=== PATIENT | female | born 1985 | race Two or more races ===

== ENCOUNTER 2020-01-28 14:16 | Outpatient (REF) | payer OTHER, SELFPAY | END 2020-01-28 14:17 | disposition home or self-care (01) | LOC: HO.LAB 14:16 | PROVIDERS: PCP Internal Medicine; Visit Provider Internal Medicine | DX: Z20.828 Contact with and (suspected) exposure to other viral communicable diseases (principal) | CPT/HCPCS: 87635 ==

== ENCOUNTER 2020-02-23 13:34 | Outpatient (REF) | payer OTHER, SELFPAY | END 2020-02-23 13:35 | disposition home or self-care (01) | LOC: HO.LAB 13:34 | PROVIDERS: Visit Provider Internal Medicine | DX: Z20.828 Contact with and (suspected) exposure to other viral communicable diseases (principal) | CPT/HCPCS: C9803; U0003 ==

== ENCOUNTER 2020-03-02 15:49 | Emergency (ER) | payer OTHER, SELFPAY ==
[2020-03-02 16:38] VITALS: BP 152/92; PULSE 80; RESP 16; TEMP 36.2; O2SAT 99; BMI 46.0
--- NOTE | 2020-03-02 19:38 | CT_ITS ---
EXAMINATION: CT ABDOMEN AND PELVIS WITHOUT CONTRAST CLINICAL INFORMATION: Right flank pain COMPARISON: CT scan abdomen pelvis 12/11/2019 TECHNIQUE: Multidetector volumetric imaging was performed from the superior aspect of the liver through the pubic symphysis. Sagittal and coronal reformatted images were obtained on the technologist's workstation. This CT examination was performed using dose optimization techniques as appropriate, variously including the following: *Automated exposure control *Adjustment of mA and/or kV according to patient size (this includes techniques or standardized protocols for targeted exams where dose is matched to indication/reason for exam; i.e. extremities or head) *Use of iterative reconstruction technique DLP: 1117 mGy-cm FINDINGS: LUNG BASES: The visualized lung bases are unremarkable. LIVER, GALLBLADDER, AND BILIARY TREE: The liver is normal in size, shape, and attenuation. No focal hepatic lesion or biliary ductal dilatation is present. The gallbladder is unremarkable with no evidence of radiopaque gallstones, gallbladder wall thickening, or obvious pericholecystic inflammatory changes. PANCREAS: Unremarkable. SPLEEN: Unremarkable. ADRENAL GLANDS: Unremarkable. KIDNEYS AND URETERS: Right kidney: [id number] hydronephrosis of right kidney with distention renal pelvis calyces and the right ureter. There is an obstructing 2 mm stone in the distal right ureter at about the level of the pelvic inlet. Axial image 534 series 4. There are numerous small stones in the right kidney measuring between 1 and 3 mm. Left kidney: There are numerous small stones in the left kidney measuring between 1 and 3 mm. There is a linear stone in the lower pole of left kidney measuring 1 x 0.4 cm. There are no ureteral calculi. There is no hydronephrosis. BLADDER: No stone in the bladder. No bladder mass or inflammation. GASTROINTESTINAL TRACT: The small and large bowel are unremarkable. The appendix is unremarkable. ABDOMINAL WALL: Small fat-containing umbilical hernia. LYMPH NODES: Normal. VASCULAR: Unremarkable. PELVIC VISCERA: Unremarkable. OSSEOUS STRUCTURES: Partial fusion L4-L5 vertebrae. CT/CT abdomen pelvis wo con IMPRESSION: 1. Moderate to marked hydronephrosis of right kidney due to an obstructing 2 mm stone in the distal right ureter. 2. Numerous small stones in both kidneys.
--- NOTE | 2020-03-02 19:42 | ED.ABDPAIN ---
HPI - Abdominal Pain General Chief Complaint: Abdominal Pain Stated Complaint: right side pain Time Seen by Provider: 03/02/20 19:38 History of Present Illness HPI narrative: Patient is a 34-year-old female with a history of renal colic presents today with having abdominal pain over the right flank area radiating to the right lower quadrant. The pain is sharp in nature similar to previous bouts of kidney stone. Has been ongoing for about 3 days. Comes and go no specific trigger associated with nausea. No vomiting. No change in bowel movement. No pain on urination. No coughing or congestion or upper respiratory symptoms. Patient's denies any past medical problems. Did not miss her menstrual period. The pain is sharp 11/28 no specific trigger. Not associated with food. Related Data Previous Rx's Medication Instructions Recorded ibuprofen 400 mg PO Q6H PRN #20 tab 03/02/20 ondansetron 4 mg PO TID PRN 5 Days #10 tab 03/02/20 tamsulosin [Flomax] 0.4 mg PO DAILY #7 cap 03/02/20 Allergies Allergy/AdvReac Type Severity Reaction Status Date / Time canned food Allergy Unknown rash Verified 03/02/20 16:38 RED MEAT Allergy Unknown UNK Uncoded 03/02/20 16:38 Review of Systems Review of Systems Constitutional: No Weight loss, No Fever, No Chills, No Night Sweats, No Fatigue, No Malaise ENT/Mouth: No Hearing loss, No Ear Pain, No Nasal Congestion, No Sinus Pain, No Hoarseness, No sore throat, No Rhinorrhea, No Swallowing Difficulty Eyes: No Eye Pain, No Swelling, No Redness, No Foreign Body, No Discharge, No Vision Changes Cardiovascular: No Chest Pain, No SOB, No Dyspnea on Exertion, No Orthopnea, No Edema, No Palpitations Respiratory: No Cough, No Sputum, No Wheezing, No Smoke Exposure, No Dyspnea Gastrointestinal: Positive Nausea, No Vomiting, No Diarrhea, No Constipation, positive abdominal Pain, No Hematochezia, No Melena Genitourinary: no irregular bleeding, No Dysuria, No Urinary Frequency, No Hematuria, No Urinary Incontinence, No Urgency, No Flank Pain, No Urinary Flow Changes, No Hesitancy Musculoskeletal: No joint pain, No Myalgias, No Joint Swelling Skin: No Skin Lesions, No rash Neuro: No Weakness, No Numbness, No Paresthesias, No Loss of Consciousness, No Dizziness, No Headache Psych: No Anxiety/Panic, No Depression, No SI/HI/AH/VH, No Social Issues, Heme/Lymph: No Bruising, No Bleeding,No Lymphadenopathy Endocrine: No Polyuria, No Polydipsia, No Temperature Intolerance Physical Exam Vital Signs: Vital Signs: Last Vital Signs Temp 97.9 F 03/02/20 21:31 Pulse 67 03/02/20 21:31 Resp 18 03/02/20 21:31 BP 116/68 03/02/20 21:31 Pulse Ox 99 03/02/20 21:31 Body Mass Index 46.0 Appearance: Alert. Oriented X3. No acute distress. Eyes: Pupils equal, round and reactive to light. ENT: Pharynx normal. Neck: Normal inspection. Neck supple. No lymph nodes noted. No crepitus CVS: Normal heart rate and rhythm. Pulses normal. Normal S1 and S2 Respiratory: No respiratory distress. Breath sounds normal. No Wheezing. No rales Abdomen: Soft and nontender. No rigidity. No distention. good BS x4 Skin: Skin warm and dry. Normal skin color. Normal skin turgor. Extremities: No lower extremity edema. Neurovascular intact to all extremities. No Lacerations. No Rash Neuro: Oriented X 3. No motor deficit. No sensory deficit. Moving all extermities. No slurred speech MDM - Abdominal Pain MDM Narrative Medical decision making narrative: Patient's CT scan positive for having a 2 mm stone at the right UVJ area. Patient's urine is not infected. Pain is controlled. Patient's creatinine is normal. Will discharge patient home close follow-up with Urology on an outpatient basis. Currently in stable condition. test is negative no evidence of ectopic. Medical Records Attestation: I reviewed the patient's medical records. Lab Data Attestation: I reviewed the patient's lab results. Result diagrams: 03/02/20 20:12 03/02/20 20:12 Labs: Lab Results 03/02/20 03/02/20 03/02/20 Range/Units 20:12 20: 20:12 WBC 12.8 H (4.8-10.8) X10*3/uL RBC 4.93 (4.20-5.50) X10*6/uL Hgb 12.4 (12.0-16.0) g/dl Hct 40.0 (37-47) % MCV 81.1 (80-98) fL MCH 25.2 L (27.0-33.0) pg MCHC 31.0 (31.0-35.0) g/dl RDW 14.9 (11.0-16.0) % Plt Count 296 (160-400) X10*3/uL MPV 10.1 (9.4-12.3) fL Immature Gran % (Auto) 0.4 (0.0-0.4) % Neut % (Auto) 64.0 (45-73) % Lymph % (Auto) 24.1 (20-40) % [place] % (Auto) 6.5 (2-11) % Eos % (Auto) 3.9 (0-4) % Baso % (Auto) 1.1 (0-2) % Lymph # (Auto) 3.1 (1.2-4.9) X10*3/uL [place] # (Auto) 0.8 (0.1-1.2) X10*3/uL Eos # (Auto) 0.5 H (0.0-0.4) X10*3/uL Baso # (Auto) 0.1 (0.0-0.2) X10*3/uL Abs Immat Gran (auto) 0.05 H (0.00-0.03) X10*3/uL Absolute Neuts (auto) 8.2 (2.0-8.3) X10*3/uL Absolute Nucleated RBC 0.000 (0.0-0.012) X10*3/uL Nucleated RBC % (auto) 0.0 (0.0-0.2) /100WBC Hold Blue Top SEE NOTE Sodium 139 (135-145) mmol/L Potassium 4.1 (3.3-5.1) mmol/l Chloride 103 (96-108) mmol/L Carbon Dioxide 28 (22-29) mmol/L Anion Gap 12 (12-20) BUN 16 (9-16) mg/dL Creatinine 0.96 (0.5-1.4) mg/dL Estim Creat Clear Calc 104.4 Estimated GFR > 60 Random Glucose 92 (60-115) mg/dL Calcium 8.5 (8.4-10.2) mg/dL Total Bilirubin 0.3 (0.0-1.0) mg/dL AST 16 (5-31) U/L ALT 18 (0-31) U/L Alkaline Phosphatase 75 (39-117) U/L Total Protein 7.1 (6.5-8.0) g/dL Albumin 3.8 (3.5-5.0) g/dL Lipase 12 (8-78) U/L Urine Color Urine Appearance Urine pH (5.0-8.0) Ur Specific [place] (1.005-1.025) Urine Protein (NEG-TRACE) MG/DL Urine Glucose (UA) (NEG) MG/DL Urine Ketones (NEG) MG/DL Urine Blood (NEG) Urine Nitrite (NEG) Ur Leukocyte Esterase (NEG) Urine RBC (0) /HPF Urine WBC (0-4) /HPF Ur Squamous Epith Cells /LPF Urine Bacteria /LPF Urine Test (NEGATIVE) 03/02/20 Range/Units 20:19 WBC (4.8-10.8) X10*3/uL RBC (4.20-5.50) X10*6/uL Hgb (12.0-16.0) g/dl Hct (37-47) % MCV (80-98) fL MCH (27.0-33.0) pg MCHC (31.0-35.0) g/dl RDW (11.0-16.0) % Plt Count (160-400) X10*3/uL MPV (9.4-12.3) fL Immature Gran % (Auto) (0.0-0.4) % Neut % (Auto) (45-73) % Lymph % (Auto) (20-40) % [place] % (Auto) (2-11) % Eos % (Auto) (0-4) % Baso % (Auto) (0-2) % Lymph # (Auto) (1.2-4.9) X10*3/uL [place] # (Auto) (0.1-1.2) X10*3/uL Eos # (Auto) (0.0-0.4) X10*3/uL Baso # (Auto) (0.0-0.2) X10*3/uL Abs Immat Gran (auto) (0.00-0.03) X10*3/uL Absolute Neuts (auto) (2.0-8.3) X10*3/uL Absolute Nucleated RBC (0.0-0.012) X10*3/uL Nucleated RBC % (auto) (0.0-0.2) /100WBC Hold Blue Top Sodium (135-145) mmol/L Potassium (3.3-5.1) mmol/l Chloride (96-108) mmol/L Carbon Dioxide (22-29) mmol/L Anion Gap (12-20) BUN (9-16) mg/dL Creatinine (0.5-1.4) mg/dL Estim Creat Clear Calc Estimated GFR Random Glucose (60-115) mg/dL Calcium (8.4-10.2) mg/dL Total Bilirubin (0.0-1.0) mg/dL AST (5-31) U/L ALT (0-31) U/L Alkaline Phosphatase (39-117) U/L Total Protein (6.5-8.0) g/dL Albumin (3.5-5.0) g/dL Lipase (8-78) U/L Urine Color YELLOW Urine Appearance HAZY Urine pH 6.0 (5.0-8.0) Ur Specific [place] 1.020 (1.005-1.025) Urine Protein 1+ H (NEG-TRACE) MG/DL Urine Glucose (UA) NEG (NEG) MG/DL Urine Ketones NEG (NEG) MG/DL Urine Blood 3+ H (NEG) Urine Nitrite NEG (NEG) Ur Leukocyte Esterase NEG (NEG) Urine RBC 5-9 H (0) /HPF Urine WBC 0 (0-4) /HPF Ur Squamous Epith Cells 1+ /LPF Urine Bacteria 1+ /LPF Urine Test NEGATIVE (NEGATIVE) Discharge Plan Discharge Clinical Impression: Renal colic Patient Disposition: Home, Self-Care Instructions: Renal Colic (ED) Prescriptions: New ibuprofen 400 mg tablet 400 mg PO Q6H PRN (Reason: pain) Qty: 20 RF: 0 ondansetron 4 mg tablet,disintegrating 4 mg PO TID PRN (Reason: nausea and vomiting) 5 Days Qty: 10 RF: 0 tamsulosin [Flomax] 0.4 mg capsule 0.4 mg PO DAILY Qty: 7 RF: 0 Referrals: Jack Johnson MD [Physician] - 2 days [facility] Past Medical History Attestation statement: The following information was validated with the patient. Medical History Active asthma Fibromyalgia Hypertension Surgical History History of extraction of renal calculus History of tubal ligation Family History Family History Father Anemia Sister Cervical cancer Maternal Aunt Breast cancer Diabetes Mother No problems noted. Social History Social History Alcohol intake: never Smoking Status: Never smoker Use of substances other than those prescribed or required for medical reasons: No Advance Directives: No Advance Directives Information Provided: No
[2020-03-02 20:00] VITALS: BP 127/71; PULSE 71; RESP 18; TEMP 36.4; O2SAT 99
[2020-03-02] MEDS: 0.9 % Sodium Chloride 1,000 ML 999 ML IVCONT (20:18)
[2020-03-02] MEDS: Ketorolac Tromethamine 30 MG/ML VIAL IVPUSH (20:18)
[2020-03-02 20:27] LABS: Glucose Urine UA NEG (NEG); Leukocyte Esterase Urine NEG (NEG); Nitrite Urine NEG (NEG); Urine Blood 3+ (NEG); Urine Ketones NEG (NEG); Urine Protein 1+ MG/DL (NEG-TRACE)
[2020-03-02 20:28] LABS: Appearance Urine HAZY; Color Urine YELLOW
[2020-03-02 20:28] LABS: MANUAL DIFF FLAG NO
[2020-03-02 20:30] LABS: Basophils Absolute Auto 0.1 X10*3/uL (0.0-0.2); Basophils Percent Auto 1.1 % (0-2); Eosinophils Absolute Auto 0.5 X10*3/uL (0.0-0.4); Eosinophils Percent Auto 3.9 % (0-4); Hemoglobin 12.4 g/dl (12.0-16.0); Imm Gran Abs Auto 0.05 X10*3/uL (0.00-0.03); Imm Gran Pct Auto 0.4 % (0.0-0.4); Lymphocytes Absolute Auto 3.1 X10*3/uL (1.2-4.9); Lymphocytes Percent Auto 24.1 % (20-40); Mean Corpuscular Hemoglobin 25.2 pg (27.0-33.0); Mean Corpuscular Volume 81.1 fL (80-98); Mean Platelet Volume 10.1 fL (9.4-12.3); Monocytes Absolute Auto 0.8 X10*3/uL (0.1-1.2); Monocytes Percent Auto 6.5 % (2-11); Neutrophils Absolute Auto 8.2 X10*3/uL (2.0-8.3); Platelet Count 296 X10*3/uL (160-400); Red Blood Count 4.93 X10*6/uL (4.20-5.50); Red Cell Distribution Width 14.9 % (11.0-16.0); White Blood Count 12.8 X10*3/uL (4.8-10.8)
[2020-03-02 20:30] LABS: UPreg QC Valid YES; Urine Pregnancy NEGATIVE (NEGATIVE)
[2020-03-02 20:33] LABS: Bacteria Urine 1+ /LPF; Squamous Epithelial Cell Urine 1+ /LPF; WBC Urine 0 /HPF (0-4)
[2020-03-02 20:56] LABS: Alanine Aminotransferase 18 U/L (0-31); Albumin Level 3.8 g/dL (3.5-5.0); Alkaline Phosphatase 75 U/L (39-117); Anion Gap 12 (12-20); Aspartate Amino Transferase 16 U/L (5-31); Bilirubin Total 0.3 mg/dL (0.0-1.0); Blood Urea Nitrogen 16 mg/dL (9-16); Calcium 8.5 mg/dL (8.4-10.2); Carbon Dioxide 28 mmol/L (22-29); Chloride 103 mmol/L (96-108); Creatinine Clr Calc Pharmacy 104.4; Estimated Glomerular Filt Rate > 60; Glucose Random 92 mg/dL (60-115); Lipase 12 U/L (8-78); Potassium 4.1 mmol/l (3.3-5.1); Sodium 139 mmol/L (135-145); Total Protein 7.1 g/dL (6.5-8.0)
[2020-03-02 21:31] VITALS: BP 116/68; PULSE 67; RESP 18; TEMP 36.6; O2SAT 99
== END 2020-03-02 22:43 | disposition home or self-care (01) ==
PROVIDERS: Emergency Provider Emergency Medicine Emergency Medical Services; PCP Internal Medicine
DX: N23 Unspecified renal colic (principal); I10 Essential (primary) hypertension; Z79.899 Other long term (current) drug therapy
CPT/HCPCS: 36415; 74176; 80053; 81001; 81025; 83690; 85025; 96361; 96374; 99284; J1885

== ENCOUNTER 2020-03-27 08:48 | Emergency (ER) | payer OTHER, SELFPAY ==
[2020-03-27 09:04] VITALS: BP 137/87; PULSE 98; RESP 18; TEMP 36.9; O2SAT 99; BMI 42.5
--- NOTE | 2020-03-27 09:09 | ED_ITS ---
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 Mode of arrival: ambulatory Limitations: no limitations History of Present Illness HPI narrative: just seen on 03/02 for 2mm stone R UVJ did not follow up with her Urologist who is on vacation, noted fevers and dysuria last night MD elicited complaint: abdominal pain and flank pain Pertinent past history: kidney stones Onset (ago): day(s) (3) Severity: similar to previous episodes Quality: stabbing Radiation: R flank Migration to: no migration Exacerbating factors: nothing Relieving factors: nothing Context: history of similar episodes Associated symptoms: nausea, fever, chills and dysuria Related Data Previous Rx's Medication Instructions Recorded ibuprofen 400 mg PO Q6H PRN #20 tab 03/02/20 ondansetron 4 mg PO TID PRN 5 Days #10 tab 03/02/20 tamsulosin [Flomax] 0.4 mg PO DAILY #7 cap 03/02/20 cefuroxime axetil 500 mg PO BID 7 Days #28 tab 03/27/20 hydrocodone-acetaminophen 1 tab PO Q6H PRN #15 tab 03/27/20 ibuprofen 600 mg PO Q6H PRN #30 tab 03/27/20 ondansetron 4 mg PO Q8H PRN #20 tab 03/27/20 prednisone 40 mg PO DAILY 5 Days #10 tab 03/27/20 tamsulosin 0.4 mg PO DAILY 5 Days #5 cap 03/27/20 Allergies Allergy/AdvReac Type Severity Reaction Status Date / Time canned food Allergy Unknown rash Verified 03/02/20 16:38 RED MEAT Allergy Unknown UNK Uncoded 03/02/20 16:38 Review of Systems Review of Systems Constitutional : pos Fever, pos Chills ENT/Mouth : No sore throat Eyes: No Eye Pain, No Swelling, No Redness Cardiovascular : No Chest Pain, No SOB Respiratory : No Cough, No Sputum, No Wheezing Gastrointestinal : positive Nausea, no Vomiting, No Diarrhea, positive abdominal pain Genitourinary : positive Dysuria, positive urinary frequency, no Hematuria, positive Flank Pain, positive hesitancy Musculoskeletal : No joint pain, No Myalgias Skin : No Skin Lesions, No rash Neuro : No Weakness, No Numbness, No Headache Psych : No Anxiety/Panic, No Depression Heme/Lymph: No Bruising, No Lymphadenopathy Endocrine : No Polyuria, No Polydipsia All other systems reviewed and are negative Physical Exam Vital Signs: Vital Signs: Last Vital Signs Temp 98.4 F 03/27/20 09:04 Pulse 68 03/27/20 10:58 Resp 16 03/27/20 10:58 BP 114/68 03/27/20 10:58 Pulse Ox 99 03/27/20 09:04 Body Mass Index 42.5 Appearance: Alert. Oriented X3. No acute distress. Eyes: Pupils equal, round and reactive to light. ENT: Pharynx normal. Neck: Normal inspection. Neck supple. CVS: Normal heart rate and rhythm. Pulses normal. Respiratory: No respiratory distress. Breath sounds normal. Abdomen: Soft and non-tender. Back: + R sided CVA ttp Skin: Skin warm and dry. Normal skin color. Normal skin turgor. Extremities: No lower extremity edema. No calf ttp Neuro: Oriented X 3. No motor deficit. No sensory deficit. Course Course Course Narrative: not toxic, no signs of sepsis, can tolerate PO at this time will DC with Urology follow up , still has some R sided hydro likely new stone MDM - Abdominal Pain MDM Narrative Medical decision making narrative: 34 yo female with hx of renal colic just dx with 2mm R UVJ stone unsure if she passed it but 3 days of R flank pain yeste rday noted fevers with dysuria - will need labs, UA, US of R kidney, IVF, IV Toradol and IV morphine for pain. Lab Data Result diagrams: 03/27/20 09:25 03/27/20 09:25 Labs: Lab Results 03/27/20 03/27/20 03/27/20 Range/Units 09:25 09:25 09:25 WBC 6.5 (4.8-10.8) X10*3/uL RBC 5.16 (4.20-5.50) X10*6/uL Hgb 13.0 (12.0-16.0) g/dl Hct 41.8 (37-47) % MCV 81.0 (80-98) fL MCH 25.2 L (27.0-33.0) pg MCHC 31.1 (31.0-35.0) g/dl RDW 14.9 (11.0-16.0) % Plt Count 258 (160-400) X10*3/uL MPV 10.6 (9.4-12.3) fL Immature Gran % (Auto) 0.3 (0.0-0.4) % Neut % (Auto) 62.1 (45-73) % Lymph % (Auto) 20.0 (20-40) % [place] % (Auto) 14.2 H (2-11) % Eos % (Auto) 2.3 (0-4) % Baso % (Auto) 1.1 (0-2) % Lymph # (Auto) 1.3 (1.2-4.9) X10*3/uL [place] # (Auto) 0.9 (0.1-1.2) X10*3/uL Eos # (Auto) 0.2 (0.0-0.4) X10*3/uL Baso # (Auto) 0.1 (0.0-0.2) X10*3/uL Abs Immat Gran (auto) 0.02 (0.00-0.03) X10*3/uL Absolute Neuts (auto) 4.0 (2.0-8.3) X10*3/uL Absolute Nucleated RBC 0.000 (0.0-0.012) X10*3/uL Nucleated RBC % (auto) 0.0 (0.0-0.2) /100WBC Hold Blue Top SEE NOTE Sodium 138 (135-145) mmol/L Potassium 4.0 (3.3-5.1) mmol/l Chloride 103 (96-108) mmol/L Carbon Dioxide 27 (22-29) mmol/L Anion Gap 12 (12-20) BUN 13 (9-16) mg/dL Creatinine 0.93 (0.5-1.4) mg/dL Estim Creat Clear Calc 114.3 Estimated GFR > 60 Random Glucose 103 (60-115) mg/dL Calcium 8.6 (8.4-10.2) mg/dL Magnesium 1.8 (1.6-2.6) mg/dL Total Bilirubin 0.4 (0.0-1.0) mg/dL Direct Bilirubin < 0.2 (0.0-0.5) mg/dL AST 14 (5-31) U/L ALT 16 (0-31) U/L Alkaline Phosphatase 71 (39-117) U/L Total Protein 7.1 (6.5-8.0) g/dL Albumin 3.8 (3.5-5.0) g/dL Lipase 12 (8-78) U/L Urine Color Urine Appearance Urine pH (5.0-8.0) Ur Specific [place] (1.005-1.025) Urine Protein (NEG-TRACE) MG/DL Urine Glucose (UA) (NEG) MG/DL Urine Ketones (NEG) MG/DL Urine Blood (NEG) Urine Nitrite (NEG) Ur Leukocyte Esterase (NEG) Urine RBC (0) /HPF Urine WBC (0-4) /HPF Ur Squamous Epith Cells /LPF Amorphous Sediment /LPF Urine Bacteria /LPF 03/27/20 Range/Units 09:25 WBC (4.8-10.8) X10*3/uL RBC (4.20-5.50) X10*6/uL Hgb (12.0-16.0) g/dl Hct (37-47) % MCV (80-98) fL MCH (27.0-33.0) pg MCHC (31.0-35.0) g/dl RDW (11.0-16.0) % Plt Count (160-400) X10*3/uL MPV (9.4-12.3) fL Immature Gran % (Auto) (0.0-0.4) % Neut % (Auto) (45-73) % Lymph % (Auto) (20-40) % [place] % (Auto) (2-11) % Eos % (Auto) (0-4) % Baso % (Auto) (0-2) % Lymph # (Auto) (1.2-4.9) X10*3/uL [place] # (Auto) (0.1-1.2) X10*3/uL Eos # (Auto) (0.0-0.4) X10*3/uL Baso # (Auto) (0.0-0.2) X10*3/uL Abs Immat Gran (auto) (0.00-0.03) X10*3/uL Absolute Neuts (auto) (2.0-8.3) X10*3/uL Absolute Nucleated RBC (0.0-0.012) X10*3/uL Nucleated RBC % (auto) (0.0-0.2) /100WBC Hold Blue Top Sodium (135-145) mmol/L Potassium (3.3-5.1) mmol/l Chloride (96-108) mmol/L Carbon Dioxide (22-29) mmol/L Anion Gap (12-20) BUN (9-16) mg/dL Creatinine (0.5-1.4) mg/dL Estim Creat Clear Calc Estimated GFR Random Glucose (60-115) mg/dL Calcium (8.4-10.2) mg/dL Magnesium (1.6-2.6) mg/dL Total Bilirubin (0.0-1.0) mg/dL Direct Bilirubin (0.0-0.5) mg/dL AST (5-31) U/L ALT (0-31) U/L Alkaline Phosphatase (39-117) U/L Total Protein (6.5-8.0) g/dL Albumin (3.5-5.0) g/dL Lipase (8-78) U/L Urine Color YELLOW Urine Appearance CLOUDY Urine pH 6.5 (5.0-8.0) Ur Specific [place] 1.020 (1.005-1.025) Urine Protein 2+ H (NEG-TRACE) MG/DL Urine Glucose (UA) NEG (NEG) MG/DL Urine Ketones NEG (NEG) MG/DL Urine Blood 3+ H (NEG) Urine Nitrite NEG (NEG) Ur Leukocyte Esterase 2+ H (NEG) Urine RBC 1-4 (0) /HPF Urine WBC 10-14 H (0-4) /HPF Ur Squamous Epith Cells 1+ /LPF Amorphous Sediment 1+ /LPF Urine Bacteria 1+ /LPF Discharge Plan Discharge Clinical Impression: Bilateral renal stones, UTI (urinary tract infection) Patient Disposition: Home, Self-Care Instructions: Urinary Tract Infection in Women (ED), Renal Colic (ED) Additional Instructions: return to ED for any worsening symptoms or concerns Prescriptions: New cefuroxime axetil 250 mg tablet 500 mg PO BID 7 Days Qty: 28 RF: 0 hydrocodone-acetaminophen 5-325 mg tablet 1 tab PO Q6H PRN (Reason: pain) Qty: 15 RF: 0 prednisone 20 mg tablet 40 mg PO DAILY 5 Days Qty: 10 RF: 0 ibuprofen 600 mg tablet 600 mg PO Q6H PRN (Reason: pain) Qty: 30 RF: 0 ondansetron 4 mg tablet,disintegrating 4 mg PO Q8H PRN (Reason: nausea and vomiting) Qty: 20 RF: 0 tamsulosin 0.4 mg capsule 0.4 mg PO DAILY 5 Days Qty: 5 RF: 0 No Action ibuprofen 400 mg tablet 400 mg PO Q6H PRN (Reason: pain) Qty: 20 RF: 0 ondansetron 4 mg tablet,disintegrating 4 mg PO TID PRN (Reason: nausea and vomiting) 5 Days Qty: 10 RF: 0 tamsulosin [Flomax] 0.4 mg capsule 0.4 mg PO DAILY Qty: 7 RF: 0 Referrals: Jack Johnson MD [Physician] - 3 days (if not better) Stand Alone Forms: Work/School Release Print Language: [facility] Past Medical History Attestation statement: The following information was validated with the patient. Medical History Active asthma Fibromyalgia Hypertension Surgical History History of extraction of renal calculus History of tubal ligation Family History Family History Father Anemia Sister Cervical cancer Maternal Aunt Breast cancer Diabetes Mother No problems noted. Social History Social History Alcohol intake: never Smoking Status: Never smoker Advance Directives: No Advance Directives Information Provided: No
--- NOTE | 2020-03-27 09:26 | US_ITS ---
EXAMINATION: ULTRASOUND KIDNEYS. CLINICAL INFORMATION: Right flank pain. History of stones COMPARISON: CT abdomen and pelvis without contrast 12/11/2019 TECHNIQUE: Routine grayscale retroperitoneal imaging was performed. FINDINGS: The right kidney measures 11.5 cm in length, 6.4 cm in AP and 5.1 cm in transverse dimension. There are echogenic pyramids and multiple echogenic stones. The largest stone lower pole measures 0.6 cm and midpole measures 0.5 cm. There is mild hydronephrosis with mild proximal ureteral dilatation measuring 1.0 cm. Cortical thickness is maintained normal. Left kidney measures 9.8 cm in length, 6.1 cm in AP and 6.0 cm in transverse dimension. There is normal cortical thickness that echogenic pyramids and echogenic stones. A lower pole echogenic stone measuring 0.8 cm and in the upper pole measuring 0.5 cm of the largest. No caliectasis or hydronephrosis seen. 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 There are bilateral nonobstructive echogenic renal calculi. There is mild right hydronephrosis and dilated right proximal ureter. No left-sided hydronephrosis seen.
[2020-03-27] MEDS: 0.9 % Sodium Chloride 1,000 ML 999 ML IVCONT (09:27)
[2020-03-27] MEDS: Morphine Sulfate 4 MG/ML CARTRIDGE IVPUSH (09:28)
[2020-03-27] MEDS: ondansetron HCL 4 MG/2 ML VIAL IVPUSH (09:28)
[2020-03-27] MEDS: Ketorolac Tromethamine 30 MG/ML VIAL IVPUSH (09:28)
[2020-03-27 09:32] LABS: MANUAL DIFF FLAG NO
[2020-03-27 09:35] LABS: Basophils Absolute Auto 0.1 X10*3/uL (0.0-0.2); Basophils Percent Auto 1.1 % (0-2); Eosinophils Absolute Auto 0.2 X10*3/uL (0.0-0.4); Eosinophils Percent Auto 2.3 % (0-4); Hematocrit 41.8 % (37-47); Imm Gran Abs Auto 0.02 X10*3/uL (0.00-0.03); Imm Gran Pct Auto 0.3 % (0.0-0.4); Lymphocytes Absolute Auto 1.3 X10*3/uL (1.2-4.9); Mean Corpuscular HGB Conc 31.1 g/dl (31.0-35.0); Mean Corpuscular Hemoglobin 25.2 pg (27.0-33.0); Mean Platelet Volume 10.6 fL (9.4-12.3); Monocytes Absolute Auto 0.9 X10*3/uL (0.1-1.2); Monocytes Percent Auto 14.2 % (2-11); Neutrophils Percent Auto 62.1 % (45-73); Platelet Count 258 X10*3/uL (160-400); Red Blood Count 5.16 X10*6/uL (4.20-5.50); Red Cell Distribution Width 14.9 % (11.0-16.0); White Blood Count 6.5 X10*3/uL (4.8-10.8)
[2020-03-27 09:37] LABS: Glucose Urine UA NEG (NEG); Leukocyte Esterase Urine 2+ (NEG); Nitrite Urine NEG (NEG); PH 6.5 (5.0-8.0); Urine Blood 3+ (NEG); Urine Ketones NEG (NEG); Urine Protein 2+ MG/DL (NEG-TRACE)
[2020-03-27 09:45] LABS: Color Urine YELLOW
[2020-03-27 09:46] LABS: Appearance Urine CLOUDY
[2020-03-27 10:05] LABS: Amorphous Sediment Urine 1+ /LPF; Bacteria Urine 1+ /LPF; Squamous Epithelial Cell Urine 1+ /LPF
[2020-03-27 10:06] LABS: Alanine Aminotransferase 16 U/L (0-31); Albumin Level 3.8 g/dL (3.5-5.0); Alkaline Phosphatase 71 U/L (39-117); Anion Gap 12 (12-20); Aspartate Amino Transferase 14 U/L (5-31); Bilirubin Direct < 0.2 mg/dL (0.0-0.5); Bilirubin Total 0.4 mg/dL (0.0-1.0); Blood Urea Nitrogen 13 mg/dL (9-16); Calcium 8.6 mg/dL (8.4-10.2); Carbon Dioxide 27 mmol/L (22-29); Chloride 103 mmol/L (96-108); Creatinine Clr Calc Pharmacy 114.3; Estimated Glomerular Filt Rate > 60; Glucose Random 103 mg/dL (60-115); Lipase 12 U/L (8-78); Magnesium 1.8 mg/dL (1.6-2.6); Sodium 138 mmol/L (135-145); Total Protein 7.1 g/dL (6.5-8.0)
[2020-03-27 10:58] VITALS: BP 114/68; PULSE 68; RESP 16
== END 2020-03-27 12:52 | disposition home or self-care (01) ==
PROVIDERS: Emergency Provider Emergency Medicine; PCP Internal Medicine
DX: N20.0 Calculus of kidney (principal); N39.0 Urinary tract infection, site not specified; I10 Essential (primary) hypertension; Z87.442 Personal history of urinary calculi
CPT/HCPCS: 36415; 76775; 80048; 80076; 81001; 83690; 83735; 85025; 87086; 96361; 96374; 96375; 99284; J1885; J2270; J2405

== ENCOUNTER → 2020-03-28 13:42 | Outpatient (BNVA) | payer OTHER, SELFPAY | PROVIDERS: PCP Internal Medicine; Visit Provider Urology | DX: N13.2 Hydronephrosis with renal and ureteral calculous obstruction (principal) | CPT/HCPCS: 99202 ==

== ENCOUNTER 2020-04-21 20:08 | Emergency (ER) | payer OTHER, SELFPAY ==
[2020-04-21 20:13] VITALS: BP 145/86; PULSE 98; RESP 18; TEMP 36.7; O2SAT 100; BMI 105.4
--- NOTE | 2020-04-21 21:42 | ED.ABDPAIN ---
HPI - Abdominal Pain General Chief Complaint: Abdominal Pain Stated Complaint: side pain Time Seen by Provider: 04/21/20 21:13 Source: patient Mode of arrival: ambulatory Limitations: language barrier History of Present Illness HPI narrative: Patient with history of kidney stone notice pain right flank since yesterday radiating to right lower quadrant since today , associated with nausea. Also patient complaining of dysuria for last 2 days denies any hematuria no vomiting no diarrhea MD elicited complaint: abdominal pain and flank pain Pertinent past history: kidney stones Onset (ago): day(s) (2) Pain Consistency: constant Location: RLQ and R flank Severity: moderate Quality: stabbing Radiation: RLQ Exacerbating factors: movement Relieving factors: nothing Associated symptoms: nausea Related Data Previous Rx's Medication Instructions Recorded amlodipine 5 mg tablet 5 mg PO DAILY #30 tab 03/27/20 cefuroxime axetil 500 mg PO BID 7 Days #28 tab 03/27/20 hydrocodone-acetaminophen 1 tab PO Q6H PRN #15 tab 03/27/20 ibuprofen 600 mg PO Q6H PRN #30 tab 03/27/20 ondansetron 4 mg PO Q8H PRN #20 tab 03/27/20 prednisone 40 mg PO DAILY 5 Days #10 tab 03/27/20 tamsulosin 0.4 mg PO DAILY 5 Days #5 cap 03/27/20 Allergies Allergy/AdvReac Type Severity Reaction Status Date / Time canned food Allergy Unknown rash Verified 03/02/20 16:38 RED MEAT Allergy Unknown UNK Uncoded 03/02/20 16:38 Review of Systems Review of Systems Constitutional : No Weight loss, No Fever, No Chills ENT/Mouth : No sore throat, No Rhinorrhea Eyes: No Eye Pain, No Swelling Cardiovascular : No Chest Pain, no palpitations Respiratory : No Cough, No Sputum, no shortness of breath Gastrointestinal : ++ Nausea, No Vomiting, No Diarrhea, ++ abdominal Pain, no black stools Genitourinary : No Dysuria, No Urinary Frequency Musculoskeletal : No joint pain, No Myalgias, No Joint Swelling Skin : No Skin Lesions, No rash Neuro : No Weakness, No Numbness, No Dizziness, No Headache Psych : No Anxiety/Panic, No Depression Heme/Lymph: No Bruising, No Lymphadenopathy Endocrine : No Polyuria, No Polydipsia All other systems reviewed and are negative Physical Exam Vital Signs: Vital Signs: Last Vital Signs Temp 98.3 F 04/21/20 22:51 Pulse 89 04/21/20 22:51 Resp 20 04/21/20 22:51 BP 146/96 H 04/21/20 22:51 Pulse Ox 99 04/21/20 22:51 Body Mass Index 105.4 Appearance: Alert. Oriented X3. In mild distress. Eyes: Pupils equal, round and reactive to light. ENT: Pharynx normal. Neck: Normal inspection. Neck supple. CVS: Normal heart rate and rhythm. Pulses normal. Respiratory: No respiratory distress. Breath sounds normal. Abdomen: Soft and deep tenderness right mid abdomen. Bowel sounds are present, no mass palpable, right CVA tenderness ++ Skin: Skin warm and dry. Normal skin color. Normal skin turgor. Extremities: No lower extremity edema. Neuro: Oriented X 3. No motor deficit. No sensory deficit. Course Course Course Narrative: Patient with right flank pain CT scan showed 0.3 cm stone at UVJ junction with moderate hydronephrosis patient feeling better after analgesics and IV fluids will discharge her home advised to follow-up with urologist MDM - Abdominal Pain Lab Data Result diagrams: 04/21/20 22:34 04/21/20 22:35 Labs: Lab Results 04/21/20 04/21/20 04/21/20 Range/Units 22:34 22:34 22:35 WBC 10.0 (4.8-10.8) X10*3/uL RBC 4.76 (4.20-5.50) X10*6/uL Hgb 12.1 (12.0-16.0) g/dl Hct 39.5 (37-47) % MCV 83.0 (80-98) fL MCH 25.4 L (27.0-33.0) pg MCHC 30.6 L (31.0-35.0) g/dl RDW 14.8 (11.0-16.0) % Plt Count 270 (160-400) X10*3/uL MPV 9.8 (9.4-12.3) fL Immature Gran % (Auto) 0.2 (0.0-0.4) % Neut % (Auto) 64.3 (45-73) % Lymph % (Auto) 21.7 (20-40) % [place] % (Auto) 7.5 (2-11) % Eos % (Auto) 5.5 H (0-4) % Baso % (Auto) 0.8 (0-2) % Lymph # (Auto) 2.2 (1.2-4.9) X10*3/uL [place] # (Auto) 0.8 (0.1-1.2) X10*3/uL Eos # (Auto) 0.6 H (0.0-0.4) X10*3/uL Baso # (Auto) 0.1 (0.0-0.2) X10*3/uL Abs Immat Gran (auto) 0.02 (0.00-0.03) X10*3/uL Absolute Neuts (auto) 6.5 (2.0-8.3) X10*3/uL Absolute Nucleated RBC 0.000 (0.0-0.012) X10*3/uL Nucleated RBC % (auto) 0.0 (0.0-0.2) /100WBC Sodium 140 (135-145) mmol/L Potassium 3.8 (3.3-5.1) mmol/l Chloride 104 (96-108) mmol/L Carbon Dioxide 30 H (22-29) mmol/L Anion Gap 10 L (12-20) BUN 14 (9-16) mg/dL Creatinine 0.94 (0.5-1.4) mg/dL Estim Creat Clear Calc 189.1 Estimated GFR > 60 Random Glucose 106 (60-115) mg/dL Calcium 8.1 L (8.4-10.2) mg/dL Total Bilirubin 0.2 (0.0-1.0) mg/dL Direct Bilirubin < 0.2 (0.0-0.5) mg/dL AST 12 (5-31) U/L ALT 16 (0-31) U/L Alkaline Phosphatase 67 (39-117) U/L Total Protein 6.8 (6.5-8.0) g/dL Albumin 3.7 (3.5-5.0) g/dL Lipase 11 (8-78) U/L Urine Color YELLOW Urine Appearance CLEAR Urine pH 7.0 (5.0-8.0) Ur Specific [place] 1.020 (1.005-1.025) Urine Protein 1+ H (NEG-TRACE) MG/DL Urine Glucose (UA) NEG (NEG) MG/DL Urine Ketones NEG (NEG) MG/DL Urine Blood 3+ H (NEG) Urine Nitrite NEG (NEG) Ur Leukocyte Esterase 1+ H (NEG) Urine RBC 0-2 (0) /HPF Urine WBC 5-9 H (0-4) /HPF Ur Squamous Epith Cells 3+ /LPF Urine Bacteria 1+ /LPF Hyaline Casts 0-2 /LPF Granular Casts 0-2 /LPF Urine Test NEGATIVE (NEGATIVE) Discharge Plan Discharge Prescriptions: No Action amlodipine 5 mg tablet 5 mg PO DAILY Qty: 30 RF: 6 cefuroxime axetil 250 mg tablet 500 mg PO BID 7 Days Qty: 28 RF: 0 hydrocodone-acetaminophen 5-325 mg tablet 1 tab PO Q6H PRN (Reason: pain) Qty: 15 RF: 0 prednisone 20 mg tablet 40 mg PO DAILY 5 Days Qty: 10 RF: 0 ibuprofen 600 mg tablet 600 mg PO Q6H PRN (Reason: pain) Qty: 30 RF: 0 ondansetron 4 mg tablet,disintegrating 4 mg PO Q8H PRN (Reason: nausea and vomiting) Qty: 20 RF: 0 tamsulosin 0.4 mg capsule 0.4 mg PO DAILY 5 Days Qty: 5 RF: 0 PMFSH Past Medical History Medical History Active asthma Fibromyalgia Hypertension Surgical History History of extraction of renal calculus History of tubal ligation Family History Family History Father Anemia Sister Cervical cancer Maternal Aunt Breast cancer Diabetes Mother No problems noted. Social History Social History Alcohol intake: never Smoking Status: Unknown if ever smoked Use of substances other than those prescribed or required for medical reasons: No Advance Directives: No Advance Directives Information Provided: No
--- NOTE | 2020-04-21 21:45 | CT_ITS ---
EXAMINATION: CT ABDOMEN AND PELVIS WITHOUT CONTRAST CLINICAL INFORMATION: Right flank pain. Question stone. COMPARISON: 03/02/2020 TECHNIQUE: Multidetector volumetric imaging was performed from the superior aspect of the liver through the pubic symphysis. Sagittal and coronal reformatted images were obtained on the technologist's workstation. This CT examination was performed using dose optimization techniques as appropriate, variously including the following: *Automated exposure control *Adjustment of mA and/or kV according to patient size (this includes techniques or standardized protocols for targeted exams where dose is matched to indication/reason for exam; i.e. extremities or head) *Use of iterative reconstruction technique DLP: 1182 mGy-cm FINDINGS: LUNG BASES: The visualized lung bases are unremarkable. LIVER, GALLBLADDER, AND BILIARY TREE: The liver is normal in size, shape, and attenuation. No focal hepatic lesion or biliary ductal dilatation is present. The gallbladder is unremarkable with no evidence of radiopaque gallstones, gallbladder wall thickening, or obvious pericholecystic inflammatory changes. PANCREAS: Unremarkable. SPLEEN: Unremarkable. ADRENAL GLANDS: Unremarkable. KIDNEYS AND URETERS: The kidneys are normal in size, shape, and attenuation. Bilateral medullary nephrocalcinosis. There is moderate right hydroureteronephrosis. There is a 0.3 cm calculus in the distal ureter at the level of S2-S3. Associated with the medullary nephrocalcinosis, there are multiple renal calculi. On the right there are at least 10 calculi present. These measure up to 0.2 cm, 15 cm from the posterior axillary line. On the left there are at least 7 calculi. For instance there is a 0.3 cm calculus at the upper pole which is 14.5 cm from the posterior axillary line. Calcification at the lower pole cortex of the left kidney. This is unchanged. BLADDER: Unremarkable. GASTROINTESTINAL TRACT: The stomach is unremarkable. Normal caliber small bowel. No obstruction. No colonic wall thickening or inflammatory change. Normal appendix. No free air or free fluid. ABDOMINAL WALL: No significant hernia is appreciated. LYMPH NODES: Normal. VASCULAR: Unremarkable. PELVIC VISCERA: The uterus and adnexa are unremarkable. OSSEOUS STRUCTURES: No acute or suspicious osseous abnormality. Degenerative irregularity at L4-L5, unchanged. CT/CT abdomen pelvis wo con IMPRESSION: Moderate right hydroureteronephrosis with a 0.3 cm distal ureteral calculus. Medullary nephrocalcinosis with multiple additional nonobstructing renal calculi.
[2020-04-21 22:40] LABS: MANUAL DIFF FLAG NO
[2020-04-21 22:43] LABS: Basophils Absolute Auto 0.1 X10*3/uL (0.0-0.2); Basophils Percent Auto 0.8 % (0-2); Eosinophils Absolute Auto 0.6 X10*3/uL (0.0-0.4); Eosinophils Percent Auto 5.5 % (0-4); Hematocrit 39.5 % (37-47); Hemoglobin 12.1 g/dl (12.0-16.0); Imm Gran Abs Auto 0.02 X10*3/uL (0.00-0.03); Imm Gran Pct Auto 0.2 % (0.0-0.4); Lymphocytes Absolute Auto 2.2 X10*3/uL (1.2-4.9); Lymphocytes Percent Auto 21.7 % (20-40); Mean Corpuscular HGB Conc 30.6 g/dl (31.0-35.0); Mean Corpuscular Hemoglobin 25.4 pg (27.0-33.0); Mean Platelet Volume 9.8 fL (9.4-12.3); Monocytes Absolute Auto 0.8 X10*3/uL (0.1-1.2); Monocytes Percent Auto 7.5 % (2-11); Neutrophils Absolute Auto 6.5 X10*3/uL (2.0-8.3); Neutrophils Percent Auto 64.3 % (45-73); Platelet Count 270 X10*3/uL (160-400); Red Blood Count 4.76 X10*6/uL (4.20-5.50); Red Cell Distribution Width 14.8 % (11.0-16.0)
[2020-04-21 22:45] LABS: Glucose Urine UA NEG (NEG); Leukocyte Esterase Urine 1+ (NEG); Nitrite Urine NEG (NEG); Urine Blood 3+ (NEG); Urine Ketones NEG (NEG); Urine Protein 1+ MG/DL (NEG-TRACE)
[2020-04-21 22:46] LABS: Appearance Urine CLEAR; Color Urine YELLOW
[2020-04-21 22:47] LABS: UPreg QC Valid YES; Urine Pregnancy NEGATIVE (NEGATIVE)
[2020-04-21 22:51] VITALS: BP 146/96; PULSE 89; RESP 20; TEMP 36.8; O2SAT 99
[2020-04-21 22:59] LABS: Bacteria Urine 1+ /LPF; Granular Casts Urine 0-2 /LPF; Hyaline Casts Urine 0-2 /LPF; RBC Urine 0-2 /HPF (0); Squamous Epithelial Cell Urine 3+ /LPF
[2020-04-21] MEDS: Ketorolac Tromethamine 30 MG/ML VIAL IVPUSH (23:02)
[2020-04-21] MEDS: 0.9 % Sodium Chloride 1,000 ML 999 ML IVCONT (23:03)
[2020-04-21 23:10] LABS: Alanine Aminotransferase 16 U/L (0-31); Albumin Level 3.7 g/dL (3.5-5.0); Alkaline Phosphatase 67 U/L (39-117); Anion Gap 10 (12-20); Aspartate Amino Transferase 12 U/L (5-31); Bilirubin Direct < 0.2 mg/dL (0.0-0.5); Bilirubin Total 0.2 mg/dL (0.0-1.0); Blood Urea Nitrogen 14 mg/dL (9-16); Calcium 8.1 mg/dL (8.4-10.2); Carbon Dioxide 30 mmol/L (22-29); Chloride 104 mmol/L (96-108); Creatinine Clr Calc Pharmacy 189.1; Estimated Glomerular Filt Rate > 60; Glucose Random 106 mg/dL (60-115); Lipase 11 U/L (8-78); Potassium 3.8 mmol/l (3.3-5.1); Sodium 140 mmol/L (135-145); Total Protein 6.8 g/dL (6.5-8.0)
--- NOTE | 2020-04-21 23:18 | PC.NURSE ---
RLQ PAIN RADIATING TO R FLANK. PT DENIES N/V/D. AWAITING CT.
[2020-04-22] VITALS: BP 113/69; PULSE 72; RESP 16; O2SAT 100
[2020-04-22] MEDS: Morphine Sulfate 4 MG/ML CARTRIDGE IVPUSH (00:24)
[2020-04-22] MEDS: ondansetron HCL 4 MG/2 ML VIAL IVPUSH (00:25)
[2020-04-22] MEDS: Tamsulosin HCL 0.4 MG CAPSULE PO (00:25)
--- NOTE | 2020-04-22 00:31 | PC.NURSE ---
Pt awake and alert, resting on phone. Medicated for 6/10 flank pain. VSS. No acute distress at this time, awaiting dispo
== END 2020-04-22 01:04 | disposition home or self-care (01) ==
PROVIDERS: Emergency Medicine; Emergency Provider Internal Medicine; PCP Internal Medicine
DX: N13.2 Hydronephrosis with renal and ureteral calculous obstruction (principal); E83.59 Other disorders of calcium metabolism; N29 Other disorders of kidney and ureter in diseases classified elsewhere; I10 Essential (primary) hypertension; Z87.442 Personal history of urinary calculi
CPT/HCPCS: 36415; 74176; 80048; 80076; 81001; 81025; 83690; 85025; 87086; 96361; 96374; 96375; 99284; J1100; J1885; J2270; J2405

== ENCOUNTER 2020-04-26 06:06 | Day surgery (SDC) | payer OTHER, SELFPAY ==
[2020-04-25 08:58] VITALS: BMI 43.9
--- NOTE | 2020-04-25 10:37 | HO.ANESPROP2 ---
Documented by User: Jocelin Bowers 04/25/20 10:40 HPI - Anesthesia Eval Consult details Narrative: 34yo F for R ESWL Last ESWL 10/2019 with [facility] Past Medical History Medical History Active asthma Fibromyalgia Hypertension Family History Family History Father Anemia Sister Cervical cancer Maternal Aunt Breast cancer Diabetes Mother No problems noted. Surgical History Surgical History History of extraction of renal calculus History of tubal ligation Social History Social History Alcohol intake: never Smoking Status: Never smoker Second Hand Smoke Exposure: No Use of substances other than those prescribed or required for medical reasons: No Advance Directives: No Advance Directives Information Provided: No Advance Directives on File: No Meds Allergies Allergy/AdvReac Type Severity Reaction Status Date / Time canned food Allergy Unknown rash Verified 03/02/20 16:38 RED MEAT Allergy Unknown UNK Uncoded 03/02/20 16:38 Exam Exam Date and Time: April 25, 2020 1037 Height,Weight and Vital Signs: Height 5 ft 6 in Weight 123.377 kg Pertinent Lab Results Pertinent Lab Results: Laboratory Tests 04/21/20 04/21/20 22:34 22:35 WBC 10.0 Hgb 12.1 Hct 39.5 Plt Count 270 Sodium 140 Potassium 3.8 Chloride 104 Carbon Dioxide 30 H BUN 14 Creatinine 0.94 Assessment and Plan Assessment Anesthesia Assessment: Chart Reviewed Documented by User: Hoda Lew 04/26/20 07:23 PMFSH Past Medical History Medical History Active asthma Fibromyalgia Hypertension Family History Family History Father Anemia Sister Cervical cancer Maternal Aunt Breast cancer Diabetes Mother No problems noted. Surgical History Surgical History History of extraction of renal calculus History of tubal ligation Social History Social History Alcohol intake: never Smoking Status: Never smoker Second Hand Smoke Exposure: No Use of substances other than those prescribed or required for medical reasons: No Advance Directives: No Advance Directives Information Provided: No Advance Directives on File: No Meds Allergies Allergy/AdvReac Type Severity Reaction Status Date / Time canned food Allergy Unknown rash Verified 03/02/20 16:38 RED MEAT Allergy Unknown UNK Uncoded 03/02/20 16:38 Exam Airway Mallampati Class: II TM Dist: >3cm Assessment and Plan Assessment Anesthesia Assessment: Anesthesia Plan Discussed and Chart Reviewed Final Anesthetic Review NPO: Yes ASA Class: III Final Preanesthetic Review: No Changes in Pt Med Stat, Meds/Allgs Chart Reviewed, Consent Obtained/Reviewed and Anes Risks/Benef Reviewed Patient Risk: Intermediate Procedure Risk: Low Assessment/Block/Sedation in SS: Assess/Block/Sedation-SS Anesthetic Plan Anesthetic Plan: MAC: Disposition: Standard PACU
--- NOTE | 2020-04-26 06:00 | XR_ITS ---
EXAMINATION: XR ABDOMEN KUB CLINICAL INDICATION: Right renal stone COMPARISON: CT 04/21/2020 TECHNIQUE: AP view of the abdomen. FINDINGS: Multiple small calcifications are seen overlying the expected position of both kidneys, corresponding to the appearance on prior CT. The calculus which was seen in the right mid ureter is not clearly defined on these radiographs. Phleboliths are seen in the pelvis. Nonobstructive bowel gas pattern. No acute osseous abnormality. XR/XR KUB IMPRESSION: Multiple small bilateral renal calculi are noted. The right ureteral calculus seen on prior CT is not definitively visualized.
[2020-04-26 06:45] VITALS: BP 139/64; PULSE 83; RESP 20; TEMP 35.9; O2SAT 99
[2020-04-26] MEDS: Lactated Ringers 1,000 ML 100 ML IVCONT (07:07)
--- NOTE | 2020-04-26 07:15 | MHC.SHP ---
Pre-Procedural Eval Section B Chief Complaint: Calculus of Kidney Details of Present Illness: Right renal flank pain Relevant Family History (Specify if Yes): No Relevant Social History: None Present Medications: None Medical History: No relevant PMH History of Previous Operations: No relevant previous surgery Allergies: Allergies Allergy/AdvReac Type Severity Reaction Status Date / Time canned food Allergy Unknown rash Verified 03/02/20 16:38 RED MEAT Allergy Unknown UNK Uncoded 03/02/20 16:38 Review of Systems Sugical H&P ROS: Negative: Constitution, Cardiovascular, Respiratory, Neurological, Psychiatric, Hem-Onc, Allergic/Immunologic, Gastrointestinal, Genitourinary, Musculoskeletal, Integumentary, Endocrine and Eyes/Ears/Nose/Throat Exam Surgical H&P Exam: Normal: HEENT, Normal: Heart, Normal: Lungs, Normal: Extremities, Normal: Abdomen, Normal: Skin and Normal: Neurological Plan Diagnosis/Plan: Unchanged I have reviewed the history and physical and performed a pertinent physical examination on my patient. No changes have occurred unless specified. Right ESWL
--- NOTE | 2020-04-26 07:27 | HO.ANESPROP2 ---
[facility] Past Medical History Medical History Active asthma Fibromyalgia Hypertension Family History Family History Father Anemia Sister Cervical cancer Maternal Aunt Breast cancer Diabetes Mother No problems noted. Surgical History Surgical History History of extraction of renal calculus History of tubal ligation Social History Social History Alcohol intake: never Smoking Status: Never smoker Second Hand Smoke Exposure: No Use of substances other than those prescribed or required for medical reasons: No Advance Directives: No Advance Directives Information Provided: No Advance Directives on File: No Meds Allergies Allergy/AdvReac Type Severity Reaction Status Date / Time canned food Allergy Unknown rash Verified 03/02/20 16:38 RED MEAT Allergy Unknown UNK Uncoded 03/02/20 16:38 Exam Exam Date and Time: April 26, 2020726 Height,Weight and Vital Signs: Height 5 ft 6 in Weight 123.377 kg Last Vital Signs Temp 96.7 F L 04/26/20 06:45 Pulse 83 04/26/20 06:45 Resp 20 04/26/20 06:45 BP 139/64 04/26/20 06:45 Pulse Ox 99 04/26/20 06:45 Airway Mallampati Class: II TM Dist: >3cm Neck ROM: Full Assessment and Plan Assessment Anesthesia Assessment: Anesthesia Plan Discussed and Chart Reviewed Final Anesthetic Review NPO: Yes ASA Class: III Final Preanesthetic Review: No Changes in Pt Med Stat, Meds/Allgs Chart Reviewed, Consent Obtained/Reviewed and Anes Risks/Benef Reviewed Patient Risk: Intermediate Procedure Risk: Low Assessment/Block/Sedation in SS: Assess/Block/Sedation-SS Anesthetic Plan Anesthetic Plan: MAC: Disposition: Standard PACU
--- NOTE | 2020-04-26 07:57 | W.PM.OPN ---
Operative Note Operative Note Date of Service: 04/26/20 Narrative: PreOperative Diagnosis: right Renal stones Post Operative Diagnosis: right Renal stones Procedure: ESWL Surgeon: Dr Jack Johnson Anesthesia: mac/sedation Indications for procedure: They understand ESWL may be a staged procedure and subsequent intervention may be required based on imaging after ESWL. They also understand there is a risk of bleeding, infection, damage to adjacent organs. Procedure: After informed consent was verified the patient was brought to the operating room and placed in a supine position. Anesthesia was performed per protocol. Safety pause time-out was performed. Imaging was in the room and laterality confirmed. Targetted 2 clusters in mid and lower pole ESWL was performed. The 1st 500 shocks were performed at 60 hertz. These were performed with increasing power. Once maximum power was reached the rate was increased to 180 hertz. A total of 2500 shocks were given. Fluoroscopy showed stone disintegration. They tolerated procedure well and was transferred to the recovery area upon completion.
--- NOTE | 2020-04-26 08:03 | PM.OP ---
Brief Operative Note Date of Service: 04/26/20 Pre-op diagnosis: right renal stones Post-op diagnosis: same Procedure: right ESWL Surgeon: Jack Johnson MD Anesthesia: MAC Estimated blood loss (mL): 0 Pathology: none sent Condition: stable Disposition: same day
[2020-04-26 08:04] VITALS: BP 110/73; PULSE 86; RESP 18; TEMP 36.6; O2SAT 97
[2020-04-26 08:19] VITALS: BP 130/84; PULSE 74; RESP 20; O2SAT 98
--- NOTE | 2020-04-26 08:42 | HO.POSTANES ---
Post Anesthesia Evaluation Post Anesthesia Evaluation Vital Signs: Vital Signs Temp Pulse Resp BP Pulse Ox 04/26/20 08:19 97.9 F 74 20 130/84 98 04/26/20 08:04 97.9 F 86 18 110/73 97 04/26/20 06:45 96.7 F L 83 20 139/64 99 Anesthesia: Monitored Mental Status: Awake Pain Control: Satisfactory Nausea/Vomiting: None Hydration: Adequate Anesthesia-Related Issues: No Anes. Related Issues
== END 2020-04-26 08:49 | disposition home or self-care (01) ==
PROVIDERS: PCP Internal Medicine; Visit Provider Urology
PROC: (CPT 50590; principal; 2020-04-26 07:30)
DX: N20.0 Calculus of kidney (principal); Z87.442 Personal history of urinary calculi; J45.909 Unspecified asthma, uncomplicated; I10 Essential (primary) hypertension; Z79.52 Long term (current) use of systemic steroids; Z79.899 Other long term (current) drug therapy
CPT/HCPCS: 50590; 74018; J2250; J3010

== ENCOUNTER 2020-05-08 10:12 | Outpatient (REF) | payer OTHER, SELFPAY ==
--- NOTE | 2020-05-08 | US_ITS ---
EXAMINATION: US RETROPERITONEAL LIMITED (RENAL ONLY) CLINICAL INFORMATION: Renal stones. COMPARISON: X-ray abdomen KUB 04/26/2020. CT abdomen and pelvis 04/21/2020. Ultrasound kidneys 03/27/2020 and 10/27/2019. TECHNIQUE: Real-time imaging of the kidneys. FINDINGS: RIGHT KIDNEY: 11.1 x 7.1 x 6.0 cm (SAG x AP x TRV). The kidney is normal in size, contour, and echogenicity. Renal cortical thickness is normal. No renal calculi or hydronephrosis. There is echogenic medulla suggestive of medullary sponge kidney. There are multiple echogenic non-shadowing calculi, largest measuring 0.6 cm. LEFT KIDNEY: 11.8 x 6.7 x 6.2 cm (SAG x AP x TRV). The kidney is normal in size, contour, and echogenicity. Renal cortical thickness is normal. No hydronephrosis. There is echogenic medulla suggestive of medullary sponge kidney. There are several echogenic stones with the largest echogenic stone measuring 0.6 cm. Also visualized is an anechoic cyst in the lower pole measuring 0.8 x 0.9 x 1.0 cm. The bladder is unremarkable. US/US renal BI IMPRESSION: Bilateral medullary sponge kidney with small echogenic nonobstructive calculi measuring 0.6 cm. No caliectasis or hydronephrosis seen. There is a small 1.0 cm cyst in lower pole left kidney.
== END 2020-05-08 10:13 | disposition home or self-care (01) ==
LOC: HO.US 10:12
PROVIDERS: PCP Internal Medicine; Visit Provider Urology
DX: N20.0 Calculus of kidney (principal)
CPT/HCPCS: 76775

== ENCOUNTER → 2020-05-26 14:28 | Outpatient (BNVA) | payer OTHER, SELFPAY | PROVIDERS: PCP Internal Medicine; Visit Provider Urology | DX: Z13.89 Encounter for screening for other disorder (principal) | CPT/HCPCS: 99212 ==

== ENCOUNTER 2020-06-28 12:13 | Emergency (ER) | payer OTHER, SELFPAY ==
--- NOTE | ~2020-06-28 | US_ITS ---
EXAMINATION: US ABDOMEN COMPLETE CLINICAL INFORMATION: Right flank pain, right upper quadrant pain. COMPARISON: CT abdomen noncontrast 04/21/2020, renal ultrasound 05/08/2020, KUB 04/26/2020 TECHNIQUE: Real-time imaging of the abdominal viscera. Technically challenging exam due to body habitus and bowel gas. FINDINGS: PANCREAS: The visualized pancreas is normal in size and contour and echogenicity. There is no pancreatic ductal distention. The distal body and tail are obscured by bowel gas and not imaged. No retroperitoneal effusion. ABDOMINAL AORTA: The proximal, mid, and distal segments are normal in caliber. INFERIOR VENA CAVA: Visualized portions are normal. LIVER: The liver is normal in size and smooth in contour and uniform in echogenicity. There is no focal parenchymal lesion. No intrahepatic ductal dilatation. Doppler shows portal flow towards the liver. GALLBLADDER: Normal. The gallbladder is physiologically distended without evidence of stones, sludge, polyps, wall thickening or pericholecystic fluid. Negative sonographic Ramírez's sign. COMMON BILE DUCT: Normal in caliber measuring under 0.4 cm in diameter. RIGHT KIDNEY: There is moderate right hydronephrosis. There is distention proximal right ureter, more distally, urinary tract not visualized. There are known calculi on prior imaging. The kidney measures 12.3 cm in maximum dimension. LEFT KIDNEY: Left kidney measures 12.6 cm in length. There is no hydronephrosis. There are no calculi on prior imaging. SPLEEN: Normal. The spleen measures 9.9 cm in maximum dimension. FREE FLUID: None. US/US abdomen complete IMPRESSION: 1. Moderate right hydronephrosis and proximal right hydroureter. No left hydronephrosis. 2. Although no obstructing calculi are demonstrated by ultrasound, numerous bilateral renal calcifications are noted on prior CT imaging. 3. No cholelithiasis or ductal dilatation.
--- NOTE | ~2020-06-28 | CT_ITS ---
EXAMINATION: CT ABDOMEN AND PELVIS WITHOUT CONTRAST CLINICAL INFORMATION: Right flank pain. Right upper quadrant pain. Hydronephrosis on ultrasound. COMPARISON: Abdominal ultrasound 06/28/2020, CT abdomen and pelvis noncontrast 04/21/2020 and 03/02/2020. TECHNIQUE: Multidetector volumetric imaging was performed from the superior aspect of the liver through the pubic symphysis. Sagittal and coronal reformatted images were obtained on the technologist's workstation. No oral or intravenous contrast. This CT examination was performed using dose optimization techniques as appropriate, variously including the following: *Automated exposure control *Adjustment of mA and/or kV according to patient size (this includes techniques or standardized protocols for targeted exams where dose is matched to indication/reason for exam; i.e. extremities or head) *Use of iterative reconstruction technique DLP: 1135 mGy-cm FINDINGS: LUNG BASES: The visualized lung bases are unremarkable. LIVER, GALLBLADDER, AND BILIARY TREE: The liver is normal in size, shape, and attenuation. No focal hepatic lesion or biliary ductal dilatation is present. The gallbladder is unremarkable with no evidence of radiopaque gallstones, gallbladder wall thickening, or obvious pericholecystic inflammatory changes. PANCREAS: Unremarkable. SPLEEN: Unremarkable. ADRENAL GLANDS: Unremarkable. KIDNEYS AND URETERS: There is moderate right hydronephrosis and hydroureter secondary to a 3 x 4 mm calculus mid right ureter at level of L4. No perinephric stranding. There are again numerous bilateral small medullary renal calcifications. No left hydronephrosis or hydroureter. BLADDER: Unremarkable. GASTROINTESTINAL TRACT: There is no bowel obstruction or inflammatory changes in the bowel mesentery. Normal appendix. No ascites or fluid collection. ABDOMINAL WALL: Small fat-containing umbilical hernia under 3 cm. LYMPH NODES: Normal. VASCULAR: Unremarkable. PELVIC VISCERA: Unremarkable. OSSEOUS STRUCTURES: No acute bony abnormality. Partial fusion lower lumbar spine with rudimentary disc L4-L5 similar to prior studies. CT/CT abdomen pelvis wo con IMPRESSION: 1. Moderate right hydronephrosis and hydroureter secondary to a 3 x 4 mm calculus at level of L4. No perinephric stranding. 2. 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 3. No bowel obstruction or inflammatory changes in bowel or mesentery.
[2020-06-28 13:06] VITALS: BP 131/72; PULSE 82; RESP 16; TEMP 36.9; O2SAT 99; BMI 46.9
[2020-06-28] MEDS: 0.9 % Sodium Chloride 1,000 ML 999 ML IVCONT ×2 (13:25→15:16)
[2020-06-28] MEDS: ondansetron HCL 4 MG/2 ML VIAL IVPUSH (13:25)
[2020-06-28] MEDS: Ketorolac Tromethamine 15 MG/ML VIAL IVPUSH (13:25)
[2020-06-28 13:33] LABS: MANUAL DIFF FLAG NO
--- NOTE | 2020-06-28 13:33 | ED.FEMALEGU ---
HPI - Female Genitourinary General Chief complaint: Urogenital-Female Stated complaint: flank pain Time Seen by Provider: 06/28/20 12:46 Source: patient Mode of arrival: ambulatory History of Present Illness HPI Narrative: 34-year-old female with a past medical history of asthma, fibromyalgia, renal calculus, tubal ligation, hypertension, presenting to the ED complaining of constant right flank pain x2 days radiating to RUQ with associated dysuria and diarrhea. Admits pain started while she was at work, denies known injury/trauma, but does report heavy lifting at work, and pain exacerbated with movement. Admits pain feels different than renal stones the past. Denies fever, chills, SOB/CP, nausea/vomiting, diarrhea MD elicited complaint: dysuria and flank pain Related Data Previous Rx's Medication Instructions Recorded amlodipine 5 mg tablet 5 mg PO DAILY #30 tab 03/27/20 cefuroxime axetil 500 mg PO BID 7 Days #28 tab 03/27/20 hydrocodone-acetaminophen 1 tab PO Q6H PRN #15 tab 03/27/20 ibuprofen 600 mg PO Q6H PRN #30 tab 03/27/20 ondansetron 4 mg PO Q8H PRN #20 tab 03/27/20 prednisone 40 mg PO DAILY 5 Days #10 tab 03/27/20 tamsulosin 0.4 mg PO DAILY 5 Days #5 cap 03/27/20 oxycodone 5 mg PO Q6H PRN #20 tab 04/22/20 tamsulosin [Flomax] 0.4 mg PO DAILY #7 cap 04/22/20 tramadol 50 mg PO Q6H PRN #14 tab 04/26/20 allopurinol 100 mg tablet 100 mg PO DAILY #90 tab 05/26/20 pyridoxine (vitamin B6) 100 mg 100 mg PO DAILY 90 Days #90 tab 05/26/20 tablet cefuroxime axetil 250 mg PO BID 5 Days #10 tab 06/28/20 hydrocodone-acetaminophen 1 tab PO Q8H PRN 3 Days #9 tab 06/28/20 prednisone 40 mg PO DAILY 4 Days #8 tab 06/28/20 tamsulosin [Flomax] 0.4 mg PO DAILY 14 Days #14 cap 06/28/20 Allergies Allergy/AdvReac Type Severity Reaction Status Date / Time canned food Allergy Unknown rash Verified 03/02/20 16:38 RED MEAT Allergy Unknown UNK Uncoded 03/02/20 16:38 Review of Systems Review of Systems: Constitutional: No Fever, No Chills Cardiovascular: No Chest Pain, No SOB Respiratory: No Cough, No Dyspnea Gastrointestinal: No Nausea, No Vomiting, + Diarrhea, No Constipation, + Abdominal pain Genitourinary: No irregular bleeding, +Dysuria, No Urinary Frequency, No Hematuria, +Flank Pain Skin: No Skin Lesions, No rash Yes all other systems are reviewed and are negative [facility] Past Medical History Attestation statement: The following information was validated with the patient. Medical History Active asthma Fibromyalgia Hypertension Surgical History History of extraction of renal calculus History of tubal ligation Family History Family History Father Anemia Sister Cervical cancer Maternal Aunt Breast cancer Diabetes Mother No problems noted. Social History Social History Alcohol intake: never Smoking Status: Never smoker Second Hand Smoke Exposure: No Use of substances other than those prescribed or required for medical reasons: No Any prior treatment program specific to substance use: No Advance Directives: Yes Advance Directives Information Provided: Yes Advance Directives on File: No Physical Exam Vital Signs: Vital Signs: Last Vital Signs Temp 97.8 F 06/28/20 17:57 Pulse 78 06/28/20 17:57 Resp 18 06/28/20 17:57 BP 138/87 06/28/20 17:57 Pulse Ox 98 06/28/20 17:57 Body Mass Index 46.9 Const: General: cooperative, healthy appearing, comfortable and no acute distress Orientation/consciousness: patient oriented x3 Limitations: no limitations HENMT: Head: Yes normal to inspection Ears: hearing grossly normal bilaterally General nose exam: Normal external nose present Face and sinus: Yes normal facial exam Eyes: General: appearance normal, both eyes and all related structures EOM: EOMs intact bilaterally Neck: Neck: Yes normal visual inspection Chest: Other: Left posterior ribs reproducing patient's subjective complaint Chest palpation & inspection: no crepitus and tenderness Resp: Effort & Inspection: normal respiratory effort Auscultation: clear to auscultation bilaterally, no rhonchi and no wheezes Cardio: Rate: regular rate Heart sounds: S1 normal heart sound present and S2 normal heart sound present GI: Inspection: Yes normal to inspection Palpation (GI): Soft to palpation, Tenderness to palpation present (GI) in the RUQ, no guarding and not rigid : General: Yes CVA tenderness on the right Skin: Rashes: no rashes Wounds: no wounds Neuro: General: patient oriented x3 Gait exam (Neuro): Normal gait present Extrem: General: Yes normal to inspection Course Course Course Narrative: -no leukocytosis, UA contaminated but elements of an infection > IV Ceftriaxone given in the ED US abdomen complete IMPRESSION: 1. Moderate right hydronephrosis and proximal right hydroureter. No left hydronephrosis. 2. Although no obstructing calculi are demonstrated by ultrasound, numerous bilateral renal calcifications are noted on prior CT imaging. 3. No cholelithiasis or ductal dilatation >> will obtain CT to rule out obstructing stone CT abdomen pelvis wo con IMPRESSION: 1. Moderate right hydronephrosis and hydroureter secondary to a 3 x 4 mm calculus at level of L4. No perinephric stranding. 2. 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 3. No bowel obstruction or inflammatory changes in bowel or mesentery > Dr. Johnson, Urology consulted --Urology reccommended Prednisone 20mg x 5 days, Flomax x 2 weeks and follow-up in his office next week. On re-evaluation patient reports symptomatic improvement, admits pain is a 1 or 2 out of 10 at present. Results discussed with patient including Dr. Limon recommendations/worrisome signs and symptoms and strict return precautions. She verbalized understanding and feels safe for discharge home MDM - Female Genitourinary MDM Narrative Medical decision making narrative: 34-year-old female with a past medical history of asthma, fibromyalgia, renal calculus, tubal ligation, hypertension, presenting to the ED complaining of constant right flank pain x2 days radiating to RUQ with associated dysuria and diarrhea. On exam VSS, NAD/nontoxic, abdomen soft with RUQ/right CVA and right posterior rib/MSK tenderness to palpation. Concern for renal colic/pyelo/UTI vs cholecystitis/cholelithiasis vs pancreatitis vs costochondritis vs MSK pain. Unlikely ACS/PE Plan: Labs, UA, abdomen ultrasound, IVF, symptomatic treatment, re-evaluated Lab Data Result diagrams: 06/28/20 13:19 06/28/20 13:19 Labs: Lab Results 06/28/20 06/28/20 06/28/20 Range/Units 13:15 13:19 13:19 WBC 9.9 (4.8-10.8) X10*3/uL RBC 4.83 (4.20-5.50) X10*6/uL Hgb 12.1 (12.0-16.0) g/dl Hct 39.3 (37-47) % MCV 81.4 (80-98) fL MCH 25.1 L (27.0-33.0) pg MCHC 30.8 L (31.0-35.0) g/dl RDW 14.6 (11.0-16.0) % Plt Count 254 (160-400) X10*3/uL MPV 10.1 (9.4-12.3) fL Immature Gran % (Auto) 0.3 (0.0-0.4) % Neut % (Auto) 64.7 (45-73) % Lymph % (Auto) 23.2 (20-40) % [place] % (Auto) 6.6 (2-11) % Eos % (Auto) 4.4 H (0-4) % Baso % (Auto) 0.8 (0-2) % Lymph # (Auto) 2.3 (1.2-4.9) X10*3/uL [place] # (Auto) 0.7 (0.1-1.2) X10*3/uL Eos # (Auto) 0.4 (0.0-0.4) X10*3/uL Baso # (Auto) 0.1 (0.0-0.2) X10*3/uL Abs Immat Gran (auto) 0.03 (0.00-0.03) X10*3/uL Absolute Neuts (auto) 6.4 (2.0-8.3) X10*3/uL Absolute Nucleated RBC 0.000 (0.0-0.012) X10*3/uL Nucleated RBC % (auto) 0.0 (0.0-0.2) /100WBC Hold Blue Top SEE NOTE Sodium (135-145) mmol/L Potassium (3.3-5.1) mmol/L Chloride (96-108) mmol/L Carbon Dioxide (22-29) mmol/L Anion Gap (12-20) BUN (9-16) mg/dL Creatinine (0.5-1.4) mg/dL Estim Creat Clear Calc Estimated GFR Random Glucose (60-115) mg/dL Calcium (8.4-10.2) mg/dL Total Bilirubin (0.0-1.0) mg/dL Direct Bilirubin (0.0-0.5) mg/dL AST (5-31) U/L ALT (0-31) U/L Alkaline Phosphatase (39-117) U/L Total Protein (6.5-8.0) g/dL Albumin (3.5-5.0) g/dL Lipase (8-78) U/L Urine Color YELLOW Urine Appearance CLOUDY Urine pH 7.0 (5.0-8.0) Ur Specific [place] 1.020 (1.005-1.025) Urine Protein 1+ H (NEG-TRACE) MG/DL Urine Glucose (UA) NEG (NEG) MG/DL Urine Ketones NEG (NEG) MG/DL Urine Blood 3+ H (NEG) Urine Nitrite NEG (NEG) Ur Leukocyte Esterase 3+ H (NEG) Urine RBC 10-14 H (0) /HPF Urine WBC 15-29 H (0-4) /HPF Ur Squamous Epith Cells 3+ /LPF Amorphous Sediment 2+ /LPF Urine Bacteria 2+ /LPF /02/08 Range/Units 13:19 WBC (4.8-10.8) X10*3/uL RBC (4.20-5.50) X10*6/uL Hgb (12.0-16.0) g/dl Hct (37-47) % MCV (80-98) fL MCH (27.0-33.0) pg MCHC (31.0-35.0) g/dl RDW (11.0-16.0) % Plt Count (160-400) X10*3/uL MPV (9.4-12.3) fL Immature Gran % (Auto) (0.0-0.4) % Neut % (Auto) (45-73) % Lymph % (Auto) (20-40) % [place] % (Auto) (2-11) % Eos % (Auto) (0-4) % Baso % (Auto) (0-2) % Lymph # (Auto) (1.2-4.9) X10*3/uL [place] # (Auto) (0.1-1.2) X10*3/uL Eos # (Auto) (0.0-0.4) X10*3/uL Baso # (Auto) (0.0-0.2) X10*3/uL Abs Immat Gran (auto) (0.00-0.03) X10*3/uL Absolute Neuts (auto) (2.0-8.3) X10*3/uL Absolute Nucleated RBC (0.0-0.012) X10*3/uL Nucleated RBC % (auto) (0.0-0.2) /100WBC Hold Blue Top Sodium 140 (135-145) mmol/L Potassium 4.0 (3.3-5.1) mmol/L Chloride 106 (96-108) mmol/L Carbon Dioxide 29 (22-29) mmol/L Anion Gap 9 L (12-20) BUN 16 (9-16) mg/dL Creatinine 0.86 (0.5-1.4) mg/dL Estim Creat Clear Calc 117.8 Estimated GFR > 60 Random Glucose 86 (60-115) mg/dL Calcium 8.4 (8.4-10.2) mg/dL Total Bilirubin 0.3 (0.0-1.0) mg/dL Direct Bilirubin 0.2 (0.0-0.5) mg/dL AST 10 (5-31) U/L ALT 14 (0-31) U/L Alkaline Phosphatase 65 (39-117) U/L Total Protein 6.6 (6.5-8.0) g/dL Albumin 3.7 (3.5-5.0) g/dL Lipase 14 (8-78) U/L Urine Color Urine Appearance Urine pH (5.0-8.0) Ur Specific [place] (1.005-1.025) Urine Protein (NEG-TRACE) MG/DL Urine Glucose (UA) (NEG) MG/DL Urine Ketones (NEG) MG/DL Urine Blood (NEG) Urine Nitrite (NEG) Ur Leukocyte Esterase (NEG) Urine RBC (0) /HPF Urine WBC (0-4) /HPF Ur Squamous Epith Cells /LPF Amorphous Sediment /LPF Urine Bacteria /LPF Discharge Plan Discharge Clinical Impression: Urinary tract infection, Right ureteral calculus Patient Disposition: Home, Self-Care Instructions: Ureteral Stones (ED) Additional Instructions: You stone in her right ureter. Flomax will help dilate the ureter. Prednisone as a steroid which help with inflammation. Clyde is an opiate pain medication, take only when pain is severe for the next 3 days. In addition Ceftin as an antibiotic for your urinary tract infection. You need to follow-up with urology next week. Call to make an appointment. If her symptoms persist or worsen, becomes unbearable, you have persistent nausea/vomiting, you are unable to eat or drink, or developed fever return to the ED immediately [place] ur?ter derecho. Flomax ayudar? a dilatar el ur?ter. Prednisona kathia esteroide que ayuda con la inflamaci?n. Clyde es un analg?sico opi?department editor, t?combs solo cuando el dolor sea intenso lance los pr?ximos 3 d?as. Adem?s Ceftin kathia antibi?elsie para [place] infecci?n del tracto urinario. Debe hacer un seguimiento con urolog?a la pr?xima semana. Llame para concertar joelle leigh ann. Si cammie s?ntomas persisten o empeoran, se vuelven insoportables, tiene n?useas / v?mitos persistentes, no puede comer ni beber, o tiene fiebre, vuelva al servicio de urgencias inmediatamente. Prescriptions: New prednisone 20 mg tablet 40 mg PO DAILY 4 Days Qty: 8 RF: 0 tamsulosin [Flomax] 0.4 mg capsule 0.4 mg PO DAILY 14 Days Qty: 14 RF: 0 hydrocodone-acetaminophen 5-325 mg tablet 1 tab PO Q8H PRN (Reason: pain, severe) 3 Days Qty: 9 RF: 0 cefuroxime axetil 250 mg tablet 250 mg PO BID 5 Days Qty: 10 RF: 0 No Action amlodipine 5 mg tablet 5 mg PO DAILY Qty: 30 RF: 6 cefuroxime axetil 250 mg tablet 500 mg PO BID 7 Days Qty: 28 RF: 0 hydrocodone-acetaminophen 5-325 mg tablet 1 tab PO Q6H PRN (Reason: pain) Qty: 15 RF: 0 prednisone 20 mg tablet 40 mg PO DAILY 5 Days Qty: 10 RF: 0 ibuprofen 600 mg tablet 600 mg PO Q6H PRN (Reason: pain) Qty: 30 RF: 0 ondansetron 4 mg tablet,disintegrating 4 mg PO Q8H PRN (Reason: nausea and vomiting) Qty: 20 RF: 0 tamsulosin 0.4 mg capsule 0.4 mg PO DAILY 5 Days Qty: 5 RF: 0 tramadol 50 mg tablet 50 mg PO Q6H PRN (Reason: pain) Qty: 14 RF: 0 oxycodone 5 mg tablet 5 mg PO Q6H PRN (Reason: Pain, Moderate) Qty: 20 RF: 0 tamsulosin [Flomax] 0.4 mg capsule 0.4 mg PO DAILY Qty: 7 RF: 0 pyridoxine (vitamin B6) 100 mg tablet 100 mg PO DAILY 90 Days Qty: 90 RF: 1 allopurinol 100 mg tablet 100 mg PO DAILY Qty: 90 RF: 1 Referrals: Jcak Johnson MD [Physician] - 1 week Print Language: Amharic
[2020-06-28 13:39] LABS: Basophils Absolute Auto 0.1 X10*3/uL (0.0-0.2); Basophils Percent Auto 0.8 % (0-2); Eosinophils Absolute Auto 0.4 X10*3/uL (0.0-0.4); Eosinophils Percent Auto 4.4 % (0-4); Hematocrit 39.3 % (37-47); Hemoglobin 12.1 g/dl (12.0-16.0); Imm Gran Abs Auto 0.03 X10*3/uL (0.00-0.03); Imm Gran Pct Auto 0.3 % (0.0-0.4); Lymphocytes Absolute Auto 2.3 X10*3/uL (1.2-4.9); Lymphocytes Percent Auto 23.2 % (20-40); Mean Corpuscular HGB Conc 30.8 g/dl (31.0-35.0); Mean Corpuscular Hemoglobin 25.1 pg (27.0-33.0); Mean Corpuscular Volume 81.4 fL (80-98); Mean Platelet Volume 10.1 fL (9.4-12.3); Monocytes Absolute Auto 0.7 X10*3/uL (0.1-1.2); Monocytes Percent Auto 6.6 % (2-11); Neutrophils Absolute Auto 6.4 X10*3/uL (2.0-8.3); Neutrophils Percent Auto 64.7 % (45-73); Platelet Count 254 X10*3/uL (160-400); Red Blood Count 4.83 X10*6/uL (4.20-5.50); Red Cell Distribution Width 14.6 % (11.0-16.0); White Blood Count 9.9 X10*3/uL (4.8-10.8)
[2020-06-28 13:40] LABS: Glucose Urine UA NEG (NEG); Leukocyte Esterase Urine 3+ (NEG); Nitrite Urine NEG (NEG); UACC Culture Trigger YES; Urine Blood 3+ (NEG); Urine Ketones NEG (NEG); Urine Protein 1+ MG/DL (NEG-TRACE)
[2020-06-28 13:43] LABS: Appearance Urine CLOUDY; Color Urine YELLOW
[2020-06-28 13:54] LABS: Bacteria Urine 2+ /LPF; Squamous Epithelial Cell Urine 3+ /LPF
[2020-06-28 13:55] LABS: Amorphous Sediment Urine 2+ /LPF
[2020-06-28 14:20] LABS: Alanine Aminotransferase 14 U/L (0-31); Albumin Level 3.7 g/dL (3.5-5.0); Alkaline Phosphatase 65 U/L (39-117); Anion Gap 9 (12-20); Aspartate Amino Transferase 10 U/L (5-31); Bilirubin Direct 0.2 mg/dL (0.0-0.5); Bilirubin Total 0.3 mg/dL (0.0-1.0); Blood Urea Nitrogen 16 mg/dL (9-16); Calcium 8.4 mg/dL (8.4-10.2); Carbon Dioxide 29 mmol/L (22-29); Chloride 106 mmol/L (96-108); Creatinine Clr Calc Pharmacy 117.8; Estimated Glomerular Filt Rate > 60; Glucose Random 86 mg/dL (60-115); Lipase 14 U/L (8-78); Sodium 140 mmol/L (135-145); Total Protein 6.6 g/dL (6.5-8.0)
[2020-06-28] MEDS: cefTRIAXone sodium 1 GM in 0.9 % Sodium Chloride 50 ML IV (14:40)
[2020-06-28 15:13] VITALS: BP 123/77; PULSE 91; RESP 18; TEMP 36.5; O2SAT 99
[2020-06-28 16:21] VITALS: BP 139/84; PULSE 77; RESP 18; TEMP 36.7; O2SAT 99
[2020-06-28 17:57] VITALS: BP 138/87; PULSE 78; RESP 18; TEMP 36.6; O2SAT 98
[2020-06-28] MEDS: Tamsulosin HCL 0.4 MG CAPSULE PO (18:11)
[2020-06-28] MEDS: predniSONE 20 MG TABLET PO (18:11)
== END 2020-06-28 18:24 | disposition home or self-care (01) ==
PROVIDERS: Physician Assistant; Emergency Provider Emergency Medicine; PCP Internal Medicine
DX: N13.2 Hydronephrosis with renal and ureteral calculous obstruction (principal); N39.0 Urinary tract infection, site not specified; I10 Essential (primary) hypertension
CPT/HCPCS: 36415; 74176; 76700; 80048; 80076; 81001; 81003; 83690; 85025; 87086; 96361; 96365; 96374; 96375; 99284; J0696; J1885; J2405

== ENCOUNTER → 2020-06-30 14:13 | Outpatient (BNVA) | payer OTHER, SELFPAY | PROVIDERS: PCP Internal Medicine; Visit Provider Urology | DX: N20.0 Calculus of kidney (principal) | CPT/HCPCS: 99212 ==

== ENCOUNTER 2020-07-03 12:11 | Day surgery (SDC) | payer OTHER, SELFPAY ==
--- NOTE | ~2020-07-03 | FL_ITS ---
EXAMINATION: XR FLUOROSCOPY WITH IMAGES CLINICAL INFORMATION: Right ureteral stone COMPARISON: Previous CT of the abdomen and pelvis June 2020 TECHNIQUE: Fluoroscopy performed by Dr. Jack Johnson. Fluoroscopy time: 0.5 minutes Dose: 18 mGy Images: 1 FINDINGS: Single fluoroscopic image demonstrates the distal end of a right internal ureteral stent. FL/FL guidance in OR IMPRESSION: Fluoroscopy guidance for right retrograde exam and stent placement.
[2020-07-03 12:56] VITALS: BMI 47.8
[2020-07-03 13:00] VITALS: BP 138/74; PULSE 73; RESP 20; TEMP 36.1; O2SAT 99
[2020-07-03] MEDS: Lactated Ringers 1,000 ML 100 ML IVCONT (13:13)
--- NOTE | 2020-07-03 13:47 | HO.ANESPROP2 ---
[facility] Active Problems Active Problems: All Active Problems (Updated 06/29/20 @ 00:01 by Jose Maria Tubbs) Medullary sponge kidney of both kidneys (Acute) Nephrolithiasis (Acute) Past Medical History Medical History Active asthma Fibromyalgia Hypertension Family History Family History Father Anemia Sister Cervical cancer Maternal Aunt Breast cancer Diabetes Mother No problems noted. Surgical History Surgical History History of extraction of renal calculus History of tubal ligation Social History Social History Alcohol intake: never Smoking Status: Never smoker Second Hand Smoke Exposure: No Use of substances other than those prescribed or required for medical reasons: No Advance Directives: No Advance Directives Information Provided: Yes Meds Allergies Allergy/AdvReac Type Severity Reaction Status Date / Time canned food Allergy Severe rash Verified 07/03/20 12:52 RED MEAT Allergy Severe Rash Uncoded 07/03/20 12:52 Active Medications: Current Medications Generic Name Dose Route Start Last Admin Trade Name Freq PRN Reason Stop Dose Admin Lactated Ringer's 1,000 mls @ 100 mls/hr 07/03/20 13:15 07/03/20 13:13 Lr IVCONT 100 mls/hr .Q10H CALVIN Administration Exam Exam Date and Time: July 03, 2020 1347 Height,Weight and Vital Signs: Height 5 ft 3 in Weight 122.47 kg Last Vital Signs Temp 96.9 F 07/03/20 13:00 Pulse 73 07/03/20 13:00 Resp 20 07/03/20 13:00 BP 138/74 07/03/20 13:00 Pulse Ox 99 07/03/20 13:00 Airway Mallampati Class: II TM Dist: >3cm Neck ROM: Full Heart: RRr Lungs: CtA BL Assessment and Plan Assessment Anesthesia Assessment: Anesthesia Plan Discussed and Chart Reviewed Final Anesthetic Review NPO: Yes ASA Class: III Final Preanesthetic Review: No Changes in Pt Med Stat and Consent Obtained/Reviewed Patient Risk: Intermediate Procedure Risk: Intermediate Anesthetic Plan Anesthetic Plan: GA Disposition: Standard PACU
--- NOTE | 2020-07-03 14:02 | MHC.SHP ---
Pre-Procedural Eval Section A The patient is an INPATIENT: No Changes since office visit: No Cold of Flu in the past 2 weeks, No New Medical Problems, No Changes in Medication and No Patient answered all questions The History & Physical has been completed within 30 days and I have reviewed it.: Yes Section B Chief Complaint: Calculus of Kidney Allergies: Allergies Allergy/AdvReac Type Severity Reaction Status Date / Time canned food Allergy Severe rash Verified 07/03/20 12:52 RED MEAT Allergy Severe Rash Uncoded 07/03/20 12:52 Plan Diagnosis/Plan: Unchanged (Right retrograde, ureteroscopy laser lithotripsy stent placement) I have reviewed the history and physical and performed a pertinent physical examination on my patient. No changes have occurred unless specified.
[2020-07-03] MEDS: levoFLOXacin 500 MG TABLET PO (14:12)
--- NOTE | 2020-07-03 17:03 | MHC.SHP ---
Pre-Procedural Eval Section A The patient is an INPATIENT: No Changes since office visit: No Cold of Flu in the past 2 weeks, No New Medical Problems, No Changes in Medication and No Patient answered all questions The History & Physical has been completed within 30 days and I have reviewed it.: Yes Section B Chief Complaint: Calculus of Kidney Allergies: Allergies Allergy/AdvReac Type Severity Reaction Status Date / Time canned food Allergy Severe rash Verified 07/03/20 12:52 RED MEAT Allergy Severe Rash Uncoded 07/03/20 12:52 Plan Diagnosis/Plan: Unchanged (Cystoscopy, right retrograde, right ureteroscopy laser lithotripsy stent) I have reviewed the history and physical and performed a pertinent physical examination on my patient. No changes have occurred unless specified.
--- NOTE | 2020-07-03 17:27 | PM.OP ---
Brief Operative Note Date of Service: 07/03/20 Pre-op diagnosis: Right mid ureteric stone Post-op diagnosis: same Procedure: Cystoscopy, retrograde, ureteroscopy, laser lithotripsy, stent placement Implants: Six Hungarian by 20 2 cm double-J right-sided stent Surgeon: Jack Johnson MD Anesthesia: GLMA Estimated blood loss (mL): 0 Pathology: none sent Condition: stable Disposition: same day
--- NOTE | 2020-07-03 17:28 | W.PM.OPN ---
Operative Note Operative Note Date of Service: 07/03/20 Narrative: PreOperative Diagnosis: Right mid ureteric stone Post Operative Diagnosis: Right mid ureteric stone Procedure: - cystoscopy, right retrograde - right ureteroscopy, laser lithotripsy - right stent placement Surgeon: Dr Jack Johnson Anesthesia: General Indications for procedure: Right mid ureteric stone. Post ESWL 2 months ago. Fragment has fallen and is not passing. Persistent pain right side. Given location recommended ureteroscopy Procedure: After informed consent was verified patient was brought to the operating placed in supine position. Anesthesia was administered per protocol. Patient was placed in modified dorsal lithotomy position and prepped and draped in a sterile fashion. Safety pause time-out and side of surgery confirmed. Antibiotics confirmed. Twenty-two Persian cystoscope placed per urethra. Bladder was emptied. Right ureteric opening was cannulated and retrograde examination was performed. Subtle filling deflect at right mid ureter. Sensor guidewire placed. Switched to rigid ureteral scope. This was placed alongside the wire. Stone was encountered mid ureter. Using a holmium laser fiber the stone was broken and dusted into small pieces. There were too small to basket. Decision was made to not gather any stone fragments. The ureteral scope was removed. A 6 Persian by 24 cm double-J stent was placed over the wire up to the level renal pelvis. Good coil seen in the renal pelvis and in the bladder on fluoroscopy. The bladder was emptied. The patient tolerated the procedure well was extubated in operating room and transferred in stable condition to the recovery area. Pathology: None Drains: Double-J stent
[2020-07-03 17:35] VITALS: BP 124/74; PULSE 96; RESP 14; TEMP 36.5; O2SAT 97
[2020-07-03 17:40] VITALS: BP 117/80; PULSE 85; RESP 16; O2SAT 97
[2020-07-03 17:45] VITALS: BP 132/85; PULSE 80; RESP 16; O2SAT 98
[2020-07-03 17:50] VITALS: BP 136/88; PULSE 80; RESP 18; O2SAT 100
--- NOTE | 2020-07-03 17:56 | PC.NURSE ---
OOB AMBULATED TO BATHROOM STEADY GAIT. VOIDED RED TINGED URINE NO COMPLAINTS OF PAIN. REPORTS MILD NAUSEA RETURNED BACK TO STRETCHER
[2020-07-03 18:05] VITALS: BP 141/99; PULSE 78; RESP 18; TEMP 36.6; O2SAT 100
== END 2020-07-03 18:19 | disposition home or self-care (01) ==
PROVIDERS: PCP Internal Medicine; Visit Provider Urology
PROC: (CPT 52356; principal; 2020-07-03 13:50)
DX: N20.1 Calculus of ureter (principal); Z87.442 Personal history of urinary calculi; J45.909 Unspecified asthma, uncomplicated; I10 Essential (primary) hypertension; Z79.899 Other long term (current) drug therapy
CPT/HCPCS: 52356; C1758; C1769; C2617; J1100; J2250; J2405; J3010; Q9967

== ENCOUNTER → 2020-07-12 10:58 | Outpatient (BNVA) | payer OTHER, SELFPAY | PROVIDERS: Visit Provider Urology | DX: Q61.5 Medullary cystic kidney (principal) | CPT/HCPCS: 52310; 99212 ==

== ENCOUNTER 2020-08-19 08:29 | Emergency (ER) | payer OTHER, SELFPAY ==
--- NOTE | ~2020-08-19 | CT_ITS ---
EXAMINATION: CT ABDOMEN AND PELVIS WITHOUT CONTRAST CLINICAL INFORMATION: Bilateral flank pain. History of stones. COMPARISON: 06/28/2020 TECHNIQUE: Multidetector volumetric imaging was performed from the superior aspect of the liver through the pubic symphysis. Sagittal and coronal reformatted images were obtained on the technologist's workstation. This CT examination was performed using dose optimization techniques as appropriate, variously including the following: *Automated exposure control *Adjustment of mA and/or kV according to patient size (this includes techniques or standardized protocols for targeted exams where dose is matched to indication/reason for exam; i.e. extremities or head) *Use of iterative reconstruction technique DLP: 1115 mGy-cm FINDINGS: LUNG BASES: The visualized lung bases are unremarkable. LIVER, GALLBLADDER, AND BILIARY TREE: The liver is normal in size, shape, and attenuation. No focal hepatic lesion or biliary ductal dilatation is present. The gallbladder is unremarkable with no evidence of radiopaque gallstones, gallbladder wall thickening, or obvious pericholecystic inflammatory changes. PANCREAS: Unremarkable. SPLEEN: Unremarkable. ADRENAL GLANDS: Unremarkable. KIDNEYS AND URETERS: There is bilateral medullary nephrocalcinosis and numerous bilateral nonobstructive intrarenal calculi, approximately a dozen within each kidney ranging in size from punctate to 3 mm. No ureteral calculi. No hydronephrosis or perinephric abnormality. BLADDER: Unremarkable. GASTROINTESTINAL TRACT: The small and large bowel are unremarkable. The appendix is unremarkable. ABDOMINAL WALL: No significant hernia is appreciated. LYMPH NODES: Normal. VASCULAR: Unremarkable. PELVIC VISCERA: Uterus and adnexa unremarkable. OSSEOUS STRUCTURES: No acute or suspicious osseous abnormalities. Incomplete segmentation at L4-L5. CT/CT abdomen pelvis wo con IMPRESSION: Numerous bilateral nonobstructive intrarenal calculi and medullary nephrocalcinosis redemonstrated. No ureteral calculi or hydronephrosis.
[2020-08-19 09:36] VITALS: BP 126/88; PULSE 74; RESP 18; TEMP 36.6; O2SAT 97; BMI 44.2
--- NOTE | 2020-08-19 10:02 | ED.ABDPAIN ---
HPI - Abdominal Pain General Chief Complaint: Abdominal Pain Stated Complaint: ABD PAIN Time Seen by Provider: 08/19/20 09:25 Source: patient Mode of arrival: ambulatory Limitations: language barrier ([place]an-speaking) History of Present Illness HPI narrative: 34-year-old female with a past medical history of kidney stones, Medullary Sponge kidnsey of both kidney's and hypertension presenting to the ED with complaints of bilateral flank pain worse on the right side radiating to her right lower quadrant/right suprapubic abdomen with associated nausea for the past few days worse today. Reports she is also having trouble urinating she is urinating in small amounts and has pain with urination. Reports she also had a fever yesterday from 99.1-100. Reports she has been taking Tylenol and Motrin [id number] although no symptomatic relief. Denies any dizziness, headaches, neck pain/stiffness, chest pain, shortness of breath, cough, dyspnea on exertion, orthopnea, diarrhea, constipation, black or bloody stools or any other symptom complaints or concerns at this time. Denies recent travel or sick contacts. Reports that she has been vaccinated for COVID. MD elicited complaint: abdominal pain and flank pain Pertinent past history: kidney stones Onset (ago): day(s) Pain Consistency: constant Location: RLQ, L flank and R flank Severity: moderate Quality: aching Radiation: suprapubic Relieving factors: nothing Associated symptoms: nausea and other (Pain with urination and not urinating as much as she usually does) Related Data Previous Rx's Medication Instructions Recorded amlodipine 5 mg tablet 5 mg PO DAILY #30 tab 03/27/20 cefuroxime axetil 500 mg PO BID 7 Days #28 tab 03/27/20 hydrocodone-acetaminophen 1 tab PO Q6H PRN #15 tab 03/27/20 ibuprofen 600 mg PO Q6H PRN #30 tab 03/27/20 ondansetron 4 mg PO Q8H PRN #20 tab 03/27/20 prednisone 40 mg PO DAILY 5 Days #10 tab 03/27/20 tamsulosin 0.4 mg PO DAILY 5 Days #5 cap 03/27/20 oxycodone 5 mg PO Q6H PRN #20 tab 04/22/20 tamsulosin [Flomax] 0.4 mg PO DAILY #7 cap 04/22/20 tramadol 50 mg PO Q6H PRN #14 tab 04/26/20 allopurinol 100 mg tablet 100 mg PO DAILY #90 tab 05/26/20 pyridoxine (vitamin B6) 100 mg 100 mg PO DAILY 90 Days #90 tab 05/26/20 tablet cefuroxime axetil 250 mg PO BID 5 Days #10 tab 06/28/20 hydrocodone-acetaminophen 1 tab PO Q8H PRN 3 Days #9 tab 06/28/20 prednisone 40 mg PO DAILY 4 Days #8 tab 06/28/20 tamsulosin [Flomax] 0.4 mg PO DAILY 14 Days #14 cap 06/28/20 phenazopyridine [Pyridium] 100 mg PO TID PRN 4 Days #12 tab 07/03/20 tamsulosin 0.4 mg PO BEDTIME #14 cap 07/03/20 tramadol 50 mg PO Q6H PRN #14 tab 07/03/20 acetaminophen [Tylenol Extra 1,000 mg PO QID PRN #14 tab 08/19/20 Strength] naproxen 500 mg PO BID PRN #10 tab 08/19/20 nitrofurantoin monohyd/m-cryst 100 mg PO BID 7 Days #14 cap 08/19/20 [Macrobid] oxycodone 5 mg PO BID PRN #10 tab 08/19/20 prednisone 40 mg PO DAILY 5 Days #10 tab 08/19/20 tamsulosin [Flomax] 0.4 mg PO DAILY 5 Days #5 cap 08/19/20 Allergies Allergy/AdvReac Type Severity Reaction Status Date / Time canned food Allergy Severe rash Verified 07/03/20 12:52 RED MEAT Allergy Severe Rash Uncoded 07/03/20 12:52 Review of Systems Review of Systems Constitutional : + Fever, No Chills, No Night Sweats, No Fatigue, No Malaise Cardiovascular : No Chest Pain, No SOB Respiratory : No Cough, No Sputum, No Wheezing, No Dyspnea Gastrointestinal : + Nausea, + Abdominal pain, No Vomiting, No Diarrhea, No Hematochezia, No Melena Genitourinary : No irregular bleeding, No Dysuria, No Urinary Frequency, No Hematuria,No Urinary Incontinence, No Urgency, No Flank Pain Musculoskeletal : No joint pain, No Myalgias, No Joint Swelling Skin : No Skin Lesions, No rash Neuro : No Weakness, No Numbness, No Paresthesias, No Loss of Consciousness, No Dizziness, No Headache Heme/Lymph: No Lymphadenopathy Endocrine : No Temperature Intolerance Yes all other systems are reviewed and are negative Physical Exam Vital Signs: Vital Signs: Last Vital Signs Temp 97.6 F 08/19/20 12:05 Pulse 66 08/19/20 12:05 Resp 18 08/19/20 12:05 BP 134/79 08/19/20 12:05 Pulse Ox 99 08/19/20 12:05 Body Mass Index 44.2 vital signs have been reviewed as normal and appeared to be correct. Blood pressure normal. Heart rate normal. Respiration rate normal. Temperature normal. Oxygen saturation normal. Appearance: Alert. Oriented X3. No acute distress. Head: Normal external exam. Normocephalic. Eyes: PERRLA. EOMI. Conjunctiva and sclera normal. Eyelids normal. ENT: Pharynx normal. Uvula midline. Moist mucous membranes. No trismus noted. No drooling noted. No muffled voice noted. Neck: Normal inspection. Neck supple. FROM. No adenopathy. No meningeal signs. CVS: Normal heart rate and rhythm. Heart sound normal. No murmurs noted. Pulses normal throughout. Respiratory: No respiratory distress. Painless inspiration. Breath sounds normal. No wheezes/rales/rhonchi noted. Chest nontender. No accessory muscle usage noted or decreased air movement noted. Abdomen: Soft and mild tenderness to right/left flank and right lower quadrant/suprapubic area. Nondistended. No guarding. No rigidity. Bowel sounds normal in all 4 quadrants. No distention noted. No organomegaly noted. No visible injury noted. No rebound tenderness. Negative Rovsing sign. Negative obturator's sign. Negative psoas sign. Negative Ramírez sign. Back: + bilateral CVA tenderness. Full range of motion noted. Skin: Skin warm and dry. Normal skin color. Normal skin turgor. No rashes/lesions/lacerations noted. Extremities: Extremities exhibit normal range of motion. Extremities nontender. Neuro: Oriented X 3. No motor deficit. No sensory deficit. Reflexes normal. Normal steady gait. Course Course Course Narrative: 10am - 34-year-old female with a past medical history of kidney stones, Medullary Sponge kidnsey of both kidney's and hypertension presenting to the ED with complaints of bilateral flank pain worse on the right side radiating to her right lower quadrant/right suprapubic abdomen with associated nausea/fever for the past few days worse today. Associated trouble urinating. - on exam patient is alert oriented x3. Not in any acute distress. Vital signs are stable within normal limits. Lungs clear to auscultation. CV RRR. Patient has bilateral flank pain and right lower quadrant pain. With bilateral CVA tenderness. - Concern for UTI vs pyelonephritis vs kidney stones vs kidney failure Plan: Labs, CT scan of abdomen and pelvis without contrast to evaluate for possible kidney stones. Provide a L of IV fluids with 30 mg of IV Toradol and 4 mg of Zofran and re-evaluate. Reevaluation(s) Reevaluation #1: - labs reviewed normal limits. UA revealed evidence of UTI. UHCG is negative for . - CT scan of abdomen and pelvis with out IV contrast revealed IMPRESSION: Numerous bilateral nonobstructive intrarenal calculi and medullary nephrocalcinosis redemonstrated. No ureteral calculi or hydronephrosis. - therefore I explained to the patient most likely her pain is the UTI and she needs to follow up with Dr. Johnson for further evaluation and treatment for her kidney stone she reports she just had surgery recently from this. Will DC home with symptomatic treatment antibiotics and instructions follow up with Dr. Johnson and to return if any new or worsening symptoms. Patient and agrees with this plan. Time: 12:22 [facility] - Abdominal Pain Medical Records Attestation: I reviewed the patient's medical records. Lab Data Attestation: I reviewed the patient's lab results. Result diagrams: 08/19/20 10:08/19/20 10: Labs: Lab Results 08/19/20 08/19/20 08/19/20 Range/Units 10:01 10: 10:01 WBC 7.0 (4.8-10.8) X10*3/uL RBC 5.19 (4.20-5.50) X10*6/uL Hgb 12.9 (12.0-16.0) g/dl Hct 41.7 (37-47) % MCV 80.3 (80-98) fL MCH 24.9 L (27.0-33.0) pg MCHC 30.9 L (31.0-35.0) g/dl RDW 14.8 (11.0-16.0) % Plt Count 223 (160-400) X10*3/uL MPV 10.0 (9.4-12.3) fL Immature Gran % (Auto) 0.3 (0.0-0.4) % Neut % (Auto) 62.2 (45-73) % Lymph % (Auto) 20.6 (20-40) % [place] % (Auto) 10.9 (2-11) % Eos % (Auto) 5.0 H (0-4) % Baso % (Auto) 1.0 (0-2) % Lymph # (Auto) 1.4 (1.2-4.9) X10*3/uL [place] # (Auto) 0.8 (0.1-1.2) X10*3/uL Eos # (Auto) 0.4 (0.0-0.4) X10*3/uL Baso # (Auto) 0.1 (0.0-0.2) X10*3/uL Abs Immat Gran (auto) 0.02 (0.00-0.03) X10*3/uL Absolute Neuts (auto) 4.3 (2.0-8.3) X10*3/uL Absolute Nucleated RBC 0.000 (0.0-0.012) X10*3/uL Nucleated RBC % (auto) 0.0 (0.0-0.2) /100WBC PT 13.0 (10.8-13.0) SEC INR 1.1 (0.9-1.1) Sodium 138 (135-145) mmol/L Potassium 4.2 (3.3-5.1) mmol/L Chloride 105 (96-108) mmol/L Carbon Dioxide 24 (22-29) mmol/L Anion Gap 13 (12-20) BUN 14 (9-16) mg/dL Creatinine 0.73 (0.5-1.4) mg/dL Estim Creat Clear Calc 134.1 Estimated GFR > 60 Random Glucose 108 (60-115) mg/dL Calcium 8.6 (8.4-10.2) mg/dL Magnesium 1.8 (1.6-2.6) mg/dL Total Bilirubin 0.3 (0.0-1.0) mg/dL Direct Bilirubin < 0.2 (0.0-0.5) mg/dL AST 13 (5-31) U/L ALT 14 (0-31) U/L Alkaline Phosphatase 71 (39-117) U/L Total Protein 6.7 (6.5-8.0) g/dL Albumin 3.7 (3.5-5.0) g/dL Beta HCG, Quant < 2 mIU/mL Urine Color Urine Appearance Urine pH (5.0-8.0) Ur Specific [place] (1.005-1.025) Urine Protein (NEG-TRACE) MG/DL Urine Glucose (UA) (NEG) MG/DL Urine Ketones (NEG) MG/DL Urine Blood (NEG) Urine Nitrite (NEG) Ur Leukocyte Esterase (NEG) Urine RBC (0) /HPF Urine WBC (0-4) /HPF Ur Squamous Epith Cells /LPF Urine Bacteria /LPF Urine Test (NEGATIVE) 08/19/20 08/19/20 Range/Units 10:01 10:01 WBC (4.8-10.8) X10*3/uL RBC (4.20-5.50) X10*6/uL Hgb (12.0-16.0) g/dl Hct (37-47) % MCV (80-98) fL MCH (27.0-33.0) pg MCHC (31.0-35.0) g/dl RDW (11.0-16.0) % Plt Count (160-400) X10*3/uL MPV (9.4-12.3) fL Immature Gran % (Auto) (0.0-0.4) % Neut % (Auto) (45-73) % Lymph % (Auto) (20-40) % [place] % (Auto) (2-11) % Eos % (Auto) (0-4) % Baso % (Auto) (0-2) % Lymph # (Auto) (1.2-4.9) X10*3/uL [place] # (Auto) (0.1-1.2) X10*3/uL Eos # (Auto) (0.0-0.4) X10*3/uL Baso # (Auto) (0.0-0.2) X10*3/uL Abs Immat Gran (auto) (0.00-0.03) X10*3/uL Absolute Neuts (auto) (2.0-8.3) X10*3/uL Absolute Nucleated RBC (0.0-0.012) X10*3/uL Nucleated RBC % (auto) (0.0-0.2) /100WBC PT (10.8-13.0) SEC INR (0.9-1.1) Sodium (135-145) mmol/L Potassium (3.3-5.1) mmol/L Chloride (96-108) mmol/L Carbon Dioxide (22-29) mmol/L Anion Gap (12-20) BUN (9-16) mg/dL Creatinine (0.5-1.4) mg/dL Estim Creat Clear Calc Estimated GFR Random Glucose (60-115) mg/dL Calcium (8.4-10.2) mg/dL Magnesium (1.6-2.6) mg/dL Total Bilirubin (0.0-1.0) mg/dL Direct Bilirubin (0.0-0.5) mg/dL AST (5-31) U/L ALT (0-31) U/L Alkaline Phosphatase (39-117) U/L Total Protein (6.5-8.0) g/dL Albumin (3.5-5.0) g/dL Beta HCG, Quant mIU/mL Urine Color YELLOW Urine Appearance HAZY Urine pH 6.0 (5.0-8.0) Ur Specific [place] 1.020 (1.005-1.025) Urine Protein 1+ H (NEG-TRACE) MG/DL Urine Glucose (UA) NEG (NEG) MG/DL Urine Ketones NEG (NEG) MG/DL Urine Blood 3+ H (NEG) Urine Nitrite NEG (NEG) Ur Leukocyte Esterase 1+ H (NEG) Urine RBC 50-75 H (0) /HPF Urine WBC 15-29 H (0-4) /HPF Ur Squamous Epith Cells 1+ /LPF Urine Bacteria 1+ /LPF Urine Test NEGATIVE (NEGATIVE) Imaging Data CT scan abdomen pelvis without IV contrast: Attestation: I personally reviewed and interpreted this imaging study as follows: Radiologist's impression: FINDINGS: LUNG BASES: The visualized lung bases are unremarkable. LIVER, GALLBLADDER, AND BILIARY TREE: The liver is normal in size, shape, and attenuation. No focal hepatic lesion or biliary ductal dilatation is present. The gallbladder is unremarkable with no evidence of radiopaque gallstones, gallbladder wall thickening, or obvious pericholecystic inflammatory changes. PANCREAS: Unremarkable. SPLEEN: Unremarkable. ADRENAL GLANDS: Unremarkable. KIDNEYS AND URETERS: There is bilateral medullary nephrocalcinosis and numerous bilateral nonobstructive intrarenal calculi, approximately a dozen within each kidney ranging in size from punctate to 3 mm. No ureteral calculi. No hydronephrosis or perinephric abnormality. BLADDER: Unremarkable. GASTROINTESTINAL TRACT: The small and large bowel are unremarkable. The appendix is unremarkable. ABDOMINAL WALL: No significant hernia is appreciated. LYMPH NODES: Normal. VASCULAR: Unremarkable. PELVIC VISCERA: Uterus and adnexa unremarkable. OSSEOUS STRUCTURES: No acute or suspicious osseous abnormalities. Incomplete segmentation at L4-L5. CT/CT abdomen pelvis wo con IMPRESSION: Numerous bilateral nonobstructive intrarenal calculi and medullary nephrocalcinosis redemonstrated. No ureteral calculi or hydronephrosis. Discharge Plan Discharge Clinical Impression: Nephrolithiasis, Medullary sponge kidney of both kidneys, UTI (urinary tract infection) Patient Disposition: Home, Self-Care Instructions: Kidney Stones (ED), Urinary Tract Infection in Women (ED) Prescriptions: New acetaminophen [Tylenol Extra Strength] 500 mg tablet 1,000 mg PO QID PRN (Reason: fever or pain) Qty: 14 RF: 0 prednisone 20 mg tablet 40 mg PO DAILY 5 Days Qty: 10 RF: 0 naproxen 500 mg tablet 500 mg PO BID PRN (Reason: pain) Qty: 10 RF: 0 oxycodone 5 mg tablet 5 mg PO BID PRN (Reason: pain) Qty: 10 RF: 0 tamsulosin [Flomax] 0.4 mg capsule 0.4 mg PO DAILY 5 Days Qty: 5 RF: 0 nitrofurantoin monohyd/m-cryst [Macrobid] 100 mg capsule 100 mg PO BID 7 Days Qty: 14 RF: 0 No Action amlodipine 5 mg tablet 5 mg PO DAILY Qty: 30 RF: 6 cefuroxime axetil 250 mg tablet 500 mg PO BID 7 Days Qty: 28 RF: 0 hydrocodone-acetaminophen 5-325 mg tablet 1 tab PO Q6H PRN (Reason: pain) Qty: 15 RF: 0 prednisone 20 mg tablet 40 mg PO DAILY 5 Days Qty: 10 RF: 0 ibuprofen 600 mg tablet 600 mg PO Q6H PRN (Reason: pain) Qty: 30 RF: 0 ondansetron 4 mg tablet,disintegrating 4 mg PO Q8H PRN (Reason: nausea and vomiting) Qty: 20 RF: 0 tamsulosin 0.4 mg capsule 0.4 mg PO DAILY 5 Days Qty: 5 RF: 0 tramadol 50 mg tablet 50 mg PO Q6H PRN (Reason: pain) Qty: 14 RF: 0 oxycodone 5 mg tablet 5 mg PO Q6H PRN (Reason: Pain, Moderate) Qty: 20 RF: 0 tamsulosin [Flomax] 0.4 mg capsule 0.4 mg PO DAILY Qty: 7 RF: 0 prednisone 20 mg tablet 40 mg PO DAILY 4 Days Qty: 8 RF: 0 tamsulosin [Flomax] 0.4 mg capsule 0.4 mg PO DAILY 14 Days Qty: 14 RF: 0 hydrocodone-acetaminophen 5-325 mg tablet 1 tab PO Q8H PRN (Reason: pain, severe) 3 Days Qty: 9 RF: 0 cefuroxime axetil 250 mg tablet 250 mg PO BID 5 Days Qty: 10 RF: 0 phenazopyridine [Pyridium] 100 mg tablet 100 mg PO TID PRN (Reason: spasm) 4 Days Qty: 12 RF: 0 tramadol 50 mg tablet 50 mg PO Q6H PRN (Reason: pain (scale score 4-6)) Qty: 14 RF: 0 tamsulosin 0.4 mg capsule 0.4 mg PO BEDTIME Qty: 14 RF: 0 pyridoxine (vitamin B6) 100 mg tablet 100 mg PO DAILY 90 Days Qty: 90 RF: 1 allopurinol 100 mg tablet 100 mg PO DAILY Qty: 90 RF: 1 Referrals: Jack Johnson MD [Physician] - 2 days Stand Alone Forms: Work/School Release Print Language: [place] [facility] Past Medical History Attestation statement: The following information was validated with the patient. Medical History Active asthma Fibromyalgia Hospital discharge follow-up Hypertension Hypertension Surgical History History of extraction of renal calculus History of tubal ligation Family History Family History Father Anemia Sister Cervical cancer Maternal Aunt Breast cancer Diabetes Mother No problems noted. Social History Social History Alcohol intake: never Smoking Status: Never smoker Second Hand Smoke Exposure: No Use of substances other than those prescribed or required for medical reasons: No Advance Directives: No Advance Directives Information Provided: No
[2020-08-19 10:06] LABS: MANUAL DIFF FLAG NO
[2020-08-19 10:07] LABS: Basophils Absolute Auto 0.1 X10*3/uL (0.0-0.2); Eosinophils Absolute Auto 0.4 X10*3/uL (0.0-0.4); Hematocrit 41.7 % (37-47); Hemoglobin 12.9 g/dl (12.0-16.0); Imm Gran Abs Auto 0.02 X10*3/uL (0.00-0.03); Imm Gran Pct Auto 0.3 % (0.0-0.4); Lymphocytes Absolute Auto 1.4 X10*3/uL (1.2-4.9); Lymphocytes Percent Auto 20.6 % (20-40); Mean Corpuscular HGB Conc 30.9 g/dl (31.0-35.0); Mean Corpuscular Hemoglobin 24.9 pg (27.0-33.0); Mean Corpuscular Volume 80.3 fL (80-98); Monocytes Absolute Auto 0.8 X10*3/uL (0.1-1.2); Monocytes Percent Auto 10.9 % (2-11); Neutrophils Absolute Auto 4.3 X10*3/uL (2.0-8.3); Neutrophils Percent Auto 62.2 % (45-73); Platelet Count 223 X10*3/uL (160-400); Red Blood Count 5.19 X10*6/uL (4.20-5.50); Red Cell Distribution Width 14.8 % (11.0-16.0)
[2020-08-19 10:16] LABS: Glucose Urine UA NEG (NEG); Leukocyte Esterase Urine 1+ (NEG); Nitrite Urine NEG (NEG); UACC Culture Trigger YES; Urine Blood 3+ (NEG); Urine Ketones NEG (NEG); Urine Protein 1+ MG/DL (NEG-TRACE)
[2020-08-19 10:19] LABS: INTERNATIONAL NORM RATIO 1.1 (0.9-1.1); UPreg QC Valid YES; Urine Pregnancy NEGATIVE (NEGATIVE)
[2020-08-19 10:20] LABS: Appearance Urine HAZY; Color Urine YELLOW
[2020-08-19 10:28] LABS: Bacteria Urine 1+ /LPF; RBC Urine 50-75 /HPF (0); Squamous Epithelial Cell Urine 1+ /LPF
[2020-08-19] MEDS: 0.9 % Sodium Chloride 1,000 ML 999 ML IVCONT (10:30)
[2020-08-19] MEDS: ondansetron HCL 4 MG/2 ML VIAL IVPUSH (10:30)
[2020-08-19] MEDS: Ketorolac Tromethamine 30 MG/ML VIAL IVPUSH (10:30)
[2020-08-19 10:39] LABS: Alanine Aminotransferase 14 U/L (0-31); Albumin Level 3.7 g/dL (3.5-5.0); Alkaline Phosphatase 71 U/L (39-117); Anion Gap 13 (12-20); Aspartate Amino Transferase 13 U/L (5-31); Bilirubin Direct < 0.2 mg/dL (0.0-0.5); Bilirubin Total 0.3 mg/dL (0.0-1.0); Blood Urea Nitrogen 14 mg/dL (9-16); Calcium 8.6 mg/dL (8.4-10.2); Carbon Dioxide 24 mmol/L (22-29); Chloride 105 mmol/L (96-108); Creatinine Clr Calc Pharmacy 134.1; Estimated Glomerular Filt Rate > 60; Glucose Random 108 mg/dL (60-115); Magnesium 1.8 mg/dL (1.6-2.6); Potassium 4.2 mmol/L (3.3-5.1); Sodium 138 mmol/L (135-145); Total Protein 6.7 g/dL (6.5-8.0)
[2020-08-19 10:45] LABS: HCG Quantitative < 2 mIU/mL
[2020-08-19 12:05] VITALS: BP 134/79; PULSE 66; RESP 18; TEMP 36.4; O2SAT 99
== END 2020-08-19 12:34 | disposition home or self-care (01) ==
PROVIDERS: Physician Assistant Medical; Emergency Provider Emergency Medicine; PCP Internal Medicine
DX: N20.0 Calculus of kidney (principal); Q61.5 Medullary cystic kidney; N39.0 Urinary tract infection, site not specified; R10.31 Right lower quadrant pain; Z79.899 Other long term (current) drug therapy
CPT/HCPCS: 36415; 74176; 80053; 80076; 81001; 81003; 81025; 82248; 83735; 84702; 85025; 85610; 87086; 96365; 96375; 99284; J1885; J2405

== ENCOUNTER 2020-08-30 10:59 | Outpatient (REF) | payer OTHER, SELFPAY ==
[2020-08-30 11:18] LABS: COVID-19 Test Negative (Negative)
== END 2020-08-30 11:00 | disposition home or self-care (01) ==
LOC: HO.LAB 10:59
PROVIDERS: Visit Provider Internal Medicine
DX: Z20.822 Contact with and (suspected) exposure to COVID-19 (principal)
CPT/HCPCS: 36415; 87635; C9803

== ENCOUNTER 2020-09-11 13:44 | Outpatient (REF) | payer OTHER, SELFPAY ==
[2020-09-12 08:58] LABS: BV Int Neg Control Negative (Negative); BV Int Pos Control Positive (Positive)
[2020-09-12 08:59] LABS: CT PCR NOT DETECTED (Not Detect.); NG PCR NOT DETECTED (Not Detect.)
== END 2020-09-11 13:45 | disposition home or self-care (01) ==
LOC: HO.LAB 13:44
PROVIDERS: PCP Internal Medicine; Visit Provider Advanced Practice Midwife
DX: Z11.3 Encounter for screening for infections with a predominantly sexual mode of transmission (principal); R10.2 Pelvic and perineal pain; N89.8 Other specified noninflammatory disorders of vagina
CPT/HCPCS: 87480; 87491; 87510; 87591; 87660; 99212

== ENCOUNTER 2020-09-16 12:27 | Emergency (ER) | payer OTHER, SELFPAY ==
--- NOTE | ~2020-09-16 | CT_ITS ---
EXAMINATION: CT ABDOMEN AND PELVIS WITHOUT CONTRAST CLINICAL INFORMATION: Right flank pain. Rule out colic. COMPARISON: CT abdomen 08/19/2020. TECHNIQUE: Multidetector volumetric imaging was performed from the superior aspect of the liver through the pubic symphysis. Sagittal and coronal reformatted images were obtained on the technologist's workstation. This CT examination was performed using dose optimization techniques as appropriate, variously including the following: *Automated exposure control *Adjustment of mA and/or kV according to patient size (this includes techniques or standardized protocols for targeted exams where dose is matched to indication/reason for exam; i.e. extremities or head) *Use of iterative reconstruction technique DLP: 1097 mGy-cm FINDINGS: LUNG BASES: The visualized lung bases are unremarkable. LIVER, GALLBLADDER, AND BILIARY TREE: The liver is normal in size, shape, and attenuation. No focal hepatic lesion or biliary ductal dilatation is present. The gallbladder is unremarkable with no evidence of radiopaque gallstones, gallbladder wall thickening, or obvious pericholecystic inflammatory changes. PANCREAS: Unremarkable. No acute inflammatory changes. 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 Redemonstrated are numerous bilateral nonobstructing renal calculi, greater than 10 in number ranging in size from punctate to 3 mm. No ureteral calculi are seen. No hydronephrosis. BLADDER: Under distended, appearing unremarkable. No calculi in the bladder. GASTROINTESTINAL TRACT: The small and large bowel are unremarkable. No acute findings evident. The appendix is unremarkable. ABDOMINAL WALL: Small fat-containing umbilical hernia. LYMPH NODES: No lymphadenopathy is seen. VASCULAR: Normal caliber aorta. PELVIC VISCERA: Uterus and adnexa grossly appear unremarkable. No free fluid. OSSEOUS STRUCTURES: No acute or suspicious process seen. Unchanged appearance of incomplete segmentation at L4-L5. CT/CT abdomen pelvis wo con IMPRESSION: 1. Numerous bilateral nonobstructing renal calculi, with medullary calcinosis. This appears similar as compared to previous. No ureteral calculi. No hydronephrosis. 2. No acute findings otherwise identified in the abdomen or pelvis.
[2020-09-16 12:57] VITALS: BP 119/87; PULSE 88; RESP 16; TEMP 35.8; O2SAT 97; BMI 46.9
[2020-09-16 13:40] LABS: Appearance Urine CLOUDY; Color Urine YELLOW; Glucose Urine UA NEG (NEG); Leukocyte Esterase Urine 3+ (NEG); Nitrite Urine NEG (NEG); Specific Gravity - Urine 1.025 (1.005-1.025); UACC Culture Trigger YES; Urine Blood 3+ (NEG); Urine Ketones NEG (NEG); Urine Protein 1+ MG/DL (NEG-TRACE)
--- NOTE | 2020-09-16 13:42 | ED_ITS ---
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 Burning with urination. Does have some vaginal discharge she was seen 09/11 by manager of transportation and diagnosed with BV. She was prescribed Flagyl but she has not started this yet. All other STI testing negative. Seen 08/19 for same and diagnosed with UTI and treated with oral antibiotics which patient tells me she completed. Was recommended to follow-up with urology but she has not. No fevers, chills, vomiting, diarrhea. Related Data Home Medications Medication Instructions Recorded Confirmed linaclotide 290 mcg capsule 290 mcg PO DAILY 08/22/20 08/22/20 cetirizine 10 mg tablet 10 mg PO Q12H PRN 09/11/20 citalopram 40 mg tablet 40 mg PO DAILY 09/11/20 clonazepam 0.5 mg tablet 0.5 mg PO DAILY PRN 09/11/20 hydroxyzine pamoate 25 mg capsule 25 mg PO BID 09/11/20 montelukast 10 mg tablet 10 mg PO BEDTIME 09/11/20 famotidine 20 mg tablet 20 mg PO DAILY tab 09/13/20 Previous Rx's Medication Instructions Recorded ibuprofen 600 mg PO Q6H PRN #30 tab 03/27/20 ondansetron 4 mg PO Q8H PRN #20 tab 03/27/20 allopurinol 100 mg tablet 100 mg PO DAILY #90 tab 05/26/20 pyridoxine (vitamin B6) 100 mg 100 mg PO DAILY 90 Days #90 tab 05/26/20 tablet acetaminophen [Tylenol Extra 1,000 mg PO QID PRN #14 tab 08/19/20 Strength] naproxen 500 mg PO BID PRN #10 tab 08/19/20 nitrofurantoin monohyd/m-cryst 100 mg PO BID 7 Days #14 cap 08/19/20 [Macrobid] tamsulosin [Flomax] 0.4 mg PO DAILY 5 Days #5 cap 08/19/20 amlodipine 5 mg tablet 5 mg PO DAILY 90 Days #90 tab 08/22/20 gabapentin 100 mg capsule 100 mg PO TID 30 Days #90 cap 08/22/20 omeprazole 20 mg capsule,delayed 20 mg PO BID 30 Days #60 cap 09/13/20 release metronidazole 500 mg tablet 500 mg PO BID 7 Days #14 tab 09/15/20 ibuprofen 600 mg PO Q8H PRN #20 tab 09/16/20 nitrofurantoin monohyd/m-cryst 100 mg PO Q12H 7 Days #14 cap 09/16/20 [Macrobid] phenazopyridine [Pyridium] 100 mg PO TID PRN #6 tab 09/16/20 Allergies Allergy/AdvReac Type Severity Reaction Status Date / Time canned food Allergy Severe rash Verified 09/11/20 13:51 RED MEAT Allergy Severe Rash Uncoded 08/22/20 14:03 Review of Systems Review of Systems Yes all other systems are reviewed and are negative Constitutional: Reports no additional constitutional complaints, Denies body ache(s), Denies chills, Denies fever(s), Denies headache(s) and Denies weakness Eyes: Reports no additional eye complaints and Denies change in vision Reports system reviewed and no additional complaints, except as documented, Denies dizziness, Denies headache(s), Denies nasal congestion, Denies nasal discharge and Denies neck pain Cardiovascular: Reports no additional cardiovascular complaints, Denies chest pain, Denies leg edema and Denies dyspnea Respiratory: Reports no additional respiratory complaints, Denies cough and Denies dyspnea Gastrointestinal: Reports no additional gastrointestinal complaints, Denies abdominal pain, Denies diarrhea, Denies nausea and Denies vomiting Genitourinary: Reports no additional female genitourinary complaints and Denies urinary incontinence Musculoskeletal: Reports no additional musculoskeletal complaints, Reports back pain, Denies arthralgias, Denies joint swelling, Denies neck pain, Denies numbness and Denies tingling Skin/Breast: Reports system reviewed and no additional complaints, except as docu and Denies rash Reports system reviewed and no additional complaints, except as documented, Denies Abnormal speech present, Denies dizziness, Denies headache(s), Denies numbness, Denies tingling and Denies weakness Physical Exam Vital Signs: Vital Signs: Last Vital Signs Temp 97 F 09/16/20 14:00 Pulse 80 09/16/20 14:00 Resp 16 09/16/20 14:00 BP 122/66 09/16/20 14:00 Pulse Ox 97 09/16/20 14:00 Body Mass Index 46.9 Const: General: cooperative, healthy appearing, comfortable and no acute distress Orientation/consciousness: patient oriented x3 Limitations: no limitations HENMT: Head: Yes normal to inspection Ears: hearing grossly normal bilaterally General nose exam: Normal external nose present Face and sinus: Yes normal facial exam Mouth: Normal oral and palatal mucosa present Throat: Yes posterior oropharynx normal Eyes: General: appearance normal, both eyes and all related structures Pupils: Equal, round and reactive pupils present Neck: Neck: Yes normal visual inspection Chest: Chest palpation & inspection: normal inspection of the chest Resp: Effort & Inspection: normal respiratory effort Auscultation: clear to auscultation bilaterally Cardio: Rate: regular rate Rhythm: regular rhythm Peripheral pulses: Peripheral pulses 2+ throughout GI: Inspection: Yes normal to inspection Palpation (GI): Soft to palpation and Tenderness to palpation present (GI) (mild right sided tenderness. no rebound or guarding ) Auscultation: normal bowel sounds : General: Yes CVA tenderness (moderate ) Back/Spine/Pelvis: Back: CVA tenderness (moderate ) Thoracic/Lumbar Spine: thoracic and lumbar spine normal to inspection Skin: General skin exam: no rashes or lesions noted Neuro: General: patient oriented x3, no focal motor deficits and normal sensation to monofilament Cranial nerves: Yes Equal, round and reactive pupils present Cognition (Neuro): normal cognition Speech: No Abnormal speech present Gait exam (Neuro): Normal gait present Motor exam (neuro): 5/5 motor strength present throughout Extrem: General: Yes normal to inspection Course Course Course Narrative: 34-year-old female with past medical history of renal colic here with acute on chronic right flank pain with radiation the right lower abdomen x3 days with associated nausea and dysuria. Of note seen this month for same with negative workup with exception of a UTI and was treated with a course of antibiotics. Patient was also seen last week by manager of transportation for similar complaints and was diagnosed with bacterial vaginosis and recommended to start Flagyl which she has not started this yet. On exam does have some mild to moderate CVA tenderness. Will need labs, UA, CT A/P. 1615-CT shows Numerous bilateral nonobstructing renal calculi, with medullary calcinosis. This appears similar as compared to previous. No ureteral calculi. No hydronephrosis. UA is consistent with UTI. Labs are unremarkable. Will treat with course of antibiotics for UTI. Patient recommended to start her prescription for her bacterial vaginosis. 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 Reviewed worrisome signs and symptoms of when to return to the emergency department. Comfortable with discharge home. MDM - Abdominal Pain MDM Narrative Medical decision making narrative: Renal colic, pyelonephritis, UTI, acute appendicitis Medical Records Attestation: I reviewed the patient's medical records. Lab Data Attestation: I reviewed the patient's lab results. Result diagrams: 09/16/20 13:49 09/16/20 13:50 Labs: Lab Results 09/16/20 09/16/20 09/16/20 Range/Units 13:18 13:18 13:49 WBC 10.5 (4.8-10.8) X10*3/uL RBC 4.92 (4.20-5.50) X10*6/uL Hgb 12.1 (12.0-16.0) g/dl Hct 39.8 (37-47) % MCV 80.9 (80-98) fL MCH 24.6 L (27.0-33.0) pg MCHC 30.4 L (31.0-35.0) g/dl RDW 15.1 (11.0-16.0) % Plt Count 256 (160-400) X10*3/uL MPV 9.9 (9.4-12.3) fL Immature Gran % (Auto) 0.4 (0.0-0.4) % Neut % (Auto) 65.7 (45-73) % Lymph % (Auto) 23.9 (20-40) % [place] % (Auto) 5.9 (2-11) % Eos % (Auto) 3.3 (0-4) % Baso % (Auto) 0.8 (0-2) % Lymph # (Auto) 2.5 (1.2-4.9) X10*3/uL [place] # (Auto) 0.6 (0.1-1.2) X10*3/uL Eos # (Auto) 0.4 (0.0-0.4) X10*3/uL Baso # (Auto) 0.1 (0.0-0.2) X10*3/uL Abs Immat Gran (auto) 0.04 H (0.00-0.03) X10*3/uL Absolute Neuts (auto) 6.9 (2.0-8.3) X10*3/uL Absolute Nucleated RBC 0.000 (0.0-0.012) X10*3/uL Nucleated RBC % (auto) 0.0 (0.0-0.2) /100WBC Sodium (135-145) mmol/L Potassium (3.3-5.1) mmol/L Chloride (96-108) mmol/L Carbon Dioxide (22-29) mmol/L Anion Gap (12-20) BUN (9-16) mg/dL Creatinine (0.5-1.4) mg/dL Estim Creat Clear Calc Estimated GFR Random Glucose (60-115) mg/dL Calcium (8.4-10.2) mg/dL Total Bilirubin (0.0-1.0) mg/dL Direct Bilirubin (0.0-0.5) mg/dL AST (5-31) U/L ALT (0-31) U/L Alkaline Phosphatase (39-117) U/L Total Protein (6.5-8.0) g/dL Albumin (3.5-5.0) g/dL Urine Color YELLOW Urine Appearance CLOUDY Urine pH 6.0 (5.0-8.0) Ur Specific [place] 1.025 (1.005-1.025) Urine Protein 1+ H (NEG-TRACE) MG/DL Urine Glucose (UA) NEG (NEG) MG/DL Urine Ketones NEG (NEG) MG/DL Urine Blood 3+ H (NEG) Urine Nitrite NEG (NEG) Ur Leukocyte Esterase 3+ H (NEG) Urine RBC 5-9 H (0) /HPF Urine WBC 5-9 H (0-4) /HPF Ur Squamous Epith Cells 2+ /LPF Urine Bacteria 3+ /LPF Urine Test NEGATIVE (NEGATIVE) 09/16/20 Range/Units 13:50 WBC (4.8-10.8) X10*3/uL RBC (4.20-5.50) X10*6/uL Hgb (12.0-16.0) g/dl Hct (37-47) % MCV (80-98) fL MCH (27.0-33.0) pg MCHC (31.0-35.0) g/dl RDW (11.0-16.0) % Plt Count (160-400) X10*3/uL MPV (9.4-12.3) fL Immature Gran % (Auto) (0.0-0.4) % Neut % (Auto) (45-73) % Lymph % (Auto) (20-40) % [place] % (Auto) (2-11) % Eos % (Auto) (0-4) % Baso % (Auto) (0-2) % Lymph # (Auto) (1.2-4.9) X10*3/uL [place] # (Auto) (0.1-1.2) X10*3/uL Eos # (Auto) (0.0-0.4) X10*3/uL Baso # (Auto) (0.0-0.2) X10*3/uL Abs Immat Gran (auto) (0.00-0.03) X10*3/uL Absolute Neuts (auto) (2.0-8.3) X10*3/uL Absolute Nucleated RBC (0.0-0.012) X10*3/uL Nucleated RBC % (auto) (0.0-0.2) /100WBC Sodium 140 (135-145) mmol/L Potassium 3.8 (3.3-5.1) mmol/L Chloride 106 (96-108) mmol/L Carbon Dioxide 27 (22-29) mmol/L Anion Gap 11 L (12-20) BUN 13 (9-16) mg/dL Creatinine 0.87 (0.5-1.4) mg/dL Estim Creat Clear Calc 116.5 Estimated GFR > 60 Random Glucose 87 (60-115) mg/dL Calcium 8.7 (8.4-10.2) mg/dL Total Bilirubin 0.3 (0.0-1.0) mg/dL Direct Bilirubin < 0.2 (0.0-0.5) mg/dL AST 10 (5-31) U/L ALT 10 (0-31) U/L Alkaline Phosphatase 75 (39-117) U/L Total Protein 6.9 (6.5-8.0) g/dL Albumin 3.9 (3.5-5.0) g/dL Urine Color Urine Appearance Urine pH (5.0-8.0) Ur Specific [place] (1.005-1.025) Urine Protein (NEG-TRACE) MG/DL Urine Glucose (UA) (NEG) MG/DL Urine Ketones (NEG) MG/DL Urine Blood (NEG) Urine Nitrite (NEG) Ur Leukocyte Esterase (NEG) Urine RBC (0) /HPF Urine WBC (0-4) /HPF Ur Squamous Epith Cells /LPF Urine Bacteria /LPF Urine Test (NEGATIVE) Imaging Data CT scan - abdomen: Attestation: I personally reviewed and interpreted this imaging study as follows: Radiologist's impression: EXAMINATION: CT ABDOMEN AND PELVIS WITHOUT CONTRAST CLINICAL INFORMATION: Right flank pain. Rule out colic. COMPARISON: CT abdomen 08/19/2020. TECHNIQUE: Multidetector volumetric imaging was performed from the superior aspect of the liver through the pubic symphysis. Sagittal and coronal reformatted images were obtained on the technologist's workstation. This CT examination was performed using dose optimization techniques as appropriate, variously including the following: *Automated exposure control *Adjustment of mA and/or kV according to patient size (this includes techniques or standardized protocols for targeted exams where dose is matched to indication/reason for exam; i.e. extremities or head) *Use of iterative reconstruction technique DLP: 1097 mGy-cm FINDINGS: LUNG BASES: The visualized lung bases are unremarkable. LIVER, GALLBLADDER, AND BILIARY TREE: The liver is normal in size, shape, and attenuation. No focal hepatic lesion or biliary ductal dilatation is present. The gallbladder is unremarkable with no evidence of radiopaque gallstones, gallbladder wall thickening, or obvious pericholecystic inflammatory changes. PANCREAS: Unremarkable. No acute inflammatory changes. 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 Redemonstrated are numerous bilateral nonobstructing renal calculi, greater than 10 in number ranging in size from punctate to 3 mm. No ureteral calculi are seen. No hydronephrosis. BLADDER: Under distended, appearing unremarkable. No calculi in the bladder. GASTROINTESTINAL TRACT: The small and large bowel are unremarkable. No acute findings evident. The appendix is unremarkable. ABDOMINAL WALL: Small fat-containing umbilical hernia. LYMPH NODES: No lymphadenopathy is seen. VASCULAR: Normal caliber aorta. PELVIC VISCERA: Uterus and adnexa grossly appear unremarkable. No free fluid. OSSEOUS STRUCTURES: No acute or suspicious process seen. Unchanged appearance of incomplete segmentation at L4-L5. CT/CT abdomen pelvis wo con IMPRESSION: 1. Numerous bilateral nonobstructing renal calculi, with medullary calcinosis. This appears similar as compared to previous. No ureteral calculi. No hydronephrosis. 2. No acute findings otherwise identified in the abdomen or pelvis. Discharge Plan Discharge Clinical Impression: UTI (urinary tract infection) Patient Disposition: Home, Self-Care Instructions: Urinary Tract Infection in Women (ED) Additional Instructions: Increase fluids, rest Follow-up with Dr. Johnson Prescriptions: New nitrofurantoin monohyd/m-cryst [Macrobid] 100 mg capsule 100 mg PO Q12H 7 Days Qty: 14 RF: 0 phenazopyridine [Pyridium] 100 mg tablet 100 mg PO TID PRN (Reason: pain) Qty: 6 RF: 0 ibuprofen 600 mg tablet 600 mg PO Q8H PRN (Reason: pain) Qty: 20 RF: 0 No Action famotidine 20 mg tablet 20 mg PO DAILY RF: 0 omeprazole 20 mg capsule,delayed release(DR/EC) 20 mg PO BID 30 Days Qty: 60 RF: 0 metronidazole [Flagyl] 500 mg tablet 500 mg PO BID 7 Days Qty: 14 RF: 0 ibuprofen 600 mg tablet 600 mg PO Q6H PRN (Reason: pain) Qty: 30 RF: 0 ondansetron 4 mg tablet,disintegrating 4 mg PO Q8H PRN (Reason: nausea and vomiting) Qty: 20 RF: 0 acetaminophen [Tylenol Extra Strength] 500 mg tablet 1,000 mg PO QID PRN (Reason: fever or pain) Qty: 14 RF: 0 naproxen 500 mg tablet 500 mg PO BID PRN (Reason: pain) Qty: 10 RF: 0 tamsulosin [Flomax] 0.4 mg capsule 0.4 mg PO DAILY 5 Days Qty: 5 RF: 0 nitrofurantoin monohyd/m-cryst [Macrobid] 100 mg capsule 100 mg PO BID 7 Days Qty: 14 RF: 0 Linzess 290 mcg capsule 290 mcg PO DAILY RF: 0 amlodipine 5 mg tablet 5 mg PO DAILY 90 Days Qty: 90 RF: 1 gabapentin 100 mg capsule 100 mg PO TID 30 Days Qty: 90 RF: 1 pyridoxine (vitamin B6) 100 mg tablet 100 mg PO DAILY 90 Days Qty: 90 RF: 1 allopurinol 100 mg tablet 100 mg PO DAILY Qty: 90 RF: 1 hydroxyzine pamoate 25 mg capsule 25 mg PO BID RF: 0 clonazepam 0.5 mg tablet 0.5 mg PO DAILY PRNRF: 0 citalopram 40 mg tablet 40 mg PO DAILY RF: 0 montelukast 10 mg tablet 10 mg PO BEDTIME RF: 0 cetirizine 10 mg tablet 10 mg PO Q12H PRNRF: 0 Referrals: Jack Johnson MD [Physician] - 2 days Stand Alone Forms: Work/School Release Interventions: ED Discharge Assessment Last Done: 09/16/20 15:57 Discharge Date/Time: 09/16/20 15:57 Print Language: Turkmen [facility] Past Medical History Medical History Active asthma Fibromyalgia Hospital discharge follow-up Hypertension Hypertension Surgical History History of extraction of renal calculus History of tubal ligation Family History Family History Father Anemia Sister Cervical cancer Maternal Aunt Breast cancer Diabetes Mother No problems noted. Social History Social History Alcohol intake: never Second Hand Smoke Exposure: No Advance Directives: No Advance Directives Information Provided: Yes Patient : No
[2020-09-16 13:49] LABS: Bacteria Urine 3+ /LPF; Squamous Epithelial Cell Urine 2+ /LPF; UACC CULT YES
[2020-09-16 13:54] LABS: MANUAL DIFF FLAG NO
[2020-09-16 13:57] LABS: Basophils Absolute Auto 0.1 X10*3/uL (0.0-0.2); Basophils Percent Auto 0.8 % (0-2); Eosinophils Absolute Auto 0.4 X10*3/uL (0.0-0.4); Eosinophils Percent Auto 3.3 % (0-4); Hematocrit 39.8 % (37-47); Hemoglobin 12.1 g/dl (12.0-16.0); Imm Gran Abs Auto 0.04 X10*3/uL (0.00-0.03); Imm Gran Pct Auto 0.4 % (0.0-0.4); Lymphocytes Absolute Auto 2.5 X10*3/uL (1.2-4.9); Lymphocytes Percent Auto 23.9 % (20-40); Mean Corpuscular HGB Conc 30.4 g/dl (31.0-35.0); Mean Corpuscular Hemoglobin 24.6 pg (27.0-33.0); Mean Corpuscular Volume 80.9 fL (80-98); Mean Platelet Volume 9.9 fL (9.4-12.3); Monocytes Absolute Auto 0.6 X10*3/uL (0.1-1.2); Monocytes Percent Auto 5.9 % (2-11); Neutrophils Absolute Auto 6.9 X10*3/uL (2.0-8.3); Neutrophils Percent Auto 65.7 % (45-73); Platelet Count 256 X10*3/uL (160-400); Red Blood Count 4.92 X10*6/uL (4.20-5.50); Red Cell Distribution Width 15.1 % (11.0-16.0); White Blood Count 10.5 X10*3/uL (4.8-10.8)
[2020-09-16] MEDS: Ketorolac Tromethamine 30 MG/ML VIAL IVPUSH (13:59)
[2020-09-16 14:00] VITALS: BP 122/66; PULSE 80; RESP 16; TEMP 36.1; O2SAT 97
[2020-09-16 14:04] LABS: UPreg QC Valid YES; Urine Pregnancy NEGATIVE (NEGATIVE)
[2020-09-16 14:23] LABS: Alanine Aminotransferase 10 U/L (0-31); Albumin Level 3.9 g/dL (3.5-5.0); Alkaline Phosphatase 75 U/L (39-117); Anion Gap 11 (12-20); Aspartate Amino Transferase 10 U/L (5-31); Bilirubin Direct < 0.2 mg/dL (0.0-0.5); Bilirubin Total 0.3 mg/dL (0.0-1.0); Blood Urea Nitrogen 13 mg/dL (9-16); Calcium 8.7 mg/dL (8.4-10.2); Carbon Dioxide 27 mmol/L (22-29); Chloride 106 mmol/L (96-108); Creatinine Clr Calc Pharmacy 116.5; Estimated Glomerular Filt Rate > 60; Glucose Random 87 mg/dL (60-115); Potassium 3.8 mmol/L (3.3-5.1); Sodium 140 mmol/L (135-145); Total Protein 6.9 g/dL (6.5-8.0)
== END 2020-09-16 15:57 | disposition home or self-care (01) ==
PROVIDERS: Nurse Practitioner Family; Emergency Provider Emergency Medicine Emergency Medical Services; PCP Internal Medicine
DX: N39.0 Urinary tract infection, site not specified (principal); R10.9 Unspecified abdominal pain; I10 Essential (primary) hypertension; Z79.899 Other long term (current) drug therapy
CPT/HCPCS: 36415; 74176; 80048; 80076; 81001; 81025; 85025; 87086; 96372; 99284; J1885

== ENCOUNTER → 2020-09-22 13:13 | Outpatient (BNVA) | payer OTHER, SELFPAY | PROVIDERS: PCP Internal Medicine; Visit Provider Urology | DX: N20.0 Calculus of kidney (principal); I10 Essential (primary) hypertension; J45.909 Unspecified asthma, uncomplicated; M79.7 Fibromyalgia; Z91.018 Allergy to other foods | CPT/HCPCS: 99212 ==

== ENCOUNTER 2020-10-09 10:02 | Outpatient (REF) | payer OTHER, SELFPAY ==
--- NOTE | ~2020-10-09 | US_ITS ---
EXAMINATION: PELVIC ULTRASOUND CLINICAL INFORMATION: Pain COMPARISON: Previous pelvic ultrasound February [address] of the abdomen and pelvis August 2020 TECHNIQUE: Transabdominal and transvaginal pelvic ultrasound was performed. Transvaginal exam was performed for better visualization of the uterus and ovaries. FINDINGS: The uterus is anteverted and retroflexed and measures 8.1 x 4.9 x 5.3 cm in dimension. No focal uterine lesion is seen. Endometrial thickness is normal measuring 1.3 cm. There is a small amount of fluid seen in the endometrial cavity. The ovaries are normal-appearing. The right ovary measures 3.1 x 2.2 x 2.6 cm and the left ovary measures 3.2 x 2.9 x 2.2 cm. There is a 2 x 1.7 x 1.7 cm simple right ovarian cyst. There is a small amount of fluid in the pelvis. US/US pelvic and transvaginal IMPRESSION: Unremarkable exam.
== END 2020-10-09 10:03 | disposition home or self-care (01) ==
LOC: HO.US 10:02
PROVIDERS: PCP Internal Medicine; Referring Provider Urology; Visit Provider Advanced Practice Midwife
DX: R10.2 Pelvic and perineal pain (principal)
CPT/HCPCS: 76830; 76856

== ENCOUNTER 2020-10-16 10:10 | Day surgery (SDC) | payer OTHER, SELFPAY ==
[2020-10-10 09:43] VITALS: BMI 47.8
--- NOTE | ~2020-10-16 | FL_ITS ---
EXAMINATION: XR FLUOROSCOPY WITH IMAGES CLINICAL INFORMATION: Right kidney stone. COMPARISON: None. TECHNIQUE: Fluoroscopy performed by Dr. Alex Santiago. Fluoroscopy time: 14.5 seconds DAP: 6.69 mGycm2 Images: 2 FINDINGS: The first image reveals contrast opacifying right kidney calyces and the pelvis. Subsequent image reveals a ureteroscope extending into the lower pole calyx right kidney. The soft tissues are unremarkable. FL/FL guidance in OR IMPRESSION: Fluoroscopy was provided to Dr. Alex Santiago during right retrograde renal evaluation
[2020-10-16 10:38] VITALS: BP 141/78; PULSE 80; RESP 18; TEMP 36.4; O2SAT 98
[2020-10-16] MEDS: levoFLOXacin 500 MG TABLET PO (11:50)
--- NOTE | 2020-10-16 12:43 | MHC.SHP ---
Pre-Procedural Eval Section A Date of Service: 10/16/20 The patient is an INPATIENT: No Changes since office visit: No Cold of Flu in the past 2 weeks, No New Medical Problems, No Changes in Medication and No Patient answered all questions The History & Physical has been completed within 30 days and I have reviewed it.: Yes Section B Chief Complaint: kidney stone Allergies: Allergies Allergy/AdvReac Type Severity Reaction Status Date / Time canned food Allergy Severe rash Verified 09/22/20 13:23 RED MEAT Allergy Severe Rash Uncoded 08/22/20 14:03 Plan Diagnosis/Plan: Unchanged ( Right flexible ureteroscopy laser lithotripsy stent) I have reviewed the history and physical and performed a pertinent physical examination on my patient. No changes have occurred unless specified.
--- NOTE | 2020-10-16 13:13 | HO.ANESPROP2 ---
[facility] Active Problems Active Problems: All Active Problems (Updated 10/10/20 @ 09:32 by Marii Manrique) Nephrolithiasis (Acute) Medullary sponge kidney of both kidneys (Acute) Hypertension (Acute) Hospital discharge follow-up (Acute) Past Medical History Medical History Active asthma Fibromyalgia Hospital discharge follow-up Hypertension Renal calculi Family History Family History Father Anemia Sister Cervical cancer Maternal Aunt Breast cancer Diabetes Mother No problems noted. Surgical History Surgical History History of extraction of renal calculus History of tubal ligation Social History Social History Alcohol intake: never Second Hand Smoke Exposure: No Advance Directives Information Provided: No Meds Allergies Allergy/AdvReac Type Severity Reaction Status Date / Time canned food Allergy Severe rash Verified 09/22/20 13:23 RED MEAT Allergy Severe Rash Uncoded 08/22/20 14:03 Home Medications Medication Instructions Recorded Confirmed Last Taken Type linaclotide 290 mcg capsule 290 mcg PO DAILY 08/22/20 10/10/20 Unknown History cetirizine 10 mg tablet 10 mg PO Q12H PRN 09/11/20 Unknown History citalopram 40 mg tablet 40 mg PO DAILY 09/11/20 10/10/20 Unknown History clonazepam 0.5 mg tablet 0.5 mg PO DAILY PRN 09/11/20 10/10/20 Unknown History hydroxyzine pamoate 25 mg capsule 25 mg PO BID 09/11/20 Unknown History montelukast 10 mg tablet 10 mg PO BEDTIME 09/11/20 Unknown History famotidine 20 mg tablet 20 mg PO DAILY tab 09/13/20 Unknown History Exam Exam Date and Time: October 16, 2020 1313 Height,Weight and Vital Signs: Height 5 ft 3 in Weight 122.47 kg Last Vital Signs Temp 97.6 F 10/16/20 10:38 Pulse 80 10/16/20 10:38 Resp 18 10/16/20 10:38 BP 141/78 H 10/16/20 10:38 Pulse Ox 98 10/16/20 10:38 Airway Mallampati Class: II TM Dist: >3cm Neck ROM: Full Assessment and Plan Assessment Anesthesia Assessment: Anesthesia Plan Discussed and Chart Reviewed Final Anesthetic Review NPO: Yes ASA Class: III Final Preanesthetic Review: No Changes in Pt Med Stat, Meds/Allgs Chart Reviewed, Consent Obtained/Reviewed and Anes Risks/Benef Reviewed Patient Risk: Intermediate Procedure Risk: Low Assessment/Block/Sedation in SS: Assess/Block/Sedation-SS Anesthetic Plan Anesthetic Plan: GA Disposition: Standard PACU
[2020-10-16 13:40] VITALS: BP 144/79; PULSE 86; RESP 16; TEMP 36.4; O2SAT 99
--- NOTE | 2020-10-16 13:41 | P.OP_ITS ---
Operative Note Operative Note Date of Service: 10/16/20 Narrative: PreOperative Diagnosis: Right renal stone Medullary sponge kidney Post Operative Diagnosis: right renal stone Procedure: - right cystoscopy, retrograde - dilatation of ureteric orifice under fluoroscopy - right ureteroscopy, laser lithotripsy Surgeon: Dr Jack Johnson Anesthesia: General Indications for procedure: 34-year-old female. Medullary sponge kidney. Recurrent stone former. Pain on left side. Imaging with 4-6 mm stone fragments. Submucosal calcification. Procedure: After informed consent was verified patient was brought to the operating placed in supine position. Anesthesia was administered per protocol. Patient was placed in modified dorsal lithotomy position and prepped and draped in a sterile fashion. Safety pause time-out and side of surgery confirmed. Antibiotics confirmed. Twenty-two Swedish cystoscope inserted per urethra. Normal bladder. Retrograde performed on right side. ureteric access sheath placed over a Sensor wire flexible ureteroscopy performed. There were multiple submucosal calcifications in every calyx. In at least for the calices there was a calfing stone. With the laser set on dusting settings the carving stones were removed. Any major areas of calcification were also lasered. Effectively 5 out of the 6 calices had some type of stone product. At the completion the procedure decision was made not to leave a stent. As we pulled back the access sheath was no evidence of any mucosal damage. She had noted to have a wide ureter at the time of retrograde. She tolerated procedure well was extubated in operating room transferred in stable condition to the recovery area. Pathology: None Drains: none
[2020-10-16 13:45] VITALS: BP 137/84; PULSE 78; RESP 16; O2SAT 96
[2020-10-16 13:50] VITALS: PULSE 80; RESP 16; O2SAT 95
[2020-10-16 13:55] VITALS: BP 141/79; PULSE 74; RESP 16; O2SAT 96
[2020-10-16] MEDS: oxyCODONE HCl Immed Release 5 MG TABLET PO (13:55)
[2020-10-16] MEDS: Phenazopyridine HCL 100 MG TABLET PO (13:59)
[2020-10-16 14:10] VITALS: BP 147/87; PULSE 67; RESP 16; TEMP 36.4; O2SAT 98
== END 2020-10-16 14:21 | disposition home or self-care (01) ==
PROVIDERS: PCP Internal Medicine; Visit Provider Urology
PROC: (CPT 52353; principal; 2020-10-16 12:50)
DX: N20.0 Calculus of kidney (principal); Q61.5 Medullary cystic kidney; Z87.442 Personal history of urinary calculi; J45.909 Unspecified asthma, uncomplicated; I10 Essential (primary) hypertension; M79.7 Fibromyalgia; Z79.899 Other long term (current) drug therapy
CPT/HCPCS: 52353; C1769; C1894; J1100; J1885; J2250; J2405; J3010; Q9967

== ENCOUNTER → 2020-10-20 14:54 | Outpatient (BNVA) | payer OTHER, SELFPAY | PROVIDERS: PCP Internal Medicine; Visit Provider Nurse Practitioner ==

== ENCOUNTER → 2020-10-30 15:43 | Outpatient (BNVA) | payer OTHER, SELFPAY | PROVIDERS: PCP Internal Medicine; Visit Provider Advanced Practice Midwife ==

== ENCOUNTER → 2020-11-03 14:28 | Outpatient (BNVA) | payer OTHER, SELFPAY | PROVIDERS: PCP Internal Medicine; Visit Provider Urology ==

== ENCOUNTER 2021-01-08 07:51 | Emergency (ER) | payer OTHER, SELFPAY ==
--- NOTE | ~2021-01-08 | US_ITS ---
EXAMINATION: US RETROPERITONEAL LIMITED (RENAL ONLY) CLINICAL INFORMATION: History of renal stones. Bilateral flank pain. COMPARISON: CT abdomen pelvis 09/16/2020 TECHNIQUE: Routine ultrasound imaging of kidneys is performed. FINDINGS: RIGHT KIDNEY: 11.7 x 5.2 x 7.3 cm (SAG x AP x TRV). The kidney is normal in size, contour, and echogenicity. Renal cortical thickness is normal. There is a hyperechoic lesion in the midpole right kidney measuring 0.9 x 0.8 x 1.0 cm likely a small and a myolipoma.. No hydronephrosis. There are several echogenic clinical artifact seen. LEFT KIDNEY: 12.4 x 6.2 x 5.8 cm (SAG x AP x TRV). The kidney is normal in size, contour, and echogenicity. Renal cortical thickness is normal. No calculi or focal parenchymal lesions. No hydronephrosis. There are multiple areas of tingling artifact visualized without any measurable lesion. 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 Multiple areas of clinical artifact in both kidneys but no caliectasis or hydronephrosis or echogenic calculi seen. On previous CT 09/16/2020 there are multiple bilateral nonobstructing renal calculi and medullary calcinosis.
[2021-01-08 08:00] VITALS: BP 162/86; PULSE 80; RESP 16; TEMP 36.8; O2SAT 96; BMI 48.6
--- NOTE | 2021-01-08 09:13 | ED.FEMALEGU ---
HPI - Female Genitourinary General Chief complaint: Urogenital-Female Stated complaint: flank pain, vomiting Time Seen by Provider: 01/08/21 08:43 Source: patient Mode of arrival: ambulatory History of Present Illness HPI Narrative: 34-year-old female with a past medical history of asthma, fibromyalgia, renal calculus/Medullary sponge kidney of both kidneys, tubal ligation, HTN, presenting to the ED complaining of?right flank pain radiating to left flank/lower abdomen since this morning with associated dysuria, nausea/vomiting and headache. Admits to similar symptoms in the past with her renal calculi. Denies fever, chills, CP/SOB, constipation, urinary frequency Related Data Home Medications Medication Instructions Recorded Confirmed linaclotide 290 mcg capsule 290 mcg PO DAILY 08/22/20 10/10/20 cetirizine 10 mg tablet 10 mg PO Q12H PRN 09/11/20 citalopram 40 mg tablet 40 mg PO DAILY 09/11/20 10/10/20 clonazepam 0.5 mg tablet 0.5 mg PO DAILY PRN 09/11/20 10/10/20 hydroxyzine pamoate 25 mg capsule 25 mg PO BID 09/11/20 montelukast 10 mg tablet 10 mg PO BEDTIME 09/11/20 famotidine 20 mg tablet 20 mg PO DAILY tab 09/13/20 Previous Rx's Medication Instructions Recorded ibuprofen 600 mg tablet 600 mg PO Q6H PRN #30 tab 03/27/20 ondansetron 4 mg disintegrating 4 mg PO Q8H PRN #20 tab 03/27/20 tablet acetaminophen 500 mg tablet 1,000 mg PO QID PRN #14 tab 08/19/20 (Tylenol Extra Strength) naproxen 500 mg tablet 500 mg PO BID PRN #10 tab 08/19/20 nitrofurantoin 100 mg PO BID 7 Days #14 cap 08/19/20 monohydrate/macrocrystals 100 mg capsule (Macrobid) tamsulosin 0.4 mg capsule (Flomax) 0.4 mg PO DAILY 5 Days #5 cap 08/19/20 amlodipine 5 mg tablet 5 mg PO DAILY 90 Days #90 tab 08/22/20 gabapentin 100 mg capsule 100 mg PO TID 30 Days #90 cap 08/22/20 omeprazole 20 mg capsule,delayed 20 mg PO BID 30 Days #60 cap 09/13/20 release metronidazole 500 mg tablet 500 mg PO BID 7 Days #14 tab 09/15/20 (Flagyl) nitrofurantoin 100 mg PO Q12H 7 Days #14 cap 09/16/20 monohydrate/macrocrystals 100 mg capsule (Macrobid) phenazopyridine 100 mg tablet 100 mg PO TID PRN #6 tab 09/16/20 (Pyridium) phenazopyridine 100 mg tablet 100 mg PO TID PRN 4 Days #12 tab 10/16/20 (Pyridium) tramadol 50 mg tablet 50 mg PO Q6H PRN #14 tab 10/16/20 allopurinol 100 mg tablet 100 mg PO DAILY #90 tab 11/03/20 pyridoxine (vitamin B6) 100 mg 100 mg PO DAILY 90 Days #90 tab 11/03/20 tablet ibuprofen 600 mg tablet 600 mg PO Q8H PRN #14 tab 01/08/21 tamsulosin 0.4 mg capsule (Flomax) 0.4 mg PO DAILY #7 cap 01/08/21 Allergies Allergy/AdvReac Type Severity Reaction Status Date / Time canned food Allergy Severe rash Verified 10/20/20 14:55 RED MEAT Allergy Severe Rash Uncoded 08/22/20 14:03 Review of Systems Review of Systems: Constitutional: No Fever, No Chills, No Fatigue, No Malaise ENT/Mouth: No Ear Pain, No Nasal Congestion, No sore throat, No Rhinorrhea, No Swallowing Difficulty Eyes: No Eye Pain, No Discharge, No Vision Changes Cardiovascular: No Chest Pain, No SOB, No Palpitations Respiratory: No Cough, No Dyspnea Gastrointestinal: + Nausea, + Vomiting, No Diarrhea, No Constipation, + Abdominal pain Genitourinary: No irregular bleeding, + Dysuria, No Urinary Frequency, No Hematuria, No Urinary Incontinence, No Urgency, + Flank Pain, No Urinary Flow Changes, No Hesitancy Musculoskeletal: No joint pain, No Myalgias, No Joint Swelling Skin: No Skin Lesions, No rash Neuro: No Weakness, No Numbness, No Dizziness, + Headache Yes all other systems are reviewed and are negative [facility] Past Medical History Attestation statement: The following information was validated with the patient. Medical History Active asthma Fibromyalgia Hospital discharge follow-up Hypertension Renal calculi Surgical History History of extraction of renal calculus History of tubal ligation Family History Family History Father Anemia Sister Cervical cancer Maternal Aunt Breast cancer Diabetes Mother No problems noted. Social History Social History Alcohol intake: unknown Patient Tobacco Use Status: Tobacco use Unknown Second Hand Smoke Exposure: No Use of substances other than those prescribed or required for medical reasons: Unknown Advance Directives: No Advance Directives Information Provided: No Patient : No Physical Exam Vital Signs: Vital Signs: Last Vital Signs Temp 97.7 F 01/08/21 09:20 Pulse 61 01/08/21 09:20 Resp 18 01/08/21 09:20 BP 133/70 01/08/21 09:20 Pulse Ox 99 01/08/21 09:20 Body Mass Index 48.6 Const: General: cooperative, healthy appearing and no acute distress Orientation/consciousness: patient oriented x3 Limitations: no limitations HENMT: Head: Yes normal to inspection Ears: hearing grossly normal bilaterally General nose exam: Normal external nose present Face and sinus: Yes normal facial exam Eyes: General: appearance normal, both eyes and all related structures EOM: EOMs intact bilaterally Neck: Neck: Yes normal visual inspection Resp: Effort & Inspection: normal respiratory effort and no respiratory distress Cardio: Rate: regular rate Heart sounds: S1 normal heart sound present and S2 normal heart sound present GI: Inspection: Yes normal to inspection Palpation (GI): Soft to palpation, nontender, no guarding and not rigid : General: Yes CVA tenderness bilateral Back/Spine/Pelvis: Back: CVA tenderness Skin: Rashes: no rashes Wounds: no wounds Neuro: General: patient oriented x3 Gait exam (Neuro): Normal gait present Extrem: General: Yes normal to inspection Course Course Course Narrative: -1000--no leukocytosis. H&H stable. Labs otherwise unremarkable. 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 Multiple areas of clinical artifact in both kidneys but no caliectasis or hydronephrosis or echogenic calculi seen. On previous CT 09/16/2020 there are multiple bilateral nonobstructing renal calculi and medullary calcinosis. >> on re-evaluation patient is sleeping comfortably in stretcher, patient reports symptomatic improvement after medications given in the ED, results discussed with patient, likely renal colic/passed stone, low concern for obstruction, no hydro, no UTI. Discussed with patient she needs to follow up with Urology outpatient MDM - Female Genitourinary MDM Narrative Medical decision making narrative: 34-year-old female with a past medical history of asthma, fibromyalgia, renal calculus/Medullary sponge kidney of both kidneys, tubal ligation, HTN, presenting to the ED complaining of?right flank pain radiating to left flank/lower abdomen since this morning with associated dysuria, nausea/vomiting and headache. On exam VSS, NAD/nontoxic appearing, abdomen is soft and nontender, bilateral CVAT. Concern for acute on chronic renal stone/calculi. Lower concern for obstruction. Rule UTI/pyelo. Lower concern for diverticulitis/appendicitis Plan: Labs, UA, renal ultrasound, will avoid CT at this time due to patient's numerous amount of CT scans for same sx Medical Records Attestation: I reviewed the patient's medical records. Lab Data Attestation: I reviewed the patient's lab results. Result diagrams: 01/08/21 09:08 01/08/21 09:08 Labs: Lab Results 01/08/21 01/08/21 01/08/21 Range/Units 09:08 09:08 09:08 WBC 9.7 (4.8-10.8) X10*3/uL RBC 5.03 (4.20-5.50) X10*6/uL Hgb 12.4 (12.0-16.0) g/dl Hct 40.8 (37-47) % MCV 81.1 (80-98) fL MCH 24.7 L (27.0-33.0) pg MCHC 30.4 L (31.0-35.0) g/dl RDW 14.9 (11.0-16.0) % Plt Count 260 (160-400) X10*3/uL MPV 9.7 (9.4-12.3) fL Immature Gran % (Auto) 0.2 (0.0-0.4) % Neut % (Auto) 71.4 (45-73) % Lymph % (Auto) 17.9 L (20-40) % [place] % (Auto) 6.4 (2-11) % Eos % (Auto) 3.5 (0-4) % Baso % (Auto) 0.6 (0-2) % Lymph # (Auto) 1.7 (1.2-4.9) X10*3/uL [place] # (Auto) 0.6 (0.1-1.2) X10*3/uL Eos # (Auto) 0.3 (0.0-0.4) X10*3/uL Baso # (Auto) 0.1 (0.0-0.2) X10*3/uL Abs Immat Gran (auto) 0.02 (0.00-0.03) X10*3/uL Absolute Neuts (auto) 6.9 (2.0-8.3) X10*3/uL Absolute Nucleated RBC 0.000 (0.0-0.012) X10*3/uL Nucleated RBC % (auto) 0.0 (0.0-0.2) /100WBC Sodium 140 (135-145) mmol/L Potassium 4.1 (3.3-5.1) mmol/L Chloride 105 (96-108) mmol/L Carbon Dioxide 29 (22-29) mmol/L Anion Gap 10 L (12-20) BUN 14 (9-16) mg/dL Creatinine 0.86 (0.5-1.4) mg/dL Estim Creat Clear Calc 119.4 Estimated GFR > 60 Random Glucose 94 (60-115) mg/dL Calcium 8.8 (8.4-10.2) mg/dL Magnesium 1.9 (1.6-2.6) mg/dL Total Bilirubin 0.2 (0.0-1.0) mg/dL Direct Bilirubin 0.2 (0.0-0.5) mg/dL AST 12 (5-31) U/L ALT 16 (0-31) U/L Alkaline Phosphatase 77 (39-117) U/L Total Protein 6.9 (6.5-8.0) g/dL Albumin 3.8 (3.5-5.0) g/dL Lipase 13 (8-78) U/L Urine Color Urine Appearance Urine pH (5.0-8.0) Ur Specific [place] (1.005-1.025) Urine Protein (NEG-TRACE) MG/DL Urine Glucose (UA) (NEG) MG/DL Urine Ketones (NEG) MG/DL Urine Blood (NEG) Urine Nitrite (NEG) Ur Leukocyte Esterase (NEG) Urine RBC (0) /HPF Urine WBC (0-4) /HPF Ur Squamous Epith Cells /LPF Urine Bacteria /LPF Urine Test (NEGATIVE) 01/08/21 01/08/21 Range/Units :21 09:21 WBC (4.8-10.8) X10*3/uL RBC (4.20-5.50) X10*6/uL Hgb (12.0-16.0) g/dl Hct (37-47) % MCV (80-98) fL MCH (27.0-33.0) pg MCHC (31.0-35.0) g/dl RDW (11.0-16.0) % Plt Count (160-400) X10*3/uL MPV (9.4-12.3) fL Immature Gran % (Auto) (0.0-0.4) % Neut % (Auto) (45-73) % Lymph % (Auto) (20-40) % [place] % (Auto) (2-11) % Eos % (Auto) (0-4) % Baso % (Auto) (0-2) % Lymph # (Auto) (1.2-4.9) X10*3/uL [place] # (Auto) (0.1-1.2) X10*3/uL Eos # (Auto) (0.0-0.4) X10*3/uL Baso # (Auto) (0.0-0.2) X10*3/uL Abs Immat Gran (auto) (0.00-0.03) X10*3/uL Absolute Neuts (auto) (2.0-8.3) X10*3/uL Absolute Nucleated RBC (0.0-0.012) X10*3/uL Nucleated RBC % (auto) (0.0-0.2) /100WBC Sodium (135-145) mmol/L Potassium (3.3-5.1) mmol/L Chloride (96-108) mmol/L Carbon Dioxide (22-29) mmol/L Anion Gap (12-20) BUN (9-16) mg/dL Creatinine (0.5-1.4) mg/dL Estim Creat Clear Calc Estimated GFR Random Glucose (60-115) mg/dL Calcium (8.4-10.2) mg/dL Magnesium (1.6-2.6) mg/dL Total Bilirubin (0.0-1.0) mg/dL Direct Bilirubin (0.0-0.5) mg/dL AST (5-31) U/L ALT (0-31) U/L Alkaline Phosphatase (39-117) U/L Total Protein (6.5-8.0) g/dL Albumin (3.5-5.0) g/dL Lipase (8-78) U/L Urine Color YELLOW Urine Appearance CLOUDY Urine pH 6.0 (5.0-8.0) Ur Specific [place] 1.025 (1.005-1.025) Urine Protein 1+ H (NEG-TRACE) MG/DL Urine Glucose (UA) NEG (NEG) MG/DL Urine Ketones NEG (NEG) MG/DL Urine Blood 3+ H (NEG) Urine Nitrite NEG (NEG) Ur Leukocyte Esterase 1+ H (NEG) Urine RBC 50-75 H (0) /HPF Urine WBC 1-4 (0-4) /HPF Ur Squamous Epith Cells 2+ /LPF Urine Bacteria 1+ /LPF Urine Test NEGATIVE (NEGATIVE) Discharge Plan Discharge Clinical Impression: Bilateral nephrolithiasis Patient Disposition: Home, Self-Care Instructions: Kidney Stones (ED) Additional Instructions: Your blood work was reassuring today in the emergency department, it is likely your passing and or passed a kidney stone Your ultrasound shows old findings of known renal stones bilaterally It is very important for you to follow-up with urology, call Dr. Mandujano for an appointment If her symptoms persist or worsen, pain becomes unbearable coming of constant persistent nausea/vomiting, or develops fever, or you are unable to pee please return to the ED Flomax will help pass stones Ibuprofen help with pain Return to ED if symptoms worsen Prescriptions: New tamsulosin [Flomax] 0.4 mg capsule 0.4 mg PO DAILY Qty: 7 RF: 0 ibuprofen 600 mg tablet 600 mg PO Q8H PRN (Reason: fever) Qty: 14 RF: 0 No Action famotidine 20 mg tablet 20 mg PO DAILY RF: 0 omeprazole 20 mg capsule,delayed release(DR/EC) 20 mg PO BID 30 Days Qty: 60 RF: 0 metronidazole [Flagyl] 500 mg tablet 500 mg PO BID 7 Days Qty: 14 RF: 0 ibuprofen 600 mg tablet 600 mg PO Q6H PRN (Reason: pain) Qty: 30 RF: 0 ondansetron 4 mg tablet,disintegrating 4 mg PO Q8H PRN (Reason: nausea and vomiting) Qty: 20 RF: 0 acetaminophen [Tylenol Extra Strength] 500 mg tablet 1,000 mg PO QID PRN (Reason: fever or pain) Qty: 14 RF: 0 naproxen 500 mg tablet 500 mg PO BID PRN (Reason: pain) Qty: 10 RF: 0 tamsulosin [Flomax] 0.4 mg capsule 0.4 mg PO DAILY 5 Days Qty: 5 RF: 0 nitrofurantoin monohyd/m-cryst [Macrobid] 100 mg capsule 100 mg PO BID 7 Days Qty: 14 RF: 0 nitrofurantoin monohyd/m-cryst [Macrobid] 100 mg capsule 100 mg PO Q12H 7 Days Qty: 14 RF: 0 phenazopyridine [Pyridium] 100 mg tablet 100 mg PO TID PRN (Reason: pain) Qty: 6 RF: 0 phenazopyridine [Pyridium] 100 mg tablet 100 mg PO TID PRN (Reason: pain) 4 Days Qty: 12 RF: 0 tramadol 50 mg tablet 50 mg PO Q6H PRN (Reason: pain (scale score 4-6)) Qty: 14 RF: 0 linaclotide 290 mcg capsule 290 mcg PO DAILY RF: 0 amlodipine 5 mg tablet 5 mg PO DAILY 90 Days Qty: 90 RF: 1 gabapentin 100 mg capsule 100 mg PO TID 30 Days Qty: 90 RF: 1 hydroxyzine pamoate 25 mg capsule 25 mg PO BID RF: 0 clonazepam 0.5 mg tablet 0.5 mg PO DAILY PRN (Reason: Anxiety) RF: 0 citalopram 40 mg tablet 40 mg PO DAILY RF: 0 montelukast 10 mg tablet 10 mg PO BEDTIME RF: 0 cetirizine 10 mg tablet 10 mg PO Q12H PRNRF: 0 allopurinol 100 mg tablet 100 mg PO DAILY Qty: 90 RF: 1 pyridoxine (vitamin B6) 100 mg tablet 100 mg PO DAILY 90 Days Qty: 90 RF: 1 Referrals: Jack Johnson MD [Physician] - 5 days Stand Alone Forms: Work/School Release
[2021-01-08 09:16] LABS: Basophils Absolute Auto 0.1 X10*3/uL (0.0-0.2); Basophils Percent Auto 0.6 % (0-2); Eosinophils Absolute Auto 0.3 X10*3/uL (0.0-0.4); Eosinophils Percent Auto 3.5 % (0-4); Hematocrit 40.8 % (37-47); Hemoglobin 12.4 g/dl (12.0-16.0); Imm Gran Abs Auto 0.02 X10*3/uL (0.00-0.03); Imm Gran Pct Auto 0.2 % (0.0-0.4); Lymphocytes Absolute Auto 1.7 X10*3/uL (1.2-4.9); Lymphocytes Percent Auto 17.9 % (20-40); MANUAL DIFF FLAG NO; Mean Corpuscular HGB Conc 30.4 g/dl (31.0-35.0); Mean Corpuscular Hemoglobin 24.7 pg (27.0-33.0); Mean Corpuscular Volume 81.1 fL (80-98); Mean Platelet Volume 9.7 fL (9.4-12.3); Monocytes Absolute Auto 0.6 X10*3/uL (0.1-1.2); Monocytes Percent Auto 6.4 % (2-11); Neutrophils Absolute Auto 6.9 X10*3/uL (2.0-8.3); Neutrophils Percent Auto 71.4 % (45-73); Platelet Count 260 X10*3/uL (160-400); Red Blood Count 5.03 X10*6/uL (4.20-5.50); Red Cell Distribution Width 14.9 % (11.0-16.0); White Blood Count 9.7 X10*3/uL (4.8-10.8)
[2021-01-08] MEDS: ondansetron HCL 4 MG/2 ML VIAL IVPUSH (09:17)
[2021-01-08] MEDS: 0.9 % Sodium Chloride 1,000 ML 999 ML IVCONT (09:17)
[2021-01-08] MEDS: Ketorolac Tromethamine 15 MG/ML VIAL IVPUSH (09:17)
[2021-01-08 09:20] VITALS: BP 133/70; PULSE 61; RESP 18; TEMP 36.5; O2SAT 99
[2021-01-08 09:29] LABS: Appearance Urine CLOUDY; Color Urine YELLOW; Glucose Urine UA NEG (NEG); Leukocyte Esterase Urine 1+ (NEG); Nitrite Urine NEG (NEG); Specific Gravity - Urine 1.025 (1.005-1.025); UACC Culture Trigger YES; Urine Blood 3+ (NEG); Urine Ketones NEG (NEG); Urine Protein 1+ MG/DL (NEG-TRACE)
[2021-01-08 09:31] LABS: UPreg QC Valid YES; Urine Pregnancy NEGATIVE (NEGATIVE)
[2021-01-08 09:33] LABS: Anion Gap 10 (12-20); Blood Urea Nitrogen 14 mg/dL (9-16); Calcium 8.8 mg/dL (8.4-10.2); Carbon Dioxide 29 mmol/L (22-29); Chloride 105 mmol/L (96-108); Creatinine Clr Calc Pharmacy 119.4; Estimated Glomerular Filt Rate > 60; Glucose Random 94 mg/dL (60-115); Potassium 4.1 mmol/L (3.3-5.1); Sodium 140 mmol/L (135-145)
[2021-01-08 09:36] LABS: Alanine Aminotransferase 16 U/L (0-31); Albumin Level 3.8 g/dL (3.5-5.0); Alkaline Phosphatase 77 U/L (39-117); Aspartate Amino Transferase 12 U/L (5-31); Bilirubin Direct 0.2 mg/dL (0.0-0.5); Bilirubin Total 0.2 mg/dL (0.0-1.0); Lipase 13 U/L (8-78); Magnesium 1.9 mg/dL (1.6-2.6); Total Protein 6.9 g/dL (6.5-8.0)
[2021-01-08 09:42] LABS: RBC Urine 50-75 /HPF (0)
[2021-01-08 09:43] LABS: Bacteria Urine 1+ /LPF; Squamous Epithelial Cell Urine 2+ /LPF
== END 2021-01-08 12:09 | disposition home or self-care (01) ==
PROVIDERS: Physician Assistant; Emergency Provider Emergency Medicine Emergency Medical Services; PCP Internal Medicine
DX: N20.0 Calculus of kidney (principal); R10.9 Unspecified abdominal pain; M79.10 Myalgia, unspecified site; Z79.899 Other long term (current) drug therapy
CPT/HCPCS: 36415; 76775; 80048; 80076; 81001; 81025; 83690; 83735; 85025; 87086; 96361; 96374; 96375; 99284; 99285; J1885; J2405

== ENCOUNTER 2021-02-05 07:39 | Emergency (ER) | payer OTHER, SELFPAY ==
--- NOTE | ~2021-02-05 | XR_ITS ---
EXAMINATION: XR CHEST CLINICAL INFORMATION: Cough. COMPARISON: None TECHNIQUE: 2 views of the chest were obtained. FINDINGS: No significant abnormality is noted involving the heart, lungs, mediastinum, bony thorax or soft tissues. XR/XR chest 2V IMPRESSION: Unremarkable chest examination.
--- NOTE | ~2021-02-05 | CT_ITS ---
EXAMINATION: CT ABDOMEN AND PELVIS WITH CONTRAST CLINICAL INFORMATION: Right lower quadrant pain with tenderness. COMPARISON: Ultrasound kidneys 01/08/2021 TECHNIQUE: Multidetector volumetric images were obtained from the superior aspect of the liver through the pubic symphysis following administration 85 mL of Omnipaque 350 intravenous contrast. Sagittal and coronal reformatted images were obtained on the technologist's workstation. Oral contrast: No. This CT examination was performed using dose optimization techniques as appropriate, variously including the following: *Automated exposure control *Adjustment of mA and/or kV according to patient size (this includes techniques or standardized protocols for targeted exams where dose is matched to indication/reason for exam; i.e. extremities or head) *Use of iterative reconstruction technique DLP: 860 mGy-cm FINDINGS: LUNG BASES: There is bilateral basilar atelectasis and/or scarring. The heart size is enlarged. A small hiatal hernia is noted. LIVER, GALLBLADDER, AND BILIARY TREE: The liver is normal in size, shape, and attenuation. No focal hepatic lesion or biliary ductal dilatation is present. The gallbladder is unremarkable with no evidence of radiopaque gallstones, gallbladder wall thickening, or obvious pericholecystic inflammatory changes. PANCREAS: Unremarkable. SPLEEN: Unremarkable. ADRENAL GLANDS: Unremarkable. KIDNEYS AND URETERS: The kidneys are normal in size, lobulated shape and normal cortical enhancement. There are bilateral cortical hypodensities suggestive of small cysts. No enhancing mass, radiopaque calculi or hydronephrosis seen. BLADDER: Unremarkable. GASTROINTESTINAL TRACT: There is scattered stool seen throughout the colon without any significant distention. The small bowel loops are normal caliber. The appendix is contracted and small There is no free air or free fluid. No inflammatory process seen in the right lower quadrant. ABDOMINAL WALL: There is a small umbilical hernia containing fat. LYMPH NODES: Normal. VASCULAR: Unremarkable. PELVIC VISCERA: The uterus is midline. No adnexal mass or free fluid seen. There are benign lymph nodes in bilateral inguinal region. 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 No lytic or sclerotic process seen. CT/CT abdomen pelvis w con IMPRESSION: Mild constipation. No acute process seen. Normal appendix with mild constipation. Small umbilical hernia containing fat. Lobulated kidneys with bilateral renal cysts.
[2021-02-05 07:47] VITALS: BP 158/99; PULSE 110; RESP 16; TEMP 37.1; O2SAT 99; BMI 32.5
[2021-02-05 08:24] LABS: MANUAL DIFF FLAG NO
[2021-02-05 08:25] LABS: Basophils Absolute Auto 0.1 X10*3/uL (0.0-0.2); Basophils Percent Auto 0.8 % (0-2); Eosinophils Absolute Auto 0.7 X10*3/uL (0.0-0.4); Eosinophils Percent Auto 6.3 % (0-4); Hemoglobin 12.7 g/dl (12.0-16.0); Imm Gran Abs Auto 0.03 X10*3/uL (0.00-0.03); Imm Gran Pct Auto 0.3 % (0.0-0.4); Lymphocytes Absolute Auto 1.3 X10*3/uL (1.2-4.9); Lymphocytes Percent Auto 12.3 % (20-40); Mean Corpuscular Hemoglobin 24.5 pg (27.0-33.0); Mean Corpuscular Volume 79.2 fL (80-98); Mean Platelet Volume 9.8 fL (9.4-12.3); Monocytes Absolute Auto 0.8 X10*3/uL (0.1-1.2); Monocytes Percent Auto 7.5 % (2-11); Neutrophils Absolute Auto 7.9 X10*3/uL (2.0-8.3); Neutrophils Percent Auto 72.8 % (45-73); Platelet Count 253 X10*3/uL (160-400); Red Blood Count 5.18 X10*6/uL (4.20-5.50); Red Cell Distribution Width 14.8 % (11.0-16.0); White Blood Count 10.9 X10*3/uL (4.8-10.8)
--- NOTE | 2021-02-05 08:36 | ED.ABDPAIN ---
HPI - Abdominal Pain General Chief Complaint: Abdominal Pain Stated Complaint: rt side abd pain, fever, cough Time Seen by Provider: 02/05/21 07:51 Source: patient Mode of arrival: ambulatory Limitations: language barrier History of Present Illness HPI narrative: 35-year-old female a past medical history of kidney stone with stone retrieval done of june of this year, asthma, constipation and GERD presents for 3 days of right-sided abdominal pain and right flank pain. The pain has been constant and is stabbing in nature, is a 10/10. It is worse with movement and worse with cough. No vomiting or nausea. Last bowel movement was 2 days ago which is normal for her. No fevers. Patient is tested daily at work for COVID because she worsen in fpc. She was COVID negative on Friday. She also endorses sore throat and dry cough. Her son is sick at home. She can swallow, but it hurts to swallow. She is using her albuterol inhaler 2 to 3 times a day. Related Data Home Medications Medication Instructions Recorded Confirmed linaclotide 290 mcg capsule 290 mcg PO DAILY 08/22/20 10/10/20 cetirizine 10 mg tablet 10 mg PO Q12H PRN 09/11/20 citalopram 40 mg tablet 40 mg PO DAILY 09/11/20 10/10/20 clonazepam 0.5 mg tablet 0.5 mg PO DAILY PRN 09/11/20 10/10/20 hydroxyzine pamoate 25 mg capsule 25 mg PO BID 09/11/20 montelukast 10 mg tablet 10 mg PO BEDTIME 09/11/20 famotidine 20 mg tablet 20 mg PO DAILY tab 09/13/20 Previous Rx's Medication Instructions Recorded ibuprofen 600 mg tablet 600 mg PO Q6H PRN #30 tab 03/27/20 ondansetron 4 mg disintegrating 4 mg PO Q8H PRN #20 tab 03/27/20 tablet acetaminophen 500 mg tablet 1,000 mg PO QID PRN #14 tab 08/19/20 (Tylenol Extra Strength) naproxen 500 mg tablet 500 mg PO BID PRN #10 tab 08/19/20 nitrofurantoin 100 mg PO BID 7 Days #14 cap 08/19/20 monohydrate/macrocrystals 100 mg capsule (Macrobid) tamsulosin 0.4 mg capsule (Flomax) 0.4 mg PO DAILY 5 Days #5 cap 08/19/20 amlodipine 5 mg tablet 5 mg PO DAILY 90 Days #90 tab 08/22/20 gabapentin 100 mg capsule 100 mg PO TID 30 Days #90 cap 08/22/20 omeprazole 20 mg capsule,delayed 20 mg PO BID 30 Days #60 cap 09/13/20 release metronidazole 500 mg tablet 500 mg PO BID 7 Days #14 tab 09/15/20 (Flagyl) nitrofurantoin 100 mg PO Q12H 7 Days #14 cap 09/16/20 monohydrate/macrocrystals 100 mg capsule (Macrobid) phenazopyridine 100 mg tablet 100 mg PO TID PRN #6 tab 09/16/20 (Pyridium) phenazopyridine 100 mg tablet 100 mg PO TID PRN 4 Days #12 tab 10/16/20 (Pyridium) tramadol 50 mg tablet 50 mg PO Q6H PRN #14 tab 10/16/20 allopurinol 100 mg tablet 100 mg PO DAILY #90 tab 11/03/20 pyridoxine (vitamin B6) 100 mg 100 mg PO DAILY 90 Days #90 tab 11/03/20 tablet ibuprofen 600 mg tablet 600 mg PO Q8H PRN #14 tab 01/08/21 tamsulosin 0.4 mg capsule (Flomax) 0.4 mg PO DAILY #7 cap 01/08/21 albuterol sulfate 90 mcg/actuation 2 puff INHALATION Q4-6H PRN #8.5 g 02/05/21 aerosol inhaler ciprofloxacin HCl 500 mg tablet 500 mg PO BID 7 Days #14 tab 02/05/21 Allergies Allergy/AdvReac Type Severity Reaction Status Date / Time canned food Allergy Severe rash Verified 10/20/20 14:55 RED MEAT Allergy Severe Rash Uncoded 08/22/20 14:03 Review of Systems Constitutional: Denies body ache(s), Denies chills, Denies fatigue, Denies fever(s), Denies headache(s), Denies malaise and Denies weakness Eyes: Denies diplopia Denies vertigo, Denies dizziness, Denies otalgia, Denies headache(s), Denies mouth pain, Reports nasal congestion, Reports nasal discharge, Reports post nasal drip, Denies sinus pain, Denies sinus pressure, Reports sore throat and Denies throat swelling Cardiovascular: Denies chest pain, Denies syncope, Denies leg edema, Denies lightheadedness, Denies Loss of Consciousness, Denies palpitations and Denies dyspnea Respiratory: Denies chest congestion, Reports cough, Denies hemoptysis and Denies dyspnea Gastrointestinal: Reports abdominal pain, Denies hematochezia, Reports constipation (chronic), Denies diarrhea, Denies nausea and Denies vomiting Genitourinary: Denies hematuria, Denies pelvic pain, Reports flank pain, Denies urinary hesitancy, Denies urinary urgency and Denies vaginal discharge Musculoskeletal: Reports back pain Denies confusion, Denies vertigo, Denies dizziness, Denies syncope, Denies headache(s) and Denies weakness Psychiatric: Denies anxiety, Denies confusion and Denies depression Endocrine: Denies fatigue and Denies palpitations Allergic/Immunologic: Denies throat swelling Physical Exam Vital Signs: Vital Signs: Last Vital Signs Temp 98.7 F 02/05/21 07:47 Pulse 84 02/05/21 11:49 Resp 16 02/05/21 11:49 BP 112/69 02/05/21 11:49 Pulse Ox 98 02/05/21 11:49 Body Mass Index 32.5 Const: General: no acute distress, alert and awake; No confusion Nutritional Appearance: obese centrally obese Orientation/consciousness: patient oriented x3 and No confusion Limitations: no limitations HENMT: Head: Yes normal to inspection, Yes normocephalic and Yes atraumatic Ears: hearing grossly normal bilaterally and external ears normal General nose exam: Normal external nose present Face and sinus: Yes normal facial exam and Yes sinuses nontender Mouth: Normal oral and palatal mucosa present Throat: Yes posterior oropharynx normal, Yes abnormal tonsil (hypertrophic and erythematous) and Yes posterior oropharynx abnormal (erythematous) Eyes: Conjunctivae: conjunctivae normal Pupils: Equal, round and reactive pupils present EOM: EOMs intact bilaterally Neck: Neck: Yes full ROM, Yes no lymphadenopathy and Yes supple Resp: Effort & Inspection: normal respiratory effort and able to speak in complete sentences Auscultation: clear to auscultation bilaterally, no crackles, no rales, no rhonchi, no wheezes and diminished lung sounds diffuse Cardio: Rate: regular rate Rhythm: regular rhythm Heart sounds: S1 normal heart sound present and S2 normal heart sound present GI: Inspection: Yes Abdominal panniculus present and Yes obesity Palpation (GI): Soft to palpation, Tenderness to palpation present (GI) in the RLQ, Guarding due to palpation present (GI) in the RLQ and not rigid Percussion: Yes normal to percussion Auscultation: normal bowel sounds : General: Yes CVA tenderness on the right Back/Spine/Pelvis: Back: CVA tenderness Skin: General skin exam: no rashes or lesions noted Neuro: General: patient oriented x3 and No confusion Cranial nerves: Yes Equal, round and reactive pupils present Extrem: General: Yes normal to inspection and Yes full ROM Psych: Appearance: grossly normal Affect: normal affect Attitude: cooperative Thought process: Normal thought process present Course Course Course Narrative: 35-year-old female presents with sore throat, dry cough, runny nose, right-sided abdominal pain and right-sided flank pain that started 3 days ago. On exam, patient has right CVA tenderness and right lower quadrant pain. Patient's urine has 3+ blood and 2+ leukocyte esterase. CT shows normal appendix with mild constipation, no kidney abnormality, small umbilical hernia. Patient is negative for strep, negative for COVID, chest x-ray was negative, patient feels better with albuterol inhaler. Patient's abdominal pain is now of 3/10 down from a 10/10. Counseled patient I will treat her with antibiotics for her UTI, and will give albuterol inhaler, counseled salt water gargles, rest, off work for 3 days. MDM - Abdominal Pain Lab Data Result diagrams: 02/05/21 08:18 02/05/21 08:18 Labs: Lab Results 02/05/21 02/05/21 02/05/21 Range/Units 08:18 08:18 10:10 WBC 10.9 H (4.8-10.8) X10*3/uL RBC 5.18 (4.20-5.50) X10*6/uL Hgb 12.7 (12.0-16.0) g/dl Hct 41.0 (37-47) % MCV 79.2 L (80-98) fL MCH 24.5 L (27.0-33.0) pg MCHC 31.0 (31.0-35.0) g/dl RDW 14.8 (11.0-16.0) % Plt Count 253 (160-400) X10*3/uL MPV 9.8 (9.4-12.3) fL Immature Gran % (Auto) 0.3 (0.0-0.4) % Neut % (Auto) 72.8 (45-73) % Lymph % (Auto) 12.3 L (20-40) % [place] % (Auto) 7.5 (2-11) % Eos % (Auto) 6.3 H (0-4) % Baso % (Auto) 0.8 (0-2) % Lymph # (Auto) 1.3 (1.2-4.9) X10*3/uL [place] # (Auto) 0.8 (0.1-1.2) X10*3/uL Eos # (Auto) 0.7 H (0.0-0.4) X10*3/uL Baso # (Auto) 0.1 (0.0-0.2) X10*3/uL Abs Immat Gran (auto) 0.03 (0.00-0.03) X10*3/uL Absolute Neuts (auto) 7.9 (2.0-8.3) X10*3/uL Absolute Nucleated RBC 0.000 (0.0-0.012) X10*3/uL Nucleated RBC % (auto) 0.0 (0.0-0.2) /100WBC Sodium 137 (135-145) mmol/L Potassium 4.0 (3.3-5.1) mmol/L Chloride 105 (96-108) mmol/L Carbon Dioxide 24 (22-29) mmol/L Anion Gap 12 (12-20) BUN 11 (9-16) mg/dL Creatinine 0.87 (0.5-1.4) mg/dL Estim Creat Clear Calc 97.7 Estimated GFR > 60 Random Glucose 116 H (60-115) mg/dL Calcium 8.4 (8.4-10.2) mg/dL Total Bilirubin 0.3 (0.0-1.0) mg/dL AST 11 (5-31) U/L ALT 11 (0-31) U/L Alkaline Phosphatase 80 (39-117) U/L Total Protein 7.0 (6.5-8.0) g/dL Albumin 3.7 (3.5-5.0) g/dL Lipase 8 (8-78) U/L Urine Color Urine Appearance Urine pH (5.0-8.0) Ur Specific [place] (1.005-1.025) Urine Protein (NEG-TRACE) MG/DL Urine Glucose (UA) (NEG) MG/DL Urine Ketones (NEG) MG/DL Urine Blood (NEG) Urine Nitrite (NEG) Ur Leukocyte Esterase (NEG) Urine RBC (0) /HPF Urine WBC (0-4) /HPF Ur Squamous Epith Cells /LPF Urine Bacteria /LPF Urine Test (NEGATIVE) COVID-19 (RICH) (Negative) COVID-19 Clin Com S. pyogenes GrpA DEMIAN Negative (Negative) 02/05/21 02/05/21 02/05/21 Range/Units 10:10 10:31 10:31 WBC (4.8-10.8) X10*3/uL RBC (4.20-5.50) X10*6/uL Hgb (12.0-16.0) g/dl Hct (37-47) % MCV (80-98) fL MCH (27.0-33.0) pg MCHC (31.0-35.0) g/dl RDW (11.0-16.0) % Plt Count (160-400) X10*3/uL MPV (9.4-12.3) fL Immature Gran % (Auto) (0.0-0.4) % Neut % (Auto) (45-73) % Lymph % (Auto) (20-40) % [place] % (Auto) (2-11) % Eos % (Auto) (0-4) % Baso % (Auto) (0-2) % Lymph # (Auto) (1.2-4.9) X10*3/uL [place] # (Auto) (0.1-1.2) X10*3/uL Eos # (Auto) (0.0-0.4) X10*3/uL Baso # (Auto) (0.0-0.2) X10*3/uL Abs Immat Gran (auto) (0.00-0.03) X10*3/uL Absolute Neuts (auto) (2.0-8.3) X10*3/uL Absolute Nucleated RBC (0.0-0.012) X10*3/uL Nucleated RBC % (auto) (0.0-0.2) /100WBC Sodium (135-145) mmol/L Potassium (3.3-5.1) mmol/L Chloride (96-108) mmol/L Carbon Dioxide (22-29) mmol/L Anion Gap (12-20) BUN (9-16) mg/dL Creatinine (0.5-1.4) mg/dL Estim Creat Clear Calc Estimated GFR Random Glucose (60-115) mg/dL Calcium (8.4-10.2) mg/dL Total Bilirubin (0.0-1.0) mg/dL AST (5-31) U/L ALT (0-31) U/L Alkaline Phosphatase (39-117) U/L Total Protein (6.5-8.0) g/dL Albumin (3.5-5.0) g/dL Lipase (8-78) U/L Urine Color BROWN Urine Appearance CLOUDY Urine pH 7.0 (5.0-8.0) Ur Specific [place] 1.020 (1.005-1.025) Urine Protein 2+ H (NEG-TRACE) MG/DL Urine Glucose (UA) NEG (NEG) MG/DL Urine Ketones NEG (NEG) MG/DL Urine Blood 3+ H (NEG) Urine Nitrite NEG (NEG) Ur Leukocyte Esterase 2+ H (NEG) Urine RBC TNTC H (0) /HPF Urine WBC 1-4 (0-4) /HPF Ur Squamous Epith Cells TRACE /LPF Urine Bacteria NONE /LPF Urine Test NEGATIVE (NEGATIVE) COVID-19 (RICH) Negative (Negative) COVID-19 Clin Com See Note S. pyogenes GrpA DEMIAN (Negative) Discharge Plan Discharge Clinical Impression: Pyelonephritis, Viral upper respiratory illness Patient Disposition: Home, Self-Care Instructions: Kidney Infection (ED), Viral Syndrome (ED) Additional Instructions: Because you have back pain I am going to treat your UTI as a kidney infection. Please take the ciprofloxacin twice a day for 7 days to treat this. If you have fevers or worsening back pain, nausea or vomiting, he must return to be seen. In addition, I want you to use your albuterol inhaler, 2 puffs every 4 hours for the next 3-4 days. Please use salt water gargles, 1 tsp of salt in a couple of warm water, gargle and spit, do this 4 times a day. Your COVID an your strep were negative today. Repeat chest x-ray showed nothing abnormal, your CT scan showed no abnormality. Please go home, rest, take Tylenol, return for any new or concerning symptoms. Debido a que tiene dolor de espalda, voy a tratar coleman UTI kathia joelle infecci?n renal. [place] ciprofloxacina dos veces al d?a lance 7 d?as para tratar esto. Si tiene fiebre o empeoramiento del dolor de espalda, n?useas o v?mitos, debe volver para que lo vean. Adem?s, quiero que use coleman inhalador de albuterol, 2 inhalaciones cada 4 horas lance los pr?ximos 3-4 d?as. Utilice g?rgaras de agua salada, 1 cucharadita de odalys en un par de agua tibia, cruz g?rgaras y escupe, cruz esto 4 veces al d?a. Tu COVID y tu estreptococo fueron negativos hoy. La radiograf?a de t?rax repetida no mostr? nada anormal, coleman tomograf?a computarizada no mostr? ninguna anomal?a. Vaya a casa, descanse, tome Tylenol, regrese por cualquier s?ntoma nuevo o preocupante. Prescriptions: New ciprofloxacin HCl 500 mg tablet 500 mg PO BID 7 Days Qty: 14 RF: 0 albuterol sulfate 90 mcg/actuation HFA aerosol inhaler 2 puff inhalation Q4-6H PRN (Reason: shortness of breath or wheezing) Qty: 8.5 RF: 0 No Action famotidine 20 mg tablet 20 mg PO DAILY RF: 0 omeprazole 20 mg capsule,delayed release(DR/EC) 20 mg PO BID 30 Days Qty: 60 RF: 0 metronidazole [Flagyl] 500 mg tablet 500 mg PO BID 7 Days Qty: 14 RF: 0 ibuprofen 600 mg tablet 600 mg PO Q6H PRN (Reason: pain) Qty: 30 RF: 0 ondansetron 4 mg tablet,disintegrating 4 mg PO Q8H PRN (Reason: nausea and vomiting) Qty: 20 RF: 0 acetaminophen [Tylenol Extra Strength] 500 mg tablet 1,000 mg PO QID PRN (Reason: fever or pain) Qty: 14 RF: 0 naproxen 500 mg tablet 500 mg PO BID PRN (Reason: pain) Qty: 10 RF: 0 tamsulosin [Flomax] 0.4 mg capsule 0.4 mg PO DAILY 5 Days Qty: 5 RF: 0 nitrofurantoin monohyd/m-cryst [Macrobid] 100 mg capsule 100 mg PO BID 7 Days Qty: 14 RF: 0 nitrofurantoin monohyd/m-cryst [Macrobid] 100 mg capsule 100 mg PO Q12H 7 Days Qty: 14 RF: 0 phenazopyridine [Pyridium] 100 mg tablet 100 mg PO TID PRN (Reason: pain) Qty: 6 RF: 0 tamsulosin [Flomax] 0.4 mg capsule 0.4 mg PO DAILY Qty: 7 RF: 0 ibuprofen 600 mg tablet 600 mg PO Q8H PRN (Reason: fever) Qty: 14 RF: 0 phenazopyridine [Pyridium] 100 mg tablet 100 mg PO TID PRN (Reason: pain) 4 Days Qty: 12 RF: 0 tramadol 50 mg tablet 50 mg PO Q6H PRN (Reason: pain (scale score 4-6)) Qty: 14 RF: 0 linaclotide 290 mcg capsule 290 mcg PO DAILY RF: 0 amlodipine 5 mg tablet 5 mg PO DAILY 90 Days Qty: 90 RF: 1 gabapentin 100 mg capsule 100 mg PO TID 30 Days Qty: 90 RF: 1 hydroxyzine pamoate 25 mg capsule 25 mg PO BID RF: 0 clonazepam 0.5 mg tablet 0.5 mg PO DAILY PRN (Reason: Anxiety) RF: 0 citalopram 40 mg tablet 40 mg PO DAILY RF: 0 montelukast 10 mg tablet 10 mg PO BEDTIME RF: 0 cetirizine 10 mg tablet 10 mg PO Q12H PRNRF: 0 allopurinol 100 mg tablet 100 mg PO DAILY Qty: 90 RF: 1 pyridoxine (vitamin B6) 100 mg tablet 100 mg PO DAILY 90 Days Qty: 90 RF: 1 Stand Alone Forms: Work/School Release Print Language: Estonian [facility] Past Medical History Medical History Active asthma Fibromyalgia Hospital discharge follow-up Hypertension Renal calculi Surgical History History of extraction of renal calculus History of tubal ligation Family History Family History Father Anemia Sister Cervical cancer Maternal Aunt Breast cancer Diabetes Mother No problems noted. Social History Social History Alcohol intake: unknown Patient Tobacco Use Status: Tobacco use Unknown Second Hand Smoke Exposure: No Use of substances other than those prescribed or required for medical reasons: Unknown Advance Directives: No Patient : No
[2021-02-05 08:49] LABS: Alanine Aminotransferase 11 U/L (0-31); Albumin Level 3.7 g/dL (3.5-5.0); Alkaline Phosphatase 80 U/L (39-117); Anion Gap 12 (12-20); Aspartate Amino Transferase 11 U/L (5-31); Bilirubin Total 0.3 mg/dL (0.0-1.0); Blood Urea Nitrogen 11 mg/dL (9-16); Calcium 8.4 mg/dL (8.4-10.2); Carbon Dioxide 24 mmol/L (22-29); Chloride 105 mmol/L (96-108); Creatinine Clr Calc Pharmacy 97.7; Estimated Glomerular Filt Rate > 60; Glucose Random 116 mg/dL (60-115); Lipase 8 U/L (8-78); Sodium 137 mmol/L (135-145)
[2021-02-05] MEDS: Acetaminophen 325 MG TABLET 650 MG PO (09:22)
[2021-02-05] MEDS: Albuterol Sulfate 90 MCG 8 GM INHALER 2 PUFF INHALE (09:23)
[2021-02-05] MEDS: Ketorolac Tromethamine 15 MG/ML VIAL IVPUSH (09:23)
[2021-02-05] MEDS: 0.9 % Sodium Chloride 1,000 ML 999 ML IV (09:23)
[2021-02-05 10:29] LABS: IDNOW Serial# 08D9AD1C; Strep A Nucleic Acid Negative (Negative)
[2021-02-05 10:37] LABS: COVID-19 Test Negative (Negative); IDNOW Serial# 9DD0AD1C
[2021-02-05 10:49] LABS: UPreg QC Valid YES; Urine Pregnancy NEGATIVE (NEGATIVE)
[2021-02-05 10:50] LABS: Appearance Urine CLOUDY; Color Urine BROWN; Glucose Urine UA NEG (NEG); Leukocyte Esterase Urine 2+ (NEG); Nitrite Urine NEG (NEG); Urine Blood 3+ (NEG); Urine Ketones NEG (NEG); Urine Protein 2+ MG/DL (NEG-TRACE)
[2021-02-05 11:15] LABS: RBC Urine TNTC /HPF (0); Squamous Epithelial Cell Urine TRACE /LPF
[2021-02-05] MEDS: iohexoL 350 MG/ML 100 ML INFUS..BTL 85 ML IV (11:45)
[2021-02-05 11:49] VITALS: BP 112/69; PULSE 84; RESP 16; O2SAT 98
== END 2021-02-05 13:59 | disposition home or self-care (01) ==
PROVIDERS: Physician Assistant; Emergency Provider Student in an Organized Health Care Education/Training Program; PCP Internal Medicine
DX: N10 Acute pyelonephritis (principal); B97.89 Other viral agents as the cause of diseases classified elsewhere; J06.9 Acute upper respiratory infection, unspecified; R10.9 Unspecified abdominal pain; R50.9 Fever, unspecified; R05.9 Cough, unspecified; Z79.899 Other long term (current) drug therapy; Z20.822 Contact with and (suspected) exposure to COVID-19
CPT/HCPCS: 36415; 71046; 74177; 80053; 81001; 81025; 83690; 85025; 87635; 87651; 96361; 96374; 99284; 99285; J1885; Q9967

== ENCOUNTER 2021-04-06 15:35 | Outpatient (REF) | payer OTHER, SELFPAY | END 2021-04-06 15:36 | disposition home or self-care (01) | LOC: HO.LAB 15:35 | PROVIDERS: PCP Internal Medicine; Visit Provider Internal Medicine | DX: Z20.822 Contact with and (suspected) exposure to COVID-19 (principal) | CPT/HCPCS: C9803; U0003; U0005 ==

== ENCOUNTER 2021-04-21 14:41 | Emergency (ER) | payer OTHER, SELFPAY ==
[2021-04-21 16:34] LABS: COVID-19 Test Negative (Negative)
[2021-04-21 17:48] VITALS: BP 145/88; PULSE 86; RESP 18; TEMP 36.4; O2SAT 100; BMI 35.4
--- NOTE | 2021-04-21 18:40 | ED_ITS ---
HPI - General Adult General Chief complaint: General Medical Stated complaint: headache abd pain exposed to COVID Time Seen by Provider: 04/21/21 18:40 History of Present Illness HPI narrative: Patient without complaint who had a COVID exposure is here for testing, no cough no runny nose no fever Related Data Home Medications Medication Instructions Recorded Confirmed linaclotide 290 mcg capsule 290 mcg PO DAILY 08/22/20 02/20/21 cetirizine 10 mg tablet 10 mg PO Q12H PRN 09/11/20 02/20/21 citalopram 40 mg tablet 40 mg PO DAILY 09/11/20 02/20/21 clonazepam 0.5 mg tablet 0.5 mg PO DAILY PRN 09/11/20 02/20/21 hydroxyzine pamoate 25 mg capsule 25 mg PO BID 09/11/20 02/20/21 famotidine 20 mg tablet 20 mg PO DAILY tab 09/13/20 02/20/21 Previous Rx's Medication Instructions Recorded acetaminophen 500 mg tablet 1,000 mg PO QID PRN #14 tab 08/19/20 (Tylenol Extra Strength) amlodipine 5 mg tablet 5 mg PO DAILY 90 Days #90 tab 08/22/20 gabapentin 100 mg capsule 100 mg PO TID 30 Days #90 cap 08/22/20 allopurinol 100 mg tablet 100 mg PO DAILY #90 tab 11/03/20 albuterol sulfate 90 mcg/actuation 2 puff INHALATION Q4-6H PRN #8.5 g 02/05/21 aerosol inhaler azithromycin 250 mg tablet 250 mg PO DIRECTED 5 Days #6 tab 02/20/21 montelukast 10 mg tablet 10 mg PO BEDTIME 90 Days #90 tab 02/20/21 omeprazole 20 mg capsule,delayed 20 mg PO BID 30 Days #60 cap 02/20/21 release ondansetron 4 mg disintegrating 4 mg PO Q8H PRN #20 tab 02/20/21 tablet pyridoxine (vitamin B6) 100 mg 100 mg PO DAILY 90 Days #90 tab 02/20/21 tablet Allergies Allergy/AdvReac Type Severity Reaction Status Date / Time canned food Allergy Severe rash Verified 04/21/21 17:48 RED MEAT Allergy Severe Rash Uncoded 02/20/21 17:07 Review of Systems Review of Systems: No fever no sore throat no cough no shortness of breath no nausea no vomiting Yes all other systems are reviewed and are negative [facility] Past Medical History Source: nursing notes reviewed Medical History (Updated 04/21/21 @ 18:42 by SWETHA Gonzales) Active asthma Fibromyalgia Hospital discharge follow-up Hypertension Morbid obesity with BMI of 45.0-49.9, adult Renal calculi Umbilical hernia Surgical History History of extraction of renal calculus History of tubal ligation Family History Family History Father Anemia Sister Cervical cancer Maternal Aunt Breast cancer Diabetes Mother No problems noted. Social History Social History Housing: Apartment Alcohol intake: unknown Patient Tobacco Use Status: Former Tobacco user Tobacco use type: Cigarette e-Cigarette/Vaping Use: Never Used Second Hand Smoke Exposure: No Advance Directives: No Advance Directives Information Provided: Yes service: No Current occupational status: unemployed Physical Exam Vital Signs: Vital Signs: Last Vital Signs Temp 97.5 F 04/21/21 17:48 Pulse 86 04/21/21 17:48 Resp 18 04/21/21 17:48 BP 145/88 H 04/21/21 17:48 Pulse Ox 100 04/21/21 17:48 BMI result Body Mass Index 35.4 General appearance no acute distress comfortable Neck is supple Respiratory no distress Extremities full range of motion x4 Course Course Course Narrative: COVID testing was negative in well-appearing asymptomatic person Medical Decision Making Lab Data Labs: Lab Results 04/21/21 Range/Units 15:48 COVID-19 (RICH) Negative (Negative) COVID-19 Clin Com See Note Discharge Plan Discharge Clinical Impression: Encounter for laboratory testing for COVID-19 virus Prescriptions: No Action famotidine 20 mg tablet 20 mg PO DAILY RF: 0 acetaminophen [Tylenol Extra Strength] 500 mg tablet 1,000 mg PO QID PRN (Reason: fever or pain) Qty: 14 RF: 0 albuterol sulfate 90 mcg/actuation HFA aerosol inhaler 2 puff inhalation Q4-6H PRN (Reason: shortness of breath or wheezing) Qty: 8.5 RF: 0 linaclotide 290 mcg capsule 290 mcg PO DAILY RF: 0 amlodipine 5 mg tablet 5 mg PO DAILY 90 Days Qty: 90 RF: 1 gabapentin 100 mg capsule 100 mg PO TID 30 Days Qty: 90 RF: 1 pyridoxine (vitamin B6) 100 mg tablet 100 mg PO DAILY 90 Days Qty: 90 RF: 1 ondansetron 4 mg tablet,disintegrating 4 mg PO Q8H PRN (Reason: nausea and vomiting) Qty: 20 RF: 0 omeprazole 20 mg capsule,delayed release(DR/EC) 20 mg PO BID 30 Days Qty: 60 RF: 0 montelukast 10 mg tablet 10 mg PO BEDTIME 90 Days Qty: 90 RF: 1 azithromycin 250 mg tablet 250 mg PO DIRECTED 5 Days Qty: 6 RF: 0 hydroxyzine pamoate 25 mg capsule 25 mg PO BID RF: 0 clonazepam 0.5 mg tablet 0.5 mg PO DAILY PRN (Reason: Anxiety) RF: 0 citalopram 40 mg tablet 40 mg PO DAILY RF: 0 cetirizine 10 mg tablet 10 mg PO Q12H PRNRF: 0 allopurinol 100 mg tablet 100 mg PO DAILY Qty: 90 RF: 1
== END 2021-04-21 18:57 | disposition home or self-care (01) ==
PROVIDERS: Emergency Provider Internal Medicine; PCP Internal Medicine
DX: R51.9 Headache, unspecified (principal); R10.9 Unspecified abdominal pain; Z20.822 Contact with and (suspected) exposure to COVID-19; Z79.899 Other long term (current) drug therapy; Z87.891 Personal history of nicotine dependence
CPT/HCPCS: 36415; 87635; 99282; 99283

== ENCOUNTER 2021-04-26 15:28 | Outpatient (REF) | payer OTHER, SELFPAY ==
--- NOTE | ~2021-04-26 | US_ITS ---
EXAMINATION: US RETROPERITONEAL LIMITED (RENAL ONLY) CLINICAL INFORMATION: Medullary cystic kidney. COMPARISON: CT abdomen and pelvis 02/05/2021. Noncontrast CT of abdomen and pelvis 09/16/2020. Renal ultrasound 01/08/2021. Ultrasound abdomen complete 06/28/2020. X-ray KUB 04/26/2020 and 11/03/2019. TECHNIQUE: Real-time imaging of the kidneys. FINDINGS: RIGHT KIDNEY: 12.0 x 6.0 x 7.0 cm (SAG x AP x TRV). Kidney is normal in size and contour. The renal pyramids are markedly echogenic consistent with medullary nephrocalcinosis that has been demonstrated in the past (for example, see noncontrast CT 09/16/2020). Renal cortical thickness is normal. No discrete shadowing calculi are seen despite the known presence on prior CT scans. No focal parenchymal mass. No hydronephrosis. LEFT KIDNEY: 11.6 x 6.7 x 6.0 cm (SAG x AP x TRV). Kidney is normal in size and contour. Again seen are markedly echogenic renal pyramids consistent with medullary nephrocalcinosis that has been demonstrated in the past. Renal cortical thickness is normal. No discrete renal calculi are seen despite the known presence of such. No Hydronephrosis. There is a 1 cm mid pole cortical cyst seen. No solid masses. US/US renal BI IMPRESSION: Echogenic renal pyramids consistent with medullary nephrocalcinosis. The patient's known renal calculi are not well demonstrated on the current study. Benign left renal cyst which needs no further follow up.
== END 2021-04-26 15:29 | disposition home or self-care (01) ==
LOC: HO.US 15:28
PROVIDERS: Visit Provider Urology
DX: Q61.5 Medullary cystic kidney (principal)
CPT/HCPCS: 76775

== ENCOUNTER 2021-05-01 05:44 | Emergency (ER) | payer OTHER, SELFPAY ==
--- NOTE | ~2021-05-01 | CT_ITS ---
EXAMINATION: CT ABDOMEN AND PELVIS WITHOUT CONTRAST CLINICAL INFORMATION: Flank pain, hx kidney stones . COMPARISON: 02/05/2021. TECHNIQUE: Multidetector volumetric imaging was performed from the superior aspect of the liver through the pubic symphysis without contrast per renal stone protocol. Sagittal and coronal reformatted images were obtained on the technologist workstation. This CT examination was performed using dose optimization techniques as appropriate, variously including the following: *Automated exposure control *Adjustment of mA and/or kV according to patient size (this includes techniques or standardized protocols for targeted exams where dose is matched to indication/reason for exam; i.e. extremities or head) *Use of iterative reconstruction technique DLP: 1183 mGy-cm. FINDINGS: LUNG BASES: The visualized lung bases are unremarkable. LIVER, GALLBLADDER, BILIARY TREE: The non-contrast liver is normal in size, shape, and attenuation. No focal hepatic lesion or biliary ductal dilatation is present. The gallbladder is unremarkable with no evidence of radiopaque gallstones, gallbladder wall thickening, or obvious pericholecystic inflammatory changes. PANCREAS: Unremarkable. SPLEEN: Unremarkable. ADRENAL GLANDS: Unremarkable. KIDNEYS AND URETERS: There is stable subtle regions of cortical scarring in the right kidney. Otherwise the kidneys are normal in size, shape, and attenuation. No hydronephrosis or hydroureter. No perinephric stranding. There are however innumerable tiny punctate calculi seen bilaterally with increased density in the medullary pyramids suggesting underlying medullary calcinosis. This could be clinically correlated. I do not appreciate any obstructive changes or ureteric calculi. BLADDER: Unremarkable. GASTROINTESTINAL TRACT: The small and large bowel are unremarkable. The appendix is unremarkable. ABDOMINAL WALL: No significant hernia is appreciated. LYMPHOVASCULAR STRUCTURES: No lymphadenopathy. The aorta is unremarkable.. PELVIC VISCERA: Unremarkable. OSSEUS STRUCTURES: Loss of disc height at L4/L5 similar to prior study CT/CT abdomen pelvis wo con IMPRESSION: Innumerable tiny punctate calculi within the bilateral kidneys with increased density in the medullary pyramids suggesting underlying medullary calcinosis. I do not appreciate any obstructive changes. No ureteric calculi at this time. No bladder calculi seen..
--- NOTE | ~2021-05-01 | XR_ITS ---
EXAMINATION: XR CHEST CLINICAL INFORMATION: Chest pain. COMPARISON: None TECHNIQUE: 2 views of the chest were obtained. FINDINGS: No significant abnormality is noted involving the heart, lungs, mediastinum, bony thorax or soft tissues. XR/XR chest 2V IMPRESSION: Unremarkable chest examination.
[2021-05-01 05:52] VITALS: BP 147/80; PULSE 86; RESP 16; TEMP 35.9; O2SAT 100; BMI 47.8
[2021-05-01 06:39] LABS: MANUAL DIFF FLAG NO
[2021-05-01 06:43] LABS: Basophils Absolute Auto 0.1 X10*3/uL (0.0-0.2); Eosinophils Absolute Auto 0.5 X10*3/uL (0.0-0.4); Eosinophils Percent Auto 5.2 % (0-4); Hematocrit 41.9 % (37.0-47.0); Hemoglobin 12.8 g/dl (12.0-16.0); Imm Gran Abs Auto 0.02 X10*3/uL (0.00-0.03); Imm Gran Pct Auto 0.2 % (0.0-0.4); Lymphocytes Absolute Auto 2.4 X10*3/uL (1.2-4.9); Lymphocytes Percent Auto 26.2 % (20-40); Mean Corpuscular HGB Conc 30.5 g/dl (31.0-35.0); Mean Corpuscular Hemoglobin 24.5 pg (27.0-33.0); Mean Corpuscular Volume 80.3 fL (80.0-98.0); Mean Platelet Volume 9.6 fL (9.4-12.3); Monocytes Absolute Auto 0.6 X10*3/uL (0.1-1.2); Monocytes Percent Auto 6.2 % (2-11); Neutrophils Absolute Auto 5.6 x10*3/uL (2.0-8.3); Neutrophils Percent Auto 61.2 % (45-73); Platelet Count 299 X10*3/uL (160-400); Red Blood Count 5.22 X10*6/uL (4.20-5.50); Red Cell Distribution Width 15.9 % (11.0-16.0); White Blood Count 9.2 X10*3/uL (4.8-10.8)
[2021-05-01 07:09] LABS: HCG Quantitative < 2 mIU/mL
[2021-05-01 07:10] LABS: Alanine Aminotransferase 15 U/L (0-31); Albumin Level 3.6 g/dL (3.5-5.0); Alkaline Phosphatase 78 U/L (39-117); Anion Gap 9 (12-20); Aspartate Amino Transferase 15 U/L (5-31); Bilirubin Total 0.4 mg/dL (0.0-1.0); Blood Urea Nitrogen 11 mg/dL (9-16); Calcium 8.8 mg/dL (8.4-10.2); Carbon Dioxide 29 mmol/L (22-29); Chloride 103 mmol/L (96-108); Creatinine Clr Calc Pharmacy 120.9; Estimated Glomerular Filt Rate > 60; Glucose Random 125 mg/dL (60-115); Lipase 10 U/L (8-78); Potassium 3.9 mmol/L (3.3-5.1); Sodium 137 mmol/L (135-145); Total Protein 7.3 g/dL (6.5-8.0)
--- NOTE | 2021-05-01 08:21 | ECG_ITS ---
Test Reason : RT SIDE Chest Pain Blood Pressure : / mmHG Vent. Rate : 076 BPM Atrial Rate : 076 BPM P-R Int : 138 ms QRS Dur : 084 ms QT Int : 404 ms P-R-T Axes : 008 035 007 degrees QTc Int : 454 ms Normal sinus rhythm Normal ECG When compared with ECG of 12-DEC-2017 11:07, No significant change was found Referred By: Brad Smart Electronically Signed By:SPENCER PEDRAZA
--- NOTE | 2021-05-01 08:24 | ED.ABDPAIN ---
HPI - Abdominal Pain General Chief Complaint: Abdominal Pain Stated Complaint: chest and arm pain Time Seen by Provider: 05/01/21 06:32 Source: patient Mode of arrival: ambulatory Limitations: no limitations History of Present Illness HPI narrative: THIS IS A 55 YEARS OLD FEMALE PRESENTED TO THE EMERGENCY DEPARTMENT WITH A CHIEF COMPLAINT OF RIGHT FLANK PAIN SINCE YESTERDAY ALSO SHE IS COMPLAINING OF RIGHT-SIDED CHEST PAIN. SHE DENIES ANY FEVER VOMITING DIARRHEA SHORTNESS OF BREATH MD elicited complaint: flank pain (RT) Pertinent past history: other (KIDNEY STONE) Onset (ago): day(s) (1) Pain Consistency: constant Location: R flank Severity: moderate Radiation: other (RT CHEST) Migration to: no migration Relieving factors: nothing Related Data Home Medications Medication Instructions Recorded Confirmed linaclotide 290 mcg capsule 290 mcg PO DAILY 08/22/20 02/20/21 cetirizine 10 mg tablet 10 mg PO Q12H PRN 09/11/20 02/20/21 citalopram 40 mg tablet 40 mg PO DAILY 09/11/20 02/20/21 clonazepam 0.5 mg tablet 0.5 mg PO DAILY PRN 09/11/20 02/20/21 hydroxyzine pamoate 25 mg capsule 25 mg PO BID 09/11/20 02/20/21 famotidine 20 mg tablet 20 mg PO DAILY tab 09/13/20 02/20/21 Previous Rx's Medication Instructions Recorded acetaminophen 500 mg tablet 1,000 mg PO QID PRN #14 tab 08/19/20 (Tylenol Extra Strength) amlodipine 5 mg tablet 5 mg PO DAILY 90 Days #90 tab 08/22/20 gabapentin 100 mg capsule 100 mg PO TID 30 Days #90 cap 08/22/20 allopurinol 100 mg tablet 100 mg PO DAILY #90 tab 11/03/20 albuterol sulfate 90 mcg/actuation 2 puff INHALATION Q4-6H PRN #8.5 g 02/05/21 aerosol inhaler azithromycin 250 mg tablet 250 mg PO DIRECTED 5 Days #6 tab 02/20/21 montelukast 10 mg tablet 10 mg PO BEDTIME 90 Days #90 tab 02/20/21 omeprazole 20 mg capsule,delayed 20 mg PO BID 30 Days #60 cap 02/20/21 release ondansetron 4 mg disintegrating 4 mg PO Q8H PRN #20 tab 02/20/21 tablet pyridoxine (vitamin B6) 100 mg 100 mg PO DAILY 90 Days #90 tab 02/20/21 tablet oxycodone 5 mg tablet 5 mg PO Q8H PRN #10 tab 05/01/21 Allergies Allergy/AdvReac Type Severity Reaction Status Date / Time canned food Allergy Severe rash Verified 05/01/21 05:59 RED MEAT Allergy Severe Rash Uncoded 05/01/21 05:59 Review of Systems Eyes: Reports no additional eye complaints Denies vertigo and Denies dizziness Cardiovascular: Reports no additional cardiovascular complaints Gastrointestinal: Reports no additional gastrointestinal complaints Musculoskeletal: Reports no additional musculoskeletal complaints Reports system reviewed and no additional complaints, except as documented, Denies vertigo and Denies dizziness Physical Exam Vital Signs: Vital Signs: Last Vital Signs Temp 96.6 F L 05/01/21 05:52 Pulse 76 05/01/21 08:31 Resp 18 05/01/21 08:31 BP 150/87 H 05/01/21 08:31 Pulse Ox 98 05/01/21 08:31 BMI result Body Mass Index 47.8 Const: General: cooperative and comfortable Nutritional Appearance: well nourished Orientation/consciousness: patient oriented x3 HENMT: Head: Yes normal to inspection and Yes normocephalic Face and sinus: Yes normal facial exam Mouth: Normal oral and palatal mucosa present Throat: Yes posterior oropharynx normal Neck: Neck: Yes normal visual inspection and Yes full ROM Chest: Chest palpation & inspection: normal inspection of the chest Resp: Effort & Inspection: normal respiratory effort Auscultation: clear to auscultation bilaterally Cardio: Jugular venous distension: no JVD Rate: regular rate Rhythm: regular rhythm GI: Inspection: Yes normal to inspection Palpation (GI): Soft to palpation, not firm, nontender and no guarding Skin: General skin exam: no rashes or lesions noted, elasticity normal and turgor normal Neuro: General: patient oriented x3 Course Reevaluation(s) Reevaluation #1: doing better w/u negative ,she has hematuria but currently has period,ct scan no uretheral stone,no hydro,labs OK.Will d/c pt home MDM - Abdominal Pain Lab Data Result diagrams: 05/01/21 06:34 05/01/21 06:34 Labs: Lab Results 01/11/22 01/11/22 01/11/22 Range/Units 06:34 06:34 06:34 WBC 9.2 (4.8-10.8) X10*3/uL RBC 5.22 (4.20-5.50) X10*6/uL Hgb 12.8 (12.0-16.0) g/dl Hct 41.9 (37.0-47.0) % MCV 80.3 (80.0-98.0) fL MCH 24.5 L (27.0-33.0) pg MCHC 30.5 L (31.0-35.0) g/dl RDW 15.9 (11.0-16.0) % Plt Count 299 (160-400) X10*3/uL MPV 9.6 (9.4-12.3) fL Immature Gran % (Auto) 0.2 (0.0-0.4) % Neut % (Auto) 61.2 (45-73) % Lymph % (Auto) 26.2 (20-40) % [place]ball % (Auto) 6.2 (2-11) % Eos % (Auto) 5.2 H (0-4) % Baso % (Auto) 1.0 (0-2) % Lymph # (Auto) 2.4 (1.2-4.9) X10*3/uL Kimball # (Auto) 0.6 (0.1-1.2) X10*3/uL Eos # (Auto) 0.5 H (0.0-0.4) X10*3/uL Baso # (Auto) 0.1 (0.0-0.2) X10*3/uL Abs Immat Gran (auto) 0.02 (0.00-0.03) X10*3/uL Absolute Neuts (auto) 5.6 (2.0-8.3) x10*3/uL Absolute Nucleated RBC 0.000 (0.0-0.012) X10*3/uL Nucleated RBC % (auto) 0.0 (0.0-0.2) /100WBC Sodium 137 (135-145) mmol/L Potassium 3.9 (3.3-5.1) mmol/L Chloride 103 (96-108) mmol/L Carbon Dioxide 29 (22-29) mmol/L Anion Gap 9 L (12-20) BUN 11 (9-16) mg/dL Creatinine 0.84 (0.5-1.4) mg/dL Estim Creat Clear Calc 120.9 Estimated GFR > 60 Random Glucose 125 H (60-115) mg/dL Calcium 8.8 (8.4-10.2) mg/dL Total Bilirubin 0.4 (0.0-1.0) mg/dL AST 15 (5-31) U/L ALT 15 (0-31) U/L Alkaline Phosphatase 78 (39-117) U/L Troponin I High Sens < 3.5 (<3.5-17.0) ng/L Total Protein 7.3 (6.5-8.0) g/dL Albumin 3.6 (3.5-5.0) g/dL Lipase 10 (8-78) U/L Beta HCG, Quant < 2 mIU/mL Urine Color Urine Appearance Urine pH (5.0-8.0) Ur Specific [place] (1.005-1.025) Urine Protein (NEG-TRACE) MG/DL Urine Glucose (UA) (NEG) MG/DL Urine Ketones (NEG) MG/DL Urine Blood (NEG) Urine Nitrite (NEG) Ur Leukocyte Esterase (NEG) Urine RBC (0) /HPF Urine WBC (0-4) /HPF Ur Squamous Epith Cells /LPF Urine Bacteria /LPF Urine Test (NEGATIVE) 05/01/21 05/01/21 Range/Units 08:53 08:53 WBC (4.8-10.8) X10*3/uL RBC (4.20-5.50) X10*6/uL Hgb (12.0-16.0) g/dl Hct (37.0-47.0) % MCV (80.0-98.0) fL MCH (27.0-33.0) pg MCHC (31.0-35.0) g/dl RDW (11.0-16.0) % Plt Count (160-400) X10*3/uL MPV (9.4-12.3) fL Immature Gran % (Auto) (0.0-0.4) % Neut % (Auto) (45-73) % Lymph % (Auto) (20-40) % Kimball % (Auto) (2-11) % Eos % (Auto) (0-4) % Baso % (Auto) (0-2) % Lymph # (Auto) (1.2-4.9) X10*3/uL [place] # (Auto) (0.1-1.2) X10*3/uL Eos # (Auto) (0.0-0.4) X10*3/uL Baso # (Auto) (0.0-0.2) X10*3/uL Abs Immat Gran (auto) (0.00-0.03) X10*3/uL Absolute Neuts (auto) (2.0-8.3) x10*3/uL Absolute Nucleated RBC (0.0-0.012) X10*3/uL Nucleated RBC % (auto) (0.0-0.2) /100WBC Sodium (135-145) mmol/L Potassium (3.3-5.1) mmol/L Chloride (96-108) mmol/L Carbon Dioxide (22-29) mmol/L Anion Gap (12-20) BUN (9-16) mg/dL Creatinine (0.5-1.4) mg/dL Estim Creat Clear Calc Estimated GFR Random Glucose (60-115) mg/dL Calcium (8.4-10.2) mg/dL Total Bilirubin (0.0-1.0) mg/dL AST (5-31) U/L ALT (0-31) U/L Alkaline Phosphatase (39-117) U/L Troponin I High Sens (<3.5-17.0) ng/L Total Protein (6.5-8.0) g/dL Albumin (3.5-5.0) g/dL Lipase (8-78) U/L Beta HCG, Quant mIU/mL Urine Color RED Urine Appearance CLOUDY Urine pH 7.0 (5.0-8.0) Ur Specific [place] 1.015 (1.005-1.025) Urine Protein 1+ H (NEG-TRACE) MG/DL Urine Glucose (UA) NEG (NEG) MG/DL Urine Ketones NEG (NEG) MG/DL Urine Blood 3+ H (NEG) Urine Nitrite NEG (NEG) Ur Leukocyte Esterase 1+ H (NEG) Urine RBC TNTC H (0) /HPF Urine WBC 1-4 (0-4) /HPF Ur Squamous Epith Cells 2+ /LPF Urine Bacteria 1+ /LPF Urine Test NEGATIVE (NEGATIVE) Imaging Data CT scan - abdomen: Radiologist's impression: ?This could be clinically correlated. I do not appreciate any obstructive changes or ureteric calculi. BLADDER: Unremarkable. GASTROINTESTINAL TRACT: The small and large bowel are unremarkable. The appendix is unremarkable. ABDOMINAL WALL: No significant hernia is appreciated. LYMPHOVASCULAR STRUCTURES: No lymphadenopathy.? The aorta is unremarkable.. PELVIC VISCERA: Unremarkable. OSSEUS STRUCTURES: Loss of disc height at L4/L5 similar to prior study CT/CT abdomen pelvis wo con IMPRESSION: Innumerable tiny punctate calculi within the bilateral kidneys with increased density in the medullary pyramids suggesting underlying medullary calcinosis. I do not appreciate any obstructive changes. No ureteric calculi at this time. No bladder calculi seen.. ? Dictated By: PAOLO VERDE MD Signed By: <Electronically signed by PAOLO VERDE MD in OV> 05/01/21 0713 DD/ TD/TT:? Electronics [employer] Department Chair: ARTURO DD/ 4 TD/TT:? Electronics Technology Department [place]: [facility] [place] x-ray: Radiologist's impression: Accession Number(s): [id number] cc: Brad Smart MD~ EXAMINATION: XR CHEST CLINICAL INFORMATION: Chest pain. COMPARISON: None TECHNIQUE: 2 views of the chest were obtained. FINDINGS: No significant abnormality is noted involving the heart, lungs, mediastinum, bony thorax or soft tissues. XR/XR chest 2V IMPRESSION: Unremarkable chest examination. Dictated By: Juice Knox MD Signed By: <Electronically signed by Juice Knox MD in OV> 05/01/2146 DD/ 9 TD/TT:? Electronics Technology Department [place]: [facility] [place] Data Attestation: I personally reviewed and interpreted this ECG as follows: Pacemaker model: nsr 76 NO ISCHEMIC CHANGES Discharge Plan Discharge Clinical Impression: Acute flank pain Patient Disposition: Home, Self-Care Instructions: Flank Pain (ED) Prescriptions: New oxycodone 5 mg tablet 5 mg PO Q8H PRN (Reason: pain) Qty: 10 RF: 0 No Action famotidine 20 mg tablet 20 mg PO DAILY RF: 0 acetaminophen [Tylenol Extra Strength] 500 mg tablet 1,000 mg PO QID PRN (Reason: fever or pain) Qty: 14 RF: 0 albuterol sulfate 90 mcg/actuation HFA aerosol inhaler 2 puff inhalation Q4-6H PRN (Reason: shortness of breath or wheezing) Qty: 8.5 RF: 0 linaclotide 290 mcg capsule 290 mcg PO DAILY RF: 0 amlodipine 5 mg tablet 5 mg PO DAILY 90 Days Qty: 90 RF: 1 gabapentin 100 mg capsule 100 mg PO TID 30 Days Qty: 90 RF: 1 pyridoxine (vitamin B6) 100 mg tablet 100 mg PO DAILY 90 Days Qty: 90 RF: 1 ondansetron 4 mg tablet,disintegrating 4 mg PO Q8H PRN (Reason: nausea and vomiting) Qty: 20 RF: 0 omeprazole 20 mg capsule,delayed release(DR/EC) 20 mg PO BID 30 Days Qty: 60 RF: 0 montelukast 10 mg tablet 10 mg PO BEDTIME 90 Days Qty: 90 RF: 1 azithromycin 250 mg tablet 250 mg PO DIRECTED 5 Days Qty: 6 RF: 0 hydroxyzine pamoate 25 mg capsule 25 mg PO BID RF: 0 clonazepam 0.5 mg tablet 0.5 mg PO DAILY PRN (Reason: Anxiety) RF: 0 citalopram 40 mg tablet 40 mg PO DAILY RF: 0 cetirizine 10 mg tablet 10 mg PO Q12H PRNRF: 0 allopurinol 100 mg tablet 100 mg PO DAILY Qty: 90 RF: 1 Referrals: Rashmi Link MD [Primary Care Provider] - 2 days Stand Alone Forms: Work/School Release [facility] Past Medical History Medical History Active asthma Fibromyalgia Hospital discharge follow-up Hypertension Morbid obesity with BMI of 45.0-49.9, adult Renal calculi Umbilical hernia Surgical History History of extraction of renal calculus History of tubal ligation Family History Family History Father Anemia Sister Cervical cancer Maternal Aunt Breast cancer Diabetes Mother No problems noted. Social History Social History Housing: Apartment Alcohol intake: unknown Patient Tobacco Use Status: Former Tobacco user Tobacco use type: Cigarette e-Cigarette/Vaping Use: Never Used Second Hand Smoke Exposure: No Use of substances other than those prescribed or required for medical reasons: No Advance Directives: No Advance Directives Information Provided: Yes Patient : No service: No Current occupational status: unemployed
[2021-05-01 08:31] VITALS: BP 150/87; PULSE 76; RESP 18; O2SAT 98
[2021-05-01 09:04] LABS: Troponin-I High Sensitivity < 3.5 ng/L (<3.5-17.0)
[2021-05-01 09:15] LABS: UPreg QC Valid YES; Urine Pregnancy NEGATIVE (NEGATIVE)
[2021-05-01 09:19] LABS: Appearance Urine CLOUDY; Color Urine RED; Glucose Urine UA NEG (NEG); Leukocyte Esterase Urine 1+ (NEG); Nitrite Urine NEG (NEG); Specific Gravity - Urine 1.015 (1.005-1.025); UACC Culture Trigger YES; Urine Blood 3+ (NEG); Urine Ketones NEG (NEG); Urine Protein 1+ MG/DL (NEG-TRACE)
[2021-05-01 09:45] LABS: RBC Urine TNTC /HPF (0)
[2021-05-01 09:46] LABS: Bacteria Urine 1+ /LPF; Squamous Epithelial Cell Urine 2+ /LPF
== END 2021-05-01 10:16 | disposition home or self-care (01) ==
PROVIDERS: Student in an Organized Health Care Education/Training Program; Emergency Provider Emergency Medicine; PCP Internal Medicine
DX: R10.9 Unspecified abdominal pain (principal); R07.89 Other chest pain; Z79.899 Other long term (current) drug therapy
CPT/HCPCS: 36415; 71046; 74176; 80053; 81001; 81003; 81025; 83690; 84484; 84702; 85025; 87086; 93005; 99284

== ENCOUNTER → 2021-05-04 14:39 | Outpatient (BNVA) | payer OTHER, SELFPAY | PROVIDERS: PCP Internal Medicine; Visit Provider Urology ==

== ENCOUNTER 2021-05-14 11:18 | Outpatient (REF) | payer OTHER, SELFPAY ==
[2021-05-14 12:01] LABS: Binax Internal Control QC Valid; Binax Now Covid-19 Ag Negative (Negative)
== END 2021-05-14 11:19 | disposition home or self-care (01) ==
LOC: HO.LAB 11:18
PROVIDERS: Visit Provider Internal Medicine
DX: Z20.822 Contact with and (suspected) exposure to COVID-19 (principal)
CPT/HCPCS: C9803

== ENCOUNTER → 2021-05-23 08:44 | Outpatient (BNVA) | payer OTHER, SELFPAY | PROVIDERS: PCP Internal Medicine; Referring Provider Internal Medicine; Visit Provider Surgery | DX: K42.9 Umbilical hernia without obstruction or gangrene (principal) | CPT/HCPCS: 99202 ==

== ENCOUNTER 2021-05-29 08:00 | Emergency (ER) | payer OTHER, SELFPAY ==
--- NOTE | ~2021-05-29 | CT_ITS ---
EXAMINATION: CT ABDOMEN AND PELVIS WITH CONTRAST CLINICAL INFORMATION: Right lower quadrant pain and vomiting. COMPARISON: CT abdomen and pelvis 05/01/2021. TECHNIQUE: Multidetector volumetric images were obtained from the superior aspect of the liver through the pubic symphysis following administration 85 mL of Omnipaque 350 intravenous contrast. Sagittal and coronal reformatted images were obtained on the technologist's workstation. Oral contrast: No This CT examination was performed using dose optimization techniques as appropriate, variously including the following: *Automated exposure control *Adjustment of mA and/or kV according to patient size (this includes techniques or standardized protocols for targeted exams where dose is matched to indication/reason for exam; i.e. extremities or head) *Use of iterative reconstruction technique DLP: 1331 mGy-cm FINDINGS: LUNG BASES: The visualized lung bases are unremarkable. LIVER, GALLBLADDER, AND BILIARY TREE: The liver is normal in size, shape, and attenuation. No focal hepatic lesion or biliary ductal dilatation is present. The gallbladder is unremarkable with no evidence of radiopaque gallstones, gallbladder wall thickening, or obvious pericholecystic inflammatory changes. PANCREAS: Unremarkable. SPLEEN: Unremarkable. ADRENAL GLANDS: Unremarkable. KIDNEYS AND URETERS: The right kidneys enlarged measuring 13.1 cm with perinephric fluid. There is moderate hydroureteronephrosis from an obstructive 3 mm right distal ureteral stone. There are 2-3 radiopaque bilateral renal calculi. There is cortical scarring right upper lobe. No left hydronephrosis seen. BLADDER: Unremarkable. GASTROINTESTINAL TRACT: There is scattered stool and gas seen throughout the colon without significant distention. The small bowel loops are normal caliber. Appendix is not seen. The small bowel loops, normal caliber. No inflammatory changes seen in the abdomen or pelvis. ABDOMINAL WALL: There is small umbilical hernia containing fat. LYMPH NODES: Normal. VASCULAR: Unremarkable. PELVIC VISCERA: The uterus is midline. No adnexal mass seen. OSSEOUS STRUCTURES: There is L4 and L5 vertebral body fusion with a rudimentary disc. No aggressive lytic or sclerotic process seen. CT/CT abdomen pelvis w con IMPRESSION: A 3 mm obstructive right distal ureteral stone with mild hydroureteronephrosis. There are bilateral renal cysts, bilateral small punctate radiopaque renal calculi and right cortical scarring. Fleischner guidelines were followed.
[2021-05-29 08:11] VITALS: BP 144/81; PULSE 83; RESP 16; TEMP 36.4; O2SAT 97; BMI 51.5
[2021-05-29 08:33] VITALS: BP 153/92; PULSE 89; RESP 18; TEMP 36.9; O2SAT 99
--- NOTE | 2021-05-29 08:53 | ED_ITS ---
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 Patient tells me last while working she started to experience some mid to right- sided back pain. This morning the pain radiates the right side of her abdomen. No associated urinary symptoms. Patient has nausea with vomiting x1. No fevers, chills, diarrhea, constipation. patient is currently on her menses she was seen here on April 26 for similar symptoms. she was on her menses at that time as well. patient denies heavy or painful bleeding during . She denies any vagi nal discharge, rashes or lesions. She is sexually active with 1 partner and does not concern for STD exposure Related Data Home Medications Medication Instructions Recorded Confirmed linaclotide 290 mcg capsule 290 mcg PO DAILY 08/22/20 05/23/21 cetirizine 10 mg tablet 10 mg PO Q12H PRN 09/11/20 05/23/21 citalopram 40 mg tablet 40 mg PO DAILY 09/11/20 05/23/21 clonazepam 0.5 mg tablet 0.5 mg PO DAILY PRN 09/11/20 05/23/21 hydroxyzine pamoate 25 mg capsule 25 mg PO BID 09/11/20 05/23/21 famotidine 20 mg tablet 20 mg PO DAILY tab 09/13/20 05/23/21 Previous Rx's Medication Instructions Recorded acetaminophen 500 mg tablet 1,000 mg PO QID PRN #14 tab 08/19/20 (Tylenol Extra Strength) amlodipine 5 mg tablet 5 mg PO DAILY 90 Days #90 tab 08/22/20 gabapentin 100 mg capsule 100 mg PO TID 30 Days #90 cap 08/22/20 albuterol sulfate 90 mcg/actuation 2 puff INHALATION Q4-6H PRN #8.5 g 02/05/21 aerosol inhaler azithromycin 250 mg tablet 250 mg PO DIRECTED 5 Days #6 tab 02/20/21 montelukast 10 mg tablet 10 mg PO BEDTIME 90 Days #90 tab 02/20/21 omeprazole 20 mg capsule,delayed 20 mg PO BID 30 Days #60 cap 02/20/21 release ondansetron 4 mg disintegrating 4 mg PO Q8H PRN #20 tab 02/20/21 tablet oxycodone 5 mg tablet 5 mg PO Q8H PRN #10 tab 05/01/21 allopurinol 100 mg tablet 100 mg PO DAILY 90 Days #90 tab 05/04/21 ibuprofen 400 mg tablet 400 mg PO Q6H PRN #60 tab 05/04/21 pyridoxine (vitamin B6) 100 mg 100 mg PO DAILY 90 Days #90 tab 05/04/21 tablet ciprofloxacin HCl 500 mg tablet 500 mg PO BID #14 tab 05/29/21 ibuprofen 600 mg tablet 600 mg PO Q8H PRN #20 tab 05/29/21 oxycodone 5 mg tablet 5 mg PO Q8H PRN #10 tab 05/29/21 tamsulosin 0.4 mg capsule (Flomax) 0.4 mg PO DAILY #20 cap 05/29/21 Allergies Allergy/AdvReac Type Severity Reaction Status Date / Time canned food Allergy Severe rash Verified 05/23/21 08:59 RED MEAT Allergy Severe Rash Uncoded 05/01/21 05:59 Review of Systems Review of Systems Yes all other systems are reviewed and are negative Constitutional: Reports no additional constitutional complaints, Denies body ache(s), Denies chills, Denies fever(s), Denies headache(s) and Denies weakness Eyes: Reports no additional eye complaints and Denies change in vision Reports system reviewed and no additional complaints, except as documented, Denies dizziness, Denies headache(s), Denies nasal congestion, Denies nasal discharge and Denies neck pain Cardiovascular: Reports no additional cardiovascular complaints, Denies chest pain, Denies leg edema and Denies dyspnea Respiratory: Reports no additional respiratory complaints, Denies cough and Denies dyspnea Gastrointestinal: Reports no additional gastrointestinal complaints, Reports abdominal pain, Denies diarrhea, Reports nausea and Reports vomiting Genitourinary: Reports no additional female genitourinary complaints and Denies urinary incontinence Musculoskeletal: Reports no additional musculoskeletal complaints, Reports back pain, Denies arthralgias, Denies joint swelling, Denies neck pain, Denies numbness and Denies tingling Skin/Breast: Reports system reviewed and no additional complaints, except as docu and Denies rash Reports system reviewed and no additional complaints, except as documented, Denies Abnormal speech present, Denies dizziness, Denies headache(s), Denies numbness, Denies tingling and Denies weakness Physical Exam Vital Signs: Vital Signs: Last Vital Signs Temp 97.7 F 05/29/21 14:35 Pulse 78 05/29/21 14:35 Resp 17 05/29/21 14:35 BP 136/93 H 05/29/21 14:35 Pulse Ox 95 05/29/21 14:35 BMI result Body Mass Index 51.5 Const: General: cooperative, healthy appearing, comfortable and no acute distress Orientation/consciousness: patient oriented x3 Limitations: no limitations HENMT: Head: Yes normal to inspection Ears: hearing grossly normal bilaterally General nose exam: Normal external nose present Face and sinus: Yes normal facial exam Mouth: Normal oral and palatal mucosa present Throat: Yes posterior oropharynx normal Eyes: General: appearance normal, both eyes and all related structures Pupils: Equal, round and reactive pupils present Neck: Neck: Yes normal visual inspection Chest: Chest palpation & inspection: normal inspection of the chest Resp: Effort & Inspection: normal respiratory effort Auscultation: clear to auscultation bilaterally Cardio: Rate: regular rate Rhythm: regular rhythm Peripheral pulses: Peripheral pulses 2+ throughout GI: Inspection: Yes normal to inspection Palpation (GI): Soft to palpation and Tenderness to palpation present (GI) (R sided AP. No rebound or guarding,. ) Auscultation: normal bowel sounds : General: Yes no CVA tenderness Back/Spine/Pelvis: Back: no CVA tenderness Thoracic/Lumbar Spine: thoracic and lumbar spine normal to inspection Skin: General skin exam: no rashes or lesions noted Neuro: General: patient oriented x3, no focal motor deficits and normal sensation to monofilament Cranial nerves: Yes Equal, round and reactive pupils present Cognition (Neuro): normal cognition Speech: No Abnormal speech present Gait exam (Neuro): Normal gait present Motor exam (neuro): 5/5 motor strength present throughout Extrem: General: Yes normal to inspection Course Course Course Narrative: 35-year-old female here with reports of mid back pain with radiation to the right abdomen since last evening with associated nausea and vomiting x1. On exam the patient has some tenderness to the right side of the abdomen with no rebound or guarding. She has no CVA tenderness. Will need labs, UA, CT, COVID screen. Will place PIV and give analgesia 1503- CT shows A 3 mm obstructive right distal ureteral stone with mild hydroureteronephrosis. -labs unremarkable. UA shows 3+ blood, 2+ leuks, 2+bacteria. ?contaminant. Patient has no UTI symptoms. However, d/t known renal colic will treat as presumed UTI with course of antibiotics. Spoke to patient. She is still having some slight discomfort but overall much improved. Tolerating PO. Plan for discharge home with follow-up with urology. Reviewed worrisome signs/symptoms with patient and when to return to ED. Comfortable with discharge home. MDM - Abdominal Pain Medical Records Attestation: I reviewed the patient's medical records. Lab Data Attestation: I reviewed the patient's lab results. Result diagrams: 05/29/21 09:10 05/29/21 09:10 Labs: Lab Results 05/29/21 05/29/21 05/29/21 Range/Units 09:10 09:10 09:10 WBC 9.0 (4.8-10.8) X10*3/uL RBC 5.40 (4.20-5.50) X10*6/uL Hgb 13.0 (12.0-16.0) g/dl Hct 43.3 (37.0-47.0) % MCV 80.2 (80.0-98.0) fL MCH 24.1 L (27.0-33.0) pg MCHC 30.0 L (31.0-35.0) g/dl RDW 15.4 (11.0-16.0) % Plt Count 292 (160-400) X10*3/uL MPV 9.5 (9.4-12.3) fL Immature Gran % (Auto) 0.3 (0.0-0.4) % Neut % (Auto) 68.8 (45-73) % Lymph % (Auto) 18.1 L (20-40) % [place] % (Auto) 8.1 (2-11) % Eos % (Auto) 4.0 (0-4) % Baso % (Auto) 0.7 (0-2) % Lymph # (Auto) 1.6 (1.2-4.9) X10*3/uL [place] # (Auto) 0.7 (0.1-1.2) X10*3/uL Eos # (Auto) 0.4 (0.0-0.4) X10*3/uL Baso # (Auto) 0.1 (0.0-0.2) X10*3/uL Abs Immat Gran (auto) 0.03 (0.00-0.03) X10*3/uL Absolute Neuts (auto) 6.2 (2.0-8.3) x10*3/uL Absolute Nucleated RBC 0.000 (0.0-0.012) X10*3/uL Nucleated RBC % (auto) 0.0 (0.0-0.2) /100WBC Sodium 139 (135-145) mmol/L Potassium 4.0 (3.3-5.1) mmol/L Chloride 103 (96-108) mmol/L Carbon Dioxide 30 H (22-29) mmol/L Anion Gap 10 L (12-20) BUN 13 (9-16) mg/dL Creatinine 1.00 (0.5-1.4) mg/dL Estim Creat Clear Calc 106.3 Estimated GFR > 60 Random Glucose 122 H (60-115) mg/dL Calcium 8.9 (8.4-10.2) mg/dL Total Bilirubin 0.4 (0.0-1.0) mg/dL Direct Bilirubin < 0.2 (0.0-0.5) mg/dL AST 15 (5-31) U/L ALT 14 (0-31) U/L Alkaline Phosphatase 83 (39-117) U/L Total Protein 7.5 (6.5-8.0) g/dL Albumin 3.9 (3.5-5.0) g/dL Urine Color YELLOW Urine Appearance HAZY Urine pH 6.0 (5.0-8.0) Ur Specific [place] 1.020 (1.005-1.025) Urine Protein 1+ H (NEG-TRACE) MG/DL Urine Glucose (UA) NEG (NEG) MG/DL Urine Ketones NEG (NEG) MG/DL Urine Blood 3+ H (NEG) Urine Nitrite NEG (NEG) Ur Leukocyte Esterase 2+ H (NEG) Urine RBC 10-14 H (0) /HPF Urine WBC 5-9 H (0-4) /HPF Ur Squamous Epith Cells 1+ /LPF Amorphous Sediment 1+ /LPF Urine Bacteria 2+ /LPF Urine Test (NEGATIVE) COVID-19 (RICH) (Negative) COVID-19 Clin Com 05/29/21 05/29/21 Range/Units 09:10 09:11 WBC (4.8-10.8) X10*3/uL RBC (4.20-5.50) X10*6/uL Hgb (12.0-16.0) g/dl Hct (37.0-47.0) % MCV (80.0-98.0) fL MCH (27.0-33.0) pg MCHC (31.0-35.0) g/dl RDW (11.0-16.0) % Plt Count (160-400) X10*3/uL MPV (9.4-12.3) fL Immature Gran % (Auto) (0.0-0.4) % Neut % (Auto) (45-73) % Lymph % (Auto) (20-40) % [place] % (Auto) (2-11) % Eos % (Auto) (0-4) % Baso % (Auto) (0-2) % Lymph # (Auto) (1.2-4.9) X10*3/uL [place] # (Auto) (0.1-1.2) X10*3/uL Eos # (Auto) (0.0-0.4) X10*3/uL Baso # (Auto) (0.0-0.2) X10*3/uL Abs Immat Gran (auto) (0.00-0.03) X10*3/uL Absolute Neuts (auto) (2.0-8.3) x10*3/uL Absolute Nucleated RBC (0.0-0.012) X10*3/uL Nucleated RBC % (auto) (0.0-0.2) /100WBC Sodium (135-145) mmol/L Potassium (3.3-5.1) mmol/L Chloride (96-108) mmol/L Carbon Dioxide (22-29) mmol/L Anion Gap (12-20) BUN (9-16) mg/dL Creatinine (0.5-1.4) mg/dL Estim Creat Clear Calc Estimated GFR Random Glucose (60-115) mg/dL Calcium (8.4-10.2) mg/dL Total Bilirubin (0.0-1.0) mg/dL Direct Bilirubin (0.0-0.5) mg/dL AST (5-31) U/L ALT (0-31) U/L Alkaline Phosphatase (39-117) U/L Total Protein (6.5-8.0) g/dL Albumin (3.5-5.0) g/dL Urine Color Urine Appearance Urine pH (5.0-8.0) Ur Specific [place] (1.005-1.025) Urine Protein (NEG-TRACE) MG/DL Urine Glucose (UA) (NEG) MG/DL Urine Ketones (NEG) MG/DL Urine Blood (NEG) Urine Nitrite (NEG) Ur Leukocyte Esterase (NEG) Urine RBC (0) /HPF Urine WBC (0-4) /HPF Ur Squamous Epith Cells /LPF Amorphous Sediment /LPF Urine Bacteria /LPF Urine Test NEGATIVE (NEGATIVE) COVID-19 (RICH) Negative (Negative) COVID-19 Clin Com See Note Imaging Data CT scan - abdomen: Attestation: I personally reviewed and interpreted this imaging study as follows: Radiologist's impression: FINDINGS: LUNG BASES: The visualized lung bases are unremarkable.? LIVER, GALLBLADDER, AND BILIARY TREE: The liver is normal in size, shape, and attenuation. No focal hepatic lesion or biliary ductal dilatation is present. The gallbladder is unremarkable with no evidence of radiopaque gallstones, gallbladder wall thickening, or obvious pericholecystic inflammatory changes.? PANCREAS: Unremarkable.? SPLEEN: Unremarkable.? ADRENAL GLANDS: Unremarkable.? KIDNEYS AND URETERS: The right kidneys enlarged measuring 13.1 cm with perinephric fluid. There is moderate hydroureteronephrosis from an obstructive 3 mm right distal ureteral stone. There are 2-3 radiopaque bilateral renal calculi. There is cortical scarring right upper lobe. No left hydronephrosis seen.? BLADDER: Unremarkable.? GASTROINTESTINAL TRACT: There is scattered stool and gas seen throughout the colon without significant distention. The small bowel loops are normal caliber. Appendix is not seen. The small bowel loops, normal caliber. No inflammatory changes seen in the abdomen or pelvis. ABDOMINAL WALL: There is small umbilical hernia containing fat.? LYMPH NODES: Normal. VASCULAR: Unremarkable. PELVIC VISCERA: The uterus is midline. No adnexal mass seen.? OSSEOUS STRUCTURES: There is L4 and L5 vertebral body fusion with a rudimentary disc. No aggressive lytic or sclerotic process seen.? CT/CT abdomen pelvis w con IMPRESSION: A 3 mm obstructive right distal ureteral stone with mild hydroureteronephrosis. ? There are bilateral renal cysts, bilateral small punctate radiopaque renal calculi and right cortical scarring. ? Fleischner guidelines were followed. ECG Data Attestation: I personally reviewed and interpreted this ECG as follows: Discharge Plan Discharge Clinical Impression: Nephrolithiasis, UTI (urinary tract infection) Patient Disposition: Home, Self-Care Instructions: Kidney Stones (ED), Urinary Tract Infection in Women (DC) Additional Instructions: Increase fluids, rest Follow-up with urology Return for severe pain, 2 or more vomiting episodes, fever >100.4 Prescriptions: New ciprofloxacin HCl 500 mg tablet 500 mg PO BID Qty: 14 0RF tamsulosin [Flomax] 0.4 mg capsule 0.4 mg PO DAILY Qty: 20 0RF ibuprofen 600 mg tablet 600 mg PO Q8H PRN (Reason: pain) Qty: 20 0RF oxycodone 5 mg tablet 5 mg PO Q8H PRN (Reason: pain) Qty: 10 0RF No Action famotidine 20 mg tablet 20 mg PO DAILY 0RF acetaminophen [Tylenol Extra Strength] 500 mg tablet 1,000 mg PO QID PRN (Reason: fever or pain) Qty: 14 0RF oxycodone 5 mg tablet 5 mg PO Q8H PRN (Reason: pain) Qty: 10 0RF Rx Instructions: partiall filling upon pt request albuterol sulfate 90 mcg/actuation HFA aerosol inhaler 2 puff inhalation Q4-6H PRN (Reason: shortness of breath or wheezing) Qty: 8.5 0RF linaclotide 290 mcg capsule 290 mcg PO DAILY 0RF amlodipine 5 mg tablet 5 mg PO DAILY 90 Days Qty: 90 1RF gabapentin 100 mg capsule 100 mg PO TID 30 Days Qty: 90 1RF ondansetron 4 mg tablet,disintegrating 4 mg PO Q8H PRN (Reason: nausea and vomiting) Qty: 20 0RF omeprazole 20 mg capsule,delayed release(DR/EC) 20 mg PO BID 30 Days Qty: 60 0RF montelukast 10 mg tablet 10 mg PO BEDTIME 90 Days Qty: 90 1RF azithromycin 250 mg tablet 250 mg PO DIRECTED 5 Days Qty: 6 0RF Rx Instructions: Take 2 tabs 1st day then 1 tab for the next 4 days. pyridoxine (vitamin B6) 100 mg tablet 100 mg PO DAILY 90 Days Qty: 90 1RF hydroxyzine pamoate 25 mg capsule 25 mg PO BID 0RF clonazepam 0.5 mg tablet 0.5 mg PO DAILY PRN (Reason: Anxiety) 0RF citalopram 40 mg tablet 40 mg PO DAILY 0RF cetirizine 10 mg tablet 10 mg PO Q12H PRN0RF allopurinol 100 mg tablet 100 mg PO DAILY 90 Days Qty: 90 1RF ibuprofen 400 mg tablet 400 mg PO Q6H PRN (Reason: fever) Qty: 60 0RF Rx Instructions: When she has kidney stone attack should take every 6 hours for 4 doses Referrals: Jack Johnson MD [Physician] - 5 days Stand Alone Forms: Work/School Release Print Language: [facility] Past Medical History Attestation statement: The following information was validated with the patient. Source: old records reviewed and nursing notes reviewed Medical History Active asthma Fibromyalgia Hospital discharge follow-up Hypertension Morbid obesity with BMI of 45.0-49.9, adult Renal calculi Umbilical hernia Umbilical hernia Surgical History History of extraction of renal calculus History of tubal ligation Family History Family History Father Anemia Sister Cervical cancer Maternal Aunt Breast cancer Diabetes Mother No problems noted. Social History Social History Housing: Apartment Alcohol intake: never Patient Tobacco Use Status: Former Tobacco user Tobacco use type: Cigarette e-Cigarette/Vaping Use: Never Used Second Hand Smoke Exposure: No Use of substances other than those prescribed or required for medical reasons: No Advance Directives: No Advance Directives Information Provided: No Patient : No service: No Current occupational status: unemployed
[2021-05-29 09:18] LABS: MANUAL DIFF FLAG NO
[2021-05-29] MEDS: Ketorolac Tromethamine 30 MG/ML VIAL IVPUSH (09:18)
[2021-05-29] MEDS: ondansetron HCL 4 MG/2 ML VIAL IVPUSH (09:19)
[2021-05-29 09:20] LABS: Basophils Absolute Auto 0.1 X10*3/uL (0.0-0.2); Basophils Percent Auto 0.7 % (0-2); Eosinophils Absolute Auto 0.4 X10*3/uL (0.0-0.4); Hematocrit 43.3 % (37.0-47.0); Imm Gran Abs Auto 0.03 X10*3/uL (0.00-0.03); Imm Gran Pct Auto 0.3 % (0.0-0.4); Lymphocytes Absolute Auto 1.6 X10*3/uL (1.2-4.9); Lymphocytes Percent Auto 18.1 % (20-40); Mean Corpuscular Hemoglobin 24.1 pg (27.0-33.0); Mean Corpuscular Volume 80.2 fL (80.0-98.0); Mean Platelet Volume 9.5 fL (9.4-12.3); Monocytes Absolute Auto 0.7 X10*3/uL (0.1-1.2); Monocytes Percent Auto 8.1 % (2-11); Neutrophils Absolute Auto 6.2 x10*3/uL (2.0-8.3); Neutrophils Percent Auto 68.8 % (45-73); Platelet Count 292 X10*3/uL (160-400); Red Cell Distribution Width 15.4 % (11.0-16.0)
[2021-05-29 09:24] LABS: Appearance Urine HAZY; Color Urine YELLOW; Glucose Urine UA NEG (NEG); Leukocyte Esterase Urine 2+ (NEG); Nitrite Urine NEG (NEG); UACC Culture Trigger YES; Urine Blood 3+ (NEG); Urine Ketones NEG (NEG); Urine Protein 1+ MG/DL (NEG-TRACE)
[2021-05-29 09:26] LABS: UPreg QC Valid YES; Urine Pregnancy NEGATIVE (NEGATIVE)
[2021-05-29 09:36] LABS: Alanine Aminotransferase 14 U/L (0-31); Albumin Level 3.9 g/dL (3.5-5.0); Alkaline Phosphatase 83 U/L (39-117); Anion Gap 10 (12-20); Aspartate Amino Transferase 15 U/L (5-31); Bilirubin Direct < 0.2 mg/dL (0.0-0.5); Bilirubin Total 0.4 mg/dL (0.0-1.0); Blood Urea Nitrogen 13 mg/dL (9-16); Calcium 8.9 mg/dL (8.4-10.2); Carbon Dioxide 30 mmol/L (22-29); Chloride 103 mmol/L (96-108); Creatinine Clr Calc Pharmacy 106.3; Estimated Glomerular Filt Rate > 60; Glucose Random 122 mg/dL (60-115); Sodium 139 mmol/L (135-145); Total Protein 7.5 g/dL (6.5-8.0)
[2021-05-29 09:44] LABS: Amorphous Sediment Urine 1+ /LPF; Bacteria Urine 2+ /LPF; Squamous Epithelial Cell Urine 1+ /LPF
[2021-05-29 10:04] LABS: COVID-19 Test Negative (Negative); IDNOW Serial# 9DD0AD1C
[2021-05-29] MEDS: iohexoL 350 MG/ML 100 ML INFUS..BTL IV (10:58)
[2021-05-29 14:35] VITALS: BP 136/93; PULSE 78; RESP 17; TEMP 36.5; O2SAT 95
== END 2021-05-29 15:10 | disposition home or self-care (01) ==
PROVIDERS: Nurse Practitioner Family; Emergency Provider Emergency Medicine; PCP Internal Medicine
DX: N20.0 Calculus of kidney (principal); N39.0 Urinary tract infection, site not specified; I10 Essential (primary) hypertension; M79.7 Fibromyalgia; Z20.822 Contact with and (suspected) exposure to COVID-19; Z79.899 Other long term (current) drug therapy
CPT/HCPCS: 36415; 74177; 80048; 80076; 81001; 81025; 85025; 87086; 87635; 96374; 96375; 99284; J1885; J2405; Q9967

== ENCOUNTER → 2021-06-06 08:57 | Outpatient (BNVA) | payer OTHER, SELFPAY | PROVIDERS: PCP Internal Medicine; Visit Provider Urology ==

== ENCOUNTER 2021-08-21 16:18 | Outpatient (REF) | payer OTHER, SELFPAY ==
--- NOTE | ~2021-08-21 | US_ITS ---
EXAMINATION: US RETROPERITONEAL LIMITED (RENAL ONLY) CLINICAL INFORMATION: Medullary cystic kidney. COMPARISON: CT abdomen pelvis 05/29/2021 and 05/01/2021. TECHNIQUE: Real-time imaging of the kidneys. FINDINGS: RIGHT KIDNEY: 11.4 x 6.1 x 6.8 cm (SAG x AP x TRV). The kidney is normal in size and contour. There are echogenic renal pyramids suggestive of medullary nephrocalcinosis. No discrete stone is seen. No hydronephrosis. LEFT KIDNEY: 12.2 x 6.1 x 5.1 cm (SAG x AP x TRV). The kidney is normal in size and contour. There are echogenic renal pyramids suggestive of medullary nephrocalcinosis. No discrete stone is seen. There is a 1.3 x 1.2 x 0.9 cm cyst in the lower pole. No hydronephrosis. US/US renal BI IMPRESSION: Echogenic renal pyramids suggestive of medullary nephrocalcinosis. No discrete stone seen. No hydronephrosis.
== END 2021-08-21 16:19 | disposition home or self-care (01) ==
LOC: HO.US 16:18
PROVIDERS: Visit Provider Urology
DX: Q61.5 Medullary cystic kidney (principal)
CPT/HCPCS: 76775

== ENCOUNTER → 2021-08-28 09:08 | Outpatient (BNVA) | payer OTHER, SELFPAY | PROVIDERS: PCP Internal Medicine; Visit Provider Urology | DX: Q61.5 Medullary cystic kidney (principal) | CPT/HCPCS: 99212 ==

== ENCOUNTER 2021-10-31 08:48 | Outpatient (REF) | payer OTHER, SELFPAY ==
[2021-10-31 10:33] LABS: HBc Num1 0.12 S/CO (0.00-0.79); HIV AB/AG Nonreactive (Nonreactive); HIV Num 1 0.08 S/CO (0.00-0.99); Hepatitis B Core Antibody Nonreactive (Nonreactive); ~HepC Num1 0.07 S/CO (0.00-0.79); ~Hepatitis C Antibody Nonreactive (Nonreactive)
[2021-10-31 10:36] LABS: Syphilis Screen Nonreactive (Nonreactive)
[2021-10-31 15:39] LABS: CT PCR NOT DETECTED (Not Detect.); NG PCR NOT DETECTED (Not Detect.)
[2021-11-05 10:36] LABS: HPV mRNA E6/E7 rflx Not Detected (Not Detected)
== END 2021-10-31 08:49 | disposition home or self-care (01) ==
LOC: HO.LAB 08:48
PROVIDERS: PCP Internal Medicine; Visit Provider Advanced Practice Midwife
DX: Z01.419 Encounter for gynecological examination (general) (routine) without abnormal findings (principal); Z11.51 Encounter for screening for human papillomavirus (HPV); Z11.4 Encounter for screening for human immunodeficiency virus [HIV]; Z11.3 Encounter for screening for infections with a predominantly sexual mode of transmission; Z20.2 Contact with and (suspected) exposure to infections with a predominantly sexual mode of transmission
CPT/HCPCS: 36415; 86704; 86780; 86803; 87389; 87491; 87591; 87624; 88142

== ENCOUNTER 2021-11-02 05:22 | Emergency (ER) | payer OTHER, SELFPAY ==
--- NOTE | ~2021-11-02 | CT_ITS ---
EXAMINATION: CT ABDOMEN AND PELVIS WITHOUT CONTRAST CLINICAL INFORMATION: History of calculi. COMPARISON: CT abdomen and pelvis 05/29/2021 and renal ultrasound 08/21/2021. TECHNIQUE: Multidetector volumetric imaging was performed from the superior aspect of the liver through the pubic symphysis. Sagittal and coronal reformatted images were obtained on the technologist's workstation. This CT examination was performed using dose optimization techniques as appropriate, variously including the following: *Automated exposure control *Adjustment of mA and/or kV according to patient size (this includes techniques or standardized protocols for targeted exams where dose is matched to indication/reason for exam; i.e. extremities or head) *Use of iterative reconstruction technique DLP: 1145 mGy-cm FINDINGS: LUNG BASES: The lung bases are clear. The heart size is normal. There is a small hiatal hernia. LIVER, GALLBLADDER, AND BILIARY TREE: The liver is normal in size, shape, and attenuation. No focal hepatic lesion or biliary ductal dilatation is present. The gallbladder is unremarkable with no evidence of radiopaque gallstones, gallbladder wall thickening, or obvious pericholecystic inflammatory changes. PANCREAS: Unremarkable. SPLEEN: Unremarkable. ADRENAL GLANDS: Unremarkable. KIDNEYS AND URETERS: Both kidneys are slightly enlarged with multiple stippled calcifications seen throughout the pyramids suggestive of nephrocalcinosis. There are addition there is small 3 radiopaque calculi in the upper pole left kidney and tumor radiopaque calculi in the lower pole right kidney suggestive of small stones or caliectasis or hydronephrosis. BLADDER: Unremarkable. GASTROINTESTINAL TRACT: There is scattered stool and gas seen throughout the colon without significant distention. The small bowel loops are normal caliber. Appendix is normal caliber. No inflammatory process, free air or free fluid seen. ABDOMINAL WALL: Small umbilical hernia containing fat. LYMPH NODES: Normal. VASCULAR: Unremarkable. PELVIC VISCERA: Unremarkable. OSSEOUS STRUCTURES: No lytic or sclerotic process seen. There is a rudimentary disc at L4-L5 disc level secondary to a congenital fusion of L4-L5 vertebra. 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 No caliectasis or hydronephrosis seen. Moderate constipation. Small lumbar canal hernia containing fat Fleischner guidelines were followed.
[2021-11-02 05:52] VITALS: BP 164/96; PULSE 79; RESP 22; TEMP 36.9; O2SAT 97; BMI 48.6
[2021-11-02 05:56] LABS: Hematocrit 42.5 % (37.0-47.0); Hemoglobin 12.9 g/dl (12.0-16.0); Mean Corpuscular HGB Conc 30.4 g/dl (31.0-35.0); Mean Corpuscular Hemoglobin 23.8 pg (27.0-33.0); Mean Corpuscular Volume 78.3 fL (80.0-98.0); Mean Platelet Volume 9.5 fL (9.4-12.3); Platelet Count 278 X10*3/uL (160-400); Red Blood Count 5.43 X10*6/uL (4.20-5.50); White Blood Count 9.8 X10*3/uL (4.8-10.8)
[2021-11-02 06:24] LABS: Alanine Aminotransferase 12 U/L (0-31); Albumin Level 3.8 g/dL (3.5-5.0); Alkaline Phosphatase 80 U/L (39-117); Anion Gap 11 (12-20); Aspartate Amino Transferase 11 U/L (5-31); Bilirubin Total 0.4 mg/dL (0.0-1.0); Blood Urea Nitrogen 14 mg/dL (9-16); Calcium 8.6 mg/dL (8.4-10.2); Carbon Dioxide 28 mmol/L (22-29); Chloride 103 mmol/L (96-108); Creatinine Clr Calc Pharmacy 126.8; Estimated Glomerular Filt Rate > 60; Glucose Random 114 mg/dL (60-115); Lipase 10 U/L (8-78); Potassium 3.9 mmol/L (3.3-5.1); Sodium 138 mmol/L (135-145); Total Protein 7.2 g/dL (6.5-8.0)
[2021-11-02 06:50] LABS: Appearance Urine HAZY; Color Urine YELLOW; Glucose Urine UA NEG (NEG); Leukocyte Esterase Urine 3+ (NEG); Nitrite Urine NEG (NEG); PH 6.5 (5.0-8.0); UACC Culture Trigger YES; Urine Blood 3+ (NEG); Urine Ketones NEG (NEG); Urine Protein TRACE MG/DL (NEG-TRACE)
[2021-11-02 06:59] LABS: Squamous Epithelial Cell Urine 4+ /LPF
[2021-11-02 07:00] LABS: RBC Urine 0-2 /HPF (0); UACC CULT YES
[2021-11-02 07:01] LABS: Amorphous Sediment Urine 2+ /LPF; Bacteria Urine 1+ /LPF
--- NOTE | 2021-11-02 12:02 | ED_ITS ---
HPI - Abdominal Pain General Chief Complaint: Abdominal Pain Stated Complaint: R side pain x3days Time Seen by Provider: 11/02/21 11:56 Source: patient Mode of arrival: ambulatory Limitations: language barrier ([employer]-speaking medical laboratory technologist utilized) History of Present Illness HPI narrative: Patient presents emergency department for evaluation of right-sided abdominal/flank pain. Symptoms x3 days. Starts in her right lower back and radiates to the front. Pain has been constant. Persistent nausea, with 2 episodes of vomiting last night. Pain with urination. Reports a history of kidney stones. States she is followed by urologist Dr. Johnson. Denies any left- sided pain. Denies hematuria. Denies abnormal vaginal discharge or pelvic pain. Denies possibility of care Related Data Home Medications Medication Instructions Recorded Confirmed linaclotide 290 mcg capsule 290 mcg PO DAILY 08/22/20 06/19/21 cetirizine 10 mg tablet 10 mg PO Q12H PRN 09/11/20 06/19/21 citalopram 40 mg tablet 40 mg PO DAILY 09/11/20 06/19/21 clonazepam 0.5 mg tablet 0.5 mg PO DAILY PRN Anxiety 09/11/20 06/19/21 hydroxyzine pamoate 25 mg capsule 25 mg PO BID 09/11/20 06/19/21 Previous Rx's Medication Instructions Recorded acetaminophen 500 mg tablet 1,000 mg PO QID PRN fever or pain 08/19/20 (Tylenol Extra Strength) #14 tabs amlodipine 5 mg tablet 5 mg PO DAILY 90 days #90 tabs 08/22/20 albuterol sulfate 90 mcg/actuation 2 puff inhalation Q4-6H PRN 02/05/21 aerosol inhaler shortness of breath or wheezing #8.5 grams omeprazole 20 mg capsule,delayed 20 mg PO BID 30 days #60 caps 02/20/21 release ibuprofen 600 mg tablet 600 mg PO Q8H PRN pain #20 tabs 05/29/21 tamsulosin 0.4 mg capsule (Flomax) 0.4 mg PO DAILY #20 caps 05/29/21 allopurinol 100 mg tablet 100 mg PO DAILY 90 days #90 tabs 06/06/21 montelukast 10 mg tablet 10 mg PO BEDTIME 90 days #90 tabs 08/23/21 potassium citrate 10 mEq (1,080 20 meq PO BID 90 days #360 tabs 08/28/21 mg) tablet,extended release pyridoxine (vitamin B6) 100 mg 100 mg PO DAILY 90 days #90 tabs 08/28/21 tablet ciprofloxacin HCl 500 mg tablet 500 mg PO Q12H 7 days #14 tabs 11/02/21 Allergies Allergy/AdvReac Type Severity Reaction Status Date / Time canned food Allergy Severe rash Verified 10/31/21 08:10 RED MEAT Allergy Severe Rash Uncoded 10/31/21 08:10 Review of Systems Review of Systems Constitutional : No Weight loss, No Fever, No Chills ENT/Mouth :? No sore throat, No Rhinorrhea Eyes: No Swelling, No Redness Cardiovascular : No Chest Pain, No SOB, No Edema Respiratory : No Cough, No Sputum, No Wheezing Gastrointestinal : Positive Nausea, Positive Vomiting, no Diarrhea, positive ab dominal pain, No Hematochezia, No Melena Genitourinary : No Dysuria, No Urinary Frequency, No Hematuria, No Urgency? Musculoskeletal : No joint pain, No Myalgias, No Joint Swelling Skin : No Skin Lesions, No rash Neuro : No Weakness, No Numbness, No Dizziness, No Headache Psych : No Anxiety/Panic, No Depression Heme/Lymph: No Bruising, No Lymphadenopathy Endocrine : No Polyuria, No Polydipsia Yes all other systems are reviewed and are negative [facility] Past Medical History Attestation statement: The following information was validated with the patient. Source: old records reviewed Medical History Active asthma Fibromyalgia Hospital discharge follow-up Hypertension Morbid obesity Morbid obesity with BMI of 45.0-49.9, adult Renal calculi Umbilical hernia Umbilical hernia Surgical History History of extraction of renal calculus History of tubal ligation Family History Family History Father Anemia Sister Cervical cancer Maternal Aunt Breast cancer Diabetes Mother No problems noted. Social History Social History Housing: Apartment Alcohol intake: never Patient Tobacco Use Status: Former Tobacco user Tobacco use type: Cigarette e-Cigarette/Vaping Use: Never Used Second Hand Smoke Exposure: No Advance Directives: No Advance Directives Information Provided: Yes service: No Current occupational status: unemployed Physical Exam ED Vital Signs: Vital Signs - 24 hr 11/02/21 05:52 11/02/21 14:27 Temperature 98.5 F Pulse Rate 79 75 Respiratory Rate 22 H 18 Blood Pressure 164/96 H 148/90 H Pulse Oximetry 97 98 Oxygen Delivery Method Room Air Room Air BMI result Body Mass Index 48.6 Vital signs have been reviewed as normal and appeared to be correct. Hypertensive Heart rate normal.? Respiration rate normal. Temperature normal.? Oxygen saturation normal. Appearance: Alert.?Oriented to person, place and time. No acute distress.?Normal affect. Eyes: Pupils equal, round and reactive to light.? ENT: Pharynx normal.?? Neck: Normal inspection.? Neck supple.?? CVS: Heart sounds normal. Normal heart rate and rhythm.? Pulses normal.?? Respiratory: No respiratory distress.? Lung sounds clear to auscultation bilaterally?? Abdomen: Soft and non-tender. Normoactive bowel sounds. No pulsatile mass.? Right CVA tenderness?no right lower quadrant rebound tenderness, negative psoas sign, negative obturator's sign, negative Rovsing sign. Skin: Skin warm and dry.? Normal skin color.? Extremities: No lower extremity edema.? Neuro: Moves all extremities spontaneously. Sensation intact bilaterally. CN II- XII intact. No focal neuro deficits. Ambulates with normal steady gait. Course Course Course Narrative: Patient is a 35-year-old female with a past medical history of umbilical hernia, GERD, constipation, hypertension, obesity, asthma, fibromyalgia, medullary sponge kidney, nephrolithiasis. She presents emergency department for evaluation of right ABD pain/flank pain. Initial labs show no leukocytosis or anemia, CMP unremarkable. Urinalysis with 3+ blood, 3+ leuk esterase, 15-29 WBC. Hematuria may be secondary to urinary tract infection, but more likely renal calculi given her history. Patient to receive normal saline 1 L IV fluids, Zofran 4 mg IV, morphine 4 mg IV, will obtain CT abdomen/pelvis to exclude obstructive calculi/hydronephrosis. History and physical exam not consistent with GI perforation, GI bleed, AAA, aortic dissection, ectopic pregnanc. Not consistent with strangulated hernia, bowel obstruction, pulmonary embolism, mesenteric ischemia, myocardial infarction, ovarian torsion. Reevaluation(s) Reevaluation #1: CT of the abdomen revealed non-obstructive calculi in the left and right, no hydronephrosis, moderate constipation. Suspect that pain secondary to urinary tract infection, she does have history of renal colic, concerning for possible early pyelonephritis, will treat with Cipro 500 mg for 7 days. Discussed worsening signs and symptoms return back to the emergency department for. Advised outpatient follow up with the primary care provider within 1-3 days. All questions were answered, and she was discharged home in stable condition. MDM - Abdominal Pain Medical Records Attestation: I reviewed the patient's medical records. Lab Data Attestation: I reviewed the patient's lab results. Result diagrams: 11/02/21 05:45 11/02/21 05:45 Labs: Lab Results 11/02/21 11/02/21 11/02/21 Range/Units 05:45 05:45 06:44 WBC 9.8 (4.8-10.8) X10*3/uL RBC 5.43 (4.20-5.50) X10*6/uL Hgb 12.9 (12.0-16.0) g/dl Hct 42.5 (37.0-47.0) % MCV 78.3 L (80.0-98.0) fL MCH 23.8 L (27.0-33.0) pg MCHC 30.4 L (31.0-35.0) g/dl RDW 16.0 (11.0-16.0) % Plt Count 278 (160-400) X10*3/uL MPV 9.5 (9.4-12.3) fL Absolute Nucleated RBC 0.000 (0.0-0.012) X10*3/uL Nucleated RBC % (auto) 0.0 (0.0-0.2) /100WBC Sodium 138 (135-145) mmol/L Potassium 3.9 (3.3-5.1) mmol/L Chloride 103 (96-108) mmol/L Carbon Dioxide 28 (22-29) mmol/L Anion Gap 11 L (12-20) BUN 14 (9-16) mg/dL Creatinine 0.81 (0.5-1.4) mg/dL Estim Creat Clear Calc 126.8 Estimated GFR > 60 Random Glucose 114 (60-115) mg/dL Calcium 8.6 (8.4-10.2) mg/dL Total Bilirubin 0.4 (0.0-1.0) mg/dL AST 11 (5-31) U/L ALT 12 (0-31) U/L Alkaline Phosphatase 80 (39-117) U/L Total Protein 7.2 (6.5-8.0) g/dL Albumin 3.8 (3.5-5.0) g/dL Lipase 10 (8-78) U/L Beta HCG, Quant < 2 mIU/mL Urine Color YELLOW Urine Appearance HAZY Urine pH 6.5 (5.0-8.0) Ur Specific [place] 1.020 (1.005-1.025) Urine Protein TRACE (NEG-TRACE) MG/DL Urine Glucose (UA) NEG (NEG) MG/DL Urine Ketones NEG (NEG) MG/DL Urine Blood 3+ H (NEG) Urine Nitrite NEG (NEG) Ur Leukocyte Esterase 3+ H (NEG) Urine RBC 0-2 (0) /HPF Urine WBC 15-29 H (0-4) /HPF Ur Squamous Epith Cells 4+ /LPF Amorphous Sediment 2+ /LPF Urine Bacteria 1+ /LPF Imaging Data CT scan - abdomen: Radiologist's impression: CT/CT abdomen pelvis wo con IMPRESSION: 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 No caliectasis or hydronephrosis seen. ? Moderate constipation. ? Small lumbar canal hernia containing fat ? Fleischner guidelines were followed. Discharge Plan Discharge Clinical Impression: Urinary tract infection, Nephrolithiasis Patient Disposition: Home, Self-Care Instructions: Kidney Stones (ED), Urinary Tract Infection in Women (ED) Additional Instructions: CT of your abdomen does not show any obstructing kidney stones, no hydronephrosis, this is reassuring. Your blood work is normal Your urine is concerning for a urinary tract infection, been given an antibiotic , ciprofloxacin, please complete this entire course of antibiotics. Follow up with your primary care provider within 3 days. Return to the emergency department any new or worsening symptoms or concerns Prescriptions: New ciprofloxacin HCl 500 mg tablet 500 mg PO Q12H 7 Days Qty: 14 0RF No Action montelukast 10 mg tablet 10 mg PO BEDTIME 90 Days Qty: 90 1RF acetaminophen [Tylenol Extra Strength] 500 mg tablet 1,000 mg PO QID PRN (Reason: fever or pain) Qty: 14 0RF tamsulosin [Flomax] 0.4 mg capsule 0.4 mg PO DAILY Qty: 20 0RF ibuprofen 600 mg tablet 600 mg PO Q8H PRN (Reason: pain) Qty: 20 0RF albuterol sulfate 90 mcg/actuation HFA aerosol inhaler 2 puff inhalation Q4-6H PRN (Reason: shortness of breath or wheezing) Qty: 8.5 0RF linaclotide 290 mcg capsule 290 mcg PO DAILY amlodipine 5 mg tablet 5 mg PO DAILY 90 Days Qty: 90 1RF omeprazole 20 mg capsule,delayed release(DR/EC) 20 mg PO BID 30 Days Qty: 60 0RF pyridoxine (vitamin B6) 100 mg tablet 100 mg PO DAILY 90 Days Qty: 90 1RF hydroxyzine pamoate 25 mg capsule 25 mg PO BID clonazepam 0.5 mg tablet 0.5 mg PO DAILY PRN (Reason: Anxiety) citalopram 40 mg tablet 40 mg PO DAILY cetirizine 10 mg tablet 10 mg PO Q12H PRN allopurinol 100 mg tablet 100 mg PO DAILY 90 Days Qty: 90 1RF potassium citrate 10 mEq (1,080 mg) tablet extended release 20 meq PO BID 90 Days Qty: 360 1RF Stand Alone Forms: Work/School Release Interventions: ED Discharge Assessment Last Done: 11/02/21 15:33 Discharge Date/Time: 11/02/21 15:34
[2021-11-02 12:34] LABS: HCG Quantitative < 2 mIU/mL
[2021-11-02] MEDS: Morphine Sulfate 4 MG/ML CARTRIDGE IVPUSH (13:04)
[2021-11-02] MEDS: ondansetron HCL 4 MG/2 ML VIAL IVPUSH (13:04)
[2021-11-02] MEDS: 0.9 % Sodium Chloride 1,000 ML 999 ML IV (13:04)
[2021-11-02 14:27] VITALS: BP 148/90; PULSE 75; RESP 18; O2SAT 98
== END 2021-11-02 15:34 | disposition home or self-care (01) ==
PROVIDERS: Nurse Practitioner Family; Emergency Provider Emergency Medicine; PCP Internal Medicine
DX: N39.0 Urinary tract infection, site not specified (principal); B95.7 Other staphylococcus as the cause of diseases classified elsewhere; N20.0 Calculus of kidney; R10.9 Unspecified abdominal pain; E66.01 Morbid (severe) obesity due to excess calories; Z68.42 Body mass index [BMI] 45.0-49.9, adult; Z87.442 Personal history of urinary calculi
CPT/HCPCS: 36415; 74176; 80053; 81001; 83690; 84702; 85027; 87086; 87088; 87186; 96361; 96374; 96375; 99284; J2270; J2405

== ENCOUNTER 2021-12-26 09:46 | Outpatient (REF) | payer OTHER, SELFPAY ==
[2021-12-26 11:10] LABS: HBS Num1 1.53 mIU/mL (0-7.99); HBsAGNum1 0.23 S/CO (0.00-0.99); Hepatitis B Core Antibody Nonreactive (Nonreactive); Hepatitis B Surface Antigen Negative (Negative); ~Hepatitis B Surface Antibody NONREACTIVE (Nonreactive)
[2021-12-27 17:26] LABS: Rubella IgG Antibody 1.05 Index; Rubeola IgG (Measles) >300.00 AU/mL
== END 2021-12-26 09:47 | disposition home or self-care (01) ==
LOC: HO.LAB 09:46
PROVIDERS: PCP Internal Medicine; Visit Provider Internal Medicine
DX: Z01.84 Encounter for antibody response examination (principal)
CPT/HCPCS: 36415; 86704; 86706; 86735; 86762; 86765; 87340

== ENCOUNTER 2022-01-23 10:26 | Outpatient (REF) | payer OTHER, SELFPAY ==
--- NOTE | ~2022-01-23 | XR_ITS ---
EXAMINATION: XR CHEST CLINICAL INFORMATION: Latent tuberculosis COMPARISON: Chest radiograph from 10/29/2021 TECHNIQUE: 2 views of the chest were obtained. FINDINGS: No focal consolidation. No pneumothorax. Trachea is midline. Cardiomediastinal silhouette is not enlarged. No large pleural effusion. Osseous structures are intact. Soft tissues are unremarkable. XR/XR chest 2V IMPRESSION: No acute cardiopulmonary process.
== END 2022-01-23 10:27 | disposition home or self-care (01) ==
LOC: HO.XRAY 10:26
PROVIDERS: PCP Internal Medicine; Visit Provider Internal Medicine
DX: Z22.7 Latent tuberculosis (principal)
CPT/HCPCS: 71046

== ENCOUNTER 2022-02-07 12:12 | Outpatient (REF) | payer OTHER, SELFPAY ==
--- NOTE | ~2022-02-07 | US_ITS ---
EXAMINATION: US RETROPERITONEAL LIMITED (RENAL ONLY) CLINICAL INFORMATION: Calculus of kidney. COMPARISON: Ultrasound retroperitoneal limited (renal only) 08/21/2021 and 04/26/2021. CT abdomen and pelvis with contrast 05/29/2021. TECHNIQUE: Real-time imaging of the kidneys. FINDINGS: RIGHT KIDNEY: 10.6 x 6.8 x 4.4 cm (SAG x AP x TRV). The kidney is normal in size, contour, and echogenicity. Renal cortical thickness is normal. No calculi or focal parenchymal lesions. No hydronephrosis. Diffusely echogenic renal pyramids consistent with medullary nephrocalcinosis. No discrete calculi seen. LEFT KIDNEY: 9.5 x 4.8 x 4.8 cm (SAG x AP x TRV). The kidney is normal in size, contour, and echogenicity. Renal cortical thickness is normal. No renal calculi or hydronephrosis. 1.3 cm left lower pole cyst. Diffusely echogenic renal pyramids consistent with medullary nephrocalcinosis. No discrete calculi seen. US/US renal BI IMPRESSION: Echogenic renal pyramids bilaterally consistent with medullary nephrocalcinosis..
== END 2022-02-07 12:13 | disposition home or self-care (01) ==
LOC: HO.US 12:12
PROVIDERS: PCP Internal Medicine; Visit Provider Urology
DX: N20.0 Calculus of kidney (principal)
CPT/HCPCS: 76775

== ENCOUNTER → 2022-03-05 15:01 | Outpatient (BNVA) | payer OTHER, SELFPAY | PROVIDERS: PCP Internal Medicine; Visit Provider Urology | DX: Q61.5 Medullary cystic kidney (principal); N20.0 Calculus of kidney | CPT/HCPCS: 99212 ==

== ENCOUNTER 2022-05-30 09:39 | Emergency (ER) | payer OTHER, SELFPAY ==
--- NOTE | ~2022-05-30 | XR_ITS ---
EXAMINATION: XR CHEST CLINICAL INFORMATION: Chest tightness. COMPARISON: Chest radiograph dated 01/23/2022. TECHNIQUE: 2 views of the chest were obtained. FINDINGS: No significant abnormality is noted involving the heart, lungs, mediastinum, bony thorax or soft tissues. XR/XR chest 2V IMPRESSION: No acute cardiopulmonary process.
--- NOTE | 2022-05-30 09:43 | ECG_ITS ---
Test Reason : chest tightness Blood Pressure : / mmHG Vent. Rate : 081 BPM Atrial Rate : 081 BPM P-R Int : 130 ms QRS Dur : 092 ms QT Int : 386 ms P-R-T Axes : 170 147 180 degrees QTc Int : 448 ms Suspect limb lead reversal, interpretation assumes no reversal Unusual P axis, possible ectopic atrial rhythm Left posterior fascicular block Inferior infarct , age undetermined Abnormal ECG When compared with ECG of 01-MAY-2021 08:26, Ectopic atrial rhythm has replaced Sinus rhythm Left posterior fascicular block is now Present Referred By: Generic ED Physician Electronically Signed By:
--- NOTE | 2022-05-30 09:56 | ECG_ITS ---
Test Reason : chest tightness Blood Pressure : / mmHG Vent. Rate : 087 BPM Atrial Rate : 087 BPM P-R Int : 126 ms QRS Dur : 092 ms QT Int : 374 ms P-R-T Axes : 015 037 000 degrees QTc Int : 450 ms Normal sinus rhythm Nonspecific T wave abnormality Abnormal ECG When compared to the previous EKG of NST now present Referred By: Dwayne Carr Electronically Signed By:CY SALCEDO MD
--- NOTE | 2022-05-30 10:09 | ED_ITS ---
HPI - General Adult General Chief complaint: Upper Respiratory Symptoms <SWETHA Beckett Last Filed: 05/30/22 12:37> Stated complaint: chest tightness headache <SWETHA Beckett Last Filed: 05/30/22 12:37> Time Seen by Provider: 05/30/22 09:55 <SWETHA Beckett Last Filed: 05/30/22 12:37> Source: patient <SWETHA Beckett Last Filed: 05/30/22 12:37> Mode of arrival: ambulatory <SWETHA Beckett Last Filed: 05/30/22 12:37> Limitations: no limitations <SWETHA Beckett Last Filed: 05/30/22 12:37> History of Present Illness HPI narrative: 36 yo female with history of morbid obesity, HTN, GERD who presents to the ER for evaluation of 1 week of chest congestion, SOB, dry cough associated with chest tightness. She reports history of asthma but she does not have any medicines for nebulizer and does not have an inhaler. She denies any wheezing. She feels like she has chest congestion but is unable to bring up any phlegm. She reports shortness of breath with exertion, that is worse than her baseline. She denies any fever or chills. She does have some body aches and generally not feeling well. 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 <SWETHA Beckett Last Filed: 05/30/22 12:37> MD complaint: Shortness of breath, cough, chest congestion <SWETHA Beckett Last Filed: 05/30/22 12:37> Onset (ago): week(s) (1) <SWETHA Beckett Last Filed: 05/30/22 12:37> Location: chest <SWETHA Beckett Last Filed: 05/30/22 12:37> Radiation: non-radiation <SWETHA Beckett Last Filed: 05/30/22 12:37> Severity: moderate <SWETHA Beckett Last Filed: 05/30/22 12:37> Quality: other (tightness) <SWETHA Beckett Last Filed: 05/30/22 12:37> Relieving factors: none <SWETHA Beckett - Last Filed: 05/30/22 12:37> Exacerbating factors: movement and other (coughing) <SWETHA Beckett - Last Filed: 05/30/22 12:37> Associated symptoms: cough, headaches, malaise, shortness of breath and weakness <SWETHA Beckett - Last Filed: 05/30/22 12:37> Treatments prior to arrival: none <SWETHA Beckett - Last Filed: 05/30/22 12:37> Related Data Home medications: Previous Rx's Medication Instructions Recorded albuterol sulfate 90 mcg/actuation 2 puff inhalation Q4-6H PRN 02/05/21 aerosol inhaler shortness of breath or wheezing #8.5 grams tamsulosin 0.4 mg capsule (Flomax) 0.4 mg PO DAILY #20 caps 05/29/21 hydroxyzine pamoate 25 mg capsule 25 mg PO BID 90 days #180 caps 11/19/21 linaclotide 290 mcg capsule 290 mcg PO DAILY 90 days #90 caps 11/19/21 triamcinolone acetonide 0.5 % 1 appl topical DAILY 2 weeks #15 11/19/21 topical cream grams potassium citrate 10 mEq (1,080 20 meq PO BID 90 days #360 tabs 03/05/22 mg) tablet,extended release pyridoxine (vitamin B6) 100 mg 100 mg PO DAILY 90 days #90 tabs 03/05/22 tablet albuterol sulfate 90 mcg/actuation 2 puff inhalation Q6H PRN 05/01/22 aerosol inhaler (Ventolin HFA) shortness of breath or wheezing 30 days #6.7 grams allopurinol 100 mg tablet 100 mg PO DAILY 90 days #90 tabs 05/01/22 amlodipine 5 mg tablet 5 mg PO DAILY 90 days #90 tabs 05/01/22 cetirizine 10 mg tablet 10 mg PO Q12H PRN allergy symptoms 05/01/22 90 days #90 tabs citalopram 40 mg tablet 40 mg PO DAILY 90 days #90 tabs 05/01/22 clotrimazole 1 % topical cream 1 appl topical BID 4 weeks #30 05/01/22 grams gabapentin 300 mg capsule 300 mg PO BEDTIME 90 days #90 caps 05/01/22 ibuprofen 600 mg tablet 600 mg PO Q8H PRN pain #20 tabs 05/01/22 montelukast 10 mg tablet 10 mg PO BEDTIME 90 days #90 tabs 05/01/22 omeprazole 20 mg capsule,delayed 20 mg PO DAILY 90 days #90 caps 05/01/22 release albuterol sulfate 90 mcg/actuation 1 inh inhalation QID PRN shortness 05/30/22 aerosol inhaler of breath or wheezing #6.7 grams benzonatate 100 mg capsule 100 mg PO TID PRN cough #30 caps 05/30/22 <SWETHA Beckett - Last Filed: 05/30/22 12:37> Allergies/adverse reactions: Allergies Allergy/AdvReac Type Severity Reaction Status Date / Time canned food Allergy Severe rash Verified 05/01/22 17:29 RED MEAT Allergy Severe Rash Uncoded 05/01/22 17:29 <SWETHA Beckett - Last Filed: 05/30/22 12:37> Review of Systems Review of Systems: Yes all other systems are reviewed and are negative <SWETHA Beckett - Last Filed: 05/30/22 12:37> FORMERLY [facility], [facility]–1983 Past Medical History Medical History: Medical History Active asthma Fibromyalgia Hospital discharge follow-up Hypertension Morbid obesity Morbid obesity with BMI of 45.0-49.9, adult Renal calculi Umbilical hernia Umbilical hernia <SWETHA Beckett - Last Filed: 05/30/22 12:37> Surgical History: Surgical History History of extraction of renal calculus History of tubal ligation <SWETHA Beckett - Last Filed: 05/30/22 12:37> Family History Family History: Family History Father Anemia Sister Cervical cancer Maternal Aunt Breast cancer Diabetes Mother No problems noted. <SWETHA Beckett - Last Filed: 05/30/22 12:37> Social History Social History: Social History Housing: Apartment Alcohol intake: never Patient Tobacco Use Status: Former Tobacco user Tobacco use type: Cigarette e-Cigarette/Vaping Use: Never Used Second Hand Smoke Exposure: No Advance Directives: No Advance Directives Information Provided: Yes service: No Current occupational status: employed Current occupational exposures/hazards: No Cognitive needs: No Hearing needs: No Vision needs: No <SWETHA Beckett - Last Filed: 05/30/22 12:37> Physical Exam ED Vital Signs: Vital Signs - 24 hr 05/30/22 10:56 Temperature 98.2 F Pulse Rate 78 Respiratory Rate 18 Blood Pressure 138/89 Pulse Oximetry 99 Oxygen Delivery Method Room Air BMI result Body Mass Index 49.6 <SWETHA Beckett - Last Filed: 05/30/22 12:37> Vital Signs - 24 hr 05/30/22 10:56 Temperature 98.2 F Pulse Rate 78 Respiratory Rate 18 Blood Pressure 138/89 Pulse Oximetry 99 Oxygen Delivery Method Room Air BMI result Body Mass Index 49.6 <Dwayne Carr MD - Last Filed: 05/30/22 13:30> Appearance: Alert. Oriented X3. No acute distress. Eyes: Pupils equal, round and reactive to light. ENT: Pharynx normal. Normal TMS bilaterlly, Normal tonsils and uvula Neck: Normal inspection. Neck supple. CVS: Normal heart rate and rhythm. Pulses normal. Respiratory: No respiratory distress. Breath sounds normal. No chest wall tenderness Abdomen: Obese, Soft and nontender. +BS x4 Skin: Skin warm and dry. Normal skin color. Normal skin turgor. No rashes. Extremities: No lower extremity edema. No calf swelling or tenderness Neuro: Oriented X 3. No motor deficit. No sensory deficit. <SWETHA Beckett - Last Filed: 05/30/22 12:37> Course Course Course Narrative: 36-year-old female presents the ER for evaluation of shortness of breath, chest congestion and chest tightness along with dry cough for the last 1 week. Vital signs are stable and exam is unremarkable. Most likely viral illness. Will check chest x-ray to rule out pneumonia. EKG without any ischemic changes. Viral swabs ordered. Will reassess. <SWETHA Beckett - Last Filed: 05/30/22 12:37> Reevaluation(s) Reevaluation #1: Chest x-ray is clear. Bowel swabs negative. Stable for discharge home with refill of her albuterol inhaler and antitussive agent. She was encouraged follow-up with her primary care doctor. Patient agrees with plan. Stable for DC. <SWETHA Beckett - Last Filed: 05/30/22 12:37> Medical Decision Making Lab Data MDM Lab Attestation statement: I reviewed the patient's lab results. <SWETHA Beckett - Last Filed: 05/30/22 12:37> Labs: Lab Results 05/30/22 05/30/22 Range/Units 10:09 10:09 COVID-19 (RICH) Negative (Negative) COVID-19 Clin Com See Note Influenza Type A (DEMIAN) Negative (Negative) Influenza Type B (DEMIAN) Negative (Negative) Influenza A & B Note See Note <SWETHA Beckett - Last Filed: 05/30/22 12:37> Lab Results 05/30/22 05/30/22 Range/Units 10:09 10:09 COVID-19 (RICH) Negative (Negative) COVID-19 Clin Com See Note Influenza Type A (DEMIAN) Negative (Negative) Influenza Type B (DEMIAN) Negative (Negative) Influenza A & B Note See Note <Dwayne Carr MD - Last Filed: 05/30/22 13:30> Independent Interpretation I performed an independent interpretation of an: Plain X-Ray <SWETHA Beckett - Last Filed: 05/30/22 12:37> Interpretation: No appreciated infiltrate or opacity on chest x-ray. EKG today with normal sinus rhythm, ventricular rate 87 beats per minute, normal IN interval, normal QTC, isolated T-wave inversion in lead [address] segment elevations or depressions. <SWETHA Beckett Last Filed: 05/30/22 12:37> Radiology Impression Discussion of test interpretation with radiology: I have reviewed the radiologist's reading. <SWETHA Beckett - Last Filed: 05/30/22 12:37> Radiologist Impression: XR/XR chest 2V IMPRESSION: No acute cardiopulmonary process. <SWETHA Beckett - Last Filed: 05/30/22 12:37> External Record Review External record reviewed: Outpatient record, Prior outpatient labs and Prior outpatient radiology <SWETHA Beckett - Last Filed: 05/30/22 12:37> Tests considered The following testing was considered but not selected: labs considered - nontoxic, exam unremarkable. <SWETHA Beckett - Last Filed: 05/30/22 12:37> Prescription Management I considered prescription management with: Antibiotic <SWETHA Beckett - Last Filed: 05/30/22 12:37> no PNA <SWETHA Beckett - Last Filed: 05/30/22 12:37> Attestation Attending Attestation: I reviewed ATTENDING PHYSICIAN/PA/Resident note, assessment and plan. I agree with the documentation, assessment and plan unless otherwise stated. <Dwayne Carr MD - Last Filed: 05/30/22 13:30> Critical Care Time Critical Care Time Critical Care Time: No <SWETHA Beckett - Last Filed: 05/30/22 12:37> Discharge Plan Discharge Clinical Impression: Acute viral syndrome <SWETHA Beckett - Last Filed: 05/30/22 12:37> Patient Disposition: Home, Self-Care <SWETHA Beckett - Last Filed: 05/30/22 12:37> Instructions: Viral Syndrome (ED) <SWETHA Beckett - Last Filed: 05/30/22 12:37> Additional Instructions: You tested negative for COVID and Flu Chest x-ray was normal Take the prescribed medications as prescribed Follow up with your doctor If you develop new or worsening symptoms call 911 or come back to the ER for further evaluation. <SWETHA Beckett - Last Filed: 05/30/22 12:37> Prescriptions: New albuterol sulfate 90 mcg/actuation HFA aerosol inhaler 1 inh inhalation QID PRN (Reason: shortness of breath or wheezing) Qty: 6.7 0RF benzonatate 100 mg capsule 100 mg PO TID PRN (Reason: cough) Qty: 30 0RF No Action tamsulosin [Flomax] 0.4 mg capsule 0.4 mg PO DAILY Qty: 20 0RF albuterol sulfate 90 mcg/actuation HFA aerosol inhaler 2 puff inhalation Q4-6H PRN (Reason: shortness of breath or wheezing) Qty: 8.5 0RF pyridoxine (vitamin B6) 100 mg tablet 100 mg PO DAILY 90 Days Qty: 90 1RF hydroxyzine pamoate 25 mg capsule 25 mg PO BID 90 Days Qty: 180 1RF linaclotide 290 mcg capsule 290 mcg PO DAILY 90 Days Qty: 90 0RF triamcinolone acetonide 0.5 % cream 1 appl topical DAILY 14 Days Qty: 15 1RF amlodipine 5 mg tablet 5 mg PO DAILY 90 Days Qty: 90 1RF albuterol sulfate [Ventolin HFA] 90 mcg/actuation HFA aerosol inhaler 2 puff inhalation Q6H PRN (Reason: shortness of breath or wheezing) 30 Days Qty: 6.7 0RF allopurinol 100 mg tablet 100 mg PO DAILY 90 Days Qty: 90 1RF cetirizine 10 mg tablet 10 mg PO Q12H PRN (Reason: allergy symptoms) 90 Days Qty: 90 0RF citalopram 40 mg tablet 40 mg PO DAILY 90 Days Qty: 90 0RF gabapentin 300 mg capsule 300 mg PO BEDTIME 90 Days Qty: 90 1RF ibuprofen 600 mg tablet 600 mg PO Q8H PRN (Reason: pain) Qty: 20 0RF montelukast 10 mg tablet 10 mg PO BEDTIME 90 Days Qty: 90 1RF omeprazole 20 mg capsule,delayed release(DR/EC) 20 mg PO DAILY 90 Days Qty: 90 1RF clotrimazole 1 % cream 1 appl topical BID 28 Days Qty: 30 0RF potassium citrate 10 mEq (1,080 mg) tablet extended release 20 meq PO BID 90 Days Qty: 360 1RF <SWETHA Beckett - Last Filed: 05/30/22 12:37> Referrals: Rashmi Link MD [Primary Care Provider] - <SWETHA Beckett - Last Filed: 05/30/22 12:37> Stand Alone Forms: Work/School Release <SWETHA Beckett - Last Filed: 05/30/22 12:37> Interventions: ED Discharge Assessment Last Done: 05/30/22 12:56 <SWETHA Beckett - Last Filed: 05/30/22 12:37> Discharge Date/Time: 05/30/22 12:58 <SWETHA Beckett - Last Filed: 05/30/22 12:37> Print Language: Welsh <SWETHA Beckett - Last Filed: 05/30/22 12:37>
[2022-05-30 10:12] VITALS: BMI 49.6
[2022-05-30 10:40] LABS: COVID-19 Test Negative (Negative); IDNOW Serial# 16C4AD1C; IDNOW Serial# BCCEAD1C; Influenza A Negative (Negative); Influenza B2 Negative (Negative)
[2022-05-30 10:56] VITALS: BP 138/89; PULSE 78; RESP 18; TEMP 36.8; O2SAT 99
== END 2022-05-30 12:58 | disposition home or self-care (01) ==
PROVIDERS: Physician Assistant; Emergency Provider Emergency Medicine; PCP Internal Medicine
DX: B34.9 Viral infection, unspecified (principal); R05.9 Cough, unspecified; R06.02 Shortness of breath; Z20.822 Contact with and (suspected) exposure to COVID-19; I10 Essential (primary) hypertension; E66.01 Morbid (severe) obesity due to excess calories; Z68.42 Body mass index [BMI] 45.0-49.9, adult; Z87.891 Personal history of nicotine dependence; Z79.899 Other long term (current) drug therapy
CPT/HCPCS: 71046; 87502; 87635; 93005; 99283

== ENCOUNTER 2022-07-08 14:09 | Outpatient (REF) | payer OTHER, SELFPAY ==
[2022-07-08 14:23] LABS: MANUAL DIFF FLAG NO
[2022-07-08 15:23] LABS: Basophils Absolute Auto 0.1 X10*3/uL (0.0-0.2); Basophils Percent Auto 0.9 % (0-2); Eosinophils Absolute Auto 0.4 X10*3/uL (0.0-0.4); Eosinophils Percent Auto 3.2 % (0-4); Hematocrit 37.7 % (37.0-47.0); Hemoglobin 11.5 g/dl (12.0-16.0); Imm Gran Abs Auto 0.04 X10*3/uL (0.00-0.03); Imm Gran Pct Auto 0.4 % (0.0-0.4); Lymphocytes Absolute Auto 2.5 X10*3/uL (1.2-4.9); Lymphocytes Percent Auto 22.1 % (20-40); Mean Corpuscular HGB Conc 30.5 g/dl (31.0-35.0); Mean Corpuscular Volume 78.5 fL (80.0-98.0); Mean Platelet Volume 10.6 fL (9.4-12.3); Monocytes Absolute Auto 0.7 X10*3/uL (0.1-1.2); Monocytes Percent Auto 5.8 % (2-11); Neutrophils Absolute Auto 7.6 x10*3/uL (2.0-8.3); Neutrophils Percent Auto 67.6 % (45-73); Platelet Count 309 X10*3/uL (160-400); Red Cell Distribution Width 16.3 % (11.0-16.0); White Blood Count 11.3 X10*3/uL (4.8-10.8)
[2022-07-08 16:11] LABS: Alanine Aminotransferase 14 U/L (0-31); Albumin Level 3.6 g/dL (3.5-5.0); Alkaline Phosphatase 79 U/L (39-117); Anion Gap 13 (12-20); Aspartate Amino Transferase 17 U/L (5-31); Bilirubin Total 0.2 mg/dL (0.0-1.0); Blood Urea Nitrogen 16 mg/dL (9-16); Calcium 8.9 mg/dL (8.4-10.2); Carbon Dioxide 28 mmol/L (22-29); Chloride 104 mmol/L (96-108); Cholesterol 134 mg/dL; Estimated Glomerular Filt Rate > 60; Glucose Fasting 79 mg/dL (60-99); HDL Cholesterol 37 mg/dL; LDL Cholesterol Calculated 75 mg/dl; Sodium 141 mmol/L (135-145); Total Protein 6.6 g/dL (6.5-8.0); Triglycerides 112 mg/dL; Uric Acid 7.1 mg/dL (2.4-5.7)
[2022-07-08 16:39] LABS: Folate 6.7 ng/mL (> or = 4.0); Vitamin B12 348 pg/mL (200-900); Vitamin D 25-OH Total 5.9 ng/mL (>30)
[2022-07-11 11:39] LABS: TS Negative Control Passed; TS Panel A 0; TS Panel B 0; TS Positive Control Passed; TSpotTB Negative (Negative)
== END 2022-07-08 14:10 | disposition home or self-care (01) ==
LOC: HO.LAB 14:09
PROVIDERS: PCP Internal Medicine; Visit Provider Internal Medicine
DX: Z11.1 Encounter for screening for respiratory tuberculosis (principal); E53.8 Deficiency of other specified B group vitamins; E66.01 Morbid (severe) obesity due to excess calories; D64.9 Anemia, unspecified; M10.9 Gout, unspecified; E78.5 Hyperlipidemia, unspecified; E55.9 Vitamin D deficiency, unspecified
CPT/HCPCS: 36415; 80053; 80061; 82306; 82607; 82746; 84550; 85025; 86481

== ENCOUNTER 2022-07-16 17:42 | Emergency (ER) | payer OTHER, SELFPAY ==
--- NOTE | ~2022-07-16 | CT_ITS ---
EXAMINATION: CT ABDOMEN AND PELVIS WITHOUT CONTRAST CLINICAL INFORMATION: Right lower quadrant/flank/back pain, nausea and vomiting and hematuria. COMPARISON: Renal ultrasound 02/07/2022. CT abdomen/pelvis 11/02/2021. TECHNIQUE: Multidetector volumetric imaging was performed from the superior aspect of the liver through the pubic symphysis. Sagittal and coronal reformatted images were obtained on the technologist's workstation. This CT examination was performed using dose optimization techniques as appropriate, variously including the following: *Automated exposure control *Adjustment of mA and/or kV according to patient size (this includes techniques or standardized protocols for targeted exams where dose is matched to indication/reason for exam; i.e. extremities or head) *Use of iterative reconstruction technique DLP: 1074 mGy-cm FINDINGS: LUNG BASES: No focal consolidation or pleural effusion. LIVER, GALLBLADDER, AND BILIARY TREE: Decreased attenuation of liver parenchyma suggesting hepatic steatosis. No focal liver lesion in this limited noncontrast examination. Normal gallbladder. No biliary ductal dilatation. PANCREAS: Query minimal peripancreatic fatty haziness versus volume averaging. SPLEEN: Limited noncontrast examination, unremarkable. ADRENAL GLANDS: No adrenal mass. KIDNEYS AND URETERS: Redemonstration of increased density of the renal pyramids consistent with medullary nephrocalcinosis. Again noted multiple nonobstructive bilateral renal calculi, not significantly changed compared to 11/02/2021. No perinephric fat stranding. BLADDER: No intraluminal calculi or wall thickening. No perivesical fat stranding. GASTROINTESTINAL TRACT: Small hiatal hernia. The stomach and the small bowel are nondilated. Normal appendix. No pericolonic inflammatory changes to suspect acute colitis or diverticulitis. No bowel obstruction. ABDOMINAL WALL: No significant hernia is appreciated. LYMPH NODES: No pathologically enlarged lymph nodes. Scattered prominent retroperitoneal and mesenteric lymph nodes are not convincingly changed. VASCULAR: Limited noncontrast examination, abdominal aorta is normal in caliber. PELVIC VISCERA: Limited noncontrast examination, no discrete pelvic mass. OSSEOUS STRUCTURES: Stable near fusion of the L4-L5 vertebral bodies. No acute or aggressive appearing osseous abnormalities. CT/CT abdomen pelvis wo IV con IMPRESSION: 1. Medullary nephrocalcinosis and multiple nonobstructive bilateral renal calculi, not significantly changed compared to 11/02/2021. 2. Query minimal peripancreatic fatty haziness versus volume averaging. Correlate with lipase levels. 3. Small hiatal hernia. 4. Hepatic steatosis.
[2022-07-16 17:48] VITALS: BP 158/100; PULSE 113; RESP 18; TEMP 36.7; O2SAT 98; BMI 49.6
--- NOTE | 2022-07-16 17:49 | ED_ITS ---
HPI - Abdominal Pain General Chief Complaint: Abdominal Pain <SWETHA Branham - Last Filed: 07/16/22 17:52> Stated Complaint: abd pain/vomiting <SWETHA Branham - Last Filed: 07/16/22 17:52> Time Seen by Provider: 07/16/22 22:50 <SWETHA Branham - Last Filed: 07/16/22 17:52> Source: patient <Collins Bermudez MD - Last Filed: 07/16/22 23:36> Mode of arrival: ambulatory <Collins Bermudez MD - Last Filed: 07/16/22 23:36> Limitations: no limitations <Collins Bermudez MD - Last Filed: 07/16/22 23:36> History of Present Illness HPI narrative: Patient with nephrocalcinosis with recurrent flank pain and abdominal pain had multiple CT scan and ultrasounds comes here for pain started earlier today in the right upper quadrant with nausea and vomiting patient vomited about 4 times and some chills no fever number nondistention or diarrhea patient feels this pain slightly from the past no urinary symptoms except the blood in the urine which is also chronic <Collins Bermudez MD - Last Filed: 07/16/22 23:36> Related Data Home Medications: Previous Rx's Medication Instructions Recorded albuterol sulfate 90 mcg/actuation 2 puff inhalation Q4-6H PRN 02/05/21 aerosol inhaler shortness of breath or wheezing #8.5 grams tamsulosin 0.4 mg capsule (Flomax) 0.4 mg PO DAILY #20 caps 05/29/21 hydroxyzine pamoate 25 mg capsule 25 mg PO BID 90 days #180 caps 11/19/21 linaclotide 290 mcg capsule 290 mcg PO DAILY 90 days #90 caps 11/19/21 triamcinolone acetonide 0.5 % 1 appl topical DAILY 2 weeks #15 11/19/21 topical cream grams potassium citrate 10 mEq (1,080 20 meq PO BID 90 days #360 tabs 03/05/22 mg) tablet,extended release pyridoxine (vitamin B6) 100 mg 100 mg PO DAILY 90 days #90 tabs 03/05/22 tablet albuterol sulfate 90 mcg/actuation 2 puff inhalation Q6H PRN 05/01/22 aerosol inhaler (Ventolin HFA) shortness of breath or wheezing 30 days #6.7 grams allopurinol 100 mg tablet 100 mg PO DAILY 90 days #90 tabs 05/01/22 amlodipine 5 mg tablet 5 mg PO DAILY 90 days #90 tabs 05/01/22 cetirizine 10 mg tablet 10 mg PO Q12H PRN allergy symptoms 05/01/22 90 days #90 tabs citalopram 40 mg tablet 40 mg PO DAILY 90 days #90 tabs 05/01/22 clotrimazole 1 % topical cream 1 appl topical BID 4 weeks #30 05/01/22 grams gabapentin 300 mg capsule 300 mg PO BEDTIME 90 days #90 caps 05/01/22 ibuprofen 600 mg tablet 600 mg PO Q8H PRN pain #20 tabs 05/01/22 montelukast 10 mg tablet 10 mg PO BEDTIME 90 days #90 tabs 05/01/22 omeprazole 20 mg capsule,delayed 20 mg PO DAILY 90 days #90 caps 05/01/22 release albuterol sulfate 90 mcg/actuation 1 inh inhalation QID PRN shortness 05/30/22 aerosol inhaler of breath or wheezing #6.7 grams benzonatate 100 mg capsule 100 mg PO TID PRN cough #30 caps 05/30/22 ondansetron 4 mg disintegrating 4 mg PO Q6-8H PRN nausea and 07/16/22 tablet vomiting #7 tabs oxycodone 5 mg tablet 5 mg PO Q6H PRN pain #20 tabs 07/16/22 <SWETHA Branham - Last Filed: 07/16/22 17:52> Allergies/Adverse Reactions: Allergies Allergy/AdvReac Type Severity Reaction Status Date / Time canned food Allergy Severe rash Verified 05/01/22 17:29 RED MEAT Allergy Severe Rash Uncoded 05/01/22 17:29 <SWETHA Branham - Last Filed: 07/16/22 17:52> Review of Systems Review of Systems Yes all other systems are reviewed and are negative <Collins Bermudez MD - Last Filed: 07/16/22 23:36> PMFSH Past Medical History Medical History: Medical History Active asthma Fibromyalgia Hospital discharge follow-up Hypertension Morbid obesity Morbid obesity with BMI of 45.0-49.9, adult Renal calculi Umbilical hernia Umbilical hernia <SWETHA Branham - Last Filed: 07/16/22 17:52> Surgical History: Surgical History History of extraction of renal calculus History of tubal ligation <SWETHA Branham - Last Filed: 07/16/22 17:52> Family History Family History: Family History Father Anemia Sister Cervical cancer Maternal Aunt Breast cancer Diabetes Mother No problems noted. <SWETHA Branham - Last Filed: 07/16/22 17:52> Social History Social History: Social History Housing: Apartment Alcohol intake: never Patient Tobacco Use Status: Former Tobacco user Tobacco use type: Cigarette e-Cigarette/Vaping Use: Never Used Second Hand Smoke Exposure: No Advance Directives: No Advance Directives Information Provided: Yes service: No Current occupational status: employed Current occupational exposures/hazards: No Cognitive needs: No Hearing needs: No Vision needs: No <SWETHA Branham - Last Filed: 07/16/22 17:52> Physical Exam ED Vital Signs: Vital Signs - 24 hr 07/16/22 17:48 07/16/22 22:49 07/16/22 23:27 Temperature 98.1 F 98.0 F Pulse Rate 113 H 118 H 106 H Respiratory Rate 18 19 18 Blood Pressure 158/100 H 143/92 H Pulse Oximetry 98 97 98 Oxygen Delivery Method Room Air Room Air Room Air BMI result Body Mass Index 49.6 <SWETHA Branham - Last Filed: 07/16/22 17:52> Vital Signs - 24 hr 07/16/22 17:48 07/16/22 22:49 07/16/22 23:27 Temperature 98.1 F 98.0 F Pulse Rate 113 H 118 H 106 H Respiratory Rate 18 19 18 Blood Pressure 158/100 H 143/92 H Pulse Oximetry 98 97 98 Oxygen Delivery Method Room Air Room Air Room Air BMI result Body Mass Index 49.6 <Collins Bermudez MD - Last Filed: 07/16/22 23:36> Appearance: Alert. Oriented X3. No acute distress. Eyes: No pallor or icterus ENT: Pharynx normal. Oral Mucosa moist Neck: Normal inspection. Neck supple. CVS: Normal heart rate and rhythm. Pulses normal. Respiratory: No respiratory distress. Equal air entry bilateral, no wheezing/rales/rhonchi Abdomen: Soft tender right upper quadrant and right flank area no rebound tenderness or guarding Bowel sounds are present, no mass palpable, no CVA tenderness Skin: Skin warm and dry. Normal skin color. Normal skin turgor. Extremities: No lower extremity edema. No calf tenderness Neuro: Oriented X 3. No motor deficit. <Collins Bermudez MD - Last Filed: 07/16/22 23:36> Course Course Course Narrative: RME-17:50PM - 36yoF with a PMHx of morbid obesity, HTN, GERD, kidney stone with c/o of R sided abd pain with associated nausea/vomiting that started a few hours prior to arrival. Reports it feels similar to her kidney stones. Reports associated hematuria. Denies recent travel or sick contacts, fevers, chest pain or shortness of breath, dysuria, diarrhea constipation or any other symptoms complaints or concerns at this time. Plan: Will obtain labs, CT scan abdomen pelvis without IV contrast patient will be sent back to the waiting room to be evaluated the ED. <SWETHA Branham - Last Filed: 07/16/22 17:52> Medical Decision Making Medical Decision Making MDM Narrative: Patient nonspecific chronic pain CT scan negative for acute pathology no gallstones no kidney stone urine showed chronic hematuria pressure patient home on Zofran and oxycodone for chronic pain. <Collins Bermudez MD - Last Filed: 07/16/22 23:36> Lab Data MDM Lab Attestation statement: I reviewed the patient's lab results. <Collins Bermudez MD - Last Filed: 07/16/22 23:36> Result Diagrams: 07/16/22 18:39 07/16/22 18:39 <SWETHA Branham - Last Filed: 07/16/22 17:52> Labs: Lab Results 07/16/22 07/16/22 07/16/22 Range/Units 18:39 18:39 18:39 WBC 11.5 H (4.8-10.8) X10*3/uL RBC 5.28 (4.20-5.50) X10*6/uL Hgb 12.4 (12.0-16.0) g/dl Hct 41.1 (37.0-47.0) % MCV 77.8 L (80.0-98.0) fL MCH 23.5 L (27.0-33.0) pg MCHC 30.2 L (31.0-35.0) g/dl RDW 16.0 (11.0-16.0) % Plt Count 292 (160-400) X10*3/uL MPV 10.1 (9.4-12.3) fL Immature Gran % (Auto) 0.7 H (0.0-0.4) % Neut % (Auto) 85.8 H (45-73) % Lymph % (Auto) 6.6 L (20-40) % [place] % (Auto) 4.9 (2-11) % Eos % (Auto) 1.7 (0-4) % Baso % (Auto) 0.3 (0-2) % Lymph # (Auto) 0.8 L (1.2-4.9) X10*3/uL [place] # (Auto) 0.6 (0.1-1.2) X10*3/uL Eos # (Auto) 0.2 (0.0-0.4) X10*3/uL Baso # (Auto) 0.0 (0.0-0.2) X10*3/uL Abs Immat Gran (auto) 0.08 H (0.00-0.03) X10*3/uL Absolute Neuts (auto) 9.9 H (2.0-8.3) x10*3/uL Absolute Nucleated RBC 0.000 (0.0-0.012) X10*3/uL Nucleated RBC % (auto) 0.0 (0.0-0.2) /100WBC ESR 18 (0-20) MM/HR PT 11.9 (10.0-13.1) SEC INR 1.0 (0.9-1.1) Sodium (135-145) mmol/L Potassium (3.3-5.1) mmol/L Chloride (96-108) mmol/L Carbon Dioxide (22-29) mmol/L Anion Gap (12-20) BUN (9-16) mg/dL Creatinine (0.5-1.4) mg/dL Estim Creat Clear Calc Estimated GFR Random Glucose (60-115) mg/dL Calcium (8.4-10.2) mg/dL Magnesium (1.6-2.6) mg/dL Total Bilirubin (0.0-1.0) mg/dL AST (5-31) U/L ALT (0-31) U/L Alkaline Phosphatase (39-117) U/L C-Reactive Protein (< or = 0.50) mg/dL Total Protein (6.5-8.0) g/dL Albumin (3.5-5.0) g/dL Lipase (8-78) U/L Beta HCG, Quant mIU/mL Urine Color Urine Appearance Urine pH (5.0-9.0) Ur Specific [place] (1.005-1.025) Urine Protein (Neg-Trace) mg/dL Urine Glucose (UA) (Negative) mg/dL Urine Ketones (Negative) mg/dL Urine Blood (Negative) Urine Nitrite (Negative) Ur Leukocyte Esterase (Negative) Urine RBC (0-2) /HPF Urine WBC (0-5) /HPF Ur Squamous Epith Cells (0-2) /HPF Urine Bacteria (None Seen) Hyaline Casts (0-2) /LPF Influenza Type A (PCR) (Negative) Influenza Type B (PCR) (Negative) RSV RNA Qual (PCR) (Negative) SARS-CoV-2 RNA (RT-PCR) (Negative) 07/16/22 07/16/22 07/16/22 Range/Units 18:39 18:39 19:03 WBC (4.8-10.8) X10*3/uL RBC (4.20-5.50) X10*6/uL Hgb (12.0-16.0) g/dl Hct (37.0-47.0) % MCV (80.0-98.0) fL MCH (27.0-33.0) pg MCHC (31.0-35.0) g/dl RDW (11.0-16.0) % Plt Count (160-400) X10*3/uL MPV (9.4-12.3) fL Immature Gran % (Auto) (0.0-0.4) % Neut % (Auto) (45-73) % Lymph % (Auto) (20-40) % [place] % (Auto) (2-11) % Eos % (Auto) (0-4) % Baso % (Auto) (0-2) % Lymph # (Auto) (1.2-4.9) X10*3/uL [place] # (Auto) (0.1-1.2) X10*3/uL Eos # (Auto) (0.0-0.4) X10*3/uL Baso # (Auto) (0.0-0.2) X10*3/uL Abs Immat Gran (auto) (0.00-0.03) X10*3/uL Absolute Neuts (auto) (2.0-8.3) x10*3/uL Absolute Nucleated RBC (0.0-0.012) X10*3/uL Nucleated RBC % (auto) (0.0-0.2) /100WBC ESR (0-20) MM/HR PT (10.0-13.1) SEC INR (0.9-1.1) Sodium 139 (135-145) mmol/L Potassium 3.8 (3.3-5.1) mmol/L Chloride 104 (96-108) mmol/L Carbon Dioxide 29 (22-29) mmol/L Anion Gap 10 L (12-20) BUN 16 (9-16) mg/dL Creatinine 0.85 (0.5-1.4) mg/dL Estim Creat Clear Calc 121.0 Estimated GFR > 60 Random Glucose 103 (60-115) mg/dL Calcium 8.5 (8.4-10.2) mg/dL Magnesium 1.6 (1.6-2.6) mg/dL Total Bilirubin 0.5 (0.0-1.0) mg/dL AST 13 (5-31) U/L ALT 15 (0-31) U/L Alkaline Phosphatase 82 (39-117) U/L C-Reactive Protein 1.37 H (< or = 0.50) mg/dL Total Protein 6.8 (6.5-8.0) g/dL Albumin 3.7 (3.5-5.0) g/dL Lipase 10 (8-78) U/L Beta HCG, Quant < 2 mIU/mL Urine Color Yellow Urine Appearance Clear Urine pH >= 9.0 (5.0-9.0) Ur Specific [place] 1.010 (1.005-1.025) Urine Protein 30 (1+) H (Neg-Trace) mg/dL Urine Glucose (UA) Negative (Negative) mg/dL Urine Ketones Negative (Negative) mg/dL Urine Blood Moderate (2+) H (Negative) Urine Nitrite Negative (Negative) Ur Leukocyte Esterase Trace H (Negative) Urine RBC >20 H (0-2) /HPF Urine WBC 11-20 H (0-5) /HPF Ur Squamous Epith Cells 0-2 (0-2) /HPF Urine Bacteria 1+ (None Seen) Hyaline Casts 0-2 (0-2) /LPF Influenza Type A (PCR) NEGATIVE (Negative) Influenza Type B (PCR) NEGATIVE (Negative) RSV RNA Qual (PCR) NEGATIVE (Negative) SARS-CoV-2 RNA (RT-PCR) NEGATIVE (Negative) <SWETHA Branham - Last Filed: 07/16/22 17:52> Lab Results 07/16/22 07/16/22 07/16/22 Range/Units 18:39 18:39 18:39 WBC 11.5 H (4.8-10.8) X10*3/uL RBC 5.28 (4.20-5.50) X10*6/uL Hgb 12.4 (12.0-16.0) g/dl Hct 41.1 (37.0-47.0) % MCV 77.8 L (80.0-98.0) fL MCH 23.5 L (27.0-33.0) pg MCHC 30.2 L (31.0-35.0) g/dl RDW 16.0 (11.0-16.0) % Plt Count 292 (160-400) X10*3/uL MPV 10.1 (9.4-12.3) fL Immature Gran % (Auto) 0.7 H (0.0-0.4) % Neut % (Auto) 85.8 H (45-73) % Lymph % (Auto) 6.6 L (20-40) % [place] % (Auto) 4.9 (2-11) % Eos % (Auto) 1.7 (0-4) % Baso % (Auto) 0.3 (0-2) % Lymph # (Auto) 0.8 L (1.2-4.9) X10*3/uL [place] # (Auto) 0.6 (0.1-1.2) X10*3/uL Eos # (Auto) 0.2 (0.0-0.4) X10*3/uL Baso # (Auto) 0.0 (0.0-0.2) X10*3/uL Abs Immat Gran (auto) 0.08 H (0.00-0.03) X10*3/uL Absolute Neuts (auto) 9.9 H (2.0-8.3) x10*3/uL Absolute Nucleated RBC 0.000 (0.0-0.012) X10*3/uL Nucleated RBC % (auto) 0.0 (0.0-0.2) /100WBC ESR 18 (0-20) MM/HR PT 11.9 (10.0-13.1) SEC INR 1.0 (0.9-1.1) Sodium (135-145) mmol/L Potassium (3.3-5.1) mmol/L Chloride (96-108) mmol/L Carbon Dioxide (22-29) mmol/L Anion Gap (12-20) BUN (9-16) mg/dL Creatinine (0.5-1.4) mg/dL Estim Creat Clear Calc Estimated GFR Random Glucose (60-115) mg/dL Calcium (8.4-10.2) mg/dL Magnesium (1.6-2.6) mg/dL Total Bilirubin (0.0-1.0) mg/dL AST (5-31) U/L ALT (0-31) U/L Alkaline Phosphatase (39-117) U/L C-Reactive Protein (< or = 0.50) mg/dL Total Protein (6.5-8.0) g/dL Albumin (3.5-5.0) g/dL Lipase (8-78) U/L Beta HCG, Quant mIU/mL Urine Color Urine Appearance Urine pH (5.0-9.0) Ur Specific [place] (1.005-1.025) Urine Protein (Neg-Trace) mg/dL Urine Glucose (UA) (Negative) mg/dL Urine Ketones (Negative) mg/dL Urine Blood (Negative) Urine Nitrite (Negative) Ur Leukocyte Esterase (Negative) Urine RBC (0-2) /HPF Urine WBC (0-5) /HPF Ur Squamous Epith Cells (0-2) /HPF Urine Bacteria (None Seen) Hyaline Casts (0-2) /LPF Influenza Type A (PCR) (Negative) Influenza Type B (PCR) (Negative) RSV RNA Qual (PCR) (Negative) SARS-CoV-2 RNA (RT-PCR) (Negative) 07/16/22 07/16/22 07/16/22 Range/Units 18:39 18:39 19:03 WBC (4.8-10.8) X10*3/uL RBC (4.20-5.50) X10*6/uL Hgb (12.0-16.0) g/dl Hct (37.0-47.0) % MCV (80.0-98.0) fL MCH (27.0-33.0) pg MCHC (31.0-35.0) g/dl RDW (11.0-16.0) % Plt Count (160-400) X10*3/uL MPV (9.4-12.3) fL Immature Gran % (Auto) (0.0-0.4) % Neut % (Auto) (45-73) % Lymph % (Auto) (20-40) % [place] % (Auto) (2-11) % Eos % (Auto) (0-4) % Baso % (Auto) (0-2) % Lymph # (Auto) (1.2-4.9) X10*3/uL [place] # (Auto) (0.1-1.2) X10*3/uL Eos # (Auto) (0.0-0.4) X10*3/uL Baso # (Auto) (0.0-0.2) X10*3/uL Abs Immat Gran (auto) (0.00-0.03) X10*3/uL Absolute Neuts (auto) (2.0-8.3) x10*3/uL Absolute Nucleated RBC (0.0-0.012) X10*3/uL Nucleated RBC % (auto) (0.0-0.2) /100WBC ESR (0-20) MM/HR PT (10.0-13.1) SEC INR (0.9-1.1) Sodium 139 (135-145) mmol/L Potassium 3.8 (3.3-5.1) mmol/L Chloride 104 (96-108) mmol/L Carbon Dioxide 29 (22-29) mmol/L Anion Gap 10 L (12-20) BUN 16 (9-16) mg/dL Creatinine 0.85 (0.5-1.4) mg/dL Estim Creat Clear Calc 121.0 Estimated GFR > 60 Random Glucose 103 (60-115) mg/dL Calcium 8.5 (8.4-10.2) mg/dL Magnesium 1.6 (1.6-2.6) mg/dL Total Bilirubin 0.5 (0.0-1.0) mg/dL AST 13 (5-31) U/L ALT 15 (0-31) U/L Alkaline Phosphatase 82 (39-117) U/L C-Reactive Protein 1.37 H (< or = 0.50) mg/dL Total Protein 6.8 (6.5-8.0) g/dL Albumin 3.7 (3.5-5.0) g/dL Lipase 10 (8-78) U/L Beta HCG, Quant < 2 mIU/mL Urine Color Yellow Urine Appearance Clear Urine pH >= 9.0 (5.0-9.0) Ur Specific [place] 1.010 (1.005-1.025) Urine Protein 30 (1+) H (Neg-Trace) mg/dL Urine Glucose (UA) Negative (Negative) mg/dL Urine Ketones Negative (Negative) mg/dL Urine Blood Moderate (2+) H (Negative) Urine Nitrite Negative (Negative) Ur Leukocyte Esterase Trace H (Negative) Urine RBC >20 H (0-2) /HPF Urine WBC 11-20 H (0-5) /HPF Ur Squamous Epith Cells 0-2 (0-2) /HPF Urine Bacteria 1+ (None Seen) Hyaline Casts 0-2 (0-2) /LPF Influenza Type A (PCR) NEGATIVE (Negative) Influenza Type B (PCR) NEGATIVE (Negative) RSV RNA Qual (PCR) NEGATIVE (Negative) SARS-CoV-2 RNA (RT-PCR) NEGATIVE (Negative) <Collins Bermudez MD - Last Filed: 07/16/22 23:36> Discharge Plan Discharge Clinical Impression: Acute gastroenteritis <SWETHA Branham - Last Filed: 07/16/22 17:52> Patient Disposition: Home, Self-Care <SWETHA Branham - Last Filed: 07/16/22 17:52> Instructions: Gastroenteritis (ED) <SWETHA Branham - Last Filed: 07/16/22 17:52> Additional Instructions: Drink plenty of fluids Medicine for the nausea and pain as prescribed Follow-up with PCP if not better <SWETHA Branham - Last Filed: 07/16/22 17:52> Prescriptions: New ondansetron 4 mg tablet,disintegrating 4 mg PO Q6-8H PRN (Reason: nausea and vomiting) Qty: 7 0RF oxycodone 5 mg tablet 5 mg PO Q6H PRN (Reason: pain) Qty: 20 0RF Rx Instructions: Partial Fill upon patient request. No Action tamsulosin [Flomax] 0.4 mg capsule 0.4 mg PO DAILY Qty: 20 0RF albuterol sulfate 90 mcg/actuation HFA aerosol inhaler 2 puff inhalation Q4-6H PRN (Reason: shortness of breath or wheezing) Qty: 8.5 0RF albuterol sulfate 90 mcg/actuation HFA aerosol inhaler 1 inh inhalation QID PRN (Reason: shortness of breath or wheezing) Qty: 6.7 0RF benzonatate 100 mg capsule 100 mg PO TID PRN (Reason: cough) Qty: 30 0RF pyridoxine (vitamin B6) 100 mg tablet 100 mg PO DAILY 90 Days Qty: 90 1RF hydroxyzine pamoate 25 mg capsule 25 mg PO BID 90 Days Qty: 180 1RF linaclotide 290 mcg capsule 290 mcg PO DAILY 90 Days Qty: 90 0RF triamcinolone acetonide 0.5 % cream 1 appl topical DAILY 14 Days Qty: 15 1RF amlodipine 5 mg tablet 5 mg PO DAILY 90 Days Qty: 90 1RF albuterol sulfate [Ventolin HFA] 90 mcg/actuation HFA aerosol inhaler 2 puff inhalation Q6H PRN (Reason: shortness of breath or wheezing) 30 Days Qty: 6.7 0RF allopurinol 100 mg tablet 100 mg PO DAILY 90 Days Qty: 90 1RF cetirizine 10 mg tablet 10 mg PO Q12H PRN (Reason: allergy symptoms) 90 Days Qty: 90 0RF citalopram 40 mg tablet 40 mg PO DAILY 90 Days Qty: 90 0RF gabapentin 300 mg capsule 300 mg PO BEDTIME 90 Days Qty: 90 1RF ibuprofen 600 mg tablet 600 mg PO Q8H PRN (Reason: pain) Qty: 20 0RF montelukast 10 mg tablet 10 mg PO BEDTIME 90 Days Qty: 90 1RF omeprazole 20 mg capsule,delayed release(DR/EC) 20 mg PO DAILY 90 Days Qty: 90 1RF clotrimazole 1 % cream 1 appl topical BID 28 Days Qty: 30 0RF potassium citrate 10 mEq (1,080 mg) tablet extended release 20 meq PO BID 90 Days Qty: 360 1RF <SWETHA Branham - Last Filed: 07/16/22 17:52>
[2022-07-16 18:55] LABS: MANUAL DIFF FLAG NO
[2022-07-16 19:05] LABS: Prothrombin Time 11.9 SEC (10.0-13.1)
[2022-07-16 19:15] LABS: Appearance Urine Clear; Color Urine Yellow; Glucose Urine UA Negative (Negative); Leukocyte Esterase Urine Trace (Negative); Nitrite Urine Negative (Negative); PH >= 9.0 (5.0-9.0); UMIC TRIGGER UACC YES; Urine Blood Moderate (2+) (Negative); Urine Ketones Negative (Negative); Urine Protein 30 (1+) mg/dL (Neg-Trace)
[2022-07-16 19:18] LABS: Bacteria Urine 1+ (None Seen); Hyaline Casts Urine 0-2 /LPF (0-2); RBC Urine >20 /HPF (0-2); Squamous Epithelial Cell Urine 0-2 /HPF (0-2); UACC Culture Trigger YES
[2022-07-16 19:18] LABS: Basophils Percent Auto 0.3 % (0-2); Eosinophils Absolute Auto 0.2 X10*3/uL (0.0-0.4); Eosinophils Percent Auto 1.7 % (0-4); Hematocrit 41.1 % (37.0-47.0); Hemoglobin 12.4 g/dl (12.0-16.0); Imm Gran Abs Auto 0.08 X10*3/uL (0.00-0.03); Imm Gran Pct Auto 0.7 % (0.0-0.4); Lymphocytes Absolute Auto 0.8 X10*3/uL (1.2-4.9); Lymphocytes Percent Auto 6.6 % (20-40); Mean Corpuscular HGB Conc 30.2 g/dl (31.0-35.0); Mean Corpuscular Hemoglobin 23.5 pg (27.0-33.0); Mean Corpuscular Volume 77.8 fL (80.0-98.0); Mean Platelet Volume 10.1 fL (9.4-12.3); Monocytes Absolute Auto 0.6 X10*3/uL (0.1-1.2); Monocytes Percent Auto 4.9 % (2-11); Neutrophils Absolute Auto 9.9 x10*3/uL (2.0-8.3); Neutrophils Percent Auto 85.8 % (45-73); Platelet Count 292 X10*3/uL (160-400); Red Blood Count 5.28 X10*6/uL (4.20-5.50); White Blood Count 11.5 X10*3/uL (4.8-10.8)
[2022-07-16 19:34] LABS: Alanine Aminotransferase 15 U/L (0-31); Albumin Level 3.7 g/dL (3.5-5.0); Alkaline Phosphatase 82 U/L (39-117); Anion Gap 10 (12-20); Aspartate Amino Transferase 13 U/L (5-31); Bilirubin Total 0.5 mg/dL (0.0-1.0); Blood Urea Nitrogen 16 mg/dL (9-16); C Reactive Protein 1.37 mg/dL (< or = 0.50); Calcium 8.5 mg/dL (8.4-10.2); Carbon Dioxide 29 mmol/L (22-29); Chloride 104 mmol/L (96-108); Estimated Glomerular Filt Rate > 60; Glucose Random 103 mg/dL (60-115); HCG Quantitative < 2 mIU/mL; Lipase 10 U/L (8-78); Magnesium 1.6 mg/dL (1.6-2.6); Potassium 3.8 mmol/L (3.3-5.1); Sodium 139 mmol/L (135-145); Total Protein 6.8 g/dL (6.5-8.0)
[2022-07-16 19:46] LABS: Erythrocyte Sedimentation Rate 18 MM/HR (0-20)
[2022-07-16 19:47] LABS: Influenza A PCR NEGATIVE (Negative); Influenza B PCR NEGATIVE (Negative); Resp Syncy Virus RNA Qual PCR NEGATIVE (Negative); SARS COV2 PCR INHOUSE NEGATIVE (Negative)
[2022-07-16 22:49] VITALS: BP 143/92; PULSE 118; RESP 19; TEMP 36.7; O2SAT 97
[2022-07-16 23:27] VITALS: PULSE 106; RESP 18; O2SAT 98
[2022-07-16] MEDS: Ondansetron ODT 4 MG TAB.RAPDIS TRANSLINGU (23:39)
[2022-07-16] MEDS: oxyCODONE HCl Immed Release 5 MG TABLET PO (23:39)
== END 2022-07-16 23:45 | disposition home or self-care (01) ==
PROVIDERS: Physician Assistant Medical; Emergency Provider Internal Medicine; PCP Internal Medicine
DX: K52.9 Noninfective gastroenteritis and colitis, unspecified (principal); R10.11 Right upper quadrant pain; R11.2 Nausea with vomiting, unspecified; Z20.822 Contact with and (suspected) exposure to COVID-19; Z20.828 Contact with and (suspected) exposure to other viral communicable diseases; Z79.899 Other long term (current) drug therapy
CPT/HCPCS: 0241U; 74176; 80053; 81001; 83690; 83735; 84702; 85025; 85610; 85652; 86140; 87086; 87088; 87186; 99283; 99284

== ENCOUNTER 2022-11-11 16:47 | Outpatient (AMB) | payer OTHER, SELFPAY ==
[2022-11-11 16:54] VITALS: BP 152/100; BMI 49.6
--- NOTE | 2022-11-11 16:54 | MHC.PC.OV ---
Vital Signs 11/11/22 16:54 Height 5 ft 3 in Weight 280 lb BMI 49.6 BP 152/100 H Blood Pressure Location Lt brachial Position Sitting Intake Visit Reasons: PHYSICAL Intake Note: Patient here for a physical exam Top Former Required: No Accompanied by: Self / Same As Patient Allergies canned food Allergy (Severe, Verified 11/11/22 17:05) rash RED MEAT Allergy (Severe, Uncoded 11/11/22 17:05) Rash Medication List - Last Reconciled 11/11/22 by Rashmi Zapata MD albuterol sulfate 90 mcg/actuation 2 puffs inhalation Q4-6H PRN albuterol sulfate 90 mcg/actuation 1 inh inhalation QID PRN albuterol sulfate 90 mcg/actuation (Ventolin HFA) 2 puffs inhalation Q6H PRN 30 days allopurinol 100 mg PO DAILY 90 days amlodipine 5 mg PO DAILY 90 days cetirizine 10 mg PO Q12H PRN 90 days citalopram 40 mg PO DAILY 90 days clotrimazole 1% 1 appl topical BID 4 weeks gabapentin 300 mg PO BEDTIME 90 days hydroxyzine pamoate 25 mg PO BID 90 days ibuprofen 600 mg PO Q8H PRN linaclotide 290 mcg PO DAILY 90 days montelukast 10 mg PO BEDTIME 90 days omeprazole 20 mg PO DAILY 90 days ondansetron 4 mg PO Q6-8H PRN oxycodone 5 mg PO Q6H PRN potassium citrate ER 20 mEq (2 x 10 mEq (1,080 mg)) PO BID 90 days pyridoxine (vitamin B6) 100 mg PO DAILY 90 days tamsulosin (Flomax) 0.4 mg PO DAILY triamcinolone acetonide 0.5% 1 appl topical DAILY 2 weeks Tobacco use date assessed: 05/01/22 Dental Screening Dental Screen Date: 11/11/22 Did you have a dental visit in the last 12 months?: No Did you have a dental problem in the last 6 months where you did not have access to dental care?: No Was dental information given to patient?: Patient has dentist HPI HPI Comments History of Present Illness Details This is 36-year-old female with morbid obesity that comes with her physical exam. Last Pap smear was 2021. Has elevated blood pressure that will be recheck in 3 weeks but has not take amlodipine in about a month because she ran out of the medication pure her BMI is 49.6 and was advised to do diet and exercise to reach BMI goal less than 30. She declines weight loss surgery. [facility] Medical History Active asthma Fibromyalgia Hospital discharge follow-up Hypertension Morbid obesity Morbid obesity with BMI of 45.0-49.9, adult Renal calculi Umbilical hernia Umbilical hernia Surgical History History of extraction of renal calculus History of tubal ligation Family History Father Anemia Sister Cervical cancer Maternal Aunt Breast cancer Diabetes Mother No problems noted. Social History Housing: Apartment Alcohol intake: never Patient Tobacco Use Status: Former Tobacco user Tobacco use type: Cigarette e-Cigarette/Vaping Use: Never Used Second Hand Smoke Exposure: No service: No Current occupational status: employed Current occupational exposures/hazards: No Cognitive needs: No Hearing needs: No Vision needs: No Female Reproductive History Menstrual Age of Menarche: 12 Questionnaire Thrive Questionnaire Date Thrive assessed: 05/01/22 OMAR-7 AMB Questionnaire OMAR-7 Date OMAR - 7 assessed: 05/01/22 Source: Developed by Drs. Drake Jackson, Sally Funes, Adam Nicholson and colleagues, with an educational hilary from [email or web address]. Review of Systems Const All systems reviewed & are unremarkable except as noted in HPI and below Eyes Reports no additional complaints, Denies change in vision and Denies other visual disturbances Card Denies chest pain at rest, Denies chest pain with activity, Denies edema, Denies irregular heart rhythm, Denies claudication, Denies dyspnea, Denies dyspnea on exertion, Denies orthopnea, Denies paroxysmal nocturnal dyspnea and Denies slow heart rate Resp Denies cough, Denies dyspnea and Denies dyspnea on exertion GI Denies abdominal pain, Denies change in bowel habits, Denies excessive flatus, Denies nausea and Denies vomiting Denies urinary incontinence, Denies urinary hesitancy and Denies urinary urgency Musc Denies abnormal gait, Denies atrophy, Denies deformity and Denies limited range of motion Skin/Breast Denies bleeding lesions, Denies changing lesions and Denies rash Neuro Denies abnormal gait, Denies confusion and Denies lack of coordination Psych Denies confusion Physical exam (Primary Care) Vital Signs: Last Vital Signs BP 152/100 H 11/11/22 16:54 BMI result Body Mass Index 49.6 Tobacco/Smoking Status: Tobacco use Status Tobacco use date assessed 05/01/22 11/11/22 17:02 Patient Tobacco Use Status Former Tobacco user 11/11/22 17:02 Tobacco use type Cigarette 11/11/22 17:02 e-Cigarette/Vaping Use Never Used 11/11/22 17:02 Thrive Assessment: Date of Thrive Assessment Date Thrive assessed 05/01/22 11/11/22 17:02 Const General: No confusion Orientation/consciousness: patient oriented x3 and No confusion HENMT Head: Yes normal to inspection, Yes normocephalic and Yes atraumatic Ears: external ears normal Eyes General: appearance normal, both eyes and all related structures Eyelids: Yes eyelids normal Conjunctivae: conjunctivae normal Neck Neck: Yes normal visual inspection and Yes supple Resp Effort & Inspection: normal respiratory effort Auscultation: clear to auscultation bilaterally Cardio Jugular venous distension: no JVD Rate: regular rate Rhythm: regular rhythm Heart sounds: S1 normal heart sound present and S2 normal heart sound present GI Inspection: Yes normal to inspection Palpation (GI): Soft to palpation and nontender Auscultation: normal bowel sounds Skin General skin exam: no rashes or lesions noted Neuro General: patient oriented x3, no focal motor deficits and No confusion Extrem General: Yes full ROM Psych Appearance: grossly normal Assessment and Plan Assessment & Plan (1) Physical exam: Code(s): Z00.00 - Encounter for general adult medical examination without abnormal findings Plan: Repeat in a year (2) Morbid obesity: Code(s): E66.01 - Morbid (severe) obesity due to excess calories Plan: Declines weight loss surgery. Start diet and exercise. BMI goal is less than 30. Orders: Orders Comprehensive [place]. Panel Fast Today E66.01 - Morbid (severe) obesity due to excess calories Lipid Panel Today E78.5 - Hyperlipidemia, unspecified Thyroid Stimulating Hormone Today E66.01 - Morbid (severe) obesity due to excess calories Complete Blood Count Auto Diff Today E66.01 - Morbid (severe) obesity due to excess calories Medications: New Ventolin HFA 90 mcg/actuation (albuterol sulfate) 2 puffs inhalation Q6H PRN 8 grams 2RF shortness of breath or wheezing 30 days NS Refilled allopurinol 100 mg PO DAILY 90 tabs 1RF 90 days N20.0 - Calculus of kidney amlodipine 5 mg PO DAILY 90 tabs 1RF 90 days cetirizine 10 mg PO Q12H PRN 90 tabs 0RF allergy symptoms 90 days citalopram 40 mg PO DAILY 90 tabs 0RF 90 days gabapentin 300 mg PO BEDTIME 90 caps 1RF 90 days linaclotide 290 mcg PO DAILY 90 caps 0RF 90 days montelukast 10 mg PO BEDTIME 90 tabs 1RF 90 days omeprazole 20 mg PO DAILY 90 caps 1RF 90 days ondansetron 4 mg PO Q6-8H PRN 7 tabs 0RF nausea and vomiting pyridoxine (vitamin B6) 100 mg PO DAILY 90 tabs 1RF 90 days N20.0 - Calculus of kidney Discontinued oxycodone Partial Fill upon patient request. Discontinued Reason: Patient Completed Course 5 mg PO Q6H PRN 20 tabs 0RF pain Coding Level of Care Code Est Pt Prev Care 18-39y(14889) Diagnoses Physical exam Z00.00 Morbid obesity E66.01 Time Spent (min) 32
== END 2022-11-11 17:19 | disposition home or self-care (01) ==
PROVIDERS: PCP Internal Medicine; Visit Provider Internal Medicine
DX: Z00.00 Encounter for general adult medical examination without abnormal findings (principal); E66.01 Morbid (severe) obesity due to excess calories; Z68.42 Body mass index [BMI] 45.0-49.9, adult
CPT/HCPCS: 99395

== ENCOUNTER 2023-01-09 11:08 | Observation (INO) | payer OTHER, SELFPAY ==
--- NOTE | ~2023-01-09 | MR_ITS ---
EXAMINATION: MR BRAIN WITHOUT CONTRAST MR VENOGRAM HEAD WITHOUT AND WITH CONTRAST. CLINICAL INFORMATION: Elevated intracranial pressure. COMPARISON: CT scan of the head 01/09/2023. TECHNIQUE: Multiplanar MR imaging of the brain was performed without contrast. An MR venogram of the head was also performed without and with contrast. A total of 10 mL Gadavist was utilized for this examination. 3D images were processed on an independent workstation under concurrent supervision. Arterial stenoses are measured in accordance with NASCET criteria or similar method if applicable. FINDINGS: Brain: There is no intracranial mass effect or midline shift. No abnormal extra-axial collection. Lateral and third ventricles are normal. No hydrocephalus. There is an expanded partially empty sella turcica. Midline anatomy is otherwise unremarkable. The cervicomedullary junction is normal. No acute territorial infarct. No pathological magnetic susceptibility artifact. Intracranial vascular flow voids are maintained. There is no mastoid or middle ear effusion. Moderate paranasal sinus disease primarily affecting the ethmoid air cells. Globes and orbits are symmetric. MR venogram: The internal cerebral veins, vein of Conor, and straight sinus are patent. The superior sagittal sinus and torcula are patent. There is mild to moderate narrowing of both transverse sinuses. Sigmoid sinuses and the visualized upper internal jugular veins are patent. No identifiable thrombosis or occlusion. MR/MR head/brain wo con IMPRESSION: There is an expanded partially empty sella turcica. This finding can be seen in the setting of intracranial hypertension. Otherwise unremarkable brain MRI. No abnormal intracranial mass effect or hydrocephalus. The MR venogram reveals mild to moderate narrowing of the transverse sinuses. Otherwise no identifiable thrombosis or occlusion within the dural venous sinuses.
--- NOTE | ~2023-01-09 | MR_ITS ---
EXAMINATION: MR BRAIN WITHOUT CONTRAST MR VENOGRAM HEAD WITHOUT AND WITH CONTRAST. CLINICAL INFORMATION: Elevated intracranial pressure. COMPARISON: CT scan of the head 01/09/2023. TECHNIQUE: Multiplanar MR imaging of the brain was performed without contrast. An MR venogram of the head was also performed without and with contrast. A total of 10 mL Gadavist was utilized for this examination. 3D images were processed on an independent workstation under concurrent supervision. Arterial stenoses are measured in accordance with NASCET criteria or similar method if applicable. FINDINGS: Brain: There is no intracranial mass effect or midline shift. No abnormal extra-axial collection. Lateral and third ventricles are normal. No hydrocephalus. There is an expanded partially empty sella turcica. Midline anatomy is otherwise unremarkable. The cervicomedullary junction is normal. No acute territorial infarct. No pathological magnetic susceptibility artifact. Intracranial vascular flow voids are maintained. There is no mastoid or middle ear effusion. Moderate paranasal sinus disease primarily affecting the ethmoid air cells. Globes and orbits are symmetric. MR venogram: The internal cerebral veins, vein of Conor, and straight sinus are patent. The superior sagittal sinus and torcula are patent. There is mild to moderate narrowing of both transverse sinuses. Sigmoid sinuses and the visualized upper internal jugular veins are patent. No identifiable thrombosis or occlusion. MR/MR venography head wo/w con IMPRESSION: There is an expanded partially empty sella turcica. This finding can be seen in the setting of intracranial hypertension. Otherwise unremarkable brain MRI. No abnormal intracranial mass effect or hydrocephalus. The MR venogram reveals mild to moderate narrowing of the transverse sinuses. Otherwise no identifiable thrombosis or occlusion within the dural venous sinuses.
--- NOTE | ~2023-01-09 | CT_ITS ---
EXAMINATION: CT HEAD WITHOUT CONTRAST CLINICAL INFORMATION: Exam concerning for pseudotumor cerebri per ophthalmology. COMPARISON: None available. TECHNIQUE: Contiguous axial imaging was performed from the skull base to vertex without intravenous administration of contrast. This CT examination was performed using dose optimization techniques as appropriate, variously including the following: *Automated exposure control *Adjustment of mA and/or kV according to patient size (this includes techniques or standardized protocols for targeted exams where dose is matched to indication/reason for exam; i.e. extremities or head) *Use of iterative reconstruction technique DLP: 643 mGy-cm FINDINGS: No acute intracranial hemorrhage or infarct. The griffin-white matter differentiation is preserved. No midline shift or hydrocephalus. There is partial effacement of the ventricular system. No acute extra-axial fluid collections. The osseous structures are unremarkable. Partially empty sella. The cerebellar tonsils are seen descending into the foramen magnum, measuring approximately 3 mm. There is suggestion of luminal narrowing of the bilateral transverse and sigmoid sinuses. Flattening of the posterior sclera, left greater than right. Mucosal thickening of the maxillary sinuses. The mastoid air cells are clear. CT/CT head/brain wo IV con IMPRESSION: No acute intracranial hemorrhage or infarct. Constellation of findings as described above, compatible with idiopathic intracranial hypertension.
[2023-01-09 11:48] VITALS: BP 152/94; PULSE 78; RESP 18; TEMP 36.6; O2SAT 99; BMI 45.2
--- NOTE | 2023-01-09 11:50 | ED.GENADULT ---
HPI - General Adult General Chief complaint: General Medical Stated complaint: Papilledema Time Seen by Provider: 01/09/23 14:58 Source: patient Mode of arrival: ambulatory Limitations: no limitations History of Present Illness HPI narrative: A 37-year-old female came in from ophthalmologic office for evaluation of headache for 3 days and on routine exam found to have papilledema. Patient otherwise declines any photophobia, no fever, or chills, no neck stiffness, no weakness, no numbness, no gait disorder. No urinary incontinence. Related Data Previous Rx's Medication Instructions Recorded albuterol sulfate 90 mcg/actuation 2 puff inhalation Q4-6H PRN 02/05/21 aerosol inhaler shortness of breath or wheezing #8.5 grams tamsulosin 0.4 mg capsule (Flomax) 0.4 mg PO DAILY #20 caps 05/29/21 hydroxyzine pamoate 25 mg capsule 25 mg PO BID 90 days #180 caps 11/19/21 triamcinolone acetonide 0.5 % 1 appl topical DAILY 2 weeks #15 11/19/21 topical cream grams potassium citrate 10 mEq (1,080 20 meq (2 x 10 mEq (1,080 mg)) PO 03/05/22 mg) tablet,extended release BID 90 days #360 tabs albuterol sulfate 90 mcg/actuation 2 puff inhalation Q6H PRN 05/01/22 aerosol inhaler (Ventolin HFA) shortness of breath or wheezing 30 days #6.7 grams clotrimazole 1 % topical cream 1 appl topical BID 4 weeks #30 05/01/22 grams ibuprofen 600 mg tablet 600 mg PO Q8H PRN pain #20 tabs 05/01/22 albuterol sulfate 90 mcg/actuation 1 inh inhalation QID PRN shortness 05/30/22 aerosol inhaler of breath or wheezing #6.7 grams Ventolin HFA 90 mcg/actuation 2 puff inhalation Q6H PRN 11/11/22 aerosol inhaler (albuterol sulfate) shortness of breath or wheezing 30 days #8 grams allopurinol 100 mg tablet 100 mg PO DAILY 90 days #90 tabs 11/11/22 amlodipine 5 mg tablet 5 mg PO DAILY 90 days #90 tabs 11/11/22 cetirizine 10 mg tablet 10 mg PO Q12H PRN allergy symptoms 11/11/22 90 days #90 tabs citalopram 40 mg tablet 40 mg PO DAILY 90 days #90 tabs 11/11/22 gabapentin 300 mg capsule 300 mg PO BEDTIME 90 days #90 caps 11/11/22 linaclotide 290 mcg capsule 290 mcg PO DAILY 90 days #90 caps 11/11/22 montelukast 10 mg tablet 10 mg PO BEDTIME 90 days #90 tabs 11/11/22 omeprazole 20 mg capsule,delayed 20 mg PO DAILY 90 days #90 caps 11/11/22 release ondansetron 4 mg disintegrating 4 mg PO Q6-8H PRN nausea and 11/11/22 tablet vomiting #7 tabs pyridoxine (vitamin B6) 100 mg 100 mg PO DAILY 90 days #90 tabs 11/11/22 tablet Allergies Allergy/AdvReac Type Severity Reaction Status Date / Time canned food Allergy Severe rash Verified 01/09/23 11:48 RED MEAT Allergy Severe Rash Uncoded 01/09/23 11:48 Review of Systems Review of Systems: All other systems are reviewed and are negative Constitutional: Reports as per HPI and Reports no additional constitutional complaints Eyes: Reports as per HPI and Reports no additional eye complaints Reports system reviewed and no additional complaints, except as documented Cardiovascular: Reports as per HPI and Reports no additional cardiovascular complaints Respiratory: Reports as per HPI and Reports no additional respiratory complaints Gastrointestinal: Reports as per HPI and Reports no additional gastrointestinal complaints Genitourinary: Reports no additional female genitourinary complaints Musculoskeletal: Reports no additional musculoskeletal complaints Skin/Breast: Reports system reviewed and no additional complaints, except as docu Psychiatric: Reports no additional psychiatric complaints Endocrine: Reports no additional endocrine complaints Hematologic/Lymphatic: Reports no additional hematologic/lymphatic complaints Allergic/Immunologic: Reports no additional allergic/immunologic complaints Reports system reviewed and no additional complaints, except as documented and Reports Abnormal speech present [facility] Past Medical History Medical History Morbid obesity Umbilical hernia Umbilical hernia Morbid obesity with BMI of 45.0-49.9, adult Renal calculi Hospital discharge follow-up Hypertension Fibromyalgia Active asthma Surgical History History of extraction of renal calculus History of tubal ligation Family History Family History Father Anemia Sister Cervical cancer Maternal Aunt Breast cancer Diabetes Mother No problems noted. Social History Social History Housing: Apartment Alcohol intake: never Patient Tobacco Use Status: Former Tobacco user Tobacco use type: Cigarette e-Cigarette/Vaping Use: Never Used Second Hand Smoke Exposure: No Advance Directives: No Advance Directives Information Provided: No service: No Current occupational status: employed Current occupational exposures/hazards: No Cognitive needs: No Hearing needs: No Vision needs: No Physical Exam ED Vital Signs: Vital Signs - 24 hr 01/09/23 11:48 01/09/23 19:07 Temperature 98 F Pulse Rate 78 81 Respiratory Rate 18 16 Blood Pressure 152/94 H 127/84 Pulse Oximetry 99 98 Oxygen Delivery Method Room Air Room Air BMI result Body Mass Index 45.2 Vital signs have been reviewed and appear to be correct. Blood pressure elevated. Heart rate normal. Respiratory rate normal. Temperature normal. Oxygen saturation normal. Appearance: Alert. Oriented X3. No acute distress. Head: Normal external exam. Normocephalic. Atraumatic. No Grant signs noted. No raccoon eyes noted Patient reports worsening of blurred vision on and off. General: appearance normal, both eyes and all related structures Visual Hernandez: normal visual hernandez by confrontation Alignment and Position: alignment normal and position normal Periorbital: periorbital findings normal Eyelids: Yes eyelids normal Conjunctivae: conjunctivae normal Sclerae: sclerae normal Corneas: corneas normal Pupils: Equal, round and reactive pupils present and Pupil accommodation reflex normal EOM: EOM abnormal (Limited abduction of right eye) and No Nystagmus present Direct Ophthalmoscopy: normal light reflex, no photophobia, Mild papilledema. Visual acuity: OD 20/50 OS 20/80 IOP OD 14 OS 16. ENT: TM's Normal. Pharynx normal. Uvula midline. Moist mucous membranes. No trismus noted. No drooling noted. No muffled voice noted. Neck: Normal inspection. Neck supple. FROM. No adenopathy. Thyroid Normal. No meningeal signs. No neck mass noted. CVS: Normal heart rate and rhythm. Heart sound normal. No murmurs noted. Pulses normal throughout. Respiratory: No respiratory distress. Painless inspiration. Breath sounds normal. No wheezes/rales/rhonchi noted. Chest nontender. No accessory muscle usage noted or decreased air movement noted. Abdomen: Soft and nontender. Bowel sounds normal in all 4 quadrants. No distention noted. No organomegaly noted. No visible injury noted. Back: No CVA tenderness. Full range of motion noted. Skin: Skin warm and dry. Normal skin color. Normal skin turgor. No rashes/lesions/lacerations noted. Extremities: No lower extremity edema. Extremities exhibit normal range of motion. Extremities nontender. Neuro: Oriented X 3. Cranial nerve exam: II-XII are grossly intact No motor deficit. No sensory deficit. Reflexes normal. Course Course Course Narrative: This is a rapid medical exam: Additional HPI, ROS, PE not included below will be deferred to primary provider. 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 While there for a new patient visit, patient noted to have moderate papilledema at eye exam, and is also complaining of headaches for 3 hours today. BP 152/94 in triage. 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 Tejeda, and ). The case was discussed with Dr. Bright who recommended to admit the patient for symptoms treatment and get the LP done under fluoro tomorrow. Time: 19:31 Medications Administered Discontinued Medications Generic Name Dose Route Start Last Admin Trade Name Freq PRN Reason Stop Dose Admin Lidocaine/Epinephrine 10 ml 01/09/23 17:30 01/09/23 17:21 Lidocaine Hcl 1%/Epi 1:100,000 10 Ml Vial INFILTRATI 01/09/23 17:31 10 ml ONCE ONE Administration Medical Decision Making Differential Diagnosis Differential Diagnoses: The differential diagnosis associated with the presentation includes ( Glaucoma, idiopathic intracranial hypertension, tension headache, papilledema , intracranial bleed.) Admission/Observation Consideration of admission/observation: Escalation of care including admission/observation considered Lab Data MDM Lab Attestation statement: I reviewed the patient's lab results. 01/09/23 19:05 01/09/23 19:05 Labs: Lab Results 01/09/23 Range/Units 19:05 WBC 12.6 H (4.8-10.8) X10*3/uL RBC 5.33 (4.20-5.50) X10*6/uL Hgb 12.3 (12.0-16.0) g/dl Hct 40.9 (37.0-47.0) % MCV 76.7 L (80.0-98.0) fL MCH 23.1 L (27.0-33.0) pg MCHC 30.1 L (31.0-35.0) g/dl RDW 16.3 H (11.0-16.0) % Plt Count 313 (160-400) X10*3/uL MPV 9.1 L (9.4-12.3) fL Immature Gran % (Auto) 0.3 (0.0-0.4) % Neut % (Auto) 80.9 H (45-73) % Lymph % (Auto) 11.0 L (20-40) % [place] % (Auto) 5.8 (2-11) % Eos % (Auto) 1.6 (0-4) % Baso % (Auto) 0.4 (0-2) % Lymph # (Auto) 1.4 (1.2-4.9) X10*3/uL [place] # (Auto) 0.7 (0.1-1.2) X10*3/uL Eos # (Auto) 0.2 (0.0-0.4) X10*3/uL Baso # (Auto) 0.1 (0.0-0.2) X10*3/uL Abs Immat Gran (auto) 0.04 H (0.00-0.03) X10*3/uL Absolute Neuts (auto) 10.2 H (2.0-8.3) x10*3/uL Absolute Nucleated RBC 0.000 (0.0-0.012) X10*3/uL Nucleated RBC % (auto) 0.0 (0.0-0.2) /100WBC Sodium 140 (135-145) mmol/L Potassium 3.9 (3.3-5.1) mmol/L Chloride 106 (96-108) mmol/L Carbon Dioxide 27 (22-29) mmol/L Anion Gap 11 L (12-20) BUN 13 (9-16) mg/dL Creatinine 0.82 (0.5-1.4) mg/dL Estim Creat Clear Calc 130.6 Estimated GFR > 60 Random Glucose 107 (60-115) mg/dL Calcium 9.1 D (8.4-10.2) mg/dL Independent Interpretation I performed an independent interpretation of an: CT Scan ( Head: Idiopathic intracranial hypertension.) Radiology Impression Discussion of test interpretation with radiology: I have reviewed the radiologist's reading. Discharge Plan Discharge Clinical Impression: Papilledema, Idiopathic intracranial hypertension Patient Disposition: Admitted As Inpatient
[2023-01-09] MEDS: Lidocaine HCl 1%/Epi 1:100,000 10 ML VIAL INFILTRATI (17:21)
[2023-01-09 19:07] VITALS: BP 127/84; PULSE 81; RESP 16; O2SAT 98
[2023-01-09 19:10] LABS: Basophils Absolute Auto 0.1 X10*3/uL (0.0-0.2); Basophils Percent Auto 0.4 % (0-2); Eosinophils Absolute Auto 0.2 X10*3/uL (0.0-0.4); Eosinophils Percent Auto 1.6 % (0-4); Hematocrit 40.9 % (37.0-47.0); Hemoglobin 12.3 g/dl (12.0-16.0); Imm Gran Abs Auto 0.04 X10*3/uL (0.00-0.03); Imm Gran Pct Auto 0.3 % (0.0-0.4); Lymphocytes Absolute Auto 1.4 X10*3/uL (1.2-4.9); MANUAL DIFF FLAG NO; Mean Corpuscular HGB Conc 30.1 g/dl (31.0-35.0); Mean Corpuscular Hemoglobin 23.1 pg (27.0-33.0); Mean Corpuscular Volume 76.7 fL (80.0-98.0); Mean Platelet Volume 9.1 fL (9.4-12.3); Monocytes Absolute Auto 0.7 X10*3/uL (0.1-1.2); Monocytes Percent Auto 5.8 % (2-11); Neutrophils Absolute Auto 10.2 x10*3/uL (2.0-8.3); Neutrophils Percent Auto 80.9 % (45-73); Platelet Count 313 X10*3/uL (160-400); Red Blood Count 5.33 X10*6/uL (4.20-5.50); Red Cell Distribution Width 16.3 % (11.0-16.0); White Blood Count 12.6 X10*3/uL (4.8-10.8)
[2023-01-09 19:23] LABS: Anion Gap 11 (12-20); Blood Urea Nitrogen 13 mg/dL (9-16); Calcium 9.1 mg/dL (8.4-10.2); Carbon Dioxide 27 mmol/L (22-29); Chloride 106 mmol/L (96-108); Creatinine Clr Calc Pharmacy 130.6; Estimated Glomerular Filt Rate > 60; Glucose Random 107 mg/dL (60-115); Potassium 3.9 mmol/L (3.3-5.1); Sodium 140 mmol/L (135-145)
--- NOTE | 2023-01-09 19:35 | P.HPHOSP_ITS ---
History of Present Illness Date of Service: 01/09/23 Chief Complaint: Headache This is a 37-year-old female with pertinent history of mood disorder, essential hypertension, asthma not on home oxygen who presents to the emergency department for evaluation of headaches. Patient states it started about 1 week prior to presentation. It is not positional, constant, progressive and without any relieving factors. It is associated with blurring of vision. Patient went to ophthalmology office and was found to have papilledema and was referred to the ER. Denies similar complaints in the past. No neck pain, fever, chills, nausea, vomiting, chest pain, shortness of breath, palpitations, tinnitus, abdominal pain, changes in urinary or bowel habits. . In the emergency department, multiple attempts were made for lumbar puncture but without success. Neurology was consulted who requested admission Review of Systems 2 Constitutional: Constitutional: Reports headache(s) Eyes: Eyes: Reports blurry vision ENT: Reports headache(s) Cardiovascular: Cardiovascular: Reports no additional cardiovascular complaints Respiratory: Respiratory: Reports no additional respiratory complaints Gastrointestinal: Gastrointestinal: Reports no additional gastrointestinal complaints Genitourinary: Genitourinary: Reports no additional female genitourinary complaints Neurologic: Reports headache(s) [facility] Medical History Morbid obesity Umbilical hernia Umbilical hernia Morbid obesity with BMI of 45.0-49.9, adult Renal calculi Hospital discharge follow-up Hypertension Fibromyalgia Active asthma Family History Father Anemia Sister Cervical cancer Maternal Aunt Breast cancer Diabetes Mother No problems noted. Surgical History History of extraction of renal calculus History of tubal ligation Social History Housing: Apartment Alcohol intake: never Patient Tobacco Use Status: Former Tobacco user Tobacco use type: Cigarette e-Cigarette/Vaping Use: Never Used Second Hand Smoke Exposure: No Advance Directives: No Advance Directives Information Provided: No service: No Current occupational status: employed Current occupational exposures/hazards: No Cognitive needs: No Hearing needs: No Vision needs: No Meds Allergies Allergy/AdvReac Type Severity Reaction Status Date / Time canned food Allergy Severe rash Verified 01/09/23 11:48 RED MEAT Allergy Severe Rash Uncoded 01/09/23 11:48 Home Medications Medication Instructions Recorded Confirmed Last Taken Type hydroxyzine pamoate 25 mg capsule 25 mg PO BID PRN Anxiety 01/09/23 01/09/23 Unknown History Physical Exam 2 Vital Signs and Narrative: Vital Signs: Last Vital Signs Temp 98 F 01/09/23 11:48 Pulse 81 01/09/23 19:07 Resp 16 01/09/23 19:07 BP 127/84 01/09/23 19:07 Pulse Ox 98 01/09/23 19:07 O2 Del Method Room Air 01/09/23 19:07 BMI result Body Mass Index 45.2 Young female lying in bed in no distress Neck supple, no JVD Regular rate and rhythm, S1-S2 heard Regular breath sounds bilaterally, no wheezing or crackles appreciated Abdomen soft nontender, no guarding, no rigidity Patient is awake, alert and oriented to self, place, time and person ; no focal motor deficit Psych: Normal mood No pedal edema Results Labs 01/09/23 19:05 01/09/23 19:05 Labs: Laboratory Results - last 24 hr 01/09/23 19:05 MCV 76.7 L MCH 23.1 L MCHC 30.1 L RDW 16.3 H Plt Count 313 MPV 9.1 L Immature Gran % (Auto) 0.3 Neut % (Auto) 80.9 H Lymph % (Auto) 11.0 L [place] % (Auto) 5.8 Eos % (Auto) 1.6 Baso % (Auto) 0.4 Lymph # (Auto) 1.4 [place] # (Auto) 0.7 Eos # (Auto) 0.2 Baso # (Auto) 0.1 Abs Immat Gran (auto) 0.04 H Absolute Neuts (auto) 10.2 H Absolute Nucleated RBC 0.000 Nucleated RBC % (auto) 0.0 Anion Gap 11 L Estim Creat Clear Calc 130.6 Estimated GFR > 60 Random Glucose 107 Calcium 9.1 D Imaging Radiologist's Impressions: Impressions Head CT 01/09/23 13:46 IMPRESSION: No acute intracranial hemorrhage or infarct. Constellation of findings as described above, compatible with idiopathic intracranial hypertension. Assessment and Plan (1) Idiopathic intracranial hypertension: Status: Acute Plan This is a 37-year-old female with pertinent history of mood disorder, essential hypertension, asthma not on home oxygen who presents to the emergency department for evaluation of headaches. #. Idiopathic intracranial hypertension. Patient not on tetracyclines. May need outpatient sleep study for possible [place]. Multiple attempts in the ER for lumbar puncture without success. Will order fluoroscopy guided LP in a.m.. Neurology consulted in the ER, appreciate assistance. Counseled regarding weight loss. May benefit from acetazolamide #. Essential hypertension. Continue home antihypertensives #. Asthma. No exacerbation during admission. DVT prophylaxis: Mechanical Full code Time Spent With Patient Time: Total time managing care of this patient today ____ minutes. Quality Stroke Does the patient have a stroke diagnosis?: No VTE Prior VTE?: No VTE Risk Level:: Medical - moderate - high VTE Device Contraindication: N/A - Device Ordered VTE Drug Contraindication: Treatment Not Indicated
--- NOTE | 2023-01-09 20:06 | PHA.MEDREC ---
Pharmacy Consult ? Medication Reconciliation Pharmacy has completed the medication reconciliation. Utilized interpreter for the deaf, patient confirmed medications. Patient reports she does not want to take linzess while inpatient because she does not want to poop herself. Stephania Lopez, PharmD
[2023-01-09 20:29] VITALS: BP 144/84; PULSE 90; RESP 18; TEMP 36.9; O2SAT 98
[2023-01-09] MEDS: Morphine Sulfate 2 MG/ML CARTRIDGE IVPUSH (20:59)
[2023-01-09] MEDS: 0.9 % Sodium Chloride 1,000 ML 999 ML IV (21:01)
[2023-01-09 22:10] VITALS: BP 131/65; PULSE 81; RESP 20; TEMP 36; O2SAT 99
[2023-01-09] MEDS: Montelukast Sodium 10 MG TABLET PO (22:41)
[2023-01-09] MEDS: Gabapentin 300 MG CAPSULE PO (22:41)
[2023-01-09] MEDS: hydrOXYzine HCL 25 MG TABLET PO (22:47)
[2023-01-09] MEDS: Melatonin 3 MG TABLET 6 MG PO (22:47)
[2023-01-10] VITALS: BP 129/66; PULSE 87; RESP 16; TEMP 36.8; O2SAT 96
[2023-01-10 04:00] VITALS: BP 126/78; PULSE 80; RESP 16; TEMP 36.6; O2SAT 97
[2023-01-10] MEDS: Omeprazole 20 MG CAPSULE.DR PO (06:05)
[2023-01-10 07:14] VITALS: BP 120/76; PULSE 75; RESP 20; TEMP 36.2; O2SAT 97
[2023-01-10 07:49] LABS: Prothrombin Time 11.8 SEC (11.1-13.3)
[2023-01-10 07:57] LABS: Alanine Aminotransferase 20 U/L (0-31); Albumin Level 3.3 g/dL (3.5-5.0); Alkaline Phosphatase 71 U/L (39-117); Anion Gap 8 (12-20); Aspartate Amino Transferase 15 U/L (5-31); Bilirubin Total 0.2 mg/dL (0.0-1.0); Blood Urea Nitrogen 14 mg/dL (9-16); Calcium 8.5 mg/dL (8.4-10.2); Carbon Dioxide 27 mmol/L (22-29); Chloride 109 mmol/L (96-108); Creatinine Clr Calc Pharmacy 121.6; Estimated Glomerular Filt Rate > 60; Glucose Random 108 mg/dL (60-115); Potassium 3.9 mmol/L (3.3-5.1); Sodium 140 mmol/L (135-145); Total Protein 6.8 g/dL (6.5-8.0)
[2023-01-10] MEDS: Escitalopram Oxalate 20 MG TABLET PO (09:38)
[2023-01-10] MEDS: Pyridoxine HCl (Vitamin B6) 50 MG TABLET 100 MG PO (09:38)
[2023-01-10] MEDS: allopurinoL 100 MG TABLET PO (09:38)
[2023-01-10] MEDS: amLODIPine Besylate 5 MG TABLET PO (09:38)
[2023-01-10] MEDS: 0.9 % Sodium Chloride Flush 3 ML SYRINGE IVFLUSH (09:39)
--- NOTE | 2023-01-10 10:48 | P.CNNE_ITS ---
History of Present Illness Data of Consult Service Date: 01/10/23 Primary Care Provider: Rashmi Zapata MD HPI Reason for consult: Papilledema 37 years old obese woman who was sent from her medical staff services coordinator's office yesterday to emergency room with findings of papilledema and further investigations. She saw the eye doctor for regular vision check. She said that she rarely had headaches but during last 2 weeks she was having more headaches. She denied any double vision or loss of vision type of episode. Review of Systems 2 Review of Systems: No recent cold or flu-like illness or head trauma no stroke-like symptoms PMFSH Past Medical History Medical History Morbid obesity Umbilical hernia Umbilical hernia Morbid obesity with BMI of 45.0-49.9, adult Renal calculi Hospital discharge follow-up Hypertension Fibromyalgia Active asthma Family History Family History Father Anemia Sister Cervical cancer Maternal Aunt Breast cancer Diabetes Mother No problems noted. Surgical History Surgical History History of extraction of renal calculus History of tubal ligation Social History Social History Housing: Apartment Alcohol intake: never Patient Tobacco Use Status: Former Tobacco user Tobacco use type: Cigarette e-Cigarette/Vaping Use: Never Used Second Hand Smoke Exposure: No service: No Current occupational status: employed Current occupational exposures/hazards: No Cognitive needs: No Hearing needs: No Vision needs: No Meds Allergies Allergy/AdvReac Type Severity Reaction Status Date / Time canned food Allergy Severe rash Verified 01/09/23 11:48 RED MEAT Allergy Severe Rash Uncoded 01/09/23 11:48 Active Medications: Current Medications Acetaminophen (Acetaminophen 325 Mg Tablet) 650 mg PO Q6H PRN PRN Reason: Pain, Mild (Pain Scale 1-3) Albuterol Sulfate (Albuterol Sulfate 90 Mcg 8 Gm Inhaler) 2 puff INHALE Q4H PRN PRN Reason: shortness of breath or wheezing Allopurinol (Allopurinol 100 Mg Tablet) 100 mg PO DAILY [facility] Last Admin: 01/10/23 09:38 Dose: 100 mg Amlodipine Besylate (Amlodipine Besylate 5 Mg Tablet) 5 mg PO DAILY [facility]; Protocol Last Admin: 01/10/23 09:38 Dose: 5 mg Escitalopram Oxalate (Escitalopram Oxalate 20 Mg Tablet) 20 mg PO DAILY [facility] Last Admin: 01/10/23 09:38 Dose: 20 mg Gabapentin (Gabapentin 300 Mg Capsule) 300 mg PO BEDTIME [facility] Last Admin: 01/09/23 22:41 Dose: 300 mg Hydroxyzine HCl (Hydroxyzine Hcl 25 Mg Tablet) 25 mg PO BID PRN PRN Reason: Anxiety Last Admin: 01/09/23 22:47 Dose: 25 mg Loratadine (Loratadine 10 Mg Tablet) 10 mg PO Q12H PRN PRN Reason: allergy symptoms Melatonin (Melatonin 3 Mg Tablet) 6 mg PO BEDTIME PRN PRN Reason: Insomnia Last Admin: 01/09/23 22:47 Dose: 6 mg Montelukast Sodium (Montelukast Sodium 10 Mg Tablet) 10 mg PO BEDTIME [facility] Last Admin: 01/09/23 22:41 Dose: 10 mg Omeprazole (Omeprazole 20 Mg Capsule.Dr) 20 mg PO DAILY@0630 [facility] Last Admin: 01/10/23 06:05 Dose: 20 mg Ondansetron HCl (Ondansetron Hcl 4 Mg/2 Ml Vial) 4 mg IVPUSH Q8H PRN PRN Reason: Nausea and Vomiting Pyridoxine HCl (Pyridoxine Hcl (Vitamin B6) 50 Mg Tablet) 100 mg PO DAILY [facility] Last Admin: 01/10/23 09:38 Dose: 100 mg Sodium Chloride (0.9 % Sodium Chloride Flush 3 Ml Syringe) [facility] Last Admin: 01/10/23 09:39 Dose: 3 ml Home Medications Medication Instructions Recorded Confirmed Last Taken Type hydroxyzine pamoate 25 mg capsule 25 mg PO BID PRN Anxiety 01/09/23 01/09/23 Unknown History Physical Exam 2 Vital Signs: Vital Signs: Last Vital Signs Temp 97.2 F 01/10/23 07:14 Pulse 75 01/10/23 07:14 Resp 20 01/10/23 07:14 BP 120/76 01/10/23 07:14 Pulse Ox 97 01/10/23 07:14 O2 Del Method Room Air 01/10/23 07:14 BMI result Body Mass Index 45.2 Neuro: Other: Young obese woman in no acute distress. Face is symmetrical. Visual demarco are full. Into was performed with the help of an karate instructor and there was no obvious confusion or problem with speech or language. Deep tendon reflexes were trace to absent with flexor plantars. Results Labs 01/09/23 19:05 01/10/23 06:57 Labs: Short CBC 01/09/23 Range/Units 19:05 WBC 12.6 H (4.8-10.8) X10*3/uL Hgb 12.3 (12.0-16.0) g/dl Hct 40.9 (37.0-47.0) % Plt Count 313 (160-400) X10*3/uL BMP 01/09/23 01/10/23 19:05 06:57 Sodium 140 140 Potassium 3.9 3.9 Chloride 106 109 H Carbon Dioxide 27 27 BUN 13 14 Creatinine 0.82 0.88 Calcium 9.1 D 8.5 D Liver Function 01/10/23 Range/Units 06:57 Total Bilirubin 0.2 (0.0-1.0) mg/dL AST 15 (5-31) U/L ALT 20 (0-31) U/L Alkaline Phosphatase 71 (39-117) U/L Albumin 3.3 L (3.5-5.0) g/dL Noncontrast head CT did not reveal any significant abnormality. Assessment and Plan (1) Idiopathic intracranial hypertension: Status: Acute 37 years old woman who might be suffering from idiopathic intracranial hypertension. Lumbar puncture is needed to check her spinal fluid pressure and adjusted accordingly. I also recommend obtaining an MRI and MRV of brain to rule out any structural cause of high intracranial pressure. She was advised to seek treatment for obesity as it might be the main cause of this problem. Time Spent With Patient Time: Total time managing care of this patient today ____ minutes. Procedures Date of Service Date of Service: 01/10/23
--- NOTE | 2023-01-10 11:32 | MHC.CM.PN ---
pt lives alone has own ride home dc plan home no services
[2023-01-10 11:33] VITALS: BP 115/59; PULSE 76; RESP 16; TEMP 36.8; O2SAT 97
[2023-01-10] MEDS: Acetaminophen 325 MG TABLET 650 MG PO (11:59)
[2023-01-10] MEDS: gadobutroL 10 ML VIAL IVPUSH (13:52)
[2023-01-10 16:00] VITALS: BP 138/79; PULSE 70; RESP 16; TEMP 36.3; O2SAT 95
--- NOTE | 2023-01-10 16:21 | PM.DS ---
DS: Providers Provider Date of Service: 01/10/23 Date of admission: 01/09/23 19:34 Date of discharge: 01/10/23 Primary care physician: Rashmi Zapata MD Consults: 01/09/23 19:36 Consult to Neurology Routine Consulting Provider: [facility] Reason for consultation: idiopathic intracranial hypertension Attending physician on discharge: Geo Richardson Discharging clinician: Oriana Schmidt DS: Diagnosis Discharge Diagnosis (1) Idiopathic intracranial hypertension: Status: Acute DS: Summary Hospital Course Hospital Course: From H&P on day of admission This is a 37-year-old female with pertinent history of mood disorder, essential hypertension, asthma not on home oxygen who presents to the emergency department for evaluation of headaches. Patient states it started about 1 week prior to presentation. It is not positional, constant, progressive and without any relieving factors. It is associated with blurring of vision. Patient went to ophthalmology office and was found to have papilledema and was referred to the ER. Denies similar complaints in the past. No neck pain, fever, chills, nausea, vomiting, chest pain, shortness of breath, palpitations, tinnitus, abdominal pain, changes in urinary or bowel habits. In the emergency department, multiple attempts were made for lumbar puncture but without success. Neurology was consulted who requested admission Papilledema - possibly related to Idiopathic intracranial hypertension. Multiple attempts in the ER for lumbar puncture without success. fluoroscopy guided LP ordered but unable to obtained until next week. Seen by neurology who recommended MRI and MVP. Recommend outpatient LP which is scheduled for Friday at 12:30. Counseled regarding weight loss. Time Spent with Patient Time attestation: Total time managing care of this patient today ____ minutes. Discharge coordination time: Greater than 30 minutes Quality: Safe Use of Opioids Does Pt have an Active Cancer Diagnosis on the Problem List?: No Quality: Stroke Does the patient have a stroke diagnosis?: No Physical Exam Vital Signs: Vital Signs: Last Vital Signs Temp 97.3 F 01/10/23 16:00 Pulse 70 01/10/23 16:00 Resp 16 01/10/23 16:00 BP 138/79 01/10/23 16:00 Pulse Ox 95 01/10/23 16:00 O2 Del Method Room Air 01/10/23 16:00 BMI result Body Mass Index 45.2 Const: General: cooperative, comfortable, no acute distress, alert and awake Nutritional Appearance: average body habitus Orientation/consciousness: patient oriented x3 Resp: Effort & Inspection: normal respiratory effort and able to speak in complete sentences Cardio: Rate: regular rate GI: Inspection: No distended Palpation (GI): Soft to palpation and nontender Neuro: General: patient oriented x3 Extrem: General: Yes no pedal edema DS: Data Data Completed and Pending Labs on day of discharge: Laboratory Results - last 24 hr 01/09/23 01/10/23 19:05 06:57 WBC 12.6 H RBC 5.33 Hgb 12.3 Hct 40.9 MCV 76.7 L MCH 23.1 L MCHC 30.1 L RDW 16.3 H Plt Count 313 MPV 9.1 L Immature Gran % (Auto) 0.3 Neut % (Auto) 80.9 H Lymph % (Auto) 11.0 L Whitfield % (Auto) 5.8 Eos % (Auto) 1.6 Baso % (Auto) 0.4 Lymph # (Auto) 1.4 Whitfield # (Auto) 0.7 Eos # (Auto) 0.2 Baso # (Auto) 0.1 Abs Immat Gran (auto) 0.04 H Absolute Neuts (auto) 10.2 H Absolute Nucleated RBC 0.000 Nucleated RBC % (auto) 0.0 PT 11.8 INR 1.0 Sodium 140 140 Potassium 3.9 3.9 Chloride 106 109 H Carbon Dioxide 27 27 Anion Gap 11 L 8 L BUN 13 14 Creatinine 0.82 0.88 Estim Creat Clear Calc 130.6 121.6 Estimated GFR > 60 > 60 Random Glucose 107 108 Calcium 9.1 D 8.5 D Total Bilirubin 0.2 AST 15 ALT 20 Alkaline Phosphatase 71 Total Protein 6.8 Albumin 3.3 L Discharge Plan Discharge Anticipated Discharge Date/Time: 01/10/23 16:15 Patient Disposition: Home, Self-Care Discharge Diagnosis: papilledema Referrals: Ina Bright MD [Physician] - 1 Week Rashmi Link MD [Primary Care Provider] - 1 Week Discharge Medications: Continued albuterol sulfate 90 mcg/actuation HFA aerosol inhaler 2 puff inhalation Q4-6H PRN (Reason: shortness of breath or wheezing) Qty: 8.5 0RF hydroxyzine pamoate 25 mg capsule 25 mg PO BID PRN (Reason: Anxiety) allopurinol 100 mg tablet 100 mg PO DAILY 90 Days Qty: 90 1RF amlodipine 5 mg tablet 5 mg PO DAILY 90 Days Qty: 90 1RF cetirizine 10 mg tablet 10 mg PO Q12H PRN (Reason: allergy symptoms) 90 Days Qty: 90 0RF citalopram 40 mg tablet 40 mg PO DAILY 90 Days Qty: 90 0RF gabapentin 300 mg capsule 300 mg PO BEDTIME 90 Days Qty: 90 1RF linaclotide 290 mcg capsule 290 mcg PO DAILY 90 Days Qty: 90 0RF montelukast 10 mg tablet 10 mg PO BEDTIME 90 Days Qty: 90 1RF omeprazole 20 mg capsule,delayed release(DR/EC) 20 mg PO DAILY 90 Days Qty: 90 1RF ondansetron 4 mg tablet,disintegrating 4 mg PO Q6-8H PRN (Reason: nausea and vomiting) Qty: 7 0RF pyridoxine (vitamin B6) 100 mg tablet 100 mg PO DAILY 90 Days Qty: 90 1RF potassium citrate 10 mEq (1,080 mg) tablet extended release 20 meq PO BID 90 Days Qty: 360 1RF Discharge Orders: Discharge Order (Routine); Ordered 01/10/23 Ordered By: Oriana Schmidt Activity on Discharge: As tolerated Stand Alone Forms: Patient Portal Discharge page, Work/School Release Care Plan Goals: see below Health Concerns: papilledema eval for idiopathic intracranial HTN Plan of Treatment: plan for outpatient Lumbar puncture - scheduled Sunday 01/14 at 12:30, you should received a phone call reminder on Friday, if you don't call the radiology department to confirm. call to schedule outpatient follow up appointment with neurology call to schedule follow up with PCP Assessment: see discharge summary
--- NOTE | 2023-01-10 16:24 | MHC.CM.PN ---
Patient is discharged self care. Patient has arranged for transportation home.
== END 2023-01-10 17:11 | disposition home or self-care (01) ==
LOC: HO.ED 19:27 → HO.EDOVER 20:03 → HO.S3 20:13
PROVIDERS: Admitting Provider Student in an Organized Health Care Education/Training Program; Emergency Provider Emergency Medicine; PCP Internal Medicine; Visit Provider Physician Assistant Medical
DX: G93.2 Benign intracranial hypertension (principal); R51.9 Headache, unspecified; H47.10 Unspecified papilledema; I10 Essential (primary) hypertension; E66.01 Morbid (severe) obesity due to excess calories; Z68.42 Body mass index [BMI] 45.0-49.9, adult
CPT/HCPCS: 36415; 70450; 70546; 70551; 80048; 80053; 85025; 85610; 96361; 96374; 99221; 99285; A9585; J2270

== ENCOUNTER → 2023-01-09 19:34 | Outpatient (BNV) | payer OTHER, SELFPAY | PROVIDERS: Admitting Provider Student in an Organized Health Care Education/Training Program; Emergency Provider Emergency Medicine; PCP Internal Medicine; Visit Provider Student in an Organized Health Care Education/Training Program | DX: G93.2 Benign intracranial hypertension (principal) | CPT/HCPCS: 99222; 99239 ==

== ENCOUNTER 2023-01-14 11:00 | Day surgery (SDC) | payer OTHER, SELFPAY ==
--- NOTE | ~2023-01-14 | FL_ITS ---
EXAMINATION: XR LUMBAR PUNCTURE CLINICAL INFORMATION: Elevated intracranial pressures COMPARISON: None available. TECHNIQUE: The skin was prepped and draped in the usual fashion. 1% Xylocaine was used for local anesthetic. FINDINGS: Under fluoroscopic guidance a 21-gauge needle was placed at the level of the L4-L5 disc space into the thecal sac. Opening pressure was measured at 5 cm. 8 mL of clear fluid was drained and sent for analysis. DOSE AREA PRODUCT: uGy-m2 (microgray-meter squared) FL/FL guided lumbar puncture LP IMPRESSION: Lumbar puncture at the L4-L5 level. 8 mL of clear CSF was collected and sent for analysis. Opening pressure was measured at 5 cm
[2023-01-14 09:37] VITALS: BMI 49.6
[2023-01-14 11:30] VITALS: BP 149/77; PULSE 77; RESP 20; TEMP 36.1; O2SAT 99
[2023-01-14 13:22] VITALS: BP 146/79; PULSE 70; RESP 16; TEMP 36.6; O2SAT 98
[2023-01-14 13:52] VITALS: BP 124/84; PULSE 71; RESP 16; O2SAT 99
[2023-01-14 14:06] LABS: CSF Appearance Clear, Colorless; CSF Tube # 2
[2023-01-14 14:18] LABS: Glucose CSF 67 mg/dL; Total Protein CSF 29.9 mg/dL (15-45)
[2023-01-14 14:22] VITALS: BP 139/80; PULSE 72; RESP 16; O2SAT 98
[2023-01-14 14:52] VITALS: BP 127/70; PULSE 66; RESP 16; O2SAT 98
[2023-01-14 15:07] LABS: Appearance CSF CLEAR; CSF Tube # 4; CSF Volume 2.5 ML; Color CSF COLORLESS; Lymphocytes CSF 58 %; Neutrophils CSF 42 %; White Blood Cell CSF 1 MM*3
[2023-01-14 15:08] LABS: Red Blood Cell CSF 285 MM*3
[2023-01-14 15:23] VITALS: BP 136/90; PULSE 79; RESP 16; TEMP 36.3; O2SAT 98
== END 2023-01-14 15:29 | disposition home or self-care (01) ==
PROVIDERS: Psychiatry & Neurology Neurology; PCP Internal Medicine; Visit Provider Radiology Vascular & Interventional Radiology
PROC: 009U3ZZ Drainage of Spinal Canal, Percutaneous Approach (ICD-10-PCS; CPT 62270; principal; 2023-01-14 12:30)
DX: G93.2 Benign intracranial hypertension (principal); I10 Essential (primary) hypertension; E66.01 Morbid (severe) obesity due to excess calories; M79.7 Fibromyalgia; J45.909 Unspecified asthma, uncomplicated; Z79.899 Other long term (current) drug therapy; Z87.891 Personal history of nicotine dependence
CPT/HCPCS: 62328; 82945; 84157; 87015; 87070; 87205; 89051

== ENCOUNTER → 2023-01-14 12:20 | Outpatient (BNV) | payer OTHER, SELFPAY | PROVIDERS: PCP Internal Medicine; Visit Provider Radiology Vascular & Interventional Radiology | DX: R51.9 Headache, unspecified (principal) | CPT/HCPCS: 62328 ==

== ENCOUNTER 2023-04-29 22:42 | Inpatient (IN) | payer MEDICAID, SELFPAY ==
--- NOTE | ~2023-04-29 | CT_ITS ---
EXAMINATION: CT ABDOMEN AND PELVIS WITHOUT CONTRAST CLINICAL INFORMATION: Right flank pain history of kidney stone COMPARISON: 07/16/2022 TECHNIQUE: Multidetector volumetric imaging was performed from the superior aspect of the liver through the pubic symphysis. Sagittal and coronal reformatted images were obtained on the technologist's workstation. This CT examination was performed using dose optimization techniques as appropriate, variously including the following: *Automated exposure control *Adjustment of mA and/or kV according to patient size (this includes techniques or standardized protocols for targeted exams where dose is matched to indication/reason for exam; i.e. extremities or head) *Use of iterative reconstruction technique DLP: 1063 mGy-cm FINDINGS: LUNG BASES: The visualized lung bases are unremarkable. LIVER, GALLBLADDER, AND BILIARY TREE: The liver is normal in size, shape, and attenuation. No focal hepatic lesion or biliary ductal dilatation is present. The gallbladder is unremarkable with no evidence of radiopaque gallstones, gallbladder wall thickening, or obvious pericholecystic inflammatory changes. PANCREAS: Unremarkable. SPLEEN: Unremarkable. ADRENAL GLANDS: Unremarkable. KIDNEYS AND URETERS: There is a new 4 mm calculus in the right mid ureter at the pelvic inlet at the level of S2 which produces moderate right hydroureteronephrosis, more pronounced as compared to prior. There is resultant asymmetric nephromegaly on the right. No additional ureteral calculi are identified. As seen on the prior study, there is increased attenuation within the renal pyramids with multiple bilateral renal calculi numbering between 15 and 30 bilaterally. The majority calculi measure 4 mm or smaller. No left-sided hydronephrosis. Normal renal thickness. No focal renal lesions. BLADDER: Unremarkable. GASTROINTESTINAL TRACT: Small hiatal hernia. Stomach, small bowel, and colon are normal in caliber. No bowel wall thickening or surrounding inflammatory changes. Appendix is normal. No intraperitoneal free fluid or free air. ABDOMINAL WALL: Small fat-containing umbilical hernia. No bowel involvement. LYMPH NODES: Normal. VASCULAR: Unremarkable. PELVIC VISCERA: The uterus and adnexa are unremarkable. 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 Mild multilevel degenerative disc disease in the remainder of the thoracolumbar spine. Mild osteoarthritis in the hips. CT/CT abdomen pelvis wo IV con IMPRESSION: 1. A 4 mm calculus in the right mid ureter produces moderate right hydroureteronephrosis, more pronounced as compared to prior. 2. Medullary nephrocalcinosis with multiple additional nonobstructing bilateral renal calculi. 3. Small hiatal hernia. Fleischner guidelines were followed.
--- NOTE | ~2023-04-29 | FL_ITS ---
EXAMINATION: XR FLUOROSCOPY WITH IMAGES CLINICAL INFORMATION: Right ureteral stent placement. COMPARISON: CT abdomen and pelvis same day. TECHNIQUE: Fluoroscopy Supervised By: Dr. Jack Johnson. Fluoroscopy Time: 18.3 seconds. Cumulative Dose: 10.12 mGy. Images: 1. FINDINGS: A single image demonstrates a catheter in the right ureter with the wire coiled in the right renal pelvis. Contrast is seen in the dilated collecting system. FL/FL guidance in OR IMPRESSION: Fluoroscopic guidance for right ureteral stent placement. Please see Dr. Jack Johnson's operative note for full details.
[2023-04-29 22:45] VITALS: BP 126/90; PULSE 91; RESP 18; TEMP 36.8; O2SAT 99; BMI 49.6
[2023-04-29 23:06] LABS: Basophils Absolute Auto 0.1 X10*3/uL (0.0-0.2); Basophils Percent Auto 0.3 % (0-2); Eosinophils Percent Auto 0.1 % (0-4); Hematocrit 41.8 % (37.0-47.0); Hemoglobin 12.6 g/dl (12.0-16.0); Imm Gran Abs Auto 0.05 X10*3/uL (0.00-0.03); Imm Gran Pct Auto 0.3 % (0.0-0.4); Lymphocytes Absolute Auto 0.6 X10*3/uL (1.2-4.9); Lymphocytes Percent Auto 3.5 % (20-40); MANUAL DIFF FLAG SCAN; Mean Corpuscular HGB Conc 30.1 g/dl (31.0-35.0); Mean Corpuscular Hemoglobin 22.8 pg (27.0-33.0); Mean Corpuscular Volume 75.7 fL (80.0-98.0); Mean Platelet Volume 9.3 fL (9.4-12.3); Monocytes Absolute Auto 0.2 X10*3/uL (0.1-1.2); Monocytes Percent Auto 1.2 % (2-11); Neutrophils Absolute Auto 16.8 x10*3/uL (2.0-8.3); Neutrophils Percent Auto 94.6 % (45-73); Platelet Count 311 X10*3/uL (160-400); Red Blood Count 5.52 X10*6/uL (4.20-5.50); Red Cell Distribution Width 16.2 % (11.0-16.0); SCAN SMEAR FLAG 1; White Blood Count 17.8 X10*3/uL (4.8-10.8)
[2023-04-29 23:19] LABS: Alanine Aminotransferase 17 U/L (0-31); Albumin Level 3.9 g/dL (3.5-5.0); Alkaline Phosphatase 79 U/L (39-117); Anion Gap 14 (12-20); Aspartate Amino Transferase 16 U/L (5-31); Bilirubin Direct 0.1 mg/dL (0.0-0.5); Bilirubin Total 0.4 mg/dL (0.0-1.0); Blood Urea Nitrogen 17 mg/dL (9-16); Calcium 9.1 mg/dL (8.4-10.2); Carbon Dioxide 25 mmol/L (22-29); Chloride 105 mmol/L (96-108); Creatinine Clr Calc Pharmacy 87.1; Estimated Glomerular Filt Rate 53; Glucose Random 152 mg/dL (60-115); Lipase 8 U/L (8-78); Potassium 3.8 mmol/L (3.3-5.1); Sodium 140 mmol/L (135-145); Total Protein 7.8 g/dL (6.5-8.0)
[2023-04-29 23:23] LABS: SLIDE REVIEW VERIFIED
[2023-04-29 23:29] LABS: Appearance Urine Clear; Color Urine Yellow; Glucose Urine UA Negative (Negative); Leukocyte Esterase Urine Trace (Negative); Nitrite Urine Positive (Negative); Specific Gravity - Urine 1.015 (1.005-1.025); UMIC TRIGGER UACC YES; Urine Blood Large (3+) (Negative); Urine Ketones Negative (Negative); Urine Protein 300 (3+) mg/dL (Neg-Trace)
[2023-04-29 23:30] LABS: UPreg QC Valid YES; Urine Pregnancy NEGATIVE (NEGATIVE)
[2023-04-29 23:31] LABS: Bacteria Urine 4+ (None Seen); Hyaline Casts Urine 0-2 /LPF (0-2); RBC Urine >20 /HPF (0-2); Squamous Epithelial Cell Urine 0-2 /HPF (0-2); UACC Culture Trigger YES; WBC Urine 21-50 /HPF (0-5)
[2023-04-30] VITALS (17 sets, daily range): BP systolic 126–182; BP diastolic 70–91; PULSE 95–126; RESP 12–20; TEMP 36.2–39.2; O2SAT 95–98
--- NOTE | 2023-04-30 02:42 | ED.ABDPAIN ---
HPI - Abdominal Pain General Chief Complaint: Abdominal Pain Stated Complaint: Kidney Stones? Time Seen by Provider: 04/30/23 02:42 Source: patient Mode of arrival: ambulatory Limitations: no limitations History of Present Illness HPI narrative: Patient has been having right flank pain for last 3 days got worse earlier today with nausea and vomiting also has frequency and dysuria with chills which is going on for last 1 week patient vomited 3 times today does have history of nephrocalcinosis had obstructive stone in the past with ESWL and stent placed Related Data Home Medications Medication Instructions Recorded Confirmed hydroxyzine pamoate 25 mg capsule 25 mg PO BID PRN Anxiety 01/09/23 01/09/23 Previous Rx's Medication Instructions Recorded albuterol sulfate 90 mcg/actuation 2 puff inhalation Q4-6H PRN 02/05/21 aerosol inhaler shortness of breath or wheezing #8.5 grams potassium citrate 10 mEq (1,080 20 meq (2 x 10 mEq (1,080 mg)) PO 03/05/22 mg) tablet,extended release BID 90 days #360 tabs allopurinol 100 mg tablet 100 mg PO DAILY 90 days #90 tabs 11/11/22 amlodipine 5 mg tablet 5 mg PO DAILY 90 days #90 tabs 11/11/22 citalopram 40 mg tablet 40 mg PO DAILY 90 days #90 tabs 11/11/22 gabapentin 300 mg capsule 300 mg PO BEDTIME 90 days #90 caps 11/11/22 linaclotide 290 mcg capsule 290 mcg PO DAILY 90 days #90 caps 11/11/22 montelukast 10 mg tablet 10 mg PO BEDTIME 90 days #90 tabs 11/11/22 omeprazole 20 mg capsule,delayed 20 mg PO DAILY 90 days #90 caps 11/11/22 release ondansetron 4 mg disintegrating 4 mg PO Q6-8H PRN nausea and 11/11/22 tablet vomiting #7 tabs pyridoxine (vitamin B6) 100 mg 100 mg PO DAILY 90 days #90 tabs 11/11/22 tablet cetirizine 10 mg tablet 10 mg PO Q12H PRN allergy symptoms 02/07/23 90 days #90 tabs Allergies Allergy/AdvReac Type Severity Reaction Status Date / Time canned food Allergy Severe rash Verified 04/29/23 22:52 lactose Allergy Nausea Verified 04/29/23 22:52 RED MEAT Allergy Severe Rash Uncoded 01/09/23 11:48 Review of Systems Review of Systems Yes all other systems are reviewed and are negative [facility] Past Medical History Onset Date is defined in the Problem List Problems that require an onset date and time if occurred within 24 hrs of arrival to the ED Aortic Dissection and Rupture; Neurologic impairment; Cardiopulmonary Arrest; Endotracheal Intubation; Insertion or Replacement of Mechanical Circulatory Assist Device Medical History Morbid obesity Umbilical hernia Umbilical hernia Morbid obesity with BMI of 45.0-49.9, adult Renal calculi Hospital discharge follow-up Hypertension Fibromyalgia Active asthma Surgical History History of extraction of renal calculus History of tubal ligation Family History Family History Father Anemia Sister Cervical cancer Maternal Aunt Breast cancer Diabetes Mother No problems noted. Social History Social History Housing: Apartment Alcohol intake: never Comment: medicated in pacu Patient Tobacco Use Status: Former Tobacco user Tobacco use type: Cigarette e-Cigarette/Vaping Use: Never Used Second Hand Smoke Exposure: No Advance Directives: No Advance Directives Information Provided: No service: No Current occupational status: employed Current occupational exposures/hazards: No Cognitive needs: No Hearing needs: No Vision needs: No Physical Exam ED Vital Signs: Vital Signs - 24 hr 04/29/23 22:45 04/30/23 02:26 Temperature 98.2 F 98.9 F Pulse Rate 91 124 H Respiratory Rate 18 20 Blood Pressure 126/90 H 150/91 H Pulse Oximetry 99 98 Oxygen Delivery Method Room Air Room Air BMI result Body Mass Index 49.6 Appearance: Alert. Oriented X3. In moderate distress, febrile. Eyes: No pallor or icterus ENT: Pharynx normal. Oral Mucosa moist Neck: Normal inspection. Neck supple. CVS: Tachycardic, Pulses normal. Respiratory: No respiratory distress. Equal air entry bilateral, no wheezing/rales/rhonchi Abdomen: Soft and nontender. Bowel sounds are present, no mass palpable, right CVA tenderness Skin: Skin warm and dry. Normal skin color. Normal skin turgor. Extremities: No lower extremity edema. No calf tenderness Neuro: Oriented X 3 Medical Decision Making Medical Decision Making [facility] Narrative: Patient with UTI/obstructive stone/pyelonephritis responded to IV antibiotics and pain medication feeling much better now on arrival patient temperature was 102.[address] scan showed 4 mm mid right ureteric stone with moderate hydroureteronephrosis patient feels better but as obstructive stone with UTI will admit patient for pyelonephritis/sepsis Differential Diagnosis Differential Diagnoses: The differential diagnosis associated with the presentation includes Renal colic/appendicitis/UTI Admission/Observation Consideration of admission/observation: Escalation of care including admission/observation considered Consult Healthcare Provider Management of the patient was discussed with: Hospitalist Lab Data [facility] Lab Attestation statement: I reviewed the patient's lab results. 04/29/23 23:00 04/29/23 23:00 Labs: Lab Results 04/29/23 04/29/23 04/30/23 Range/Units 23:00 23:21 03:16 WBC 17.8 H (4.8-10.8) X10*3/uL RBC 5.52 H (4.20-5.50) X10*6/uL Hgb 12.6 (12.0-16.0) g/dl Hct 41.8 (37.0-47.0) % MCV 75.7 L (80.0-98.0) fL MCH 22.8 L (27.0-33.0) pg MCHC 30.1 L (31.0-35.0) g/dl RDW 16.2 H (11.0-16.0) % Plt Count 311 (160-400) X10*3/uL MPV 9.3 L (9.4-12.3) fL Immature Gran % (Auto) 0.3 (0.0-0.4) % Neut % (Auto) 94.6 H (45-73) % Lymph % (Auto) 3.5 L (20-40) % [place] % (Auto) 1.2 L (2-11) % Eos % (Auto) 0.1 (0-4) % Baso % (Auto) 0.3 (0-2) % Lymph # (Auto) 0.6 L (1.2-4.9) X10*3/uL [place] # (Auto) 0.2 (0.1-1.2) X10*3/uL Eos # (Auto) 0.0 (0.0-0.4) X10*3/uL Baso # (Auto) 0.1 (0.0-0.2) X10*3/uL Abs Immat Gran (auto) 0.05 H (0.00-0.03) X10*3/uL Absolute Neuts (auto) 16.8 H (2.0-8.3) x10*3/uL Absolute Nucleated RBC 0.000 (0.0-0.012) X10*3/uL Nucleated RBC % (auto) 0.0 (0.0-0.2) /100WBC Smear Tech's Comments VERIFIED Sodium 140 (135-145) mmol/L Potassium 3.8 (3.3-5.1) mmol/L Chloride 105 (96-108) mmol/L Carbon Dioxide 25 (22-29) mmol/L Anion Gap 14 (12-20) BUN 17 H (9-16) mg/dL Creatinine 1.17 (0.5-1.4) mg/dL Estim Creat Clear Calc 87.1 Estimated GFR 53 Random Glucose 152 H (60-115) mg/dL Lactic Acid 2.2 H* (0.5-2.0) mmol/L Calcium 9.1 D (8.4-10.2) mg/dL Total Bilirubin 0.4 (0.0-1.0) mg/dL Direct Bilirubin 0.1 (0.0-0.5) mg/dL AST 16 (5-31) U/L ALT 17 (0-31) U/L Alkaline Phosphatase 79 (39-117) U/L Total Protein 7.8 (6.5-8.0) g/dL Albumin 3.9 (3.5-5.0) g/dL Lipase 8 (8-78) U/L Urine Color Yellow Urine Appearance Clear Urine pH 6.0 (5.0-9.0) Ur Specific [place] 1.015 (1.005-1.025) Urine Protein 300 (3+) H (Neg-Trace) mg/dL Urine Glucose (UA) Negative (Negative) mg/dL Urine Ketones Negative (Negative) mg/dL Urine Blood Large (3+) H (Negative) Urine Nitrite Positive H (Negative) Ur Leukocyte Esterase Trace H (Negative) Urine RBC >20 H (0-2) /HPF Urine WBC 21-50 H (0-5) /HPF Ur Squamous Epith Cells 0-2 (0-2) /HPF Urine Bacteria 4+ (None Seen) Hyaline Casts 0-2 (0-2) /LPF Urine Test NEGATIVE (NEGATIVE) Radiology Impression Discussion of test interpretation with radiology: I have reviewed the radiologist's reading. Radiologist Impression: CT/CT abdomen pelvis wo IV con IMPRESSION: 1. A 4 mm calculus in the right mid ureter produces moderate right hydroureteronephrosis, more pronounced as compared to prior. 2. Medullary nephrocalcinosis with multiple additional nonobstructing bilateral renal calculi. 3. Small hiatal hernia. Fleischner guidelines were followed. Medications Administered Discontinued Medications Generic Name Dose Route Start Last Admin Trade Name Freq PRN Reason Stop Dose Admin Acetaminophen 975 mg 04/30/23 02:59 04/30/23 03:52 Acetaminophen 325 Mg Tablet PO 04/30/23 03:00 975 mg ONCE ONE Administration Sodium Chloride 1,000 mls @ 999 mls/hr 04/30/23 02:43 04/30/23 03:53 Ns IV 04/30/23 03:43 Infused .Q1H1M ONE Infusion Ceftriaxone Sodium 1 gm/ 50 mls @ 100 mls/hr 04/30/23 02:43 04/30/23 03:20 Sodium Chloride IV 04/30/23 03:12 Infused ONCE ONE Infusion Ketorolac Tromethamine 30 mg 04/30/23 02:43 04/30/23 02:50 Ketorolac Tromethamine 30 Mg/Ml Vial IVPUSH 04/30/23 02:44 30 mg ONCE ONE Administration Discharge Plan Discharge Clinical Impression: Acute unilateral obstructive uropathy, Pyelonephritis Patient Disposition: Admitted As Inpatient
[2023-04-30] MEDS: cefTRIAXone sodium 1 GM in 0.9 % Sodium Chloride 50 ML IV (02:50)
[2023-04-30] MEDS: Ketorolac Tromethamine 30 MG/ML VIAL IVPUSH (02:50)
[2023-04-30] MEDS: 0.9 % Sodium Chloride 1,000 ML 999 ML IV ×2 (02:51→05:11)
[2023-04-30 03:37] LABS: Lactic Acid 2.2 mmol/L (0.5-2.0)
--- NOTE | 2023-04-30 03:45 | PC.NURSE ---
prior to pulling ordered antibiotics this RN discussed with Dr Flores the need for blood cultures. states they are not necessary at this time and gave verbal OK to hang ordered antibiotics. shortly after antibiotics were started MD present at bedside. after thorough discussion with the patient and with patient now being febrile he ordered blood cultures and a lactic. blood cultures then drawn.
[2023-04-30] MEDS: Acetaminophen 325 MG TABLET 975 MG PO ×2 (03:52→18:06)
[2023-04-30 05:22] LABS: Reflex Lactate? Lactic Acid Added
--- NOTE | 2023-04-30 05:42 | P.HPHOSP_ITS ---
History of Present Illness Date of Service: 04/30/23 Attending physician on admission: Marin Chance Chief Complaint: Abdominal pain Liz Summers is a 37 years old with past medical history significant for essential hypertension, nephrolithiasis (obstructive renal calculi requiring stent placement), nephrocalcinosis, asthma and anxiety presents to the emergency department complaining of right-sided abdominal pain that started last Friday associated with nausea, vomiting, painful urination and generalized weakness. She reported having soft stools but denies diarrhea. She noted that her urine was dark and foul smelling. She was noted to have fever when she was evaluated in the emergency department. She denies any headache, palpitations or chest pain. She stated that she has not been using her or so home medication over the last 3 months assess for amlodipine, omeprazole + medicationd for anxiety as needed. She did not report tobacco smoking, alcohol abuse or illicit drug use. In the ED, she was found to have tachycardia. Her blood pressure is normal. Oxygen saturation is normal on room air. Blood workup is remarkable for leukocytosis of 17.8. There is lactic acidosis (2.1) that resolved with IV fluids. Most recent lactic acid level is 1.2. Urinalysis is consistent with urinary tract infection. test is negative. She underwent a abdomen pelvis CT scan that showed a 4 mm calculus in the right mid-ureter causing right hydroureteronephrosis. It does show some medullary nephrocalcinosis with multiple additional nonobstructing bilateral renal calculi. ED tx: NS 2L bolus, ketorolac 30 mg IV x1, ceftriaxone 1 g IV x1 acetaminophen 975 mg p.o. x1 Review of Systems 2 Review of Systems: All 12 systems were reviewed and normal except as noted in HPI. [facility] Medical History Morbid obesity Umbilical hernia Umbilical hernia Morbid obesity with BMI of 45.0-49.9, adult Renal calculi Hospital discharge follow-up Hypertension Fibromyalgia Active asthma Family History Father Anemia Sister Cervical cancer Maternal Aunt Breast cancer Diabetes Mother No problems noted. Surgical History History of extraction of renal calculus History of tubal ligation Social History Housing: Apartment Alcohol intake: never Comment: medicated in pacu Patient Tobacco Use Status: Former Tobacco user Tobacco use type: Cigarette e-Cigarette/Vaping Use: Never Used Second Hand Smoke Exposure: No Advance Directives: No Advance Directives Information Provided: No service: No Current occupational status: employed Current occupational exposures/hazards: No Cognitive needs: No Hearing needs: No Vision needs: No Meds Allergies Allergy/AdvReac Type Severity Reaction Status Date / Time canned food Allergy Severe rash Verified 04/29/23 22:52 lactose Allergy Nausea Verified 04/29/23 22:52 RED MEAT Allergy Severe Rash Uncoded 01/09/23 11:48 Active Medications: Current Medications Acetaminophen (Acetaminophen 325 Mg Tablet) 950 mg PO Q6H PRN PRN Reason: Fever Heparin Sodium (Porcine) (Heparin Sodium,Porcine 5,000 Unit/Ml Vial) 5,000 unit SUBCUT Q8H [facility] Hydromorphone HCl (Hydromorphone Hcl 1 Mg/Ml Syringe) 0.5 mg IVPUSH Q4H PRN; Protocol PRN Reason: Pain, Severe (Pain Scale 7-10) Sodium Chloride (Ns) 1,000 mls @ 999 mls/hr IV .Q1H1M ONE Stop: 04/30/23 05:44 Last Admin: 04/30/23 05:11 Dose: 999 mls/hr Sodium Chloride (Ns) 1,000 mls @ 999 mls/hr IVCONT .Q1H1M [facility] Stop: 04/30/23 07:45 Sodium Chloride (Ns) 1,000 mls @ 100 mls/hr IVCONT .Q10H [facility] Ceftriaxone Sodium 1 gm/ (Sodium Chloride) 50 mls @ 100 mls/hr IV DAILY [facility] Sodium Chloride (0.9 % Sodium Chloride Flush 3 Ml Syringe) 3 ml IVFLUSH QSHIFT [facility] Home Medications Medication Instructions Recorded Confirmed Last Taken Type hydroxyzine pamoate 25 mg capsule 25 mg PO BID PRN Anxiety 01/09/23 04/30/23 Unknown History amlodipine 5 mg tablet 5 mg PO DAILY 04/30/23 04/30/23 Unknown History omeprazole 20 mg capsule,delayed 20 mg PO DAILY 04/30/23 04/30/23 Unknown History release Physical Exam 2 Vital Signs and Narrative: Vital Signs: Last Vital Signs Temp 99.1 F 04/30/23 05:05 Pulse 110 H 04/30/23 05:05 Resp 18 04/30/23 05:05 BP 134/70 04/30/23 05:05 Pulse Ox 96 04/30/23 05:05 O2 Del Method Room Air 04/30/23 05:05 BMI result Body Mass Index 49.6 Const: General: cooperative, comfortable, no acute distress and ill appearing Nutritional Appearance: obese Orientation/consciousness: patient oriented x3 HEENT: Head: Yes normocephalic and Yes atraumatic Eyes: Pupils: Equal, round and reactive pupils present Resp: Effort & Inspection: normal respiratory effort Auscultation: clear to auscultation bilaterally Cardio: Rate: regular rate and tachycardic Rhythm: regular rhythm Heart sounds: no murmurs GI: Inspection: Yes normal to inspection, Yes Abdominal panniculus present and Yes obesity Palpation (GI): Soft to palpation and Tenderness to palpation present (GI) in the LUQ and in the RUQ; with no rebound tenderness A uscultation: normal bowel sounds Neuro: General: patient oriented x3 Cranial nerves: Yes Equal, round and reactive pupils present Extrem: General: No edema Psych: Mental Status: mental status grossly normal Affect: normal affect Thought process: Normal thought process present Thought content: Normal thought content present Judgement: Good judgement present (Psych) Results Labs 04/29/23 23:00 04/29/23 23:00 Labs: Laboratory Results - last 24 hr 04/29/23 04/29/23 04/30/23 23:00 23:21 03:16 MCV 75.7 L MCH 22.8 L MCHC 30.1 L RDW 16.2 H Plt Count 311 MPV 9.3 L Immature Gran % (Auto) 0.3 Neut % (Auto) 94.6 H Lymph % (Auto) 3.5 L [place] % (Auto) 1.2 L Eos % (Auto) 0.1 Baso % (Auto) 0.3 Lymph # (Auto) 0.6 L [place] # (Auto) 0.2 Eos # (Auto) 0.0 Baso # (Auto) 0.1 Abs Immat Gran (auto) 0.05 H Absolute Neuts (auto) 16.8 H Absolute Nucleated RBC 0.000 Nucleated RBC % (auto) 0.0 Smear Tech's Comments VERIFIED Anion Gap 14 Estim Creat Clear Calc 87.1 Estimated GFR 53 Random Glucose 152 H Lactic Acid 2.2 H* Calcium 9.1 D Total Bilirubin 0.4 Direct Bilirubin 0.1 AST 16 ALT 17 Alkaline Phosphatase 79 Total Protein 7.8 Albumin 3.9 Lipase 8 Urine Color Yellow Urine Appearance Clear Urine pH 6.0 Ur Specific [place] 1.015 Urine Protein 300 (3+) H Urine Glucose (UA) Negative Urine Ketones Negative Urine Blood Large (3+) H Urine Nitrite Positive H Ur Leukocyte Esterase Trace H Urine RBC >20 H Urine WBC 21-50 H Ur Squamous Epith Cells 0-2 Urine Bacteria 4+ Hyaline Casts 0-2 Urine Test NEGATIVE Imaging Radiologist's Impressions: Impressions Abdomen/Pelvis CT 04/30/23 03:35 IMPRESSION: 1. A 4 mm calculus in the right mid ureter produces moderate right hydroureteronephrosis, more pronounced as compared to prior. 2. Medullary nephrocalcinosis with multiple additional nonobstructing bilateral renal calculi. 3. Small hiatal hernia. Fleischner guidelines were followed. Assessment and Plan (1) Sepsis: Qualifiers: Sepsis type: sepsis due to unspecified organism Sepsis acute organ dysfunction status: without acute organ dysfunction Qualified Code(s): A41.9 - Sepsis, unspecified organism Status: Acute (2) Urinary tract obstruction by kidney stone: Status: Acute Plan Liz Summers is a 37 years old with past medical history significant for nephrolithiasis (obstructive renal calculi requiring stent placement) and nephrocalcinosis admitted with: * Sepsis secondary to urinary tract infection associated with obstructive renal calculi and moderate right hydroureteronephrosis. Admit to hospitalist service. Telemetry. Continue empiric IV antibiotic therapy with ceftriaxone. Continue IV fluids 30ml/kg -patient received 2 L in the emergency department. Will order an addition liter of NS then maintenance. Blood and urine cultures were obtained -will follow results. Recheck lactic acid. Urology consult. * Asthma. Bronchodilator therapy as needed. * Essential hypertension. Continue amlodipine. * Anxiety. Ativan PO as needed. * GERD. Continue omeprazole. VTE prophylaxis: Heparin subcut. Code Status: Full. Patient will require hospitalization for at least 2 midnights for sepsis treatment with IV fluids and IV antibiotics. Patient will need evaluation by urology service for possible intervention. Quality Stroke Does the patient have a stroke diagnosis?: No VTE Prior VTE?: No VTE Risk Level:: Medical - moderate - high VTE Device Contraindication: Treatment Not Indicated VTE Drug Contraindication: N/A - Med Ordered
[2023-04-30 05:43] LABS: ~Lactic Acid-LAB USE ONLY 1.2 mmol/L (0.5-2.0)
[2023-04-30 06:11] LABS: Influenza A PCR NEGATIVE (Negative); Influenza B PCR NEGATIVE (Negative); Resp Syncy Virus RNA Qual PCR NEGATIVE (Negative); SARS COV2 PCR INHOUSE NEGATIVE (Negative)
--- NOTE | 2023-04-30 09:05 | PHA.MEDREC ---
Pharmacy Consult ? Medication Reconciliation Pharmacy has completed the medication reconciliation. Spoke to patient via tack cleaner and confirmed medication list. Patient could only confirm the last dose of amlodipine and omeprazole were taken on 04/28/23.
[2023-04-30] MEDS: Omeprazole 20 MG CAPSULE.DR PO (09:34)
[2023-04-30] MEDS: amLODIPine Besylate 5 MG TABLET PO (09:34)
[2023-04-30] MEDS: 0.9 % Sodium Chloride 1,000 ML 100 ML IVCONT ×2 (09:37→20:31)
--- NOTE | 2023-04-30 09:51 | P.CNUR_ITS ---
History of Present Illness Consult details Consult date: 04/30/23 Narrative: CC: right pyelonephritis Gibraltarian translation provided by qualified health care / medical job titles emergency room 37-year-old Gibraltarian-speaking female presents with right-sided abdominal pain that started on Friday. Was associated with nausea, vomiting. Pain reported up to level 8/10. No relieving factors. Recurrence on Friday and Friday. Presented Friday evening. Noted to have fever when she is in the emergency department. Denies hematuria, dysuria. Prior stone former with known Medullary sponge kidney. Failed to attend scheduled office visits Investigations with initial WBC 17.8, lactate 2.1. Lactate resolution with IV fluids. Urinalysis shows positive nitrite confirming infection. CT scan - new 4 mm calculus in the right mid ureter at the pelvic inlet at the level of S2 which produces moderate right hydroureteronephrosis, more pronounced as compared to prior. There is resultant asymmetric nephromegaly on the right. recommend cystoscopy, right retrograde, right stent placement Review of Systems 2 Constitutional: Constitutional: Reports as per HPI and Reports no additional constitutional complaints Cardiovascular: Cardiovascular: Reports as per HPI and Reports no additional cardiovascular complaints Respiratory: Respiratory: Reports as per HPI and Reports no additional respiratory complaints Gastrointestinal: Gastrointestinal: Reports as per HPI and Reports no additional gastrointestinal complaints Genitourinary: Genitourinary: Reports as per HPI Musculoskeletal: Musculoskeletal: Reports no additional musculoskeletal complaints and Reports as per HPI Neurologic: Reports system reviewed and no additional complaints, except as documented and Reports as per HPI PMF Past Medical History Medical History Morbid obesity Umbilical hernia Umbilical hernia Morbid obesity with BMI of 45.0-49.9, adult Renal calculi Hospital discharge follow-up Hypertension Fibromyalgia Active asthma Family History Family History Father Anemia Sister Cervical cancer Maternal Aunt Breast cancer Diabetes Mother No problems noted. Surgical History Surgical History History of extraction of renal calculus History of tubal ligation Social History Social History Housing: Apartment Alcohol intake: never Comment: medicated in pacu Patient Tobacco Use Status: Former Tobacco user Tobacco use type: Cigarette e-Cigarette/Vaping Use: Never Used Second Hand Smoke Exposure: No service: No Current occupational status: employed Current occupational exposures/hazards: No Cognitive needs: No Hearing needs: No Vision needs: No Meds Allergies Allergy/AdvReac Type Severity Reaction Status Date / Time canned food Allergy Severe rash Verified 04/29/23 22:52 lactose Allergy Nausea Verified 04/29/23 22:52 RED MEAT Allergy Severe Rash Uncoded 01/09/23 11:48 Active Medications: Current Medications Acetaminophen (Acetaminophen 325 Mg Tablet) 950 mg PO Q6H PRN PRN Reason: Fever Albuterol/Ipratropium (Albuterol/Iprat 2.5/0.5mg 3 Ml Ampul.Neb) 3 ml INHALE Q4H PRN PRN Reason: Shortness of Breath/Wheezing Amlodipine Besylate (Amlodipine Besylate 5 Mg Tablet) 5 mg PO DAILY [facility]; Protocol Last Admin: 04/30/23 09:34 Dose: 5 mg Heparin Sodium (Porcine) (Heparin Sodium,Porcine 5,000 Unit/Ml Vial) 5,000 unit SUBCUT Q8H [facility] Hydromorphone HCl (Hydromorphone Hcl 1 Mg/Ml Syringe) 0.5 mg IVPUSH Q4H PRN; Protocol PRN Reason: Pain, Severe (Pain Scale 7-10) Sodium Chloride (Ns) 1,000 mls @ 100 mls/hr IVCONT .Q10H [facility] Last Admin: 04/30/23 09:37 Dose: 100 mls/hr Ceftriaxone Sodium 1 gm/ (Sodium Chloride) 50 mls @ 100 mls/hr IV DAILY [facility] Lorazepam (Lorazepam 0.5 Mg Tablet) 0.25 mg PO Q4H PRN PRN Reason: Anxiety Omeprazole (Omeprazole 20 Mg Capsule.Dr) 20 mg PO DAILY@0630 [facility] Last Admin: 04/30/23 09:34 Dose: 20 mg Ondansetron HCl (Ondansetron Hcl 4 Mg/2 Ml Vial) 4 mg IVPUSH Q8H PRN PRN Reason: Nausea and Vomiting Sodium Chloride (0.9 % Sodium Chloride Flush 3 Ml Syringe) 3 ml IVFLUSH QSHIFT [facility] Last Admin: 04/30/23 07:03 Dose: Not Given Home Medications Medication Instructions Recorded Confirmed Last Taken Type hydroxyzine pamoate 25 mg capsule 25 mg PO BID PRN Anxiety 01/09/23 04/30/23 Unknown History amlodipine 5 mg tablet 5 mg PO DAILY 04/30/23 04/30/23 04/28/23 History omeprazole 20 mg capsule,delayed 20 mg PO DAILY 04/30/23 04/30/23 04/28/23 History release Physical Exam 2 Vital Signs: Vital Signs: Last Vital Signs Temp 98.4 F 04/30/23 07:06 Pulse 103 H 04/30/23 07:06 Resp 20 04/30/23 07:06 BP 126/74 04/30/23 07:06 Pulse Ox 95 04/30/23 07:06 O2 Del Method Room Air 04/30/23 07:06 BMI result Body Mass Index 49.6 Const: General: cooperative, healthy appearing, comfortable and no acute distress Orientation/consciousness: patient oriented x3 HEENT: Face and sinus: Yes normal facial exam Mouth: moist mucous membranes Neck: Neck: Yes normal visual inspection, Yes full ROM and Yes trachea midline Chest: Chest palpation & inspection: normal inspection of the chest Resp: Effort & Inspection: normal respiratory effort, able to speak in complete sentences and no respiratory distress GI: Inspection: Yes normal to inspection Back/Spine/Pelvis: Cervical Spine: normal cervical lordosis Thoracic/Lumbar Spine: thoracic and lumbar spine normal to inspection Skin: General skin exam: no rashes or lesions noted Neuro: General: patient oriented x3, tone normal and moves all extremities Extrem: General: Yes normal to inspection and Yes capillary refill normal Results Labs 04/29/23 23:00 04/29/23 23:00 Labs: Abnormal lab results 04/29/23 04/29/23 04/30/23 Range/Units 23:00 23:21 03:16 WBC 17.8 H (4.8-10.8) X10*3/uL RBC 5.52 H (4.20-5.50) X10*6/uL MCV 75.7 L (80.0-98.0) fL MCH 22.8 L (27.0-33.0) pg MCHC 30.1 L (31.0-35.0) g/dl RDW 16.2 H (11.0-16.0) % MPV 9.3 L (9.4-12.3) fL Neut % (Auto) 94.6 H (45-73) % Lymph % (Auto) 3.5 L (20-40) % [place] % (Auto) 1.2 L (2-11) % Lymph # (Auto) 0.6 L (1.2-4.9) X10*3/uL Abs Immat Gran (auto) 0.05 H (0.00-0.03) X10*3/uL Absolute Neuts (auto) 16.8 H (2.0-8.3) x10*3/uL BUN 17 H (9-16) mg/dL Random Glucose 152 H (60-115) mg/dL Lactic Acid 2.2 H* (0.5-2.0) mmol/L Urine Protein 300 (3+) H (Neg-Trace) mg/dL Urine Blood Large (3+) H (Negative) Urine Nitrite Positive H (Negative) Ur Leukocyte Esterase Trace H (Negative) Urine RBC >20 H (0-2) /HPF Urine WBC 21-50 H (0-5) /HPF Short CBC 04/29/23 Range/Units 23:00 WBC 17.8 H (4.8-10.8) X10*3/uL Hgb 12.6 (12.0-16.0) g/dl Hct 41.8 (37.0-47.0) % Plt Count 311 (160-400) X10*3/uL BMP 04/29/23 23:00 Sodium 140 Potassium 3.8 Chloride 105 Carbon Dioxide 25 BUN 17 H Creatinine 1.17 Calcium 9.1 D Liver Function 04/29/23 Range/Units 23:00 Total Bilirubin 0.4 (0.0-1.0) mg/dL Direct Bilirubin 0.1 (0.0-0.5) mg/dL AST 16 (5-31) U/L ALT 17 (0-31) U/L Alkaline Phosphatase 79 (39-117) U/L Albumin 3.9 (3.5-5.0) g/dL Urine 04/29/23 Range/Units 23:21 Urine Color Yellow Urine Appearance Clear Urine pH 6.0 (5.0-9.0) Ur Specific [place] 1.015 (1.005-1.025) Urine Protein 300 (3+) H (Neg-Trace) mg/dL Urine Glucose (UA) Negative (Negative) mg/dL Urine Test NEGATIVE (NEGATIVE) All other labs normal. Assessment and Plan (1) Pyelonephritis: Status: Acute (2) Acute unilateral obstructive uropathy: Status: Acute Plan Risks, benefits and alternatives to therapy were discussed. These include but are not limited to infection, bleeding, damage to local organs and tissues, need for further interventions. Anesthetic risks regarding cardiac arrhythmia, blood clots, and potential mortality were discussed. The patient understands the typical recovery time and the outpatient nature of the procedure. After consideration of these risks the patient gives full informed consent and they wish to move ahead with the procedure. cystoscopy, right retrograde, right stent placement Procedures Date of Service Date of Service: 04/30/23
--- NOTE | 2023-04-30 09:57 | PM.EVENT ---
Event Note Date of Service: 04/30/23 Event Note: Day hospitalist update S: This history was taken in Bengali from the patient. Febrile to 102.6 @ 02:45 NPO for OR O: Temp Pulse Resp BP Pulse Ox O2 Del Method 98.4 F 103 H 20 126/74 95 Room Air 04/30/23 07:06 04/30/23 07:06 04/30/23 07:06 04/30/23 07:06 04/30/23 07:06 04/30/23 07:06 Gen: in no acute distress HEENT: sclera anicteric, moist mucus membranes Neck: supple Lungs: clear to auscultation bilaterally Heart: regular rate and rhythm, no murmurs Abd: soft, non-tender, non-distended, obese : R CVAT Ext: no edema Skin: warm/well-perfused Neuro: alert and oriented x3, no focal findings Psych: appropriate affect A/P: d1 37yo F with obesity, nephrolithiasis, nephrocalcinosis admitted for sepsis due to UTI sepsis due to UTI due to obstructive uropathy with hydroureteronephrosis from obstructive R ureterolith - follow BCx/UCx, continue IV fluids, Urology consult for possible stenting, continue ceftriaxone 04/30- asthma, mild intermittent not in acute exac - prn albuterol HTN - amlodipine mood disorder - lorazepam GERD - PPI morbid obesity - diet/exercise counseling VTE ppx - UFH dispo - eventual home In my clinical judgment, the patient requires continued inpatient hospitalization for the following reasons: IV fluids, IV ABX, operative interevention Time Spent With Patient Time: Total time managing care of this patient today ____ minutes.
--- NOTE | 2023-04-30 10:49 | MHC.CM.PN ---
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
--- NOTE | 2023-04-30 10:57 | PC.NURSE ---
late entry: assumed care of pt at 0700. pt a&o x4, pleasant, calm, and cooperative. pt ambulated to bathroom independently with steady gait. pt back to bed and sleeping. pt medicated and fluids running per mar. duplicate orders not given. call sharma within pt reach. rr even/unlabored. plan of care ongoing.
--- NOTE | 2023-04-30 13:31 | PC.NURSE ---
report given to [facility] nurse. pt to go to OR around 1530.
[2023-04-30] MEDS: HYDROmorphone HCl 1 MG/ML SYRINGE 0.5 MG IVPUSH (13:41)
--- NOTE | 2023-04-30 13:46 | PC.NURSE ---
pt medicated per mar for pain.
--- NOTE | 2023-04-30 15:15 | PC.NURSE ---
pt off unit. on way to OR.
--- NOTE | 2023-04-30 16:52 | PC.NURSE ---
Anesthesia at bedside for consent. Pt was offered and declined learning manager
--- NOTE | 2023-04-30 16:53 | P.CONAN_ITS ---
HPI - Anesthesia Eval Consult details Narrative: 37 yo F admitted with sepsis due to obstructive uropathy [facility] Active Problems Active Problems: All Active Problems (Updated 04/30/23 @ 06:17 by Marin Chance MD) Urinary tract obstruction by kidney stone (Acute) Sepsis (Acute) Pyelonephritis (Acute) Acute unilateral obstructive uropathy (Acute) Idiopathic intracranial hypertension (Acute) Papilledema (Acute) Physical exam (Acute) Latent tuberculosis (Acute) Immunization due (Acute) Morbid obesity (Acute) Calcium oxalate stones (Acute) Umbilical hernia (Acute) Encounter for laboratory testing for COVID-19 virus (Acute) Umbilical hernia (Acute) Morbid obesity with BMI of 45.0-49.9, adult (Acute) GERD (gastroesophageal reflux disease) (Acute) Chronic idiopathic constipation (Acute) Nephrolithiasis (Acute) 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 Surgical History Surgical History History of extraction of renal calculus History of tubal ligation History of Problems with Anesthesia: No Social History Social History Housing: Apartment Alcohol intake: never Comment: medicated in pacu Patient Tobacco Use Status: Former Tobacco user Tobacco use type: Cigarette e-Cigarette/Vaping Use: Never Used Second Hand Smoke Exposure: No Use of substances other than those prescribed or required for medical reasons: No Are you DNR?: No Advance Directives: No Advance Directives Information Provided: No Recently lost weight without trying: No Nutrition Risks: No Nutritional Risk FDLMP: 04/22/23 : No Poor oral hygiene: No service: No Current occupational status: employed Current occupational exposures/hazards: No Cognitive needs: No Hearing needs: No Vision needs: No Meds Allergies Allergy/AdvReac Type Severity Reaction Status Date / Time canned food Allergy Severe rash Verified 04/29/23 22:52 lactose Allergy Nausea Verified 04/29/23 22:52 RED MEAT Allergy Severe Rash Uncoded 01/09/23 11:48 Active Medications: Current Medications Acetaminophen (Acetaminophen 325 Mg Tablet) 950 mg PO Q6H PRN PRN Reason: Fever Albuterol/Ipratropium (Albuterol/Iprat 2.5/0.5mg 3 Ml Ampul.Neb) 3 ml INHALE Q4H PRN PRN Reason: Shortness of Breath/Wheezing Amlodipine Besylate (Amlodipine Besylate 5 Mg Tablet) 5 mg PO DAILY [facility]; Protocol Last Admin: 04/30/23 09:34 Dose: 5 mg Hydromorphone HCl (Hydromorphone Hcl 1 Mg/Ml Syringe) 0.5 mg IVPUSH Q4H PRN; Protocol PRN Reason: Pain, Severe (Pain Scale 7-10) Last Admin: 04/30/23 13:41 Dose: 0.5 mg Sodium Chloride (Ns) 1,000 mls @ 100 mls/hr IVCONT .Q10H [facility] Last Admin: 04/30/23 09:37 Dose: 100 mls/hr Ceftriaxone Sodium 1 gm/ (Sodium Chloride) 50 mls @ 100 mls/hr IV DAILY [facility] Lorazepam (Lorazepam 0.5 Mg Tablet) 0.25 mg PO Q4H PRN PRN Reason: Anxiety Omeprazole (Omeprazole 20 Mg Capsule.Dr) 20 mg PO DAILY@0630 [facility] Last Admin: 04/30/23 09:34 Dose: 20 mg Ondansetron HCl (Ondansetron Hcl 4 Mg/2 Ml Vial) 4 mg IVPUSH Q8H PRN PRN Reason: Nausea and Vomiting Sodium Chloride (0.9 % Sodium Chloride Flush 3 Ml Syringe) 3 ml IVFLUSH QSHIFT [facility] Last Admin: 04/30/23 15:04 Dose: Not Given Home Medications Medication Instructions Recorded Confirmed Last Taken Type hydroxyzine pamoate 25 mg capsule 25 mg PO BID PRN Anxiety 01/09/23 04/30/23 Unknown History amlodipine 5 mg tablet 5 mg PO DAILY 04/30/23 04/30/23 04/28/23 History omeprazole 20 mg capsule,delayed 20 mg PO DAILY 04/30/23 04/30/23 04/28/23 History release Exam Exam Date and Time: April 30, 2023 1653 Height,Weight and Vital Signs: Height 5 ft 3 in Weight 127.006 kg Last Vital Signs Temp 98.6 F 04/30/23 16:04 Pulse 120 H 04/30/23 16:04 Resp 18 04/30/23 16:04 BP 159/87 H 04/30/23 16:04 Pulse Ox 95 04/30/23 16:04 O2 Del Method Room Air 04/30/23 16:04 Pertinent Lab Results Pertinent Lab Results: Laboratory Tests 04/29/23 04/29/23 04/30/23 23:00 23:21 03:16 WBC 17.8 H RBC 5.52 H Hgb 12.6 Hct 41.8 MCV 75.7 L MCH 22.8 L MCHC 30.1 L RDW 16.2 H Plt Count 311 MPV 9.3 L Immature Gran % (Auto) 0.3 Neut % (Auto) 94.6 H Lymph % (Auto) 3.5 L [place] % (Auto) 1.2 L Eos % (Auto) 0.1 Baso % (Auto) 0.3 Lymph # (Auto) 0.6 L [place] # (Auto) 0.2 Eos # (Auto) 0.0 Baso # (Auto) 0.1 Abs Immat Gran (auto) 0.05 H Absolute Neuts (auto) 16.8 H Absolute Nucleated RBC 0.000 Nucleated RBC % (auto) 0.0 Smear Tech's Comments VERIFIED Sodium 140 Potassium 3.8 Chloride 105 Carbon Dioxide 25 Anion Gap 14 BUN 17 H Creatinine 1.17 Estim Creat Clear Calc 87.1 Estimated GFR 53 Random Glucose 152 H Lactic Acid 2.2 H* Lactic Acid F/U @ 2Hr Calcium 9.1 D Total Bilirubin 0.4 Direct Bilirubin 0.1 AST 16 ALT 17 Alkaline Phosphatase 79 Total Protein 7.8 Albumin 3.9 Lipase 8 Urine Color Yellow Urine Appearance Clear Urine pH 6.0 Ur Specific [place] 1.015 Urine Protein 300 (3+) H Urine Glucose (UA) Negative Urine Ketones Negative Urine Blood Large (3+) H Urine Nitrite Positive H Ur Leukocyte Esterase Trace H Urine RBC >20 H Urine WBC 21-50 H Ur Squamous Epith Cells 0-2 Urine Bacteria 4+ Hyaline Casts 0-2 Urine Test NEGATIVE Influenza Type A (PCR) Influenza Type B (PCR) RSV RNA Qual (PCR) SARS-CoV-2 RNA (RT-PCR) 04/30/23 04/30/23 05:29 08:39 WBC RBC Hgb Hct MCV MCH MCHC RDW Plt Count MPV Immature Gran % (Auto) Neut % (Auto) Lymph % (Auto) [place] % (Auto) Eos % (Auto) Baso % (Auto) Lymph # (Auto) [place] # (Auto) Eos # (Auto) Baso # (Auto) Abs Immat Gran (auto) Absolute Neuts (auto) Absolute Nucleated RBC Nucleated RBC % (auto) Smear Tech's Comments Sodium Potassium Chloride Carbon Dioxide Anion Gap BUN Creatinine Estim Creat Clear Calc Estimated GFR Random Glucose Lactic Acid 1.0 Lactic Acid F/U @ 2Hr 1.2 Calcium Total Bilirubin Direct Bilirubin AST ALT Alkaline Phosphatase Total Protein Albumin Lipase Urine Color Urine Appearance Urine pH Ur Specific [place] Urine Protein Urine Glucose (UA) Urine Ketones Urine Blood Urine Nitrite Ur Leukocyte Esterase Urine RBC Urine WBC Ur Squamous Epith Cells Urine Bacteria Hyaline Casts Urine Test Influenza Type A (PCR) NEGATIVE Influenza Type B (PCR) NEGATIVE RSV RNA Qual (PCR) NEGATIVE SARS-CoV-2 RNA (RT-PCR) NEGATIVE Airway Mallampati Class: I TM Dist: >3cm Neck ROM: Full Loose/Missing/Broken Teeth: No Heart: S1S2 Lungs: CTAB Assessment and Plan Assessment Anesthesia Assessment: Anesthesia Plan Discussed and Chart Reviewed Final Anesthetic Review History of Problems with Anesthesia: No NPO: Yes ASA Class: III Final Preanesthetic Review: No Changes in Pt Med Stat, Meds/Allgs Chart Reviewed, Consent Obtained/Reviewed and Anes Risks/Benef Reviewed Patient Risk: Intermediate Procedure Risk: Low Anesthetic Plan Anesthetic Plan: GA and Agree w/ Assess. and Plan Disposition: Standard PACU
--- NOTE | 2023-04-30 16:55 | MHC.SHP ---
Pre-Procedural Eval Section A Date of Service: 04/30/23 The patient is an INPATIENT: Yes Changes since office visit: No Cold of Flu in the past 2 weeks, No New Medical Problems, No Changes in Medication and No Patient answered all questions The History & Physical has been completed within 30 days and I have reviewed it.: Yes Section B Chief Complaint: Sepsis Allergies: Allergies Allergy/AdvReac Type Severity Reaction Status Date / Time canned food Allergy Severe rash Verified 04/29/23 22:52 lactose Allergy Nausea Verified 04/29/23 22:52 RED MEAT Allergy Severe Rash Uncoded 01/09/23 11:48 Plan Diagnosis/Plan: Unchanged ( cystoscopy, right retrograde, right stent placement) I have reviewed the history and physical and performed a pertinent physical examination on my patient. No changes have occurred unless specified. Time Spent With Patient Time: Total time managing care of this patient today ____ minutes.
--- NOTE | 2023-04-30 17:26 | P.OP_ITS ---
Operative Note Operative Note Date of Service: 04/30/23 Narrative: PreOperative Diagnosis: distal right obstruction with hydronephrosis and pyelonephritis Post Operative Diagnosis: Procedure: cystoscopy, right retrograde, right stent placement Surgeon: Dr Jack Johnson Anesthesia: sedation Indications for procedure: pyelonephritis with distal right stone Procedure: After informed consent was verified the patient was brought to the operating room and placed in a supine position. Anesthesia was administered per protocol. The patient was placed in modified dorsal lithotomy position and prepped and draped in a sterile fashion. A safety pause time-out was performed. Laterality of procedure and antibiotics were confirmed, appropriate imaging was available A 22 [place] cystoscope was introduced per urethra. No abnormality was noted of urethra or bladder. Both ureteric orifices were seen in a normal position. The right ureter was cannulated with an open ended catheter and a retrograde examination was performed. hydroureteronephrosis . A Sensor guidewire was placed under fluoroscopy and a good coil was seen within the renal pelvis. open-ended stent advanced over the wire. Renal pelvis aspirated for 30 cc. A Six [place] by 24 cm double J stent was advanced over the wire and up to the level of the renal pelvis under fluoroscopic and direct visualization. The stent was seen with appropriate coil within the renal pelvis and in the bladder after deployment. The patient tolerated the procedure well and was transferred in a stable condition to the recovery area. Pathology: Drains: as above
[2023-04-30] MEDS: Phenazopyridine HCL 100 MG TABLET PO (18:06)
[2023-05-01] VITALS (7 sets, daily range): BP systolic 138–160; BP diastolic 70–92; PULSE 102–118; RESP 16–20; TEMP 36.3–37.3; O2SAT 96–100
[2023-05-01] MEDS: 0.9 % Sodium Chloride 1,000 ML 100 ML IVCONT ×3 (05:22→23:16)
[2023-05-01] MEDS: Omeprazole 20 MG CAPSULE.DR PO (05:23)
[2023-05-01 07:48] LABS: Alanine Aminotransferase 12 U/L (0-31); Alkaline Phosphatase 61 U/L (39-117); Anion Gap 11 (12-20); Aspartate Amino Transferase 11 U/L (5-31); Bilirubin Total 0.3 mg/dL (0.0-1.0); Blood Urea Nitrogen 17 mg/dL (9-16); Carbon Dioxide 25 mmol/L (22-29); Chloride 105 mmol/L (96-108); Creatinine Clr Calc Pharmacy 75.5; Estimated Glomerular Filt Rate 45; Glucose Random 108 mg/dL (60-115); Potassium 3.5 mmol/L (3.3-5.1); Sodium 137 mmol/L (135-145); Total Protein 6.2 g/dL (6.5-8.0)
[2023-05-01] MEDS: amLODIPine Besylate 5 MG TABLET PO (09:15)
[2023-05-01] MEDS: 0.9 % Sodium Chloride Flush 3 ML SYRINGE IVFLUSH (09:15)
[2023-05-01] MEDS: cefTRIAXone sodium 1 GM in 0.9 % Sodium Chloride 50 ML IV (09:15)
[2023-05-01] MEDS: Acetaminophen 325 MG TABLET 950 MG PO ×2 (12:01→21:50)
--- NOTE | 2023-05-01 12:50 | HO.PM.IMPN ---
Subjective Subjective Date of Service: 05/01/23 Interval History: This history was taken in [place] from the patient. no fever N/V/R flank pain resolved Physical Exam Vital Signs: Vital Signs: Last Vital Signs Temp 98.7 F 05/01/23 11:24 Pulse 118 H 05/01/23 11:24 Resp 20 05/01/23 11:24 BP 146/92 H 05/01/23 11:24 Pulse Ox 96 05/01/23 11:24 O2 Del Method Room Air 05/01/23 11:24 BMI result Body Mass Index 49.6 Gen: in no acute distress HEENT: sclera anicteric, moist mucus membranes Neck: supple Lungs: clear to auscultation bilaterally Heart: regular rate and rhythm, no murmurs Abd: soft, non-tender, non-distended, obese Ext: no edema Skin: warm/well-perfused Neuro: alert and oriented x3, no focal findings Psych: appropriate affect Objective Data Active Medications Acetaminophen (Acetaminophen 325 Mg Tablet) 950 mg PO Q6H PRN PRN Reason: Fever Last Admin: 05/01/23 12:01 Dose: 950 mg Documented By: EVELYN Albuterol/Ipratropium (Albuterol/Iprat 2.5/0.5mg 3 Ml Ampul.Neb) 3 ml INHALE Q4H PRN PRN Reason: Shortness of Breath/Wheezing Amlodipine Besylate (Amlodipine Besylate 5 Mg Tablet) 5 mg PO DAILY CALVIN; Protocol Last Admin: 05/01/23 09:15 Dose: 5 mg Documented By: EVELYN Fentanyl (Fentanyl Citrate/Pf 100 Mcg/2 Ml Vial) 50 mcg IVPUSH Q5M PRN; Protocol PRN Reason: Pain, Severe (Pain Scale 7-10) Hydromorphone HCl (Hydromorphone Hcl 1 Mg/Ml Syringe) 0.5 mg IVPUSH Q4H PRN; Protocol PRN Reason: Pain, Severe (Pain Scale 7-10) Last Admin: 04/30/23 13:41 Dose: 0.5 mg Documented By: CHANDA Sodium Chloride (Ns) 1,000 mls @ 100 mls/hr IVCONT .Q10H CALVIN Last Admin: 05/01/23 11:20 Dose: Not Given Documented By: EVELYN Non-Admin Reason: IV Running Ceftriaxone Sodium 1 gm/ (Sodium Chloride) 50 mls @ 100 mls/hr IV DAILY [facility] Last Infusion: 05/01/23 10:21 Dose: Infused Documented By: EVELYN Lorazepam (Lorazepam 0.5 Mg Tablet) 0.25 mg PO Q4H PRN PRN Reason: Anxiety Omeprazole (Omeprazole 20 Mg Capsule.) 20 mg PO DAILY@0630 [facility] Last Admin: 05/01/23 05:23 Dose: 20 mg Documented By: DAMARI Ondansetron HCl (Ondansetron Hcl 4 Mg/2 Ml Vial) 4 mg IVPUSH Q8H PRN PRN Reason: Nausea and Vomiting Oxycodone HCl (Oxycodone Hcl Immed Release 5 Mg Tablet) 10 mg PO ONCE PRN PRN Reason: Pain, Severe (Pain Scale 7-10) Sodium Chloride (0.9 % Sodium Chloride Flush 3 Ml Syringe) 3 ml IVFLUSH QSHIFT [facility] Last Admin: 05/01/23 09:15 Dose: 3 ml Documented By: EVELYN Labs 04/29/23 23:00 05/01/23 06:16 Labs: Laboratory Results - last 24 hr 05/01/23 06:16 Hold Purple Top SEE NOTE Anion Gap 11 L Estim Creat Clear Calc 75.5 Estimated GFR 45 Random Glucose 108 Calcium 8.0 L D Total Bilirubin 0.3 AST 11 ALT 12 Alkaline Phosphatase 61 Total Protein 6.2 L Albumin 3.0 L Microbiology Microbiology Results: Microbiology 04/30/23 03:16 Urine Culture - Preliminary Urine clean catch - Urine griffin top Gram negative michelle 04/30/23 03:16 Blood Culture - Preliminary Blood - Venous No growth after 24 hours. 04/30/23 03:16 Blood Culture - Preliminary Blood - Venous No growth after 24 hours. Assessment and Plan (1) Sepsis: Status: Acute Plan d2 37yo F with obesity, nephrolithiasis, nephrocalcinosis admitted for sepsis due to UTI sepsis due to UTI due to obstructive uropathy with hydroureteronephrosis from obstructive R ureterolith - follow BCx/UCx, continue IV fluids, POD1 cystoscopy/right retrograde/right stent placement, continue ceftriaxone 04/30- asthma, mild intermittent not in acute exac - prn albuterol HTN - amlodipine mood disorder - lorazepam GERD - PPI morbid obesity - diet/exercise counseling VTE ppx - UFH dispo - eventual home In my clinical judgment, the patient requires continued inpatient hospitalization for the following reasons: IV ABX Total time managing care of this patient today: 35 minutes. Quality Stroke Does the patient have a stroke diagnosis?: No VTE Prior VTE?: No VTE Risk Level:: Medical - moderate - high VTE Device Contraindication: Treatment Not Indicated VTE Drug Contraindication: N/A - Med Ordered
--- NOTE | 2023-05-01 15:24 | HO.POSTANES ---
Post Anesthesia Evaluation Post Anesthesia Evaluation Date of Service: 05/01/23 Vital Signs: Vital Signs Temp Pulse Resp BP Pulse Ox O2 Del Method 05/01/23 15:18 97.4 F 102 H 18 156/87 H 96 Room Air 05/01/23 11:24 98.7 F 118 H 20 146/92 H 96 Room Air 05/01/23 07:25 98.7 F 117 H 20 138/70 97 Room Air Anesthesia: Monitored Mental Status: Awake Pain Control: Satisfactory Nausea/Vomiting: None Hydration: Adequate Anesthesia-Related Issues: No Anes. Related Issues
[2023-05-02 02:49] VITALS: BP 142/92; PULSE 100; RESP 14; TEMP 36.2; O2SAT 96
[2023-05-02] MEDS: 0.9 % Sodium Chloride 1,000 ML 100 ML IVCONT (03:49)
[2023-05-02] MEDS: Omeprazole 20 MG CAPSULE.DR PO (05:39)
[2023-05-02 06:25] VITALS: BMI 51.2
[2023-05-02 07:57] VITALS: BP 140/73; PULSE 96; RESP 16; TEMP 36.3; O2SAT 96
[2023-05-02 08:16] LABS: Anion Gap 12 (12-20); Blood Urea Nitrogen 15 mg/dL (9-16); Calcium 8.1 mg/dL (8.4-10.2); Carbon Dioxide 24 mmol/L (22-29); Chloride 108 mmol/L (96-108); Creatinine Clr Calc Pharmacy 91.2; Estimated Glomerular Filt Rate 54; Glucose Random 90 mg/dL (60-115); Potassium 3.1 mmol/L (3.3-5.1); Sodium 141 mmol/L (135-145)
[2023-05-02] MEDS: Potassium Chloride ER 20 MEQ TAB.ER.PRT 40 MEQ PO (09:16)
[2023-05-02] MEDS: amLODIPine Besylate 5 MG TABLET PO (09:16)
[2023-05-02] MEDS: cefTRIAXone sodium 1 GM in 0.9 % Sodium Chloride 50 ML IV (09:17)
--- NOTE | 2023-05-02 09:42 | P.DS_ITS ---
DS: Providers Provider Date of Service: 05/02/23 Date of admission: 04/30/23 05:35 Date of discharge: 05/02/23 Primary care physician: Rashmi Zapata MD DS: Diagnosis Discharge Diagnosis (1) Sepsis: Status: Acute (2) Urinary tract obstruction by kidney stone: Status: Acute (3) Hypokalemia: Status: Acute (4) Pyelonephritis: Status: Acute (5) Citrobacter infection: Status: Acute (6) Morbid obesity: Status: Acute DS: Summary Hospital Course Hospital Course: From the history and physical by the admitting hospitalist, Marin Iglesias, 04/30/23: Liz Summers is a 37 years old with past medical history significant for essential hypertension, nephrolithiasis (obstructive renal calculi requiring stent placement), nephrocalcinosis, asthma and anxiety presents to the emergency department complaining of right-sided abdominal pain that started last Friday associated with nausea, vomiting, painful urination and generalized weakness. She reported having soft stools but denies diarrhea. She noted that her urine was dark and foul smelling. She was noted to have fever when she was evaluated in the emergency department. She denies any headache, palpitations or chest pain. She stated that she has not been using her or so home medication over the last 3 months assess for amlodipine, omeprazole + medicationd for anxiety as needed. She did not report tobacco smoking, alcohol abuse or illicit drug use. In the ED, she was found to have tachycardia. Her blood pressure is normal. Oxygen saturation is normal on room air. Blood workup is remarkable for leukocytosis of 17.8. There is lactic acidosis (2.1) that resolved with IV fluids. Most recent lactic acid level is 1.2. Urinalysis is consistent with urinary tract infection. test is negative. She underwent a abdomen pelvis CT scan that showed a 4 mm calculus in the right mid-ureter causing right hydroureteronephrosis. It does show some medullary nephrocalcinosis with multiple additional nonobstructing bilateral renal calculi. ED tx: NS 2L bolus, ketorolac 30 mg IV x1, ceftriaxone 1 g IV x1 acetaminophen 975 mg p.o. x1 37yo F with obesity, nephrolithiasis, and nephrocalcinosis who was admitted for sepsis due to UTI due to obstructive uropathy with hydroureteronephrosis from a R 4 mm mid-ureteral calculus. She was admitted to the medical-surgical floor on IV fluids and IV ceftriaxone. She underwent cystocopy/right retrograde/stent placement on 04/30/[address] Johnson. Blood cultures negative. Urine culture grew thomas-sensitive Citrobacter koseri. She was discharged on 8 days of cefuroxime and will need urology follow-up. Potassium was 3.1 on discharge and was repleted orally; BMP should be repeated on 05/06/23. Time Attestation Discharge coordination time: Greater than 30 minutes Quality: Safe Use of Opioids Does Pt have an Active Cancer Diagnosis on the Problem List?: No Quality: Stroke Does the patient have a stroke diagnosis?: No Physical Exam Vital Signs: Vital Signs: Last Vital Signs Temp 97.4 F 05/02/23 07:57 Pulse 96 05/02/23 07:57 Resp 16 05/02/23 07:57 BP 140/73 H 05/02/23 07:57 Pulse Ox 96 05/02/23 07:57 O2 Del Method Room Air 05/02/23 07:57 BMI result Body Mass Index 51.2 Gen: in no acute distress HEENT: sclera anicteric, moist mucus membranes Neck: supple Lungs: clear to auscultation bilaterally Heart: regular rate and rhythm, no murmurs Abd: soft, non-tender, non-distended, obese : no CVAT Ext: no edema Skin: warm/well-perfused Neuro: alert and oriented x3, no focal findings Psych: appropriate affect DS: Data Data Completed and Pending Completed studies during hospitalization [Text1]: Laboratory Results WBC 17.8 X10*3/uL (4.8-10.8) H 04/29/23 23:00 RBC 5.52 X10*6/uL (4.20-5.50) H 04/29/23 23:00 Hgb 12.6 g/dl (12.0-16.0) 04/29/23 23:00 Hct 41.8 % (37.0-47.0) 04/29/23 23:00 MCV 75.7 fL (80.0-98.0) L 04/29/23 23:00 MCH 22.8 pg (27.0-33.0) L 04/29/23 23:00 MCHC 30.1 g/dl (31.0-35.0) L 04/29/23 23:00 RDW 16.2 % (11.0-16.0) H 04/29/23 23:00 Plt Count 311 X10*3/uL (160-400) 04/29/23 23:00 MPV 9.3 fL (9.4-12.3) L 04/29/23 23:00 Immature Gran % (Auto) 0.3 % (0.0-0.4) 04/29/23 23:00 Neut % (Auto) 94.6 % (45-73) H 04/29/23 23:00 Lymph % (Auto) 3.5 % (20-40) L 04/29/23 23:00 [place] % (Auto) 1.2 % (2-11) L 04/29/23 23:00 Eos % (Auto) 0.1 % (0-4) 04/29/23 23:00 Baso % (Auto) 0.3 % (0-2) 04/29/23 23:00 Lymph # (Auto) 0.6 X10*3/uL (1.2-4.9) L 04/29/23 23:00 [place]undy # (Auto) 0.2 X10*3/uL (0.1-1.2) 04/29/23 23:00 Eos # (Auto) 0.0 X10*3/uL (0.0-0.4) 04/29/23 23:00 Baso # (Auto) 0.1 X10*3/uL (0.0-0.2) 04/29/23 23:00 Abs Immat Gran (auto) 0.05 X10*3/uL (0.00-0.03) H 04/29/23 23:00 Absolute Neuts (auto) 16.8 x10*3/uL (2.0-8.3) H 04/29/23 23:00 Absolute Nucleated RBC 0.000 X10*3/uL (0.0-0.012) 04/29/23 23:00 Nucleated RBC % (auto) 0.0 /100WBC (0.0-0.2) 04/29/23 23:00 Smear Tech's Comments VERIFIED 04/29/23 23:00 Hold Purple Top SEE NOTE 05/02/23 05:29 Sodium 141 mmol/L (135-145) 05/02/23 05:29 Potassium 3.1 mmol/L (3.3-5.1) L 05/02/23 05:29 Chloride 108 mmol/L (96-108) 05/02/23 05:29 Carbon Dioxide 24 mmol/L (22-29) 05/02/23 05:29 Anion Gap 12 (12-20) 05/02/23 05:29 BUN 15 mg/dL (9-16) 05/02/23 05:29 Creatinine 1.14 mg/dL (0.5-1.4) 05/02/23 05:29 Estim Creat Clear Calc 91.2 05/02/23 05:29 Estimated GFR 54 05/02/23 05:29 Random Glucose 90 mg/dL (60-115) 05/02/23 05:29 Lactic Acid 1.0 mmol/L (0.5-2.0) 04/30/23 08:39 Lactic Acid F/U @ 2Hr 1.2 mmol/L (0.5-2.0) 04/30/23 05:29 Calcium 8.1 mg/dL (8.4-10.2) L 05/02/23 05:29 Total Bilirubin 0.3 mg/dL (0.0-1.0) 05/01/23 06:16 Direct Bilirubin 0.1 mg/dL (0.0-0.5) 04/29/23 23:00 AST 11 U/L (5-31) 05/01/23 06:16 ALT 12 U/L (0-31) 05/01/23 06:16 Alkaline Phosphatase 61 U/L (39-117) 05/01/23 06:16 Total Protein 6.2 g/dL (6.5-8.0) L 05/01/23 06:16 Albumin 3.0 g/dL (3.5-5.0) L 05/01/23 06:16 Lipase 8 U/L (8-78) 04/29/23 23:00 Urine Color Yellow 04/29/23 23:21 Urine Appearance Clear 04/29/23 23:21 Urine pH 6.0 (5.0-9.0) 04/29/23 23:21 Ur Specific [place] 1.015 (1.005-1.025) 04/29/23 23:21 Urine Protein 300 (3+) mg/dL (Neg-Trace) H 04/29/23 23:21 Urine Glucose (UA) Negative mg/dL (Negative) 04/29/23 23:21 Urine Ketones Negative mg/dL (Negative) 04/29/23 23:21 Urine Blood Large (3+) (Negative) H 04/29/23 23:21 Urine Nitrite Positive (Negative) H 04/29/23 23:21 Ur Leukocyte Esterase Trace (Negative) H 04/29/23 23:21 Urine RBC >20 /HPF (0-2) H 04/29/23 23:21 Urine WBC 21-50 /HPF (0-5) H 04/29/23 23:21 Ur Squamous Epith Cells 0-2 /HPF (0-2) 04/29/23 23:21 Urine Bacteria 4+ (None Seen) 04/29/23 23:21 Hyaline Casts 0-2 /LPF (0-2) 04/29/23 23:21 Urine Test NEGATIVE (NEGATIVE) 04/29/23 23:21 Influenza Type A (PCR) NEGATIVE (Negative) 04/30/23 05:29 Influenza Type B (PCR) NEGATIVE (Negative) 04/30/23 05:29 RSV RNA Qual (PCR) NEGATIVE (Negative) 04/30/23 05:29 SARS-CoV-2 RNA (RT-PCR) NEGATIVE (Negative) 04/30/23 05:29 Impressions Abdomen/Pelvis CT 04/30/23 03:35 IMPRESSION: 1. A 4 mm calculus in the right mid ureter produces moderate right hydroureteronephrosis, more pronounced as compared to prior. 2. Medullary nephrocalcinosis with multiple additional nonobstructing bilateral renal calculi. 3. Small hiatal hernia. Fleischner guidelines were followed. Guidance Fluoroscopy 04/30/23 17:25 IMPRESSION: Fluoroscopic guidance for right ureteral stent placement. Please see Dr. Jack Johnson's operative note for full details. Microbiology 04/30/23 03:16 Urine clean catch - Urine griffin top Urine Culture - Final Citrobacter koseri 04/30/23 03:16 Blood - Venous Blood Culture - Preliminary No growth after 48 hours. 04/30/23 03:16 Blood - Venous Blood Culture - Preliminary No growth after 48 hours. Discharge Plan Discharge Anticipated Discharge Date/Time: 05/02/23 09:39 Patient Disposition: Home, Self-Care Discharge Diagnosis: sepsis due to pyelonephritis due to nephrolithiasis hypokalemia Referrals: Jack Johnson MD [Physician] - 2 Weeks Rashmi Link MD [Primary Care Provider] - 1 Week Discharge Medications: New cefuroxime axetil 500 mg tablet 500 mg PO BID Qty: 16 0RF Continued albuterol sulfate 90 mcg/actuation HFA aerosol inhaler 2 puff inhalation Q4-6H PRN (Reason: shortness of breath or wheezing) Qty: 8.5 0RF omeprazole 20 mg capsule,delayed release(DR/EC) 20 mg PO DAILY amlodipine 5 mg tablet 5 mg PO DAILY hydroxyzine pamoate 25 mg capsule 25 mg PO BID PRN (Reason: Anxiety) citalopram 40 mg tablet 40 mg PO DAILY 90 Days Qty: 90 0RF gabapentin 300 mg capsule 300 mg PO BEDTIME 90 Days Qty: 90 1RF linaclotide 290 mcg capsule 290 mcg PO DAILY 90 Days Qty: 90 0RF montelukast 10 mg tablet 10 mg PO BEDTIME 90 Days Qty: 90 1RF pyridoxine (vitamin B6) 100 mg tablet 100 mg PO DAILY 90 Days Qty: 90 1RF Discharge Orders: Discharge Order (Routine); Ordered 05/02/23 Ordered By: Joselyn Ramsey Diet: Advance to usual diet Activity on Discharge: As tolerated Stand Alone Forms: Patient Portal Discharge page Other Ambulatory Orders: Basic Metabolic Panel (Routine) Timeframe: [id number] Facility: [facility] - Location: Laboratory Ordered By: Joselyn Ramsey Care Plan Goals: cure of infection Health Concerns: sepsis due to pyelonephritis due to nephrolithiasis hypokalemia Plan of Treatment: cefuroxime 500 mg twice daily for 8 days recheck BMP on Friday05/06/23 Please follow up with your primary care doctor within 1 week. Return to the hospital if you experience recurrent or worsening symptoms. follow up with Dr Johnson from Urology in 2 weeks Assessment: See Discharge Summary.
--- NOTE | 2023-05-02 09:52 | MHC.CM.PN ---
PT WILL DC HOME TODAY WITH NO SERVICES VIA PRIVATE TRANSPORT
== END 2023-05-02 11:29 | disposition home or self-care (01) | DRG 720 ==
LOC: HO.ED 04-30 04:47 → HO.EDOVER 04-30 05:42 → HO.IMC 04-30 18:27 → HO.S3 05-01 20:22
PROVIDERS: Urology; Admitting Provider Internal Medicine; Emergency Provider Internal Medicine; PCP Internal Medicine; Visit Provider Family Medicine
PROC: 0T768DZ Dilation of Right Ureter with Intraluminal Device, Via Natural or Artificial Opening Endoscopic (ICD-10-PCS; principal; 2023-04-30 16:40)
DX: A41.9 Sepsis, unspecified organism (principal); Z68.43 Body mass index [BMI] 50.0-59.9, adult; N13.6 Pyonephrosis; J45.20 Mild intermittent asthma, uncomplicated; M79.7 Fibromyalgia; F41.9 Anxiety disorder, unspecified; B96.89 Other specified bacterial agents as the cause of diseases classified elsewhere; K21.9 Gastro-esophageal reflux disease without esophagitis; E66.01 Morbid (severe) obesity due to excess calories; Z71.3 Dietary counseling and surveillance; Z87.891 Personal history of nicotine dependence; Z79.899 Other long term (current) drug therapy
CPT/HCPCS: 0241U; 36415; 74176; 80048; 80053; 81001; 81025; 82248; 83605; 83690; 85025; 87040; 87086; 87088; 87186; 99285; C1758; C1769; C2617; J0696; J1170; J1885; J2250; J2550; J2704; J3010; Q9967

== ENCOUNTER → 2023-04-30 05:35 | Outpatient (BNV) | payer MEDICAID, SELFPAY | PROVIDERS: Admitting Provider Internal Medicine; Emergency Provider Internal Medicine; PCP Internal Medicine; Visit Provider Internal Medicine | DX: N20.0 Calculus of kidney (principal); A41.9 Sepsis, unspecified organism; N13.8 Other obstructive and reflux uropathy; N39.0 Urinary tract infection, site not specified | CPT/HCPCS: 99223; 99232; 99239; 99499 ==

== ENCOUNTER → 2023-04-30 05:35 | Outpatient (BNV) | payer MEDICAID, SELFPAY | PROVIDERS: Admitting Provider Internal Medicine; Emergency Provider Internal Medicine; PCP Internal Medicine; Visit Provider Urology | DX: N12 Tubulo-interstitial nephritis, not specified as acute or chronic (principal); N13.9 Obstructive and reflux uropathy, unspecified | CPT/HCPCS: 52332; 74420; 99222 ==

== ENCOUNTER → 2023-05-21 14:52 | Outpatient (BNVA) | payer OTHER, SELFPAY | PROVIDERS: PCP Internal Medicine; Visit Provider Urology ==

== ENCOUNTER 2023-05-23 12:52 | Outpatient (AMB) | payer OTHER, SELFPAY ==
--- NOTE | 2023-05-23 12:59 | A.OFFVIS_ITS ---
Intake Intake Visit Reasons: Cystoscopy/Stent Removal Intake Note: Patient is Present for Cystoscopy/Stent Removal Urology Med: Vitamin B6 Antibiotic Allergy: None Blood Thinner: None Patient is not having stent removed today Allergies canned food Allergy (Severe, Verified 05/21/23 14:53) rash lactose Allergy (Verified 05/21/23 14:53) Nausea RED MEAT Allergy (Severe, Uncoded 05/21/23 14:53) Rash HPI HPI Comments History of Present Illness Details Liz is a pleasant Bahamian speaker. 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 Left numerous small stones largest 1 cm 06/10 numerous small stones bilateral 05/12 CT scan Medullary sponge kidney myriam aterally, no stones in renal collecting system 06/12 CT scan Medullary sponge kidney dis chanel right 3 mm stone 09/09 renal ultrasound no discrete stone - 02/09 renal ultrasound stable Medullar y sponge kidney Procedures - 04/09 ESWL left - 07/09 right ureteroscopy mid ureteric stone - 11/08 right renal pelvis ureteroscopy with submucosal stones Current therapy-vitamin B6 and allopurinol with potassium citrate PFSH Medical History Morbid obesity Umbilical hernia Umbilical hernia Morbid obesity with BMI of 45.0-49.9, adult Renal calculi Hospital discharge follow-up Hypertension Fibromyalgia Active asthma Surgical History History of extraction of renal calculus History of tubal ligation Family History Father Anemia Sister Cervical cancer Maternal Aunt Breast cancer Diabetes Mother No problems noted. Social History Household Members: Spouse and Children Housing: House Do you presently have visiting nurse or other home services: No Alcohol intake: never Comment: medicated in pacu Patient Tobacco Use Status: Never used Tobacco Tobacco use type: Cigarette e-Cigarette/Vaping Use: Never Used Second Hand Smoke Exposure: No service: No Current occupational status: employed Current occupational exposures/hazards: No Cognitive needs: No Hearing needs: No Vision needs: No Female Reproductive History Menstrual Age of Menarche: 12 Review of Systems Const Denies chills and Denies fever(s) Card Reports no additional complaints and Denies syncope Resp Denies cough GI Denies abdominal pain and Denies heartburn Reports as per HPI and Denies change in libido Neuro Denies syncope Psych Denies change in libido Endo Denies change in libido Physical Exam Const General: cooperative, healthy appearing, comfortable and no acute distress Orientation/consciousness: patient oriented x3 HEENT Face and sinus: Yes normal facial exam Mouth: moist mucous membranes Neck Neck: Yes normal visual inspection, Yes full ROM and Yes trachea midline Chest Chest palpation & inspection: normal inspection of the chest Resp Effort & Inspection: normal respiratory effort, able to speak in complete sentences and no respiratory distress GI Inspection: Yes normal to inspection Back/Spine/Pelvis Cervical Spine: normal cervical lordosis Thoracic/Lumbar Spine: thoracic and lumbar spine normal to inspection Skin General skin exam: no rashes or lesions noted Neuro General: patient oriented x3, gait normal, tone normal and moves all extremities Extrem General: Yes normal to inspection and Yes capillary refill normal Office Procedures Cystoscopy Consent Discussed risk and benefit or proposed procedure with the patient. Information consent for procedure given to the patient. Discussed technical aspects, risks, benefits and alternatives in full. Addressed all of the patient's questions and concerns regarding the procedure. The patient demonstrated knowledge and understanding. They wish to proceed with this procedure. Preparation The patient was prepped in the usual manner. A heatset winder operator was present and in the room. Genitalia was prepped with betadine solution in a sterile manner. Lidocaine Jelly 2% was placed into the urethra and 16Fr flexible Olympus cystoscope was inserted into the meatus after adequate lubrication. Results AMB Urinalysis, Automated UA Leukoctes 500 Kelley/uL Last Edit by SUMIT Galindo on 05/23/23 13:18 UA Nitrite Positive Last Edit by SUMIT Galindo on 05/23/23 13:18 UA Urobilinogen 0.2 mg/dL Last Edit by Mayuri San, A on 05/23/23 13:1 8 UA Protein 300 mg/dL Last Edit by Mayuri San, A on 05/23/23 13:18 UA pH 6.0 Last Edit by Mayuri San, RMA on 05/23/23 13:18 UA Blood 200 Eliel/uL Last Edit by Mayuri San A on 05/23/23 13:18 UA Specific [place] 1.020 Last Edit by Mayuri San, RMA on 05/23/23 13: 18 UA Ketone Negative Last Edit by Mayuri San, RMA on 05/23/23 13:18 UA Bilirubin 0 mg/dL Last Edit by Mayuri San A on 05/23/23 13:18 UA Glucose 0 mg/dL Last Edit by Mayuri San A on 05/23/23 13:18 Results Reviewed Results Reviewed: Laboratory Last Values Urine pH (Auto) 6.0 05/23/23 13:17 Specific [place] (Auto) 1.020 05/23/23 13:17 Urine Protein (Auto) 300 mg/dL 05/23/23 13:17 Glucose (UA)(Auto) 0 mg/dL 05/23/23 13:17 Urine Ketones (Auto) Negative 05/23/23 13:17 Urine Blood (Auto) 200 Eliel/uL 05/23/23 13:17 Urine Nitrite (Auto) Positive 05/23/23 13:17 Urine Bilirubin (Auto) 0 mg/dL 05/23/23 13:17 Urine Urobilinogen (Auto) 0.2 mg/dL 05/23/23 13:17 Leukocyte Esterase (Auto) 500 Kelley/uL 05/23/23 13:17 Assessment & Plan Assessment & Plan (1) Urinary tract obstruction by kidney stone: Code(s): N20.0 - Calculus of kidney; N13.8 - Other obstructive and reflux uropathy Plan Cystoscopy, right stent removal, right ureteroscopy with laser lithotripsy Orders: Orders AMB Cystoscopy Today N20.0 - Calculus of kidney AMB Urinalysis Automated Today Z13.9 - Encounter for screening, unspecified Medications: New nitrofurantoin monohyd/m-cryst 100 mg 100 mg PO ONCE 1 cap 0RF N20.0 - Calculus of kidney naproxen 500 mg PO ONCE 1 tab 0RF N20.0 - Calculus of kidney lidocaine HCl 2% 10 mL intra-urethral ONCE 10 mL 0RF N20.0 - Calculus of kidney Patient Instructions: Imaging studies, laboratory and physical exam results were discussed and revie wed in detail. No major barriers to patient understanding were identified. An opportunity to ask questions regarding the treatment plan was provided. All questions were answered. The patient expressed understanding and agreement with the above treatment plan. The patient is aware they should contact our office by phone for worsening of their current condition or the appearance of new urologic symptoms. Compliance is encouraged with any medications and followup testing that is ordered. It is a privilege to participate in the urologic care of your patient. If you have any questions or concerns regarding treatment for the above conditions, or other urologic issues, please do not hesitate to contact me. The office telephone contact is [phone]. This note is constructed using voice recognition software. While every effort has been made to ensure accuracy hot air furnace installer and repairer errors may have been included. Yours sincerely, Dr Jack Johnson MD, [facility] - U[facility] Providers of Expert, Compassionate Care for the Genitourinary System Coding Level of Care Code Est Pt Level 4 (71690) Diagnoses Urinary tract obstruction by kidney stone N20.0; N13.8
== END 2023-05-23 13:53 | disposition home or self-care (01) ==
PROVIDERS: PCP Internal Medicine; Visit Provider Urology
DX: N20.0 Calculus of kidney (principal); N13.8 Other obstructive and reflux uropathy; Z13.9 Encounter for screening, unspecified
CPT/HCPCS: 99214

== ENCOUNTER → 2023-05-23 12:52 | Outpatient (BNVA) | payer OTHER, SELFPAY | PROVIDERS: PCP Internal Medicine; Visit Provider Urology | DX: N20.0 Calculus of kidney (principal); N13.8 Other obstructive and reflux uropathy | CPT/HCPCS: 81003; 99212 ==

== ENCOUNTER 2023-06-16 09:25 | Day surgery (SDC) | payer OTHER, SELFPAY ==
--- NOTE | 2023-05-16 13:05 | HO.ANESPROP2 ---
HPI - Anesthesia Eval Consult details Narrative: 37yo F for Right Cystoscopy, Ureteroroscopy, Retro, Laser,with stent removal PMFSH Active Problems Active Problems: All Active Problems (Updated 05/10/23 @ 00:03 by Jose Maria Tubbs) Citrobacter infection (Acute) Hypokalemia (Acute) Urinary tract obstruction by kidney stone (Acute) Sepsis (Acute) Pyelonephritis (Acute) Acute unilateral obstructive uropathy (Acute) Idiopathic intracranial hypertension (Acute) Papilledema (Acute) Physical exam (Acute) Latent tuberculosis (Acute) Immunization due (Acute) Morbid obesity (Acute) Calcium oxalate stones (Acute) Umbilical hernia (Acute) Encounter for laboratory testing for COVID-19 virus (Acute) Umbilical hernia (Acute) Morbid obesity with BMI of 45.0-49.9, adult (Acute) GERD (gastroesophageal reflux disease) (Acute) Chronic idiopathic constipation (Acute) Nephrolithiasis (Acute) 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 Surgical History Surgical History History of extraction of renal calculus History of tubal ligation History of Problems with Anesthesia: No Social History Social History Household Members: Spouse and Children Housing: House Do you presently have visiting nurse or other home services: No Alcohol intake: never Comment: medicated in pacu Patient Tobacco Use Status: Never used Tobacco Tobacco use type: Cigarette e-Cigarette/Vaping Use: Never Used Second Hand Smoke Exposure: No service: No Current occupational status: employed Current occupational exposures/hazards: No Cognitive needs: No Hearing needs: No Vision needs: No Meds Allergies Allergy/AdvReac Type Severity Reaction Status Date / Time canned food Allergy Severe rash Verified 04/29/23 22:52 lactose Allergy Nausea Verified 04/29/23 22:52 RED MEAT Allergy Severe Rash Uncoded 01/09/23 11:48 Home Medications Medication Instructions Recorded Confirmed Last Taken Type hydroxyzine pamoate 25 mg capsule 25 mg PO BID PRN Anxiety 01/09/23 04/30/23 Unknown History amlodipine 5 mg tablet 5 mg PO DAILY 04/30/23 04/30/23 04/28/23 History omeprazole 20 mg capsule,delayed 20 mg PO DAILY 04/30/23 04/30/23 04/28/23 History release Exam Pertinent Lab Results Pertinent Lab Results: Laboratory Tests 04/29/23 05/02/23 23:00 05:29 WBC 17.8 H Hgb 12.6 Hct 41.8 Plt Count 311 Sodium 141 Potassium 3.1 L Chloride 108 Carbon Dioxide 24 BUN 15 Creatinine 1.14 Narrative Narrative: EKG Vent. Rate : 087 BPM Atrial Rate : 087 BPM P-R Int : 126 ms QRS Dur : 092 ms QT Int : 374 ms P-R-T Axes : 015 037 000 degrees QTc Int : 450 ms Normal sinus rhythm Nonspecific T wave abnormality Abnormal ECG When compared to the previous EKG of NST now present Assessment and Plan Assessment Anesthesia Assessment: Chart Reviewed Final Anesthetic Review History of Problems with Anesthesia: No
--- NOTE | 2023-06-13 09:35 | HO.ANESPROP2 ---
Documented by User: Jocelin Bowers NP 06/13/23 09:37 HPI - Anesthesia Eval Consult details Narrative: 37yo F for Right Cystoscopy, Ureteroroscopy, Retrograde pyelogram, Laser,with stent removal [facility] [place] admit 04/2023 with obstructive urosepsis s/p cysto, stent with MAC PMFSH Active Problems Active Problems: All Active Problems (Updated 05/10/23 @ 00:03 by Background Arley) Citrobacter infection (Acute) Hypokalemia (Acute) Urinary tract obstruction by kidney stone (Acute) Sepsis (Acute) Pyelonephritis (Acute) Acute unilateral obstructive uropathy (Acute) Idiopathic intracranial hypertension (Acute) Papilledema (Acute) Physical exam (Acute) Latent tuberculosis (Acute) Immunization due (Acute) Morbid obesity (Acute) Calcium oxalate stones (Acute) Umbilical hernia (Acute) Encounter for laboratory testing for COVID-19 virus (Acute) Umbilical hernia (Acute) Morbid obesity with BMI of 45.0-49.9, adult (Acute) GERD (gastroesophageal reflux disease) (Acute) Chronic idiopathic constipation (Acute) Nephrolithiasis (Acute) 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 Surgical History Surgical History History of extraction of renal calculus History of tubal ligation History of Problems with Anesthesia: No Social History Social History Household Members: Spouse and Children Housing: House Do you presently have visiting nurse or other home services: No Alcohol intake: never Comment: medicated in pacu Patient Tobacco Use Status: Never used Tobacco Tobacco use type: Cigarette e-Cigarette/Vaping Use: Never Used Second Hand Smoke Exposure: No service: No Current occupational status: employed Current occupational exposures/hazards: No Cognitive needs: No Hearing needs: No Vision needs: No Meds Allergies Allergy/AdvReac Type Severity Reaction Status Date / Time canned food Allergy Severe rash Verified 05/21/23 14:53 lactose Allergy Nausea Verified 05/21/23 14:53 RED MEAT Allergy Severe Rash Uncoded 05/21/23 14:53 Home Medications Medication Instructions Recorded Confirmed Last Taken Type hydroxyzine pamoate 25 mg capsule 25 mg PO BID PRN Anxiety 01/09/23 04/30/23 Unknown History amlodipine 5 mg tablet 5 mg PO DAILY 04/30/23 06/16/23 06/16/23 History omeprazole 20 mg capsule,delayed 20 mg PO DAILY 04/30/23 06/16/23 06/16/23 History release Exam Pertinent Lab Results Pertinent Lab Results: Laboratory Tests 04/29/23 05/02/23 23:00 05:29 WBC 17.8 H Hgb 12.6 Hct 41.8 Plt Count 311 Sodium 141 Potassium 3.1 L Chloride 108 Carbon Dioxide 24 BUN 15 Creatinine 1.14 Assessment and Plan Assessment Anesthesia Assessment: Chart Reviewed Final Anesthetic Review History of Problems with Anesthesia: No Documented by User: Mohinder Hennessy MD 06/16/23 13:18 [facility] Past Medical History Medical History Morbid obesity Umbilical hernia Umbilical hernia Morbid obesity with BMI of 45.0-49.9, adult Renal calculi Hospital discharge follow-up Hypertension Fibromyalgia Active asthma Patient : No Family History Family History Father Anemia Sister Cervical cancer Maternal Aunt Breast cancer Diabetes Mother No problems noted. Family history of problems with anesthesia: No Surgical History Surgical History History of extraction of renal calculus History of tubal ligation Social History Social History Household Members: Spouse and Children Housing: House Do you presently have visiting nurse or other home services: No Alcohol intake: never Comment: medicated in pacu Patient Tobacco Use Status: Never used Tobacco Tobacco use type: Cigarette e-Cigarette/Vaping Use: Never Used Second Hand Smoke Exposure: No service: No Current occupational status: employed Current occupational exposures/hazards: No Cognitive needs: No Hearing needs: No Vision needs: No Meds Allergies Allergy/AdvReac Type Severity Reaction Status Date / Time canned food Allergy Severe rash Verified 05/21/23 14:53 lactose Allergy Nausea Verified 05/21/23 14:53 RED MEAT Allergy Severe Rash Uncoded 05/21/23 14:53 Home Medications Medication Instructions Recorded Confirmed Last Taken Type hydroxyzine pamoate 25 mg capsule 25 mg PO BID PRN Anxiety 01/09/23 04/30/23 Unknown History amlodipine 5 mg tablet 5 mg PO DAILY 04/30/23 06/16/23 06/16/23 History omeprazole 20 mg capsule,delayed 20 mg PO DAILY 04/30/23 06/16/23 06/16/23 History release Exam Airway Mallampati Class: II TM Dist: >3cm Neck ROM: Full Loose/Missing/Broken Teeth: No Heart: ok Lungs: ok. Assessment and Plan Assessment Anesthesia Assessment: Anesthesia Plan Discussed Final Anesthetic Review Family History of Problems with Anesthesia: No NPO: Yes ASA Class: III Final Preanesthetic Review: No Changes in Pt Med Stat, Meds/Allgs Chart Reviewed, Consent Obtained/Reviewed and Anes Risks/Benef Reviewed Patient Risk: Intermediate Procedure Risk: Low Anesthetic Plan Anesthetic Plan: GA and Agree w/ Assess. and Plan Disposition: Standard PACU
--- NOTE | ~2023-06-16 | FL_ITS ---
EXAMINATION: XR FLUOROSCOPY WITH IMAGES CLINICAL INFORMATION: Retrograde urethrogram COMPARISON: 04/30/2023 TECHNIQUE: Fluoroscopy Supervised By: Dr. Johnson. Fluoroscopy Time: 5.2 seconds. Cumulative Dose: 6 3.04 mGy. Images: 2. FINDINGS: 2 images obtained by C-arm camera demonstrating removal of ureteral stent with injection of contrast into the right ureter. FL/FL guidance in OR IMPRESSION: Removal of stent on the right
[2023-06-16 10:19] VITALS: BMI 50.5
[2023-06-16 10:41] VITALS: BP 159/86; PULSE 71; RESP 16; TEMP 37; O2SAT 97
[2023-06-16] MEDS: Lactated Ringers 1,000 ML 100 ML IVCONT (10:51)
--- NOTE | 2023-06-16 13:29 | P.HPSUR_ITS ---
Pre-Procedural Eval Section A - 24 Hr Update-Section A only Date of Service: 06/16/23 The patient is an INPATIENT: No Changes since office visit: No Cold of Flu in the past 2 weeks, No New Medical Problems, No Changes in Medication and No Patient answered all questions The patient has been examined within 24 hours of the surgical procedure. The History & Physical has been completed within 30 days and I have reviewed it.: Yes Section B - Complete if H&P > 30 days Chief Complaint: Calculus of kidney Details of Present Illness: Cystoscopy, right stent removal, right ureteroscopy with laser lithotripsy Allergies: Allergies Allergy/AdvReac Type Severity Reaction Status Date / Time canned food Allergy Severe rash Verified 05/21/23 14:53 lactose Allergy Nausea Verified 05/21/23 14:53 RED MEAT Allergy Severe Rash Uncoded 05/21/23 14:53 Review of Systems Sugical H&P ROS: Negative: Constitution, Cardiovascular, Respiratory, Neurological, Psychiatric, Hem-Onc, Allergic/Immunologic, Gastrointestinal, Genitourinary, Musculoskeletal, Integumentary, Endocrine and Eyes/Ears/Nose/ Throat Exam Surgical H&P Exam: Normal: HEENT, Normal: Heart, Normal: Lungs, Normal: Extremities, Normal: Abdomen, Normal: Skin and Normal: Neurological Plan Diagnosis/Plan: Unchanged (Cystoscopy, right stent removal, right ureteroscopy) I have reviewed the history and physical and performed a pertinent physical examination on my patient. No changes have occurred unless specified. Time Spent With Patient Time: Total time managing care of this patient today ____ minutes.
[2023-06-16 14:35] VITALS: BP 135/85; PULSE 77; RESP 16; TEMP 36.4; O2SAT 100
[2023-06-16 14:40] VITALS: BP 140/84; PULSE 76; RESP 18; O2SAT 100
[2023-06-16 14:45] VITALS: BP 145/76; PULSE 73; RESP 14; O2SAT 100
[2023-06-16 14:50] VITALS: BP 151/91; PULSE 80; RESP 16; TEMP 36.4; O2SAT 97
[2023-06-16 15:05] VITALS: BP 157/97; PULSE 80; RESP 20; TEMP 36.4; O2SAT 97
--- NOTE | 2023-07-10 16:44 | P.OP_ITS ---
Operative Note Operative Note Date of Service: 06/16/23 Narrative: PreOperative Diagnosis: Right renal stone Post Operative Diagnosis: Right renal stone Procedure: - cystoscopy, removal of indwelling right stent - right retrograde - right ureteroscopy Surgeon: Dr Jack Johnson Anesthesia: General Indications for procedure: Prior procedure for right pyelonephritis question of kidney stone. Stent was placed. She has fully resolved. Procedure: After informed consent was verified patient was brought to the operating placed in supine position. Anesthesia was administered per protocol. Patient was placed in modified dorsal lithotomy position and prepped and draped in a sterile fashion. Safety pause time-out and side of surgery confirmed. Antibiotics confirmed. 22 Mongolian cystoscope was inserted per urethra. Bladder was normal in its entirety. Both ureteric orifices were in normal position. Stent seen emerging from right ureteric orifice. Stent grasped and removed. The right ureteric orifice was cannulated and a retrograde examination was performed. No filling defects seen. A Sensor guidewire was placed up to the level of the renal pelvis under fluoroscopy. The rigid cystoscope was removed and the digital flexible ureteral scope was placed. The scope was advanced over the wire of the renal pelvis. The wire was removed. The renal pelvis was examined. No evidence of stones seen. Decision was made to withdraw the scope and leave no stent The bladder was emptied. The patient tolerated the procedure well and was extubated in the operating room, and transferred in stable condition to the recovery area. Pathology: Stent Drains:
== END 2023-06-16 15:20 | disposition home or self-care (01) ==
PROVIDERS: PCP Internal Medicine; Visit Provider Urology
PROC: (CPT 52005; principal; 2023-06-16 11:40)
DX: N20.0 Calculus of kidney (principal); Z87.442 Personal history of urinary calculi; Z46.6 Encounter for fitting and adjustment of urinary device; N13.8 Other obstructive and reflux uropathy; Q61.5 Medullary cystic kidney; I10 Essential (primary) hypertension; J45.909 Unspecified asthma, uncomplicated; M79.7 Fibromyalgia; E66.01 Morbid (severe) obesity due to excess calories; Z68.42 Body mass index [BMI] 45.0-49.9, adult; Z79.899 Other long term (current) drug therapy
CPT/HCPCS: 52005; C1758; C1769; J1100; J1956; J2250; J2405; J2704; J3010; Q9967

== ENCOUNTER → 2023-06-16 09:25 | Outpatient (BNV) | payer OTHER, SELFPAY | PROVIDERS: PCP Internal Medicine; Visit Provider Urology | DX: N20.0 Calculus of kidney (principal); Z96.0 Presence of urogenital implants | CPT/HCPCS: 52310; 74420 ==

== ENCOUNTER 2023-06-17 11:44 | Outpatient (REF) | payer OTHER, SELFPAY ==
[2023-06-26 14:38] LABS: Stone Source KIDNEY STONE
== END 2023-06-17 11:45 | disposition home or self-care (01) ==
LOC: HO.LAB 11:44
PROVIDERS: Visit Provider Urology
DX: N20.0 Calculus of kidney (principal)
CPT/HCPCS: 82365; 88300

== ENCOUNTER 2023-07-02 11:03 | Emergency (ER) | payer OTHER, SELFPAY ==
--- NOTE | ~2023-07-02 | XR_ITS ---
EXAMINATION: XR CHEST CLINICAL INFORMATION: Cough. COMPARISON: Chest x-ray 05/30/2022 TECHNIQUE: 2 views of the chest were obtained. FINDINGS: No significant abnormality is noted involving the heart, lungs, mediastinum, bony thorax or soft tissues. XR/XR chest 2V IMPRESSION: Unremarkable chest examination.
[2023-07-02 11:22] VITALS: BP 173/112; PULSE 108; RESP 16; TEMP 37.5; O2SAT 98; BMI 35.4
--- NOTE | 2023-07-02 11:25 | ED_ITS ---
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 Patient states that over the last 3 days she has had a sore throat and ear pain. Patient denies any dizziness, lightheadedness, abdominal pain, nausea, vomiting, fever, chills, blurry vision, double vision, loss of vision, chest pain, difficulty breathing, shortness of breath, back pain, night sweats, pain with urination, increased urinary frequency, increased urinary urgency, blood in her urine or stool, syncope or a near syncopal episode, recent trauma or falls, bowel incontinence, bladder incontinence, bowel retention, bladder retention, or any other complaints at this time. Onset (ago): day(s) (3) Severity: mild Severity scale (1-10): 3 Quality: aching and dull Pain Consistency: constant Relieving factors: none Exacerbating factors: none Associated symptoms: denies other symptoms Treatments prior to arrival: none Related Data Home Medications Medication Instructions Recorded Confirmed hydroxyzine pamoate 25 mg capsule 25 mg PO BID PRN Anxiety 01/09/23 04/30/23 amlodipine 5 mg tablet 5 mg PO DAILY 04/30/23 06/16/23 omeprazole 20 mg capsule,delayed 20 mg PO DAILY 04/30/23 06/16/23 release Previous Rx's Medication Instructions Recorded albuterol sulfate 90 mcg/actuation 2 puff inhalation Q4-6H PRN 02/05/21 aerosol inhaler shortness of breath or wheezing #8.5 grams citalopram 40 mg tablet 40 mg PO DAILY 90 days #90 tabs 11/11/22 gabapentin 300 mg capsule 300 mg PO BEDTIME 90 days #90 caps 11/11/22 linaclotide 290 mcg capsule 290 mcg PO DAILY 90 days #90 caps 11/11/22 montelukast 10 mg tablet 10 mg PO BEDTIME 90 days #90 tabs 11/11/22 pyridoxine (vitamin B6) 100 mg 100 mg PO DAILY 90 days #90 tabs 11/11/22 tablet cefuroxime axetil 500 mg tablet 500 mg PO BID #16 tabs 05/02/23 nitrofurantoin macrocrystal 50 mg 50 mg PO BEDTIME 30 days #30 caps 06/16/23 capsule tamsulosin 0.4 mg capsule 0.4 mg PO BEDTIME 14 days #14 caps 06/16/23 tramadol 50 mg tablet 50 mg PO Q6H PRN pain (scale score 06/16/23 1-3) #8 tabs penicillin V potassium 500 mg 500 mg PO BID 10 days #20 tabs 07/02/23 tablet Allergies Allergy/AdvReac Type Severity Reaction Status Date / Time canned food Allergy Severe rash Verified 05/21/23 14:53 lactose Allergy Nausea Verified 05/21/23 14:53 RED MEAT Allergy Severe Rash Uncoded 05/21/23 14:53 Review of Systems Constitutional: Constitutional: Reports no additional constitutional complaints, Denies chills, Denies fever(s) and Denies night sweats Eyes: Eyes: Reports no additional eye complaints, Denies blurry vision, Denies change in vision, Denies diplopia, Denies eye discharge, Denies loss of vision and Denies eye pain ENT: Denies dizziness Comments: sore throat, ear pain Cardiovascular: Cardiovascular: Reports no additional cardiovascular complaints, Denies chest pain, Denies lightheadedness, Denies Loss of Consciousness and Denies dyspnea Respiratory: Respiratory: Reports no additional respiratory complaints and Denies dyspnea Gastrointestinal: Gastrointestinal: Reports no additional gastrointestinal complaints, Denies abdominal pain, Denies melena, Denies hematochezia, Denies change in bowel habits and Denies change in stool character Genitourinary: Genitourinary: Denies hematuria, Denies urinary frequency, Denies dysuria, Denies urinary incontinence, Denies urinary hesitancy and Denies urinary urgency Musculoskeletal: Musculoskeletal: Reports no additional musculoskeletal complaints, Denies numbness and Denies tingling Neurologic: Denies dizziness, Denies loss of vision, Denies numbness and Denies tingling Psychiatric: Psychiatric: Reports no additional psychiatric complaints Endocrine: Endocrine: Reports no additional endocrine complaints Hematologic/Lymphatic: Hematologic/Lymphatic: Reports no additional hematologic/lymphatic complaints Allergic/Immunologic: Allergic/Immunologic: Reports no additional allergic/immunologic complaints PMFSH Past Medical History Attestation statement: The following information was validated with the patient. Source: old records reviewed and nursing notes reviewed Medical History Morbid obesity Umbilical hernia Umbilical hernia Morbid obesity with BMI of 45.0-49.9, adult Renal calculi Hospital discharge follow-up Hypertension Fibromyalgia Active asthma Surgical History History of extraction of renal calculus History of tubal ligation Family History Family History Father Anemia Sister Cervical cancer Maternal Aunt Breast cancer Diabetes Mother No problems noted. Social History Social History Household Members: Spouse and Children Housing: House Do you presently have visiting nurse or other home services: No Alcohol intake: never Comment: medicated in pacu Patient Tobacco Use Status: Never used Tobacco Tobacco use type: Cigarette e-Cigarette/Vaping Use: Never Used Second Hand Smoke Exposure: No Advance Directives: No Advance Directives Information Provided: No service: No Current occupational status: employed Current occupational exposures/hazards: No Cognitive needs: No Hearing needs: No Vision needs: No Physical Exam ED Vital Signs: Vital Signs - 24 hr 07/02/23 11:22 Temperature 99.5 F Pulse Rate 108 H Respiratory Rate 16 Blood Pressure 173/112 H Pulse Oximetry 98 Oxygen Delivery Method Room Air BMI result Body Mass Index 35.4 Const General: cooperative, no acute distress, alert and awake Nutritional Appearance: well nourished Orientation/consciousness: patient oriented x3 Limitations: no limitations [facility] Head: Yes normal to inspection and Yes atraumatic Ears: hearing grossly normal bilaterally and external ears normal General nose exam: Normal external nose present, no nasal discharge noted and no epistaxis Face and sinus: Yes normal facial exam, No abrasion and No laceration Mouth: Normal oral and palatal mucosa present, no drooling and no muffled voice Throat: Yes abnormal tonsil (bilateral erythema and exudates) Eyes General: appearance normal, both eyes and all related structures Periorbital: periorbital findings normal Eyelids: Yes eyelids normal Conjunctivae: conjunctivae normal Pupils: Equal, round and reactive pupils present EOM: EOMs intact bilaterally Neck Neck: Yes normal visual inspection, Yes full ROM and Yes no lymphadenopathy Chest Chest palpation & inspection: normal inspection of the chest Resp Effort & Inspection: normal respiratory effort and able to speak in complete sentences GI Inspection: Yes normal to inspection Neuro General: patient oriented x3 and moves all extremities Cranial nerves: Yes Equal, round and reactive pupils present Cognition (Neuro): normal cognition Motor exam (neuro): 5/5 motor strength present throughout Sensory Exam: Normal double simultaneous stimulation for sensation Coordination: [id number] test normal Extrem General: Yes normal to inspection, Yes full ROM and Yes capillary refill normal Psych Appearance: grossly normal Mental Status: mental status grossly normal Affect: normal affect Attitude: cooperative Thought process: Normal thought process present Thought content: Normal thought content present Insight: Good insight present (Psych) Course Course Course Narrative: Patient complains of 3 days of sore throat being worse symptoms, runny nose cough fatigue This is rapid medical exam done in triage pending full evaluation and dispo by ER provider Serologies and chest x-ray ordered Medical Decision Making Medical Decision Making [facility] Narrative: Patient is a 37 year old assigned female at with a history of HTN presenting to the emergency department today with a sore throat and ear pain. Patient's physical exam was as noted in the physical exam portion of this note. Patient's chest x-ray showed no acute process. Patient's COVID-19, influenza, and RSV test was negative. Patient's strep test was positive. I explained my physical exam findings as well as all test results to the patient. I answered all questions asked by the patient. I stressed the importance of the patient taking her medication as prescribed. I stressed the importance of the patient following up with her primary care provider. I stressed the importance of the patient returning to the emergency department immediately if her symptoms were to worsen or if she were to develop any dizziness, shortness of breath, difficulty breathing, chest pain, blurry vision, loss of vision, nausea, vomiting, abdominal pain, fever, chills, back pain, or any other complaints. Patient verbalized agreement and understanding with this treatment plan and discharge. Differential Diagnosis Differential Diagnoses: The differential diagnosis associated with the presentation includes COVID-19 Influenza RSV Strep pharyngitis Admission/Observation Consideration of admission/observation: Escalation of care including admission/observation considered Patient would have been admitted to the hospital had her work up had any findings where hospital admission was appropriate and her clinical presentation warranted hospital admission. Lab Data [facility] Lab Attestation statement: I reviewed the patient's lab results. My interpretation of these results are in the MDM Rationale portion of this note. Labs: Lab Results 07/02/23 07/02/23 Range/Units 12:25 12:31 Influenza Type A (PCR) NEGATIVE (Negative) Influenza Type B (PCR) NEGATIVE (Negative) RSV RNA Qual (PCR) NEGATIVE (Negative) SARS-CoV-2 RNA (RT-PCR) NEGATIVE (Negative) S. pyogenes GrpA DEMIAN Positive A (Negative) Independent Interpretation I performed an independent interpretation of an: Plain X-Ray Interpretation: My interpretation is in agreement with the radiologist's impression of this imaging study. EXAMINATION: XR CHEST CLINICAL INFORMATION: Cough. COMPARISON: Chest x-ray 05/30/2022 TECHNIQUE: 2 views of the chest were obtained. FINDINGS: No significant abnormality is noted involving the heart, lungs, mediastinum, bony thorax or soft tissues. XR/XR chest 2V IMPRESSION: Unremarkable chest examination. Dictated By: Juice Knox MD Signed By: Electronically signed by Juice Knox MD 07/02/23 1152 Radiology Impression Discussion of test interpretation with radiology: I have reviewed the radiologist's reading. Prescription Management I considered prescription management with: Antibiotic (patient prescribed an antibiotic for strep) Discharge Plan Discharge Clinical Impression: Strep pharyngitis Patient Disposition: Home, Self-Care Instructions: Strep Throat (DC) Additional Instructions: Follow up with your primary care provider. Return to the emergency department immediately if your symptoms worsen or if you develop any dizziness, shortness of breath, difficulty breathing, chest pain, blurry vision, loss of vision, nausea, vomiting, abdominal pain, fever, chills, back pain, or any other complaints. Kelly un seguimiento con coleman proveedor de atenci?n primaria. Regrese al departamento de emergencias inmediatamente si cammie s?ntomas empeoran o si presenta mareos, dificultad para respirar, dificultad para respirar, dolor en el pecho, visi?n borrosa, p?rdida de la visi?n, n?useas, v?mitos, dolor abdominal, fiebre, escalofr?os, dolor de espalda o cualquier otras quejas. Prescriptions: New penicillin V potassium 500 mg tablet 500 mg PO BID 10 Days Qty: 20 0RF No Action albuterol sulfate 90 mcg/actuation HFA aerosol inhaler 2 puff inhalation Q4-6H PRN (Reason: shortness of breath or wheezing) Qty: 8.5 0RF omeprazole 20 mg capsule,delayed release(DR/EC) 20 mg PO DAILY amlodipine 5 mg tablet 5 mg PO DAILY cefuroxime axetil 500 mg tablet 500 mg PO BID Qty: 16 0RF nitrofurantoin macrocrystal 50 mg capsule 50 mg PO BEDTIME 30 Days Qty: 30 0RF Rx Instructions: must administer with a meal/food tramadol 50 mg tablet 50 mg PO Q6H PRN (Reason: pain (scale score 1-3)) Qty: 8 0RF tamsulosin 0.4 mg capsule 0.4 mg PO BEDTIME 14 Days Qty: 14 0RF hydroxyzine pamoate 25 mg capsule 25 mg PO BID PRN (Reason: Anxiety) citalopram 40 mg tablet 40 mg PO DAILY 90 Days Qty: 90 0RF gabapentin 300 mg capsule 300 mg PO BEDTIME 90 Days Qty: 90 1RF linaclotide 290 mcg capsule 290 mcg PO DAILY 90 Days Qty: 90 0RF montelukast 10 mg tablet 10 mg PO BEDTIME 90 Days Qty: 90 1RF pyridoxine (vitamin B6) 100 mg tablet 100 mg PO DAILY 90 Days Qty: 90 1RF naproxen 500 mg tablet 500 mg PO ONCE Qty: 1 0RF nitrofurantoin monohyd/m-cryst 100 mg capsule 100 mg PO ONCE Qty: 1 0RF lidocaine HCl 2 % jelly in applicator 10 ml intra-urethral ONCE Qty: 10 0RF Referrals: Rashmi Link MD [Primary Care Provider] - Stand Alone Forms: Work/School Release Interventions: ED Discharge Assessment Last Done: 07/02/23 14:01 Discharge Date/Time: 07/02/23 14:02 Print Language: Slovenian
[2023-07-02 12:36] LABS: IDNOW Serial# 08D9AD1C; Strep A Nucleic Acid Positive (Negative)
[2023-07-02 13:36] LABS: Influenza A PCR NEGATIVE (Negative); Influenza B PCR NEGATIVE (Negative); Resp Syncy Virus RNA Qual PCR NEGATIVE (Negative); SARS COV2 PCR INHOUSE NEGATIVE (Negative)
== END 2023-07-02 14:02 | disposition home or self-care (01) ==
PROVIDERS: Physician Assistant Medical; Emergency Provider Emergency Medicine Emergency Medical Services; PCP Internal Medicine
DX: J02.0 Streptococcal pharyngitis (principal); H92.01 Otalgia, right ear; R06.9 Unspecified abnormalities of breathing; Z11.52 Encounter for screening for COVID-19; Z20.822 Contact with and (suspected) exposure to COVID-19; Z79.899 Other long term (current) drug therapy
CPT/HCPCS: 0241U; 71046; 87651; 99282; 99283

== ENCOUNTER 2023-07-04 12:46 | Outpatient (REF) | payer OTHER, SELFPAY ==
[2023-07-04 15:40] LABS: Appearance Urine Turbid; Color Urine RED; Glucose Urine UA Negative (Negative); Leukocyte Esterase Urine Moderate (2+) (Negative); Nitrite Urine Positive (Negative); PH 6.5 (5.0-9.0); Specific Gravity - Urine 1.015 (1.005-1.025); UMIC TRIGGER UA YES; Urine Blood Large (3+) (Negative); Urine Ketones Trace mg/dL (Negative); Urine Protein 300 (3+) mg/dL (Neg-Trace)
[2023-07-04 15:46] LABS: RBC Urine >20 /HPF (0-2); Squamous Epithelial Cell Urine 0-2 /HPF (0-2); WBC Urine 21-50 /HPF (0-5)
[2023-07-04 15:47] LABS: Bacteria Urine 2+ (None Seen); Hyaline Casts Urine 0-2 /LPF (0-2)
== END 2023-07-04 12:47 | disposition home or self-care (01) ==
LOC: HO.LAB 12:46
PROVIDERS: PCP Internal Medicine; Visit Provider Urology
DX: N20.0 Calculus of kidney (principal); N13.8 Other obstructive and reflux uropathy
CPT/HCPCS: 81001; 87086

== ENCOUNTER 2023-07-15 10:10 | Outpatient (REF) | payer OTHER, SELFPAY ==
--- NOTE | ~2023-07-15 | US_ITS ---
EXAMINATION: US RETROPERITONEAL LIMITED (RENAL ONLY) CLINICAL INFORMATION: Calculus of kidney. COMPARISON: CT abdomen and pelvis 04/30/2023. Renal ultrasound 02/07/2022 and 08/21/2021. X-ray abdomen KUB 04/26/2020. TECHNIQUE: Real-time imaging of the kidneys. FINDINGS: RIGHT KIDNEY: 12.0 x 4.5 x 6.7 cm (SAG x AP x TRV). The kidney is normal in size and contour. Diffusely echogenic renal pyramids again seen. Renal cortical thickness is normal. No calculi or focal parenchymal lesions. Mild caliectasis. No hydronephrosis. LEFT KIDNEY: 11.0 x 6.0 x 5.4 cm (SAG x AP x TRV). The kidney is normal in size and contour. Diffusely echogenic renal pyramids again seen. Renal cortical thickness is normal. No renal calculi or hydronephrosis. Minimal caliectasis. 1.5 x 1.0 x 0.9 cm lower pole cyst is seen. 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 Mild right and minimal left caliectasis.
== END 2023-07-15 10:11 | disposition home or self-care (01) ==
LOC: HO.US 10:10
PROVIDERS: PCP Internal Medicine; Visit Provider Urology
DX: N20.0 Calculus of kidney (principal); N13.8 Other obstructive and reflux uropathy; N12 Tubulo-interstitial nephritis, not specified as acute or chronic
CPT/HCPCS: 76775

== ENCOUNTER 2023-07-21 17:09 | Outpatient (AMB) | payer OTHER, SELFPAY ==
--- NOTE | 2023-07-21 17:12 | A.OFFPC_ITS ---
Vital Signs 07/21/23 17:13 07/21/23 17:37 Height 5 ft 3 in Weight 282 lb BMI 49.9 BP 152/80 H 150/80 H Blood Pressure Location Lt brachial Lt brachial Position Sitting Sitting Intake Visit Reasons: HDF s/p kidney stone surgery at [facility] Intake Note: [facility] HDF Kidney Stone, c/o throat discomfort Commercial Drafter Required: No Accompanied by: Self / Same As Patient Allergies canned food Allergy (Severe, Verified 07/21/23 17:25) rash lactose Allergy (Verified 07/21/23 17:25) Nausea RED MEAT Allergy (Severe, Uncoded 07/21/23 17:25) Rash Medication List - Last Reconciled 07/21/23 by Rashmi Zapata MD albuterol sulfate 90 mcg/actuation 2 puffs inhalation Q4-6H PRN amlodipine 5 mg PO DAILY citalopram 40 mg PO DAILY 90 days clonazepam 0.5 mg PO DAILY hydroxyzine pamoate 25 mg PO BID PRN linaclotide 290 mcg PO DAILY 90 days montelukast 10 mg PO BEDTIME 90 days omeprazole 20 mg PO DAILY pyridoxine (vitamin B6) 100 mg PO DAILY 90 days tramadol 50 mg PO Q6H PRN Tobacco use date assessed: 07/21/23 Dental Screening Dental Screen Date: 07/21/23 Did you have a dental visit in the last 12 months?: No Did you have a dental problem in the last 6 months where you did not have access to dental care?: No Was dental information given to patient?: Patient has dentist HPI HPI Comments 2 History of Present Illness Details This is a 37-year-old female with hypertension, morbid obesity, mild major depression, GERD and chronic idiopathic constipation that comes today complaining of sore throat that started about a month ago and went to ER for this matter. Was prescribed antibiotics and completed them and said that few days after completing them sore throat restarted. No fever, night sweats or chills. No lymphadenopathy. Also has goiter. Ultrasound once a thyroid will be order. Antibiotics will be restarted. Blood pressure elevated and will be recheck in 3 weeks by nurse navigator. I will increase amlodipine from 5 mg to 10 mg. She is morbidly obese with a BMI of 50 and declines weight loss surgery. Was advised to diet and exercise as tolerated to reach BMI goal less than 30. Depression stable with citalopram. GERD stable with PPIs. Constipation well controlled with Linzess. [facility] Medical History (Updated 07/21/23 @ 17:40 by Rashmi Zapata MD) Sepsis Morbid obesity Umbilical hernia Umbilical hernia Morbid obesity with BMI of 45.0-49.9, adult Renal calculi Hospital discharge follow-up Hypertension Fibromyalgia Active asthma Surgical History History of kidney stones History of extraction of renal calculus History of tubal ligation Family History Father Anemia Sister Cervical cancer Maternal Aunt Breast cancer Diabetes Mother No problems noted. Social History Household Members: Spouse and Children Housing: House Do you presently have visiting nurse or other home services: No Alcohol intake: never Comment: medicated in pacu Patient Tobacco Use Status: Never used Tobacco e-Cigarette/Vaping Use: Never Used Second Hand Smoke Exposure: No service: No Current occupational status: employed Current occupational exposures/hazards: No Cognitive needs: No Hearing needs: No Vision needs: No Female Reproductive History Menstrual Age of Menarche: 12 Questionnaire PHQ-9 Over the last 2 weeks, how often have you been bothered by any of the following problems? 1. Little interest or pleasure in doing things: not at all 2. Feeling down, depressed, or hopeless: not at all 3. Trouble falling or staying asleep, or sleeping too much: not at all 4. Feeling tired or having little energy: not at all 5. Poor appetite or overeating: not at all 6. Feeling bad about yourself - or that you are a failure or have let yourself or your family down: not at all 7. Trouble concentrating on things, such as reading the newspaper or watching television: not at all 8. Moving or speaking so slowly that other people could have noticed. Or the o pposite - being so fidgety or restless that you have been moving around a lot more than usual: not at all 9. Thoughts that you would be better off or of hurting yourself in some way: not at all Total score: 0 Depression Screening Interpretation: Negative Depression Screening Done: Yes 13837 - PHQ-9 Billing: Yes Source: Developed by Drs. Drake Jackson, Sally Funes, Adam Nicholson and colleagues, with an educational hilary from [employer]. Thrive Questionnaire Date Thrive assessed: 07/21/23 I am a: Patient What is your living situation today?: I have a steady place to live Within the past 12 months, did the food you bought not last and you didn't have the money to get more?: Never true Within the past 12 months, did you worry whether your food would run out before you got money to buy more?: Never true Do you have trouble paying for medicines?: No Do you have trouble getting transportation to medical appointments?: No Do you have trouble paying your heating and electricity bill?: No Do you have trouble taking care of your child, family member or friend?: No Do you have trouble with day-to-day activities such as bathing, preparing meals, shopping, managing finances, etc.?: No Are you currently unemployed and looking for a job?: No Are you interested in more education?: No Please select the resources that you would like help with: None Currently or been in a relationship where the following occur: no concerns reported THRIVE Score: 0 AUDIT C Alcohol Use Questionnaire (AUDIT-C) 1. How often do you have a drink containing alcohol?: Monthly or less 2. How many drinks containing alcohol do you have on a typical day when you are drinking?: 1 or 2 3. How often do you have six or more drinks on one occasion?: Never Total Score: 1 Score Reviewed/Action Taken: No OMAR-7 AMB Questionnaire OMAR-7 Date OMAR - 7 assessed: 07/21/23 Feeling nervous, anxious, or on edge: 1 = Several days Not being able to stop or control worryin = Not at all Worrying too much about different things: 0 = Not at all Trouble relaxin = Not at all Being so restless that it is hard to sit still: 0 = Not at all Becoming easily annoyed or irritable: 0 = Not at all Feeling afraid as if something awful might happen: 0 = Not at all Total OMAR-7 score (0-4 normal; 5-9 mild; 10-14 moderate; 15-21 severe): 1 Source: Developed by Drs. Drake Jackson, Sally Funes, Adam Nicholson and colleagues, with an educational hilary from [employer]. OMAR-7 Assessment Billing OMAR-7 Assessment Tool: OMAR-7 Assessment 98644 Review of Systems Const All systems reviewed & are unremarkable except as noted in HPI and below Eyes Reports no additional complaints, Denies change in vision and Denies other visual disturbances Card Denies chest pain at rest, Denies chest pain with activity, Denies edema, Denies irregular heart rhythm, Denies claudication, Denies dyspnea, Denies dyspnea on exertion, Denies orthopnea, Denies paroxysmal nocturnal dyspnea and Denies slow heart rate Resp Denies cough, Denies dyspnea and Denies dyspnea on exertion GI Denies abdominal pain, Denies change in bowel habits, Denies excessive flatus, Denies nausea and Denies vomiting Denies urinary incontinence, Denies urinary hesitancy and Denies urinary urgency Physical exam (Primary Care) Vital Signs: Last Vital Signs BP 152/80 H 07/21/23 17:13 BMI result Body Mass Index 49.9 Tobacco/Smoking Status: Tobacco use Status Tobacco use date assessed 07/21/23 07/21/23 17:19 Patient Tobacco Use Status Never used Tobacco 07/21/23 17:19 Tobacco use type 07/21/23 17:19 e-Cigarette/Vaping Use Never Used 07/21/23 17:19 PHQ-9: PHQ-9 Score PHQ-9: Total score 0 07/21/23 17:22 Depression Screening Interpretation: Negative Thrive Assessment: Date of Thrive Assessment Date Thrive assessed 07/21/23 07/21/23 17:22 Currently or been in a relationship where the following occur: no concerns reported Neck Thyroid: diffusely enlarged Resp Effort & Inspection: normal respiratory effort Auscultation: clear to auscultation bilaterally Cardio Jugular venous distension: no JVD Rate: regular rate Rhythm: regular rhythm Heart sounds: S1 normal heart sound present and S2 normal heart sound present Extrem General: Yes full ROM Assessment and Plan Assessment & Plan (1) Morbid obesity with BMI of 50.0-59.9, adult: Code(s): E66.01 - Morbid (severe) obesity due to excess calories; Z68.43 - Body mass index [BMI] 50.0-59.9, adult Plan: Start diet and exercise. BMI goal is less than 30. (2) Hypertension: Code(s): I10 - Essential (primary) hypertension Qualifiers: Hypertension type: essential hypertension Qualified Code(s): I10 - Essential (primary) hypertension Plan: Increase amlodipine from 5 mg to 10 mg. Blood pressure goal is equal or less than 130/80. Recheck blood pressure with nurse navigator in 3 weeks. (3) Chronic idiopathic constipation: Code(s): K59.04 - Chronic idiopathic constipation Plan: Continue Linzess. (4) GERD (gastroesophageal reflux disease): Code(s): K21.9 - Gastro-esophageal reflux disease without esophagitis Plan: Continue PPIs. (5) Mild major depression: Code(s): F32.0 - Major depressive disorder, single episode, mild Plan: Continue citalopram. Orders: Orders US thyroid Today E04.9 - Nontoxic goiter, unspecified Medications: New amlodipine 10 mg PO DAILY 90 days 90 tabs 1RF amoxicillin-pot clavulanate 875-125 mg 1 tab PO BID 7 days 14 tabs 0RF Coding Level of Care Code Est Pt Level 4 (60728) Diagnoses Morbid obesity with BMI of 50.0-59.9, adult E66.01; Z68.43 Essential hypertension I10 Hypertension type: essential hypertension Chronic idiopathic constipation K59.04 GERD (gastroesophageal reflux disease) K21.9 Mild major depression F32.0 Additional Codes OMAR-7 Assessment Billing - OMAR-7 Assessment Tool: OMAR-7 Assessment 99764 ([id number]) Time Spent (min) 24
[2023-07-21 17:13] VITALS: BP 152/80; BMI 49.9
[2023-07-21 17:37] VITALS: BP 150/80
== END 2023-07-21 17:35 | disposition home or self-care (01) ==
PROVIDERS: PCP Internal Medicine; Visit Provider Internal Medicine
DX: I10 Essential (primary) hypertension (principal); E66.01 Morbid (severe) obesity due to excess calories; Z68.43 Body mass index [BMI] 50.0-59.9, adult; F32.0 Major depressive disorder, single episode, mild; K59.04 Chronic idiopathic constipation; K21.9 Gastro-esophageal reflux disease without esophagitis
CPT/HCPCS: 99214

== ENCOUNTER 2023-07-30 13:44 | Outpatient (REF) | payer OTHER, SELFPAY ==
--- NOTE | ~2023-07-30 | US_ITS ---
EXAMINATION: US THYROID CLINICAL INFORMATION: Nontoxic goiter, unspecified. COMPARISON: None available. TECHNIQUE: Linear transducer griffin-scale and color Doppler examination with attention to the region of the thyroid. FINDINGS: SIZE: Measurements of the thyroid lobes and nodules are given in sagittal, anteroposterior and transverse dimensions respectively. Right Thyroid Lobe: 4.8 x 1.4 x 1.8 cm, volume 6.3 mL. Parenchyma: The gland echotexture is homogeneous. Thyroid vascularity is normal. Left Thyroid Lobe: 4.5 x 1.4 x 2.5 cm, volume 8.2 mL. Parenchyma: The gland echotexture is homogeneous. Thyroid vascularity is normal. Isthmus: 0.21 cm in maximum AP dimension. Estimated total number of nodules greater than or equal to 1 cm: 0. Vp Medical nodules are described as follows: 1. Location: Left inferior. Size: 0.3 x 0.3 x 0.3 cm, volume 0.01 mL. Nodule characteristics: Composition: Cystic(0). ACR TI-RADS total points: 0 ACR TI-RADS category: 1 NODES: No lymphadenopathy is seen in the tissue surrounding the thyroid gland. US/US thyroid IMPRESSION: Normal-sized thyroid gland with homogeneous echotexture and normal vascularity. No suspicious nodules. ACR TI-RADS RECOMMENDATION REFERENCE: Ultrasound-guided fine-needle aspiration, followup ultrasound, no further follow up. * TR1 (0 point) and TR2 (2 points): No FNA or follow up. * TR3 (3 points): FNA if more than or equal to 2.5 cm in maximum dimension, followup ultrasound in 1, 3 and 5 years if 1.5 to 2.4 cm in maximum dimension. * TR4 (4-6 points): FNA if more than or equal to 1.5 cm in maximum dimension, followup ultrasound in 1, 2, 3 and 5 years if 1 to 1.4 cm in maximum dimension. * TR5 (more than or equal to 7 points): FNA if more than or equal to 1 cm in maximum dimension, followup ultrasound every year for 5 years if 0.5 to 0.9 cm in maximum dimension. * TR3, TR4 or TR5 nodules that are below the size threshold for followup receive no follow up.
== END 2023-07-30 13:45 | disposition home or self-care (01) ==
LOC: HO.US 13:44
PROVIDERS: PCP Internal Medicine; Visit Provider Internal Medicine
DX: E04.9 Nontoxic goiter, unspecified (principal)
CPT/HCPCS: 76536

== ENCOUNTER 2023-08-15 09:40 | Day surgery (SDC) | payer OTHER, SELFPAY ==
--- NOTE | ~2023-08-15 | FL_ITS ---
FLUOROSCOPIC GUIDED LUMBAR PUNCTURE INDICATION: Concern for intracranial hypertension Risks and benefits and possible complications were discussed with the patient and the consent form was signed. Patient was placed prone on the fluoroscopy table. The back was prepped and draped in routine sterile fashion. Betadine was used as a skin antiseptic. Utilizing fluoroscopic guidance, the L4-5 interlaminar space was accessed with a 22 gauge quinkie spinal needle and clear CSF fluid obtained. Opening pressure was 33 cm H20 in the prone position. 10.5 cc of fluid was sent for analysis. Closing pressure was 21 cm H2O in the prone position. The needle was removed without immediate complications. Total fluoroscopy time: 1 minute 13 seconds FL/FL guided lumbar puncture LP IMPRESSION: 1. Successful fluoroscopic lumbar puncture. 2. Elevated opening pressure at 33 cm H2O. This procedure was performed by Leland Kelley PA-C and supervised by Dr. Mcneill.
[2023-08-15 10:08] VITALS: BMI 48.9
[2023-08-15 12:30] VITALS: BP 133/74; PULSE 83; RESP 16; TEMP 36.6; O2SAT 97
[2023-08-15 12:45] VITALS: BP 124/70; PULSE 83; RESP 16; O2SAT 97
[2023-08-15 13:00] VITALS: BP 131/77; PULSE 80; RESP 16; O2SAT 97
[2023-08-15 13:12] LABS: CSF Appearance Clear, Colorless; CSF Tube # 1
[2023-08-15 13:15] VITALS: BP 133/81; PULSE 84; RESP 16; TEMP 36.4; O2SAT 97
[2023-08-15 13:20] LABS: Glucose CSF 62 mg/dL; Total Protein CSF 27.7 mg/dL (15-45)
[2023-08-15 13:32] LABS: Appearance CSF CLEAR; CSF Tube # 4; Color CSF COLORLESS; Lymphocytes CSF 100 %; Red Blood Cell CSF 1 MM*3; White Blood Cell CSF 1 MM*3
== END 2023-08-15 13:30 | disposition home or self-care (01) ==
PROVIDERS: Physician Assistant Surgical; PCP Internal Medicine; Visit Provider Psychiatry & Neurology Neurology
PROC: 009U3ZZ Drainage of Spinal Canal, Percutaneous Approach (ICD-10-PCS; CPT 62270; principal; 2023-08-15 11:00)
DX: G93.2 Benign intracranial hypertension (principal); H47.10 Unspecified papilledema; F32.A Depression, unspecified; J45.909 Unspecified asthma, uncomplicated; N20.0 Calculus of kidney; K21.9 Gastro-esophageal reflux disease without esophagitis; E66.01 Morbid (severe) obesity due to excess calories; Z68.42 Body mass index [BMI] 45.0-49.9, adult
CPT/HCPCS: 62328; 82945; 84157; 87015; 87070; 87205; 89051

== ENCOUNTER → 2023-08-15 11:30 | Outpatient (BNV) | payer OTHER, SELFPAY | PROVIDERS: PCP Internal Medicine; Visit Provider Physician Assistant Surgical | DX: G93.2 Benign intracranial hypertension (principal) | CPT/HCPCS: 62328 ==

== ENCOUNTER 2023-08-20 14:44 | Outpatient (AMB) | payer OTHER, SELFPAY ==
[2023-08-20 14:55] VITALS: BP 136/82; BMI 49.1
--- NOTE | 2023-08-20 14:55 | A.OFFPC_ITS ---
Vital Signs 08/20/23 14:55 Height 5 ft 3 in Weight 277 lb BMI 49.1 BP 136/82 Blood Pressure Location Lt brachial Position Sitting Intake Visit Reasons: BP Intake Note: Patient here for a follow up BP, follow up ED testing that was done Equities Trader Required: No Accompanied by: Self / Same As Patient Allergies canned food Allergy (Severe, Verified 08/20/23 15:15) rash lactose Allergy (Verified 08/20/23 15:15) Nausea RED MEAT Allergy (Severe, Uncoded 08/20/23 15:15) Rash Medication List - Last Reconciled 08/20/23 by Rashmi Zapata MD albuterol sulfate 90 mcg/actuation 2 puffs inhalation Q4-6H PRN amlodipine 10 mg PO DAILY 90 days citalopram 40 mg PO DAILY 90 days clonazepam 0.5 mg PO DAILY hydroxyzine pamoate 25 mg PO BID PRN linaclotide 290 mcg PO DAILY 90 days montelukast 10 mg PO BEDTIME 90 days omeprazole 20 mg PO DAILY pyridoxine (vitamin B6) 100 mg PO DAILY 90 days tramadol 50 mg PO Q6H PRN Tobacco use date assessed: 07/21/23 Dental Screening Dental Screen Date: 07/21/23 HPI HPI Comments History of Present Illness Details This is a 37-year-old female with essential hypertension, mild major depression, morbid obesity, chronic idiopathic constipation and idiopathic intracranial hypertension that comes today for follow-up on her conditions. Depression stable with citalopram. Blood pressure well control with amlodipine. She is morbidly obese with a BMI of 49 and will start going to weight management for weight loss surgery. Constipation well controlled with Linzess. Went to see Ophthalmology recently which noticed papilledema and send her to ER. Lumbar puncture was done by then and repeated recently with an increase in pressure. This is follow by Neurology. 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 Neurology refer her to [facility] but [facility] did not want to take her case and then refer her to [facility] which she refused to go. She said that the headaches has improved. [facility] Medical History (Updated 08/20/23 @ 15:59 by Rashmi Zapata MD) Sepsis Morbid obesity Umbilical hernia Umbilical hernia Morbid obesity with BMI of 45.0-49.9, adult Renal calculi Hospital discharge follow-up Hypertension Fibromyalgia Active asthma Surgical History History of kidney stones History of extraction of renal calculus History of tubal ligation Family History Father Anemia Sister Cervical cancer Maternal Aunt Breast cancer Diabetes Mother No problems noted. Social History Household Members: Spouse and Children Housing: House Do you presently have visiting nurse or other home services: No Alcohol intake: never Comment: medicated in pacu Patient Tobacco Use Status: Never used Tobacco e-Cigarette/Vaping Use: Never Used Second Hand Smoke Exposure: No service: No Current occupational status: employed Current occupational exposures/hazards: No Cognitive needs: No Hearing needs: No Vision needs: No Female Reproductive History Menstrual Age of Menarche: 12 Questionnaire Thrive Questionnaire Date Thrive assessed: 07/21/23 OMAR-7 AMB Questionnaire OMAR-7 Date MOAR - 7 assessed: 07/21/23 Source: Developed by Drs. Drake Jackson, Sally Funes, Adam Nicholson and colleagues, with an educational hilary from [employer]. Review of Systems Const All systems reviewed & are unremarkable except as noted in HPI and below Eyes Reports no additional complaints, Denies change in vision and Denies other visual disturbances Card Denies chest pain at rest, Denies chest pain with activity, Denies edema, Denies irregular heart rhythm, Denies claudication, Denies dyspnea, Denies dyspnea on exertion, Denies orthopnea, Denies paroxysmal nocturnal dyspnea and Denies slow heart rate Resp Denies cough, Denies dyspnea and Denies dyspnea on exertion Physical exam (Primary Care) Vital Signs: Last Vital Signs BP 136/82 08/20/23 14:55 BMI result Body Mass Index 49.1 Tobacco/Smoking Status: Tobacco use Status Tobacco use date assessed 07/21/23 08/20/23 15:02 Patient Tobacco Use Status Never used Tobacco 08/20/23 15:02 Tobacco use type 07/21/23 17:34 e-Cigarette/Vaping Use Never Used 08/20/23 15:02 Thrive Assessment: Date of Thrive Assessment Date Thrive assessed 07/21/23 08/20/23 15:02 Resp Effort & Inspection: normal respiratory effort Auscultation: clear to auscultation bilaterally Cardio Jugular venous distension: no JVD Rate: regular rate Rhythm: regular rhythm Heart sounds: S1 normal heart sound present and S2 normal heart sound present Extrem General: Yes full ROM Assessment and Plan Assessment & Plan (1) Mild major depression: Code(s): F32.0 - Major depressive disorder, single episode, mild Plan: Continue citalopram. (2) Morbid obesity with BMI of 45.0-49.9, adult: Code(s): E66.01 - Morbid (severe) obesity due to excess calories; Z68.42 - Body mass index [BMI] 45.0-49.9, adult Plan: Start diet and exercise. BMI goal is less than 30. Start weight management program. (3) Chronic idiopathic constipation: Code(s): K59.04 - Chronic idiopathic constipation Plan: Continue Linzess. (4) Idiopathic intracranial hypertension: Code(s): G93.2 - Benign intracranial hypertension Plan: Follow-up with neurology. (5) Essential hypertension: Code(s): I10 - Essential (primary) hypertension Plan: Continue amlodipine. Blood pressure goal is equal or less than 130/80. Coding Level of Care Code Est Pt Level 4 (18168) Diagnoses Mild major depression F32.0 Morbid obesity with BMI of 45.0-49.9, adult E66.01; Z68.42 Chronic idiopathic constipation K59.04 Idiopathic intracranial hypertension G93.2 Essential hypertension I10 Time Spent (min) 25
== END 2023-08-20 15:29 | disposition home or self-care (01) ==
PROVIDERS: PCP Internal Medicine; Visit Provider Internal Medicine
DX: I10 Essential (primary) hypertension (principal); F32.0 Major depressive disorder, single episode, mild; E66.01 Morbid (severe) obesity due to excess calories; Z68.42 Body mass index [BMI] 45.0-49.9, adult; K59.04 Chronic idiopathic constipation; G93.2 Benign intracranial hypertension
CPT/HCPCS: 99214

== ENCOUNTER → 2023-08-27 14:54 | Outpatient (BNVA) | payer OTHER, SELFPAY | PROVIDERS: PCP Internal Medicine; Visit Provider Physician Assistant Surgical ==

== ENCOUNTER 2023-11-11 13:59 | Outpatient (AMB) | payer OTHER, SELFPAY ==
--- NOTE | 2023-11-11 14:24 | A.OFFVIS_ITS ---
Intake Visit Reasons: Retrograde/Ureteroscopy follow up /Ultrasound(set) Intake Note: Patient is Present for Follow Up Urology Medication: Vitamin B6 Antibiotic Allergies: None Blood Thinners: None Allergies canned food Allergy (Severe, Verified 11/11/23 14:34) rash lactose Allergy (Verified 11/11/23 14:34) Nausea RED MEAT Allergy (Severe, Uncoded 11/11/23 14:34) Rash HPI Comments Details: Liz is a pleasant Danish speaker. She is seen for the following urologic issues - nephrolithiasis - Medullary sponge kidney bilateral Encourage fluid intake with lemon juice Continue vitamin B6, restart potassium citrate Six-month follow-up imaging Nephrolithiasis Medullary sponge kidney recurrent stone former Stone analysis - 11/06 calcium oxalate combination and carbonate appatite Prior imaging 04/09 CT scan right hydronephrosis with 2 mm obstructing stone, numerous small stones. Left numerous small stones largest 1 cm 06/10 numerous small stones bilateral 05/12 CT scan Medullary sponge kidney bilaterally, no stones in renal collecting system 06/12 CT scan Medullary sponge kidney distal right 3 mm stone 09/09 renal ultrasound no discrete stone - 02/09 renal ultrasound stable Medullary sponge kidney Procedures - 04/09 ESWL left - 07/09 right ureteroscopy mid ureteric stone - 11/08 right renal pelvis ureteroscopy with submucosal stones - 07/12 right renal ureteroscopy Current therapy-vitamin B6 and allopurinol with potassium citrate PFSH Medical History (Updated 09/25/23 @ 10:45 by Rashmi Zapata MD) Sepsis Morbid obesity Umbilical hernia Umbilical hernia Morbid obesity with BMI of 45.0-49.9, adult Renal calculi Hospital discharge follow-up Hypertension Fibromyalgia Active asthma Surgical History History of kidney stones History of extraction of renal calculus History of tubal ligation Family History Father Anemia Sister Cervical cancer Maternal Aunt Breast cancer Diabetes Mother No problems noted. Social History Household Members: Spouse and Children Housing: House Do you presently have visiting nurse or other home services: No Alcohol intake: never Comment: medicated in pacu Patient Tobacco Use Status: Never used Tobacco e-Cigarette/Vaping Use: Never Used Second Hand Smoke Exposure: No service: No Current occupational status: employed Current occupational exposures/hazards: No Cognitive needs: No Hearing needs: No Vision needs: No Female Reproductive History Menstrual Age of Menarche: 12 Review of Systems Const Denies chills and Denies fever(s) Card Reports no additional complaints and Denies syncope Resp Denies cough GI Denies abdominal pain and Denies heartburn Reports as per HPI and Denies change in libido Neuro Denies syncope Psych Denies change in libido Endo Denies change in libido Physical Exam Const General: cooperative, healthy appearing, comfortable and no acute distress Orientation/consciousness: patient oriented x3 HEENT Face and sinus: Yes normal facial exam Mouth: moist mucous membranes Neck Neck: Yes normal visual inspection, Yes full ROM and Yes trachea midline Chest Chest palpation & inspection: normal inspection of the chest Resp Effort & Inspection: normal respiratory effort, able to speak in complete sentences and no respiratory distress GI Inspection: Yes normal to inspection Back/Spine/Pelvis Cervical Spine: normal cervical lordosis Thoracic/Lumbar Spine: thoracic and lumbar spine normal to inspection Skin General skin exam: no rashes or lesions noted Neuro General: patient oriented x3, gait normal, tone normal and moves all extremities Extrem General: Yes normal to inspection and Yes capillary refill normal Assessment & Plan Assessment & Plan (1) Calcium oxalate stones: Code(s): N20.0 - Calculus of kidney Category: Medical Plan Six-month follow-up imaging Orders: Orders US renal BI 6 Months N20.0 - Calculus of kidney Medications: New potassium citrate ER 20 mEq (2 x 10 mEq (1,080 mg)) PO BID 90 days 360 tabs 1RF N20.0 - Calculus of kidney Patient Instructions: Imaging studies, laboratory and physical exam results were discussed and reviewed in detail. No major barriers to patient understanding were identified. An opportunity to ask questions regarding the treatment plan was provided. All questions were answered. The patient expressed understanding and agreement with the above treatment plan. The patient is aware they should contact our office by phone for worsening of their current condition or the appearance of new urologic symptoms. Compliance is encouraged with any medications and followup testing that is ordered. It is a privilege to participate in the urologic care of your patient. If you have any questions or concerns regarding treatment for the above conditions, or other urologic issues, please do not hesitate to contact me. The office telephone contact is [phone]. This note is constructed using voice recognition software. While every effort has been made to ensure accuracy aluminum pourer errors may have been included. Yours sincerely, Dr Jack Johnson MD, [facility] - Urology Providers of Expert, Compassionate Care for the Genitourinary System Coding Level of Care Code Est Pt Level 3 (34706) Diagnoses Calcium oxalate stones N20.0
== END 2023-11-11 14:41 | disposition home or self-care (01) ==
PROVIDERS: PCP Internal Medicine; Visit Provider Urology
DX: N20.0 Calculus of kidney (principal)
CPT/HCPCS: 99213

== ENCOUNTER → 2023-11-11 13:59 | Outpatient (BNVA) | payer OTHER, SELFPAY | PROVIDERS: PCP Internal Medicine; Visit Provider Urology | DX: N20.0 Calculus of kidney (principal); Q61.5 Medullary cystic kidney | CPT/HCPCS: 99212 ==

== ENCOUNTER 2023-11-18 13:41 | Outpatient (AMB) | payer OTHER, SELFPAY ==
--- NOTE | 2023-11-18 13:42 | A.OFFVIS_ITS ---
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 49.1 Management Specialist Required: Yes [facility] Allergies canned food Allergy (Severe, Verified 11/18/23 13:47) rash lactose Allergy (Verified 11/18/23 13:47) Nausea RED MEAT Allergy (Severe, Uncoded 11/11/23 14:34) Rash Medication List - Last Reconciled 11/18/23 by SWETHA Bales albuterol sulfate 90 mcg/actuation 2 puffs inhalation Q4-6H PRN amlodipine 10 mg PO DAILY 90 days blood pressure kit-extra large As directed citalopram 40 mg PO DAILY 90 days clonazepam 0.5 mg PO DAILY hydroxyzine pamoate 25 mg PO BID PRN linaclotide 290 mcg PO DAILY 90 days montelukast 10 mg PO BEDTIME 90 days omeprazole 20 mg PO DAILY potassium citrate ER 20 mEq (2 x 10 mEq (1,080 mg)) PO BID 90 days pyridoxine (vitamin B6) 100 mg PO DAILY 90 days semaglutide (weight loss) (Wegovy) 0.25 mg (0.5 mL) subcut QWEEK 4 weeks semaglutide (weight loss) (Wegovy) 0.5 mg (0.5 mL) subcut QWEEK 4 weeks tramadol 50 mg PO Q6H PRN HPI Comments Details: [place] [facility] [facility] [place]. She heard about our program from her PCP. Her goal is to lose weight and achieve a healthy lifestyle as well as to improve, if not resolve, obesity related medical conditions, including htn. She reports first being concerned about her weight 9 years ago, highest weight to date was 280. Current weight is 274.2 pounds with a BMI of 48.6. She has tried multiple methods of weight loss including fad diets without permanent results. She lives with her and 2 kids. 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 She wakes at:?330 am, and goes to bed at?930. Dinner is at 5 pm. Breakfast: skip or fruit AM snack: fruit Lunch: skip PM snack: smoothie oatmeal/apple/strawberry Dinner: rice, chicken, salad After dinner: skip Other snacks: candy and chocolate w anxiety Liquids: 64-96 oz water, 12 oz lisa dick per day, 8 oz cranberry juice daily Alcohol/marijuana/tobacco intake: none Exercise: [employer] videos at home sometimes, could join PF GERD score: 13 MOY score: 0 ESS score: 3 QOL score: 55 PFSH Medical History Morbid obesity Sepsis Umbilical hernia Umbilical hernia Morbid obesity with BMI of 45.0-49.9, adult Renal calculi Hospital discharge follow-up Hypertension Fibromyalgia Active asthma Surgical History History of kidney stones History of extraction of renal calculus History of tubal ligation Family History Father Anemia Sister Cervical cancer Maternal Aunt Breast cancer Diabetes Mother No problems noted. Social History Household Members: Spouse and Children Housing: House Do you presently have visiting nurse or other home services: No Alcohol intake: never Comment: medicated in pacu Patient Tobacco Use Status: Never used Tobacco e-Cigarette/Vaping Use: Never Used Second Hand Smoke Exposure: No service: No Current occupational status: employed Current occupational exposures/hazards: No Cognitive needs: No Hearing needs: No Vision needs: No Female Reproductive History Menstrual Age of Menarche: 12 Physical Exam Const General: cooperative, healthy appearing and no acute distress Orientation/consciousness: patient oriented x3 HEENT Head: Yes normal to inspection Ears: hearing grossly normal bilaterally General nose exam: Normal external nose present Face and sinus: Yes normal facial exam Eyes General: appearance normal, both eyes and all related structures Resp Effort & Inspection: normal respiratory effort Auscultation: clear to auscultation bilaterally Cardio Rate: regular rate Rhythm: regular rhythm Heart sounds: S1 normal heart sound present and S2 normal heart sound present GI Inspection: Yes normal to inspection, No distended and Yes obesity Palpation (GI): Soft to palpation, nontender and no guarding Auscultation: normal bowel sounds Skin General skin exam: other (ecezma LLE) Neuro General: patient oriented x3 Extrem General: Yes edema (trace bilateral) Psych Appearance: grossly normal Mental Status: mental status grossly normal Speech and movement: Normal speech and movement present Affect: normal affect Attitude: cooperative Assessment & Plan Assessment & Plan (1) Morbid obesity: Code(s): E66.01 - Morbid (severe) obesity due to excess calories Category: Medical Plan: This is a?37 yo female who will start our SWL program to prepare for bariatric surgery.? Blood work, CXR, ECG, Abd US and UGI have been ordered. She is being scheduled for initial consultations. She will start SWL classes and watch the first three videos before her next appointment. 1. You have been given a paper with a link to our software graciela ([employer]) to generate an individualized nutritional and exercise plan specific for you. Please send me a screenshot of the plans you will generate Meal to include lean meat (beef, fish, pork, turkey, chicken), or tajik yogurt, or egg whites, or beans with a salad with olive oil and fruits (berries, pears, apples, kiwi). Avoid salt, breads, potatoes, rice, pasta, desserts. 2. If you choose shakes, each shake would be drunk slowly, like coffee over a period of 2 hours. 3. If you choose bars, cut each bar in 4 pieces and eat each piece in 30min to make each bar last 2 hours. 4. I emphasized the importance of measuring accurately the food portion and measure it when serving the food on a plate 5. The meal portions include a specific number of forks of meat (protein) and salad. You always eat the meat portion but you can replace up to half of salad/vegetables portion with rice, potatoes or pasta, or a fruit ?if you like. The less you do it the better weight loss will be. 6. One full-size fork is what it can be scooped on the fork without falling aside and not what can be bit with the fork. Use regular forks like those you find in a typical restaurant. 7.? Please send me weight measurements from your body composition scale as soon as possible and then once a week. Always include your diet and exercise plan. The best time to weigh yourself is first thing in the morning after going to the bathroom. 8. The best choice for exercise would be treadmill or stationary bike. You stated you would be able to join [employer] [facility] gym near the [place].?Goal is to lose at least 1.5-2lbs per week, and about 10% before surgery, which is about 27 pounds 10. Please follow the diet plan exactly without any change. If you don't like something about the plan or you feel hungry you need to communicate with me so I can help you revise the plan. My cell phone number to communicate with me by text is [phone] Patient is morbidly obese and is not considered stable at this time.?I spent a total of 70 minutes reviewing/updating records, examining the patient and counseling the patient on weight management as detailed above.
[2023-11-18 13:53] VITALS: BP 149/83; PULSE 85; TEMP 36.6; O2SAT 97; BMI 48.6
== END 2023-11-18 14:34 | disposition home or self-care (01) ==
LOC: HO.HBS 13:41
PROVIDERS: PCP Internal Medicine; Visit Provider Physician Assistant Surgical
DX: E66.01 Morbid (severe) obesity due to excess calories (principal); Z68.42 Body mass index [BMI] 45.0-49.9, adult
CPT/HCPCS: 99205

== ENCOUNTER → 2023-11-18 13:41 | Outpatient (BNVA) | payer OTHER, SELFPAY | PROVIDERS: PCP Internal Medicine; Visit Provider Physician Assistant Surgical | DX: E66.01 Morbid (severe) obesity due to excess calories (principal); I10 Essential (primary) hypertension; Z71.3 Dietary counseling and surveillance; Z68.42 Body mass index [BMI] 45.0-49.9, adult | CPT/HCPCS: 99202 ==

== ENCOUNTER 2023-12-30 17:07 | Emergency (ER) | payer OTHER, SELFPAY ==
--- NOTE | ~2023-12-30 | CT_ITS ---
EXAMINATION: CT ABDOMEN AND PELVIS WITH CONTRAST CLINICAL INFORMATION: Right-sided abdominal pain, diarrhea, nausea and history of calculi COMPARISON: CT abdomen and pelvis 04/30/2023 TECHNIQUE: Multidetector volumetric images were obtained from the superior aspect of the liver through the pubic symphysis following administration 85 mL of Omnipaque 350 intravenous contrast. Sagittal and coronal reformatted images were obtained on the technologist's workstation. Oral contrast: No This CT examination was performed using dose optimization techniques as appropriate, variously including the following: *Automated exposure control *Adjustment of mA and/or kV according to patient size (this includes techniques or standardized protocols for targeted exams where dose is matched to indication/reason for exam; i.e. extremities or head) *Use of iterative reconstruction technique DLP: 1095 mGy-cm FINDINGS: LUNG BASES: The visualized lung bases are unremarkable. LIVER, GALLBLADDER, AND BILIARY TREE: The liver is normal in size, shape, and attenuation. No focal hepatic lesion or biliary ductal dilatation is present. The gallbladder is unremarkable with no evidence of radiopaque gallstones, gallbladder wall thickening, or obvious pericholecystic inflammatory changes. PANCREAS: Unremarkable. SPLEEN: Unremarkable. ADRENAL GLANDS: Unremarkable. KIDNEYS AND URETERS: The kidneys are normal in size, shape, and attenuation. Again seen is bilateral nephrolithiasis with multiple punctate stones throughout both kidneys. At the time of the prior study on the right there was hydronephrosis with an obstructing mid ureteral calculus. These findings have resolved. There is no hydronephrosis. Multiple bilateral benign Bosniak class I renal cysts are noted which require no additional imaging or follow-up. No solid renal masses are seen. BLADDER: Unremarkable. GASTROINTESTINAL TRACT: The small and large bowel are unremarkable. The appendix is unremarkable. ABDOMINAL WALL: Tiny periumbilical hernia seen containing only fat. LYMPH NODES: No retroperitoneal lymphadenopathy. VASCULAR: Unremarkable. PELVIC VISCERA: Bilateral benign-appearing ovarian cysts are present along with some free fluid in the pelvis. There is a 2.0 cm cyst on the right with an enhancing wall and appears collapsed and may have ruptured. The uterus is unremarkable. OSSEOUS STRUCTURES: Severe degenerative changes are present with loss of disc space at L4-L5. CT/CT abdomen pelvis w IV con IMPRESSION: 1. Bilateral nephrolithiasis without hydronephrosis. 2. Bilateral benign ovarian cysts with a small amount of free fluid in the pelvis. 3. Other incidental findings as described above. Fleischner guidelines were followed. Electronically signed by: Agus Can MD 12/31/2023 12:26 AM EDT RP
[2023-12-30 17:41] VITALS: BP 147/87; PULSE 96; RESP 16; TEMP 36.6; O2SAT 97; BMI 47.2
[2023-12-30 17:46] LABS: MANUAL DIFF FLAG NO
[2023-12-30 17:51] LABS: Basophils Absolute Auto 0.1 X10*3/uL (0.0-0.2); Basophils Percent Auto 0.7 % (0-2); Eosinophils Absolute Auto 0.3 X10*3/uL (0.0-0.4); Eosinophils Percent Auto 3.1 % (0-4); Hematocrit 38.5 % (37.0-47.0); Hemoglobin 11.8 g/dl (12.0-16.0); Imm Gran Abs Auto 0.02 X10*3/uL (0.00-0.03); Imm Gran Pct Auto 0.2 % (0.0-0.4); Lymphocytes Percent Auto 18.1 % (20-40); Mean Corpuscular HGB Conc 30.6 g/dl (31.0-35.0); Mean Corpuscular Hemoglobin 22.7 pg (27.0-33.0); Mean Corpuscular Volume 74.2 fL (80.0-98.0); Mean Platelet Volume 9.6 fL (9.4-12.3); Monocytes Absolute Auto 0.7 X10*3/uL (0.1-1.2); Neutrophils Absolute Auto 7.9 x10*3/uL (2.0-8.3); Neutrophils Percent Auto 71.9 % (45-73); Platelet Count 301 X10*3/uL (160-400); Red Blood Count 5.19 X10*6/uL (4.20-5.50); Red Cell Distribution Width 17.4 % (11.0-16.0)
[2023-12-30 18:06] LABS: Alanine Aminotransferase 12 U/L (0-31); Albumin Level 3.9 g/dL (3.5-5.0); Alkaline Phosphatase 66 U/L (39-117); Anion Gap 9 (12-20); Aspartate Amino Transferase 13 U/L (5-31); Bilirubin Total 0.3 mg/dL (0.0-1.0); Blood Urea Nitrogen 15 mg/dL (9-16); Carbon Dioxide 25 mmol/L (22-29); Chloride 108 mmol/L (96-108); Creatinine Clr Calc Pharmacy 93.3; Estimated Glomerular Filt Rate 59; Glucose Random 103 mg/dL (60-115); Lipase 17 U/L (8-78); Magnesium 1.8 mg/dL (1.6-2.6); Potassium 3.8 mmol/L (3.3-5.1); Sodium 138 mmol/L (135-145); Total Protein 7.2 g/dL (6.5-8.0)
[2023-12-30 18:15] LABS: HCG Quantitative < 2 mIU/mL
[2023-12-30 19:08] LABS: Appearance Urine Clear; Color Urine Yellow; Glucose Urine UA Negative (Negative); Leukocyte Esterase Urine Moderate (2+) (Negative); Nitrite Urine Negative (Negative); PH 5.5 (5.0-9.0); Specific Gravity - Urine 1.015 (1.005-1.025); UMIC TRIGGER UACC YES; Urine Blood Large (3+) (Negative); Urine Ketones Trace mg/dL (Negative); Urine Protein 100 (2+) mg/dL (Neg-Trace)
[2023-12-30 19:11] LABS: Bacteria Urine 1+ (None Seen); Hyaline Casts Urine 0-2 /LPF (0-2); Squamous Epithelial Cell Urine 0-2 /HPF (0-2); UACC Culture Trigger YES; WBC Urine >50 /HPF (0-5)
--- NOTE | 2023-12-30 21:39 | ED_ITS ---
HPI - Abdominal Pain General Chief Complaint: Abdominal Pain Stated Complaint: Upper abdominal pain Time Seen by Provider: 12/30/23 21:29 Source: patient Mode of arrival: ambulatory Limitations: language barrier History of Present Illness HPI narrative: Patient is a 38-year-old female presenting to emergency department for evaluation. She reports onset of right-sided abdominal pain upper and lower at 05:30 earlier this morning. Denies any radiation to the back. She has associated nausea but no vomiting. Denies associated dysuria, urinary frequency/urgency/hesitancy, hematuria. She had a few episodes of diarrhea, denies hematochezia or melena. Denies associated fevers chills chest pain or shortness of breath. Denies any recent sick contacts. Admits to a history of nephrolithiasis but states that this pain feels different than her typical kidney stone pain. Related Data Home Medications ?Medication ?Instructions ?Recorded ?Confirmed hydroxyzine pamoate 25 mg capsule 25 mg PO BID PRN Anxiety 01/09/23 11/18/23 omeprazole 20 mg capsule,delayed 20 mg PO DAILY 04/30/23 11/18/23 release clonazepam 0.5 mg tablet 0.5 mg PO DAILY 07/21/23 11/18/23 Previous Rx's ?Medication ?Instructions ?Recorded albuterol sulfate 90 mcg/actuation 2 puff inhalation Q4-6H PRN 02/05/21 aerosol inhaler shortness of breath or wheezing #8.5 grams citalopram 40 mg tablet 40 mg PO DAILY 90 days #90 tabs 11/11/22 montelukast 10 mg tablet 10 mg PO BEDTIME 90 days #90 tabs 11/11/22 tramadol 50 mg tablet 50 mg PO Q6H PRN pain (scale score 06/16/23 1-3) #8 tabs amlodipine 10 mg tablet 10 mg PO DAILY 90 days #90 tabs 07/21/23 blood pressure kit-extra large #1 ea 08/24/23 semaglutide (weight loss) 0.25 0.25 mg (0.5 mL) subcut QWEEK 4 09/25/23 mg/0.5 mL subcutaneous pen weeks #2 mL injector (Wechadvjaya) potassium citrate 10 mEq (1,080 20 meq (2 x 10 mEq (1,080 mg)) PO 07/23/24 mg) tablet,extended release BID 90 days #360 tabs pyridoxine (vitamin B6) 100 mg 100 mg PO DAILY 90 days #90 tabs 11/11/23 tablet linaclotide 290 mcg capsule 290 mcg PO DAILY 90 days #90 caps 12/05/23 semaglutide (weight loss) 0.5 0.5 mg (0.5 mL) subcut QWEEK 4 12/06/23 mg/0.5 mL subcutaneous pen weeks #2 mL injector ([employer]) semaglutide (weight loss) 1 mg/0.5 1 mg (0.5 mL) subcut Q7D 4 weeks 12/06/23 mL subcutaneous pen injector #2 mL ([employer]) blood pressure test kit-large #1 ea 12/20/23 (Advocate Blood Pressure Monitor kit) cephalexin 500 mg capsule 500 mg PO BID #18 caps 12/31/23 Allergies Allergy/AdvReac Type Severity Reaction Status Date / Time canned food Allergy Severe rash Verified 12/30/23 17:42 lactose Allergy Nausea Verified 12/30/23 17:42 RED MEAT Allergy Severe Rash Uncoded 11/11/23 14:34 Review of Systems Review of Systems Yes all other systems are reviewed and are negative PMFSH Past Medical History Attestation statement: The following information was validated with the patient. Source: old records reviewed Medical History Morbid obesity Sepsis Umbilical hernia Umbilical hernia Morbid obesity with BMI of 45.0-49.9, adult Renal calculi Hospital discharge follow-up Hypertension Fibromyalgia Active asthma Surgical History History of kidney stones History of extraction of renal calculus History of tubal ligation Family History Family History Father Anemia Sister Cervical cancer Maternal Aunt Breast cancer Diabetes Mother No problems noted. Social History Social History Household Members: Spouse and Children Housing: House Do you presently have visiting nurse or other home services: No Alcohol intake: never Comment: medicated in pacu Patient Tobacco Use Status: Never used Tobacco e-Cigarette/Vaping Use: Never Used Second Hand Smoke Exposure: No Advance Directives: No Advance Directives Information Provided: No service: No Current occupational status: employed Current occupational exposures/hazards: No Cognitive needs: No Hearing needs: No Vision needs: No Physical Exam ED Vital Signs: Vital Signs - 24 hr 12/30/23 17:41 Temperature 97.9 F Pulse Rate 96 Respiratory Rate 16 Blood Pressure 147/87 H Pulse Oximetry 97 Oxygen Delivery Method Room Air BMI result Body Mass Index 47.2 Appearance: Alert.?Oriented to person, place and time. No acute distress.?Normal affect. Neck: Normal inspection.? Neck supple.?? CVS: Heart sounds normal. Normal heart rate and rhythm.? Pulses normal.?? Respiratory: No respiratory distress.? Lung sounds clear to auscultation bilaterally?? Abdomen: Soft with diffuse right-sided tenderness upon palpation, negative Ramírez sign mild rebound tenderness. No rigidity. No guarding. No CVA tenderness.. Normoactive bowel sounds. No pulsatile mass.?? Skin: Skin warm and dry.? Normal skin color.? ? Extremities: No lower extremity edema.? Neuro: Moves all extremities spontaneously. Sensation intact bilaterally. Ambulates with normal steady gait. Course Reevaluation(s) Reevaluation #1: CT revealing bilateral nephrolithiasis but no evidence of hydronephrosis, benign ovarian cyst with a small amount of free fluid in the pelvis, there is a 2 cm cyst on the right with enhancing wall and appears collapsed and may have ruptured. Her abdominal examination is much improved after receiving Toradol. She is requesting discharge home at this time. Discussed with patient pain secondary to ovarian cyst rupture however urine is also concerning for infection, given location of pain will treat to cover early pyelonephritis though there was no evidence of perinephric stranding on CT. Discussed worrisome signs and symptoms that would warrant re-evaluation emergency department. All questions answered. Stable for discharge Time: 00:35 Medical Decision Making Medical Decision Making MDM Narrative: Patient is a 38-year-old female with past medical history of hypertension, fibromyalgia, obesity, umbilical hernia, nephrolithiasis with history of ESWL with cystoscopy and stenting presenting to emergency department for evaluation of right-sided abdominal pain with associated nausea and diarrhea described as liquid stools as per HPI. Reports pain feeling different then renal colic that she has experienced in the past. Overall she appears uncomfortable but is afebrile without tachycardia. No episodes of vomiting. She has notable tenderness diffusely on the right, does not appear to be worse in the upper lower quadrant. Mild rebound tenderness in the right lower quadrant. Negative Ramírez sign. No CVAT. Reviewed serum labs obtained prior to my assumption of care; mild leukocytosis 11,000 and no left shift, no thrombocytopenia. No NOAM. No electrolyte derangement. LFTs and lipase within normal range. HCG nondetectable. Urinalysis revealing microscopic hematuria and pyuria, no squamous epithelial cells present. On review of prior cultures she has grown Citrobacter koseri in April of 2023 and June of 2022. At this time she will receive 1 L normal saline IV fluid, Toradol IV for pain, Zofran IV for nausea, will cover with Rocephin, obtaining CT of the abdomen and pelvis to exclude gastrointestinal versus genitourinary etiology for pain. Differential Diagnosis Differential Diagnoses: The differential diagnosis associated with the presentation includes (Nephrolithiasis, hydronephrosis, obstructive calculi, pyelonephritis, cystitis, diverticulitis, colitis, appendicitis, cholecystitis, viral syndrome) Admission/Observation Consideration of admission/observation: Escalation of care including admission/observation considered Lab Data MDM Lab Attestation statement: I reviewed the patient's lab results. (See narrative above) 12/30/23 17:38 12/30/23 17:38 Labs: Lab Results 12/30/23 12/30/23 Range/Units 17:38 18:48 WBC 11.0 H (4.8-10.8) X10*3/uL RBC 5.19 (4.20-5.50) X10*6/uL Hgb 11.8 L (12.0-16.0) g/dl Hct 38.5 (37.0-47.0) % MCV 74.2 L (80.0-98.0) fL MCH 22.7 L (27.0-33.0) pg MCHC 30.6 L (31.0-35.0) g/dl RDW 17.4 H (11.0-16.0) % Plt Count 301 (160-400) X10*3/uL MPV 9.6 (9.4-12.3) fL Immature Gran % (Auto) 0.2 (0.0-0.4) % Neut % (Auto) 71.9 (45-73) % Lymph % (Auto) 18.1 L (20-40) % [place] % (Auto) 6.0 (2-11) % Eos % (Auto) 3.1 (0-4) % Baso % (Auto) 0.7 (0-2) % Lymph # (Auto) 2.0 (1.2-4.9) X10*3/uL [place] # (Auto) 0.7 (0.1-1.2) X10*3/uL Eos # (Auto) 0.3 (0.0-0.4) X10*3/uL Baso # (Auto) 0.1 (0.0-0.2) X10*3/uL Abs Immat Gran (auto) 0.02 (0.00-0.03) X10*3/uL Absolute Neuts (auto) 7.9 (2.0-8.3) x10*3/uL Absolute Nucleated RBC 0.000 (0.0-0.012) X10*3/uL Nucleated RBC % (auto) 0.0 (0.0-0.2) /100WBC Sodium 138 (135-145) mmol/L Potassium 3.8 D (3.3-5.1) mmol/L Chloride 108 (96-108) mmol/L Carbon Dioxide 25 (22-29) mmol/L Anion Gap 9 L (12-20) BUN 15 (9-16) mg/dL Creatinine 1.05 (0.5-1.4) mg/dL Estim Creat Clear Calc 93.3 Estimated GFR 59 Random Glucose 103 (60-115) mg/dL Calcium 9.0 D (8.4-10.2) mg/dL Magnesium 1.8 (1.6-2.6) mg/dL Total Bilirubin 0.3 (0.0-1.0) mg/dL AST 13 (5-31) U/L ALT 12 (0-31) U/L Alkaline Phosphatase 66 (39-117) U/L Total Protein 7.2 (6.5-8.0) g/dL Albumin 3.9 (3.5-5.0) g/dL Lipase 17 (8-78) U/L Beta HCG, Quant < 2 mIU/mL Urine Color Yellow Urine Appearance Clear Urine pH 5.5 (5.0-9.0) Ur Specific [place] 1.015 (1.005-1.025) Urine Protein 100 (2+) H (Neg-Trace) mg/dL Urine Glucose (UA) Negative (Negative) mg/dL Urine Ketones Trace (Negative) mg/dL Urine Blood Large (3+) H (Negative) Urine Nitrite Negative (Negative) Ur Leukocyte Esterase Moderate (2+) H (Negative) Urine RBC 11-20 H (0-2) /HPF Urine WBC >50 H (0-5) /HPF Ur Squamous Epith Cells 0-2 (0-2) /HPF Urine Bacteria 1+ (None Seen) Hyaline Casts 0-2 (0-2) /LPF Radiology Impression Discussion of test interpretation with radiology: I have reviewed the radiologist's reading. Radiologist Impression: CT/CT abdomen pelvis w IV con IMPRESSION: 1. Bilateral nephrolithiasis without hydronephrosis. 2. Bilateral benign ovarian cysts with a small amount of free fluid in the pelvis. 3. Other incidental findings as described above. External Record Review External record reviewed: Outpatient record (See narrative above) Prescription Management I considered prescription management with: Pain Medication and Antibiotic Medications Administered Discontinued Medications Generic Name Dose Route Start Last Admin Trade Name Freq PRN Reason Stop Dose Admin Sodium Chloride 1,000 mls @ 999 mls/hr 12/30/23 21:45 12/30/23 23:36 Ns IV 12/30/23 22:45 Infused .Q1H1M CALVIN Infusion Ceftriaxone Sodium 1 gm/ 50 mls @ 100 mls/hr 12/30/23 21:54 12/30/23 23:01 Sodium Chloride IV 12/30/23 22:23 Infused ONCE ONE Infusion Iohexol 85 ml 12/30/23 22:09 12/30/23 22:10 Iohexol 350 Mg/Ml 100 Ml Infus..Btl IV 12/30/23 22:10 85 ml ONCE ONE Administration Ketorolac Tromethamine 15 mg 12/30/23 21:45 12/30/23 22:11 Ketorolac Tromethamine 15 Mg/Ml Vial IVPUSH 12/30/23 21:46 15 mg ONCE ONE Administration Ondansetron HCl 4 mg 12/30/23 21:45 12/30/23 22:11 Ondansetron Hcl 4 Mg/2 Ml Vial IVPUSH 12/30/23 21:46 4 mg ONCE ONE Administration Discharge Plan Discharge Clinical Impression: Urinary tract infection, Ovarian cyst Patient Disposition: Home, Self-Care Additional Instructions: As discussed, your testing today is concerning for urinary tract infection. On CT imaging there was not evidence of an obstructive kidney stone or inflammation/swelling to the kidney. A prescription for antibiotic has been sent to your pharmacy. You received a dose in the emergency department tonight please pick this prescription up 1st thing in the morning. CT imaging also revealed evidence of an ovarian cyst on the right, at times the cyst can rupture which can also result in pain similarly. I would recommend follow-up with a regulatory affairs director if you have 1, if you do not I have provided the contact information for the regulatory affairs director office associated with our hospital. You can take ibuprofen 200 mg, 3 tablets (600mg) every 6-8 hours as needed for pain, in addition to Tylenol 500 mg, 2 tablets (1,000mg) every 4-6 hours as needed for pain, but not to exceed 3 doses daily (3,000mg).? You may return to emergency department any new or worsening symptoms or concerns. Prescriptions: New cephalexin 500 mg capsule 500 mg PO BID Qty: 18 0RF No Action (DME) blood pressure kit-extra large Kit See Rx Instructions .Route Qty: 1 0RF Rx Instructions: As directed Wegovy 0.25 mg/0.5 mL pen injector 0.25 mg subcut QWEEK 28 Days Qty: 2 0RF Rx Instructions: administer weeks 1 through 4 of therapy linaclotide 290 mcg capsule 290 mcg PO DAILY 90 Days Qty: 90 0RF Wegovy 1 mg/0.5 mL pen injector 1 mg subcut Q7D 28 Days Qty: 2 0RF Wegovy 0.5 mg/0.5 mL pen injector 0.5 mg subcut QWEEK 28 Days Qty: 2 0RF Rx Instructions: administer weeks 5 through 8 of therapy (DME) blood pressure test kit-large [[facility]ocate Blood Pressure Monitr] Kit See Rx Instructions .Route Qty: 1 0RF Rx Instructions: As directed albuterol sulfate 90 mcg/actuation HFA aerosol inhaler 2 puff inhalation Q4-6H PRN (Reason: shortness of breath or wheezing) Qty: 8.5 0RF omeprazole 20 mg capsule,delayed release(DR/EC) 20 mg PO DAILY tramadol 50 mg tablet 50 mg PO Q6H PRN (Reason: pain (scale score 1-3)) Qty: 8 0RF hydroxyzine pamoate 25 mg capsule 25 mg PO BID PRN (Reason: Anxiety) citalopram 40 mg tablet 40 mg PO DAILY 90 Days Qty: 90 0RF montelukast 10 mg tablet 10 mg PO BEDTIME 90 Days Qty: 90 1RF pyridoxine (vitamin B6) 100 mg tablet 100 mg PO DAILY 90 Days Qty: 90 1RF clonazepam 0.5 mg tablet 0.5 mg PO DAILY amlodipine 10 mg tablet 10 mg PO DAILY 90 Days Qty: 90 1RF potassium citrate 10 mEq (1,080 mg) tablet extended release 20 meq PO BID 90 Days Qty: 360 1RF naproxen 500 mg tablet 500 mg PO ONCE Qty: 1 0RF nitrofurantoin monohyd/m-cryst 100 mg capsule 100 mg PO ONCE Qty: 1 0RF lidocaine HCl 2 % jelly in applicator 10 ml intra-urethral ONCE Qty: 10 0RF Referrals: Rashmi Link MD [Primary Care Provider] - August Wilkinson MD [Physician] - Print Language: Yemeni
--- NOTE | 2023-12-30 22:08 | PC.NURSE ---
#20g iv placed in LAC, pt taken to ct scan. toradol, zofran, fluids, and antibiotic administered per jun. pt is ambulatory with steady gait to and from bathroom. plan of care ongoing.
[2023-12-30] MEDS: iohexoL 350 MG/ML 100 ML INFUS..BTL 85 ML IV (22:10)
[2023-12-30] MEDS: Ketorolac Tromethamine 15 MG/ML VIAL IVPUSH (22:11)
[2023-12-30] MEDS: ondansetron HCL 4 MG/2 ML VIAL IVPUSH (22:11)
[2023-12-30] MEDS: cefTRIAXone sodium 1 GM in 0.9 % Sodium Chloride 50 ML IV (22:12)
[2023-12-30] MEDS: 0.9 % Sodium Chloride 1,000 ML 999 ML IV (22:14)
[2023-12-31 00:52] VITALS: BP 147/87; PULSE 96; RESP 16; TEMP 36.6; O2SAT 97
== END 2023-12-31 00:53 | disposition home or self-care (01) ==
PROVIDERS: Physician Assistant; Emergency Provider Internal Medicine; PCP Internal Medicine
DX: N39.0 Urinary tract infection, site not specified (principal); N83.202 Unspecified ovarian cyst, left side; N83.201 Unspecified ovarian cyst, right side; R10.11 Right upper quadrant pain
CPT/HCPCS: 36415; 74177; 80053; 81001; 83690; 83735; 84702; 85025; 87086; 87088; 87186; 96361; 96365; 96375; 99284; J0696; J1885; J2405; Q9967

== ENCOUNTER → 2024-01-28 15:09 | Outpatient (BNVA) | payer OTHER, SELFPAY | PROVIDERS: PCP Internal Medicine; Visit Provider Advanced Practice Midwife | DX: N83.202 Unspecified ovarian cyst, left side (principal); N83.201 Unspecified ovarian cyst, right side; E66.01 Morbid (severe) obesity due to excess calories; G93.2 Benign intracranial hypertension; Z68.42 Body mass index [BMI] 45.0-49.9, adult | CPT/HCPCS: 99212 ==

== ENCOUNTER 2024-01-28 15:13 | Outpatient (AMB) | payer OTHER, SELFPAY ==
[2024-01-28 15:18] VITALS: BP 126/78; BMI 46.1
--- NOTE | 2024-01-28 15:18 | A.OFFVIS_ITS ---
Vital Signs 01/28/24 15:18 Height 5 ft 3 in Weight 260 lb BMI 46.1 BP 126/78 Intake Visit Reasons: ER follow up/40 mins Information Interpreted: clinical only Fans Clerk: Fans Clerk Present Allergies canned food Allergy (Severe, Verified 01/28/24 15:18) rash lactose Allergy (Verified 01/28/24 15:18) Nausea RED MEAT Allergy (Severe, Uncoded 01/28/24 15:18) Rash Medication List - Last Reconciled 01/28/24 by Luz Reyes CNM albuterol sulfate 90 mcg/actuation 2 puffs inhalation Q4-6H PRN amlodipine 10 mg PO DAILY 90 days blood pressure kit-extra large As directed blood pressure test kit-large ([facility] Blood Pressure Monitor kit) As directed citalopram 40 mg PO DAILY 90 days clonazepam 0.5 mg PO DAILY hydroxyzine pamoate 25 mg PO BID PRN linaclotide 290 mcg PO DAILY 90 days montelukast 10 mg PO BEDTIME 90 days omeprazole 20 mg PO DAILY potassium citrate ER 20 mEq (2 x 10 mEq (1,080 mg)) PO BID 90 days pyridoxine (vitamin B6) 100 mg PO DAILY 90 days semaglutide (weight loss) (Wegovy) 0.25 mg (0.5 mL) subcut QWEEK 4 weeks semaglutide (weight loss) (Wegovy) 1 mg (0.5 mL) subcut Q7D 4 weeks semaglutide (weight loss) (Wegovy) 0.5 mg (0.5 mL) subcut QWEEK 4 weeks semaglutide (weight loss) (Wegovy) 1.7 mg (0.75 mL) subcut QWEEK 4 weeks Is last menstrual period known: Yes Last menstrual period: 01/01/24 HPI HPI ER follow up/40 mins: Details: Patient is here as a follow-up visit from the emergency room. She was seen for abdominal pain on her right side. She had a CT scan and various labs done she says that they told her that she had cysts on her ovaries. Review of the CT scan reveals that they are benign cysts seen on both ovaries but also there was evidence of a cyst that appeared to have ruptured and that could explain her pain as it was on her right side she said the pain was different from when she had had kidney stones. They did in fact treat her for UTI she took the medicine for 7-10 days and she does feel better. Review of the records reveals that she does have a urology appointment in April for follow-up of her kidney stones and she also has an appointment with her primary care provider in May. She has lost 13 lb so far taking the semaglutide and she is feeling better she is needing to lose weight because of her high blood pressure and also she has something that is producing nerve pressure in her neck and in order to even deal with the issue or investigat it further she may need a procedure where they place a valve in her spinal cord(?).... She is not really having pain now she gets regular periods she had her tubes tied. She says she is active at work going up and downstairs. She is here with her sister and her daughter today. Suggested going for walks as a teen support each other with weight loss. Of note she was very congested with a drippy nose today but says it is allergies. [facility] Medical History Morbid obesity Sepsis Umbilical hernia Umbilical hernia Morbid obesity with BMI of 45.0-49.9, adult Renal calculi Hospital discharge follow-up Hypertension Fibromyalgia Active asthma Surgical History History of kidney stones History of extraction of renal calculus History of tubal ligation Family History Father Anemia Sister Cervical cancer Maternal Aunt Breast cancer Diabetes Mother No problems noted. Social History Household Members: Spouse and Children Housing: House Do you presently have visiting nurse or other home services: No Alcohol intake: never Comment: medicated in pacu Patient Tobacco Use Status: Never used Tobacco e-Cigarette/Vaping Use: Never Used Second Hand Smoke Exposure: No service: No Current occupational status: employed Current occupational exposures/hazards: No Cognitive needs: No Hearing needs: No Vision needs: No Female Reproductive History Menstrual Age of Menarche: 12 Duration of menses: 6-7 days Date of last menstrual period: 01/01/24 control method: permanent sterilization Total pregnancies: 3 Full term: 3 Date of last pap smear: 11/01/21 (negative) Physical Exam Vital Signs: Last Vital Signs BP 126/78 01/28/24 15:18 BMI result Body Mass Index 46.1 Results Reviewed Results Reviewed: Patient: Liz Montes MR#: [id number] : 1985 Acct:[id number] Age/Sex: 38 / F ADM Date: 12/30/23 Loc: HO.ED Attending Dr: Ordering Physician: Andreina Hayward CNP Date of Service: 12/30/23 Procedure(s): CT abdomen pelvis w IV con Accession Number(s): [id number] cc: Andreina Hayward CNP; Rashmi Link MD~ EXAMINATION: CT ABDOMEN AND PELVIS WITH CONTRAST CLINICAL INFORMATION: Right-sided abdominal pain, diarrhea, nausea and history of calculi COMPARISON: CT abdomen and pelvis 04/30/2023 TECHNIQUE: Multidetector volumetric images were obtained from the superior aspect of the liver through the pubic symphysis following administration 85 mL of Omnipaque 350 intravenous contrast. Sagittal and coronal reformatted images were obtained on the technologist's workstation. Oral contrast: No This CT examination was performed using dose optimization techniques as appropriate, variously including the following: *Automated exposure control *Adjustment of mA and/or kV according to patient size (this includes techniques or standardized protocols for targeted exams where dose is matched to indication/reason for exam; i.e. extremities or head) *Use of iterative reconstruction technique DLP: 1095 mGy-cm FINDINGS: LUNG BASES: The visualized lung bases are unremarkable. LIVER, GALLBLADDER, AND BILIARY TREE: The liver is normal in size, shape, and attenuation. No focal hepatic lesion or biliary ductal dilatation is present. The gallbladder is unremarkable with no evidence of radiopaque gallstones, gallbladder wall thickening, or obvious pericholecystic inflammatory changes. PANCREAS: Unremarkable. SPLEEN: Unremarkable. ADRENAL GLANDS: Unremarkable. KIDNEYS AND URETERS: The kidneys are normal in size, shape, and attenuation. Again seen is bilateral nephrolithiasis with multiple punctate stones throughout both kidneys. At the time of the prior study on the right there was hydronephrosis with an obstructing mid ureteral calculus. These findings have resolved. There is no hydronephrosis. Multiple bilateral benign Bosniak class I renal cysts are noted which require no additional imaging or follow-up. No solid renal masses are seen. BLADDER: Unremarkable. GASTROINTESTINAL TRACT: The small and large bowel are unremarkable. The appendix is unremarkable. ABDOMINAL WALL: Tiny periumbilical hernia seen containing only fat. LYMPH NODES: No retroperitoneal lymphadenopathy. VASCULAR: Unremarkable. PELVIC VISCERA: Bilateral benign-appearing ovarian cysts are present along with some free fluid in the pelvis. There is a 2.0 cm cyst on the right with an enhancing wall and appears collapsed and may have ruptured. The uterus is unremarkable. OSSEOUS STRUCTURES: Severe degenerative changes are present with loss of disc space at L4-L5. CT/CT abdomen pelvis w IV con IMPRESSION: 1. Bilateral nephrolithiasis without hydronephrosis. 2. Bilateral benign ovarian cysts with a small amount of free fluid in the pelvis. 3. Other incidental findings as described above. Fleischner guidelines were followed. Electronically signed by: Agus Can MD 12/31/2023 12:26 AM EDT Dictated By: Agus Can MD Signed By: <Electronically signed by Agus Can MD in OV> 12/31/23 0026 DD/ 44 TD/TT: 12/30/232204 Senior Program Manager: FLAVIO Name: Liz Montes Age/Sex: 35/F Attending: Shara Alcantar CNM : 1985 Submitted by: Shara Alcantar CNM Copies to: Rashmi Link MD MR #: [id number] Status: DEP REF Collected: 10/31/21 Location: .LAB Received: 11/01/21 Interpretation Satisfactory for evaluation. Mild inflammation. Negative for intraepithelial lesion or malignancy. HPV mRNA E6/E7: NOT DETECTED This assay detects E6/E7 viral messenger RNA (mRNA) from 14 high-risk HPV types (16, 18, 31, 33, 35, 39, 45, 51, 52, 56, 58, 59, 66, 68) HPV testing performed by [facility], [place], [place]. See reference laboratory pion of the EMR for entire report. Clinical Information LMP: 10/16/21 Previous PAP test: 2016, WNL Material Received ThinPrep-Cervical Copies To Shara Alcantar CNM [address] [place] [address] [address] [place] [address] Rashmi Link MD [address] [place] [address] [address] [place] [address] Electronically Signed By: TIERA Francois (ASCP) 11/06/21 0909 The Pap Test is a screening procedure with the inherent possibility of both false negative and false positive results. Results should be interpreted in the context of historic and current clinical findings. Reliability of the Pap Test is enhanced by performing the test on a regular repetitive basis. Patient: Liz Montes Age/[facility]: 35[facility]F [id number] MR#: [id number] Page 1 of 1 Assessment & Plan Assessment & Plan (1) Ovarian cyst: Code(s): N83.209 - Unspecified ovarian cyst, unspecified side Category: Medical (2) Morbid obesity: Code(s): E66.01 - Morbid (severe) obesity due to excess calories Category: Medical (3) Idiopathic intracranial hypertension: Code(s): G93.2 - Benign intracranial hypertension Category: Medical Plan Patient is here as a follow-up visit from the emergency room. She was seen for abdominal pain on her right side. She had a CT scan and various labs done she says that they told her that she had cysts on her ovaries. Review of the CT scan reveals that they are benign cysts seen on both ovaries but also there was evidence of a cyst that appeared to have ruptured and that could explain her pain as it was on her right side she said the pain was different from when she had had kidney stones. They did in fact treat her for UTI she took the medicine for 7-10 days and she does feel better. Review of the records reveals that she does have a urology appointment in April for follow-up of her kidney stones and she also has an appointment with her primary care provider in May. She has lost 13 lb so far taking the semaglutide and she is feeling better she is needing to lose weight because of her high blood pressure and also she has something that is producing nerve pressure in her neck and in order to even deal with the issue or investigat it further she may need a procedure where they place a valve in her spinal cord(?).... She is not really having pain now she gets regular periods she had her tubes tied. She says she is active at work going up and downstairs. She is here with her sister and her daughter today. Suggested going for walks as a teen support each other with weight loss. Of note she was very congested with a drippy nose today but says it is allergies. I reviewed the CT scan with her the treatment that she was given in the emergency room which appears very sound and it is great that she has feeling better after treatment with the antibiotics and also that she is feeling better and maybe seen progress with her weight loss. Coding Level of Care Code Est Pt Level 3 (53022) Diagnoses Ovarian cyst N83.209 Morbid obesity E66.01 Idiopathic intracranial hypertension G93.2
== END 2024-01-28 16:00 | disposition home or self-care (01) ==
PROVIDERS: PCP Internal Medicine; Visit Provider Advanced Practice Midwife
DX: N83.209 Unspecified ovarian cyst, unspecified side (principal); E66.01 Morbid (severe) obesity due to excess calories; G93.2 Benign intracranial hypertension
CPT/HCPCS: 99213

== ENCOUNTER 2024-03-29 11:06 | Outpatient (REF) | payer OTHER, SELFPAY ==
[2024-03-29 12:20] LABS: Appearance Urine Cloudy; Color Urine Yellow; Glucose Urine UA Negative (Negative); Leukocyte Esterase Urine Large (3+) (Negative); Nitrite Urine Negative (Negative); PH 6.5 (5.0-9.0); Specific Gravity - Urine 1.015 (1.005-1.025); UMIC TRIGGER UA YES; Urine Blood Large (3+) (Negative); Urine Ketones Negative (Negative); Urine Protein 100 (2+) mg/dL (Neg-Trace)
[2024-03-29 12:24] LABS: Bacteria Urine Trace (None Seen); Hyaline Casts Urine 0-2 /LPF (0-2); RBC Urine >20 /HPF (0-2); WBC Urine >50 /HPF (0-5)
== END 2024-03-29 11:07 | disposition home or self-care (01) ==
LOC: HO.LAB 11:06
PROVIDERS: PCP Internal Medicine; Visit Provider Urology
DX: N12 Tubulo-interstitial nephritis, not specified as acute or chronic (principal); N20.0 Calculus of kidney; Q61.5 Medullary cystic kidney
CPT/HCPCS: 81001; 87086

== ENCOUNTER → 2024-03-30 13:33 | Outpatient (BNVA) | payer SELFPAY | PROVIDERS: PCP Internal Medicine; Visit Provider Physician Assistant Medical | DX: Z02.1 Encounter for pre-employment examination (principal) ==

== ENCOUNTER 2024-05-05 15:08 | Outpatient (REF) | payer OTHER, SELFPAY ==
--- NOTE | ~2024-05-05 | US_ITS ---
EXAMINATION: US KIDNEY BILATERAL HISTORY: N20.0 - Calculus of kidney TECHNIQUE: Real-time grayscale ultrasound imaging of the kidneys was performed and images were reviewed. COMPARISON: Comparison is made with the prior examination dated 07/15/2023. FINDINGS: Right kidney: The right kidney measures 10.1 x 5.8 x 6.2 cm. Again seen is marked increased echotexture of the renal pyramids, consistent with medullary nephrocalcinosis. There are no masses. There is no hydronephrosis. Left Kidney: The left kidney measures 11.5 x 7.0 x 5.4 cm. Again seen is marked increased echotexture of the renal pyramids, consistent with medullary nephrocalcinosis. There are no masses. There is no hydronephrosis. US/US renal BI IMPRESSION: Medullary nephrocalcinosis. No hydronephrosis. Electronically signed by: Drake Villavicencio MD 05/06/2024 07:41 AM EST
== END 2024-05-05 15:09 | disposition home or self-care (01) ==
LOC: HO.US 15:08
PROVIDERS: PCP Internal Medicine; Visit Provider Urology
DX: N20.0 Calculus of kidney (principal)
CPT/HCPCS: 76775

== ENCOUNTER → 2024-05-05 15:13 | Outpatient (BNV) | payer OTHER, SELFPAY | PROVIDERS: PCP Internal Medicine; Visit Provider Radiology Diagnostic Radiology | DX: N20.0 Calculus of kidney (principal); N29 Other disorders of kidney and ureter in diseases classified elsewhere | CPT/HCPCS: 76775 ==

== ENCOUNTER 2024-05-12 12:41 | Outpatient (AMB) | payer OTHER, SELFPAY ==
--- NOTE | 2024-05-12 12:55 | MHC.OFFVIS ---
Intake Visit Reasons: 6m/US Intake Note: Patient is Present for Follow Up Ultrasound Urology Medication: Vitamin B6 Antibiotic Allergies: None Blood Thinners: None Operations Lead Services: Operations Lead Present Operations Lead Name: [id number] Accompanied by: Self / Same As Patient Allergies canned food Allergy (Severe, Verified 05/12/24 13:33) rash lactose Allergy (Verified 05/12/24 13:33) Nausea RED MEAT Allergy (Severe, Uncoded 05/12/24 13:33) Rash Medication List - Last Reconciled 05/12/24 by JO Vargas albuterol sulfate 90 mcg/actuation 2 puffs inhalation Q4-6H PRN amlodipine 10 mg PO DAILY 90 days amoxicillin-pot clavulanate 500-125 mg (Augmentin) 1 tab PO TID 3 days blood pressure kit-extra large As directed blood pressure test kit-large ([facility] Blood Pressure Monitor kit) As directed citalopram 40 mg PO DAILY 90 days clonazepam 0.5 mg PO DAILY hydroxyzine pamoate 25 mg PO BID PRN linaclotide 290 mcg PO DAILY 90 days montelukast 10 mg PO BEDTIME 90 days omeprazole 20 mg PO DAILY potassium citrate ER 20 mEq (2 x 10 mEq (1,080 mg)) PO BID 90 days pyridoxine (vitamin B6) 100 mg PO DAILY 90 days semaglutide (weight loss) (Wegovy) 0.25 mg (0.5 mL) subcut QWEEK 4 weeks semaglutide (weight loss) (Wegovy) 1 mg (0.5 mL) subcut Q7D 4 weeks semaglutide (weight loss) (Wegovy) 0.5 mg (0.5 mL) subcut QWEEK 4 weeks semaglutide (weight loss) (Wegovy) 1.7 mg (0.75 mL) subcut QWEEK 4 weeks HPI Comments Details: Lzi is a very pleasant 38-year-old Azerbaijani-speaking female patient of Dr. Shepard. She has a past medical history of obesity, umbilical hernia, nephrolithiasis, hypertension, fibromyalgia, and asthma. She presents to the office today for follow-up of her nephrolithiasis and bilateral medullary sponge kidney. Recent renal imaging results reviewed with the patient today. 05/15 bilateral kidneys marked with increased echotexture of the renal pyramids, consistent with medullary nephrocalcinosis. There is no hydronephrosis or renal masses. In discussion with the patient today she reports to be doing and feeling well. She does note intermittent episodes of bilateral flank pain however describes these episodes as infrequent and tolerable. She reports compliance with vitamin B6 and potassium as prescribed. When asked she denies urinary urgency, urinary frequency, incontinence, nocturia, hematuria, dysuria, foul smelling urine, changes to urinary stream, flank pain, fever, and or chills. She is happy with her current voiding parameters. Encourage fluid intake with lemon juice Continue vitamin B6 and potassium citrate Six-month follow-up imaging Nephrolithiasis Medullary sponge kidney recurrent stone former Stone analysis - 11/06 calcium oxalate combination and carbonate appatite Prior imaging 04/09 CT scan right hydronephrosis with 2 mm obstructing stone, numerous small stones. Left numerous small stones largest 1 cm 06/10 numerous small stones bilateral 05/12 CT scan Medullary sponge kidney bilaterally, no stones in renal collecting system 06/12 CT scan Medullary sponge kidney distal right 3 mm stone 09/09 renal ultrasound no discrete stone - 02/09 renal ultrasound stable Medullary sponge kidney Procedures - 04/09 ESWL left - 07/09 right ureteroscopy mid ureteric stone - 11/08 right renal pelvis ureteroscopy with submucosal stones - 07/12 right renal ureteroscopy Current therapy-vitamin B6 and allopurinol with potassium citrate PFSH Medical History Morbid obesity Sepsis Umbilical hernia Umbilical hernia Morbid obesity with BMI of 45.0-49.9, adult Renal calculi Hospital discharge follow-up Hypertension Fibromyalgia Active asthma Surgical History History of kidney stones History of extraction of renal calculus History of tubal ligation Family History Father Anemia Sister Cervical cancer Maternal Aunt Breast cancer Diabetes Mother No problems noted. Social History Household Members: Spouse and Children Housing: House Do you presently have visiting nurse or other home services: No Alcohol intake: never Comment: medicated in pacu Patient Tobacco Use Status: Never used Tobacco e-Cigarette/Vaping Use: Never Used Second Hand Smoke Exposure: No service: No Current occupational status: employed Current occupational exposures/hazards: No Cognitive needs: No Hearing needs: No Vision needs: No Female Reproductive History Menstrual Age of Menarche: 12 Review of Systems Const All systems reviewed & are unremarkable except as noted in HPI and below Physical Exam Const General: cooperative, healthy appearing, comfortable, no acute distress, well developed, alert and awake Nutritional Appearance: overweight Orientation/consciousness: patient oriented x3 Limitations: no limitations HEENT Head: Yes normal to inspection, Yes normocephalic and Yes atraumatic Ears: hearing grossly normal bilaterally Eyes General: appearance normal, both eyes and all related structures Neck Neck: Yes normal visual inspection and Yes trachea midline Chest Chest palpation & inspection: normal inspection of the chest Resp Effort & Inspection: normal respiratory effort and able to speak in complete sentences Cardio Rate: regular rate GI Inspection: Yes normal to inspection General: Yes no CVA tenderness Back/Spine/Pelvis Back: no CVA tenderness Skin General skin exam: no rashes or lesions noted Neuro General: patient oriented x3 Extrem General: Yes normal to inspection Psych Appearance: grossly normal and well kempt Mental Status: mental status grossly normal Speech and movement: Normal speech and movement present and Clear speech present Affect: normal affect Attitude: cooperative Thought process: Normal thought process present Thought content: Normal thought content present Insight: Fair insight present (Psych) Judgement: Fair judgement present (Psych) Results AMB Urinalysis, Automated UA Leukoctes 15 Kelley/uL Last Edit by SUMIT Galindo on 05/12/24 13:25 UA Nitrite Negative Last Edit by SUMIT Galindo on 05/12/24 13:25 UA Urobilinogen 0.2 mg/dL Last Edit by SUMIT Galindo on 05/12/24 13:25 UA Protein 30 mg/dL Last Edit by SUMIT Galindo on 05/12/24 13:25 UA pH 6.0 Last Edit by SUMIT Galindo on 05/12/24 13:25 UA Blood 10 Eliel/uL Last Edit by SUMIT Galindo on 05/12/24 13:25 UA Specific [place] 1.025 Last Edit by SUMIT Galindo on 05/12/24 13:25 UA Ketone Negative Last Edit by SUMIT Galindo on 05/12/24 13:25 UA Bilirubin 0 mg/dL Last Edit by SUMIT Galindo on 05/12/24 13:25 UA Glucose 0 mg/dL Last Edit by SUMIT Galindo on 05/12/24 13:25 Results Reviewed Results Reviewed: Laboratory Last Values Urine pH (Auto) 6.0 05/12/24 13:04 Specific [place] (Auto) 1.025 05/12/24 13:04 Urine Protein (Auto) 30 mg/dL 05/12/24 13:04 Glucose (UA)(Auto) 0 mg/dL 05/12/24 13:04 Urine Ketones (Auto) Negative 05/12/24 13:04 Urine Blood (Auto) 10 Eliel/uL 05/12/24 13:04 Urine Nitrite (Auto) Negative 05/12/24 13:04 Urine Bilirubin (Auto) 0 mg/dL 05/12/24 13:04 Urine Urobilinogen (Auto) 0.2 mg/dL 05/12/24 13:04 Leukocyte Esterase (Auto) 15 Kelley/uL 05/12/24 13:04 Date of Service: 05/05/24 Procedure(s): US renal BI FINDINGS: Right kidney: The right kidney measures 10.1 x 5.8 x 6.2 cm. Again seen is marked increased echotexture of the renal pyramids, consistent with medullary nephrocalcinosis. There are no masses. There is no hydronephrosis. Left Kidney: The left kidney measures 11.5 x 7.0 x 5.4 cm. Again seen is marked increased echotexture of the renal pyramids, consistent with medullary nephrocalcinosis. There are no masses. There is no hydronephrosis. IMPRESSION: Medullary nephrocalcinosis. No hydronephrosis. Assessment & Plan Assessment & Plan (1) Nephrolithiasis: Code(s): N20.0 - Calculus of kidney Category: Medical (2) Medullary sponge kidney of both kidneys: Comment: Vitamin B6 allopurinol Code(s): Q61.5 - Medullary cystic kidney Category: Medical Plan In office urinalysis results reviewed with the patient today; as noted above. Recent renal imaging results reviewed with the patient today; as noted above. Continue vitamin B6 and potassium as prescribed; refills provided. We discussed at length importance of adequate hydration relation to nephrolithiasis as well as overall health and well-being. She currently denies any bothersome urinary issues or concerns. She reports be happy with current voiding parameters. Will obtain renal ultrasound in 6 months. Follow-up in 6 months with imaging to be completed prior; or sooner with any issues, concerns, and or questions. Orders: Orders AMB Urinalysis Automated Today Z13.9 - Encounter for screening, unspecified US renal BI 6 Months N20.0 - Calculus of kidney, Q61.5 - Medullary cystic kidney Patient Instructions: The patient had an opportunity to ask questions regarding the treatment plan. All questions were answered. Physical exam, labs, and imaging were discussed and reviewed in detail. As well as risks, benefits, and discussion of treatment choices. No major barriers to understanding were identified. The patient expressed understanding and agreement with the above treatment plan. The patient was made aware they should contact our office by phone for worsening of their current condition, the appearance of new symptoms, or with any questions or concerns. Compliance is encouraged with any medications and follow up testing that is ordered. It is a privilege to be allowed the opportunity to participate in? your urological care.? Again, if you have any questions or concerns If you have any questions or concerns please do not hesitate to contact me. The office is [phone]. This note is constructed using voice recognition software. While every effort has been made to ensure accuracy computer systems engineer errors may have been included. Yours sincerely, JO Vargas Coding Level of Care Code Est Pt Level 3 (57064) Diagnoses Nephrolithiasis N20.0 Medullary sponge kidney of both kidneys Q61.5
--- OUTSIDE RECORDS SUMMARY | 2024-05-12 14:28 | XMS_ITS | Clinical Summary ---
Author Organization [facility] it Address [id number] [place] [id number] Care Team Providers Care Wirer Maintenance Name Role Phone Rashmi Zapata MD Primary Care Provider [phone] Surgical History Surgery Date Site/Laterality Comments TUBAL LIGATION PROCEDURE: HISTORICAL TUBAL LIGATION Medical History Medical History Date Comments Depression DX:Depression GERD (gastroesophageal reflux disease) DX:GERD (gastroesophageal reflux disease) Mild intermittent asthma, uncomplicated DX:Mild intermittent asthma, uncomplicated Renal stones DX:Renal stones Anxiety disorder DX:Anxiety diso rder Benign hypertension DX:Benign hy pertension Rheumatoid arthritis (CMS/HCC) D X:Rheumatoid arthritis (HCC) Pseudotumor cerebri DX:Pseudotum or cerebri Conjunctival pigmentation DX:Con junctival pigmentation Social History Tobacco Use Types Packs/Day Years Used Date Smoking Tobacco: Former Smokeless Tobacco: Never Sex and Gender Information Value Date Recorded Sex Assigned at Not on file Gender Identity Not on file Sexual Orientation Not on file Obstetrics History Last Filed Vital Signs Vital Sign Reading Time Taken Comments Blood Pressure - - Pulse - - Temperature - - Respiratory Rate - - Oxygen Saturation - - Inhaled Oxygen Concentration - - Weight 125 kg (275 lb) 09/16/2023 10:04 AM EDT Height 160 cm (5' 3 ) 09/16/2023 10:04 AM EDT Body Mass Index 48.71 09/16/2023 10:04 AM EDT Plan of Treatment Health Maintenance Due Date Last Done Comments Hepatitis B Vaccines (1 of 3 - 19+ 3-dose series) 11/26/2006 Cervical Cancer Screening: Pap Smear 11/26/2008 Depression Screening 11/11/2023 HIV Screening 11/11/2023 Hepatitis C Screening 11/11/2023 Social Influencers of Health Screening 11/11/2023 COVID-19 Vaccine ( season) 2023 05/26/2023, 04/19/2021, 08/17/2020, Additional history exists Influenza Vaccine (#1) 2023 9, 01/01/2017, 03/30/2015 DTaP,Tdap,and Td Vaccines (2 - Td or Tdap) 07/01/2026 07/01/2016 HIB Vaccines Aged Out No longer eligi ble based on patient's age to complete this topic HPV Vaccines Aged Out No longer eligi ble based on patient's age to complete this topic Hepatitis A Vaccines Aged Out No long er eligible based on patient's age to complete this topic IPV Vaccines Aged Out No longer eligi ble based on patient's age to complete this topic MMR Vaccines Aged Out No longer eligi ble based on patient's age to complete this topic Meningococcal ACWY Vaccine Aged Out N o longer eligible based on patient's age to complete this topic Pneumococcal Vaccine: Pediatrics (0 to 5 Years) and At-Risk Patients (6 to 64 Years) Aged Out No longer eligible based on patient's age to complete this topic RSV Immunization Patients Under 20 months Aged Out No longer eligible based on patient's age to complete this topic Varicella Vaccines Aged Out No longer eligible based on patient's age to complete this topic Care Teams Wirer Maintenance Relationship Specialty Start Date End Date Rashmi Zapata MD [address] [place] [address] , [address] Physician Associ D/B/A: [facility] LOUIS Castillo PCP - General Internal Medicine 09/11/20
--- OUTSIDE RECORDS SUMMARY | 2024-05-12 14:28 | XMS_ITS | Clinical Summary ---
Author Organization [employer] Address [address] [place] [address] [address] [place] [address] Care Team Providers Care Apartment Community Manager Name Role Phone Unavailable Primary Care Provider Unavailabl e Allergies Active Allergy Reactions Criticality Noted Date Comments Beef (Bovine) Protein 05/03/2024 Medications Wegovy 1.7 MG/0.75ML solution auto-injector INJECT ONE PEN (=1.7MG) SUBCUTANEOUSLY ONCE A WEEK DIRECTED 02/23/20 24 Active topiramate (Topamax) 25 MG tablet 11/03/19 24 Active pyridoxine (Vitamin B-6) 100 MG tablet Take 1 tablet by mouth Once per day. 02/23/20 24 Active potassium citrate CR (Urocit-K-10) 10 mEq ER tablet Take 2 tablets by mouth 2 times daily. 02/23/20 24 Active Linzess 290 MCG capsule Take 1 capsule by mouth Once per day. 12/05/19 24 Active hydrOXYzine pamoate (Vistaril) 25 MG capsule 03/29/20 24 Active clonazePAM (KlonoPIN) 0.5 MG tablet 03/29/20 24 Active citalopram (CeleXA) 40 MG tablet 03/29/20 24 Active amLODIPine (Norvasc) 10 MG tablet Take 1 tablet by mouth Once per day. 02/23/20 24 Active amoxicillin (Amoxil) 500 MG capsule Take 1 capsule (500 mg) by mouth every 8 (eight) hours for 7 days. 21 capsule 05/03/19 25 05/10/2 025 acetaminophen (Tylenol) 500 MG tablet Take 1 tablet (500 mg) by mouth every 8 (eight) hours if needed for mild pain or moderate pain for up to 5 days. 15 tablet 05/03/19 25 025 chlorhexidine (Peridex) 0.12 % solution Use 15 mL in the mouth or throat if needed in the morning, at noon, and at bedtime (PROPHYLAXIS) for up to 5 days. 110 mL 05/03/19 25 025 Active Problems Problem Noted Date Diagnosed Date Kidney stones 05/03/2024 Encounters Date Type Department Care Team Description 05/03/2024 11:30 AM EST Office Visit [facility] [address] [place] [address] Artem Cage, SHEBA Kidney stones (Primary Dx) from Last 3 Months Immunizations Name Administration Dates Next Due Influenza injectable quadriv alent IIV4 with preservative 01/01/2017,03/30/2015 Influenza injectable quadrivalent preservative f ree 04/19/2019 Pfizer Covid-19 Vaccine 12+ 05/26/2023 Tdap 07/01/2016 Social History Tobacco Use Types Packs/Day Years Used Date Smoking Tobacco: Never Smokeless Tobacco: Never Tobacco Cessation:Counseling Given: Not Answered Alcohol Use Standard Drinks/Week Comments Never 0 (1 standard drink = 0.6 oz pur e alcohol) Comments Unknown Sex and Gender Information Value Date Recorded Sex Assigned at Female 02/18/2022 10:28 AM EDT Legal Sex Female 10:28 AM EDT Gender Identity Female 12/30/2022 1:10 PM EDT Sexual Orientation Straight 12/30/2022 1: 10 PM EDT Last Filed Vital Signs Vital Sign Reading Time Taken Comments Blood Pressure 140/72 05/03/2024 11:23 AM EST Pulse - - Temperature - - Respiratory Rate - - Oxygen Saturation - - Inhaled Oxygen Concentration - - Weight - - Height - - Body Mass Index - - Plan of Treatment Upcoming Encounters Date Type Department Care Team (Late st Contact Info) Description 05/21/2024 10:00 AM EST Office Visit [facility] [address] [place] [address] Donald Curtis DDS [address] [place] [address] Health Maintenance Due Date Last Done Comments Depression Screening 1987 HIV Screening 1987 SDOH Screening 1987 Alcohol/Substance Use Screening 1999 Hepatitis C Screening 11/26/2005 Hepatitis B Vaccines (1 of 3 - 19+ 3-dose series) 11/26/2006 Pap Smear 11/26/2008 Cervical Cancer Screening 11/26/2017 HPV/Cotest 11/26/2017 Dental Oral Exam 01/05/2022 07/04/2021, , 10/29/2016, Additional history exists Dental Prophylaxis 01/12/2022 07/11/2021, 0 12/05/2017, 04/29/2016, Additional history exists COVID-19 Vaccine ( season) 2023 05/26/2023, 04/19/2021, 08/17/2020, Additional history exists Influenza Vaccine (#1) 2023 9, 01/01/2017, 03/30/2015 Dental X-Ray: Full Mouth 07/05/2024 07/04/2021, 03/2 12/2015 Tobacco Screening 05/03/2025 05/03/2024 Dental X-Ray: Bitewings 05/04/2025 05/03/19 25, 07/04/2021, 12/05/2017, Additional history exists DTaP/Tdap/Td Vaccines (2 - Td or Tdap) 07/01/2026 07/01/2016 Zoster Vaccines (1 of 2) 11/26/2037 RSV Patients and Patients Aged 60 years or older (1 - 1-dose 75+ series) 11/26/2062 HIB Vaccines Aged Out No longer eligi [...] patient's age to complete this topic Meningococcal Vaccine Aged Out No justina rigoberto eligible based on patient's age to complete this topic Pneumococcal Vaccine: Pediatrics (0 to 5 Years) and At-Risk Patients (6 to 64 Years) Aged Out No longer eligible based on patient's age to complete this topic RSV under 20 months Aged Out No longe r eligible based on patient's age to complete this topic Rotavirus Vaccines Aged Out No longer eligible based on patient's age to complete this topic Procedures Procedure Name Priority Date/Time Associated Diagnosis Comments ADJUNCTIVE GENERAL SERVICES - PROFESSIONAL VISITS - CASE PRESENTATION, SUBSEQUENT TO DETAILED AND EXTENSIVE TREATMENT PLANNING Routine 05/03/2024 11:30 AM EST 30 LR ADJUNCTIVE GENERAL SERVICES - UNCLASSIFIED TREATMENT - PALLIATIVE TREATMENT OF DENTAL PAIN - PER VISIT Routine 05/03/2024 11:30 AM EST BITEWING - SINGLE RADIOGRAPHIC IMAGE Routine 05/03/2024 11:30 AM EST 30 INTRAORAL - PERIAPICAL FIRST RADIOGRAPHIC IMAGE Routine 05/03/2024 11:30 AM EST PROPHYLAXIS - ADULT Routine 07/11/2021 1 2:00 AM EDT DIAGNOSTIC - DIAGNOSTIC IMAGING - INTRAORAL - COMPREHENSIVE SERIES OF RADIOGRAPHIC IMAGES Routine 07/04/2021 12:00 AM EDT PERIODIC ORAL EVALUATION - ESTABLISHED PATIENT Routine 07/04/2021 12:00 AM EDT from Last 3 Months or Most Recently Relevant to Health Maintenance Insurance [place] [address] [facility] ST[facility] ADULT
--- OUTSIDE RECORDS SUMMARY | 2024-05-12 14:28 | XMS_ITS | Encounter Summary ---
Author Organization [employer] [facility] Address [address] [place] [address] [address] [place] [address] Care Team Providers Care Produce Shipper Name Role Phone Unavailable Primary Care Provider Unavailabl e Reason for Visit * Reason Onset Date Comments New patient 02/13/2023 Encounter Details Date Type Department Care Team (Late st Contact Info) Description 02/13/2023 Telephone [facility] [address] [place] [id number] Suresh Brown MD [address] [place] [address] New patient Social History Tobacco Use Types Packs/Day Years Used Date Smoking Tobacco: Never Assessed Comments Unknown Sex and Gender Information Value Date Recorded Sex Assigned at Female 02/18/2022 10:28 AM EDT Legal Sex Female 10:28 AM EDT Gender Identity Female 12/30/2022 1:10 PM EDT Sexual Orientation Straight 12/30/2022 1: 10 PM EDT documented as of this encounter Miscellaneous Notes * Telephone Encounter - Ciaran Coates - 02/13/2023 2:41 PM EDT Tc to pt, to start the process of becoming a patient with facility and also to informed that we do not take insurance to please switch to [employer], to call back at [phone] Once done. documented in this encounter Plan of Treatment Upcoming Encounters Date Type Department Care Team (Late st Contact Info) Description 05/21/2024 10:00 AM EST Office Visit [facility] [address] [place] [address] Donald Curtis DDS [address] [place] [address] documented as of this encounter Visit Diagnoses Not on filedocumented in this encounter
--- OUTSIDE RECORDS SUMMARY | 2024-05-12 14:28 | XMS_ITS | Encounter Summary ---
Author Organization [facility] Address [address] [place] [address] [address] [place] [address] Care Team Providers Care Behavioral Health Case Manager Name Role Phone Unavailable Primary Care Provider Unavailabl e Encounter Details Date Type Department Care Team (Latest Contact Info) Description 07/11/2021 Abstract [facility] CONVERSIONS Dental, Provider, DDS Social History Tobacco Use Types Packs/Day Years Used Date Smoking Tobacco: Never Assessed Comments Unknown Sex and Gender Information Value Date Recorded Sex Assigned at Female 02/18/2022 10:28 AM EDT Legal Sex Female 10:28 AM EDT Gender Identity Female 12/30/2022 1:10 PM EDT Sexual Orientation Straight 12/30/2022 1: 10 PM EDT documented as of this encounter Plan of Treatment Upcoming Encounters Date Type Department Care Team (Late st Contact Info) Description 05/21/2024 10:00 AM EST Office Visit [facility] [address] [place] [address] Donald Curtis DDS [address] [place] [address] documented as of this encounter Visit Diagnoses Not on filedocumented in this encounter
--- OUTSIDE RECORDS SUMMARY | 2024-05-12 14:28 | XMS_ITS | Encounter Summary ---
Author Organization [employer] Address [address] [place] [address] [address] [place] [address] Care Team Providers Care Yard Caller Name Role Phone Unavailable Primary Care Provider Unavailabl e Reason for Visit * Reason Comments Dental Exam Dental Pain Dental pain started 3 days ago Encounter Details Date Type Department Care Team (Late st Contact Info) Description 05/03/2024 11:30 AM EST Office Visit [facility] ADULT DENTAL [address] [place] [address] Artem Cage DMD [address] [place] [address] Kidney stones (Primary Dx) Social History Tobacco Use Types Packs/Day Years [...] PM EDT documented as of this encounter Last Filed Vital Signs Vital Sign Reading Time Taken Comments Blood Pressure 140/72 05/03/2024 11:23 AM EST Pulse - - Temperature - - Respiratory Rate - - Oxygen Saturation - - Inhaled Oxygen Concentration - - Weight - - Height - - Body Mass Index - - documented in this encounter Progress Notes * Artem Cage DMD - 05/03/2024 11:30 AM EST C/C: toothache at LR molar I.O.E: sensitive to percussion of #30, subgingival broken filling with carious tooth#30 E.O.E: wnl Radiographic: subgingival pulp involved carious tooth#30 Dx: subgingival pulp involved carious tooth#30 Tx: exo#30 with O.S., exam, prophy Meds: Amoxill. 500mg x 21 tabs Tylenol 500mg x 15 tabs Peridex x 1 bottle Lily documented in this encounter Plan of Treatment Upcoming Encounters Date Type Department Care Team (Late st Contact Info) Description 05/21/2024 10:00 AM EST Office Visit [facility] ADULT DENTAL [address] [place], [place] [phone] Donald Curtis DDS [address] [place], [place] [phone] Scheduled Orders Name Type Priority Associated Diagnoses Orde r Schedule 30 30 EXTRACTION, ERUPTED TOOTH OR EXPOSED ROOT (ELEVATION AND/OR FORCEPS REMOVAL) Dental Routine [address] arting 05/03/2024 PROPHYLAXIS - ADULT Dental Routine 1 Occ urrences starting 05/03/2024 INTRAORAL - COMPLETE SERIES OF RADIOGRAPHIC IMAGES Dental Routine [address] arting 05/03/2024 COMPREHENSIVE ORAL EVALUATION - NEW OR ESTABLISHED PATIENT Dental Routine 1 Occurrence s starting 05/03/2024 documented as of this encounter Procedures Procedure Name Priority Date/Time Associated Diagnosis Comments 30 LR ADJUNCTIVE GENERAL SERVICES - UNCLASSIFIED TREATMENT - PALLIATIVE TREATMENT OF DENTAL PAIN - PER VISIT Routine 05/03/2024 11:30 AM EST 30 INTRAORAL - PERIAPICAL FIRST RADIOGRAPHIC IMAGE Routine 05/03/2024 11:30 AM EST ADJUNCTIVE GENERAL SERVICES - PROFESSIONAL VISITS - CASE PRESENTATION, SUBSEQUENT TO DETAILED AND EXTENSIVE TREATMENT PLANNING Routine 05/03/2024 11:30 AM EST BITEWING - SINGLE RADIOGRAPHIC IMAGE Routine 05/03/2024 11:30 AM EST documented in this encounter Visit Diagnoses Diagnosis Kidney stones- Primary Calculus of kidney documented in this encounter
== END 2024-05-12 13:30 | disposition home or self-care (01) ==
PROVIDERS: PCP Internal Medicine; Visit Provider Nurse Practitioner Family
DX: N20.0 Calculus of kidney (principal); Q61.5 Medullary cystic kidney; Z13.9 Encounter for screening, unspecified
CPT/HCPCS: 99213

== ENCOUNTER → 2024-05-12 12:41 | Outpatient (BNVA) | payer OTHER, SELFPAY | PROVIDERS: PCP Internal Medicine; Visit Provider Nurse Practitioner Family | DX: Q61.5 Medullary cystic kidney (principal); N20.0 Calculus of kidney; E11.9 Type 2 diabetes mellitus without complications; I10 Essential (primary) hypertension; M79.7 Fibromyalgia | CPT/HCPCS: 81003; 99212 ==

== ENCOUNTER 2024-06-07 15:45 | Outpatient (AMB) | payer OTHER, SELFPAY ==
--- OUTSIDE RECORDS SUMMARY | 2024-06-07 15:46 | XMS_ITS | Encounter Summary ---
Author Organization [employer] [facility] Address [address] [place] [address] 7 [place] [address] Care Team Providers Care Perlite Grinder Name Role Phone Unavailable Primary Care Provider Unavailabl e Reason for Visit * Reason Onset Date Comments New patient 02/13/2023 Encounter Details Date Type Department Care Team (Late st Contact Info) Description 02/13/2023 Telephone [facility] MEDICINE [address] [place] [address] Suresh Brown MD [address] [place] [address] New patient Social History Tobacco Use Types [...] not take insurance to please switch to [employer] C3, to call back at [phone] Once done. documented in this encounter Plan of Treatment Not on file documented as of this encounter Visit Diagnoses Not on filedocumented in this encounter
--- OUTSIDE RECORDS SUMMARY | 2024-06-07 15:46 | XMS_ITS | Encounter Summary ---
Author Organization [employer] [facility] Address [address] [place] [address] 7[address] [place] [address] Care Team Providers Care Cracking Unit Operator Name Role Phone Unavailable Primary Care Provider Unavailabl e Reason for Visit * Reason Comments Extraction Encounter Details Date Type Department Care Team ([facility] st Contact Info) Description 05/21/2024 10:00 AM EST Office Visit [facility] ADULT DENTAL [address] [place] [address] Donald Curtis DDS [address] [place] [address] Dental abscess (Primary Dx); Open fracture of tooth, sequela Social History Tobacco Use Types Packs/Day Years Used Date Smoking Tobacco: Never Smokeless Tobacco: Never Alcohol Use Standard Drinks/Week Comments Never 0 [...] Sign Reading Time Taken Comments Blood Pressure 130/76 05/21/2024 10:03 AM EST Pulse - - Temperature - - Respiratory Rate - - Oxygen Saturation - - Inhaled Oxygen Concentration - - Weight - - Height - - Body Mass Index - - documented in this encounter Progress Notes * Donald Curtis DDS - 05/21/2024 10:00 AM EST Dental procedures in this visit D7140 - EXTRACTION, ERUPTED TOOTH OR EXPOSED ROOT (ELEVATION AND/OR FORCEPS REMOVAL) 30 (Completed) Service provider: Donald Curtis DDS Billing provider: Donald Curtis DDS [id number] - ADJUNCTIVE GENERAL SERVICES - PROFESSIONAL VISITS - CASE PRESENTATION, SUBSEQUENT TO DETAILED AND EXTENSIVE TREATMENT PLANNING (Completed) Service provider: Donald Curtis DDS Billing provider: Donald Curtis DDS D0140 - LIMITED ORAL EVALUATION - PROBLEM FOCUSED (Completed) Service provider: Donald Curtis DDS Billing provider: Donald Curtis DDS D0220 - INTRAORAL - PERIAPICAL FIRST RADIOGRAPHIC IMAGE (Completed) Service provider: Donald Curtis DDS Billing provider: Donald Curtis DDS D7140 - EXTRACTION, ERUPTED TOOTH OR EXPOSED ROOT (ELEVATION AND/OR FORCEPS REMOVAL) 30 (Completed) Service provider: Donald Curtis DDS Billolivia provider: Donald Curtis DDS Patient ID: Liz Summers is a 38 y.o. female. Time Out: Timeout Date: (ext on tooth #30), Timeout Time: 100 Location: [facility] Tooth: Mandible and #30 Procedure: X-rays, Extraction, and Emergency Verified the above with patient, orthopedic assistant, and provider. Confirmed via patient's chart, intraorally and by radiographs. Weight Recorder: not applicable Chief Complaint Patient presents with Extraction Medical Hx: Vitals: Blood pressure 130/76. Past Medical History: Diagnosis Date Hypertension Kidney stones Medications: Outpatient Encounter Medications as of 05/21/2024 Medication Sig Dispense Refill amLODIPine (Norvasc) 10 MG tablet Take 1 tablet by mouth Once per day. citalopram (CeleXA) 40 MG tablet clonazePAM (KlonoPIN) 0.5 MG tablet hydrOXYzine pamoate (Vistaril) 25 MG capsule Linzess 290 MCG capsule Take 1 capsule by mouth Once per day. potassium citrate CR (Urocit-K-10) 10 mEq ER tablet Take 2 tablets by mouth 2 times daily. pyridoxine (Vitamin B-6) 100 MG tablet Take 1 tablet by mouth Once per day. topiramate (Topamax) 25 MG tablet Wegovy 1.7 MG/0.75ML solution auto-injector INJECT ONE PEN (=1.7MG) SUBCUTANEOUSLY ONCE A WEEK DIRECTED No facility-administered encounter medications on file as of 05/21/2024. Subjective: Pain: intermittent Duration: Several days Objective: Tooth: #30 Radiographs Taken: BW(s) and PA(s) Radiographic Findings: Decay, Periapical Radiolucency, and Fractured/Broken Tooth Clinical Findings: Fractured, carious tooth, lateral periodontal abscess Swelling: Tenderness and Intraoral swelling Endo Testing: N/A Perio: Erythematous gingiva region, widen PDL Other Findings: Sensitive Diagnosis: Fractured carious tooth, dental abscess Assessment/Plan: EOE X Ray Extraction attempt # 30 Prescription to control pain and infection Prescriptions: Sent to [facility] on file Pt tolerated procedure well, all questions answered. Dismissed in good condition. NV: F/ U as needed / EXAM [employer] Superintendent: Kalli Faustin Dentist: Donald Curtis DDS * Donald Curtis DDS - 05/21/2024 10:00 AM EST Patient ID: Liz Summers is a 38 y.o. female. Time Out: Timeout Date: (ext on tooth #30), Timeout Time: 1001 Location: [facility] Tooth: Mandible and #30 Procedure: Extraction Verified the above with patient, orthopedic assistant, and provider. Confirmed via patient's chart, intraorally and by radiographs. Weight Recorder: not applicable Chief Complaint Patient presents with Extraction Medical Hx: Vitals: Blood pressure 130/76. Past Medical History: Diagnosis Date Hypertension Kidney stones Medications: Outpatient Encounter Medications as of 05/21/2024 Medication Sig Dispense Refill acetaminophen (Tylenol) 500 MG tablet Take 1 tablet (500 mg) by mouth every 6 (six) hours if neededfor mild pain for up to 20 doses. 20 tablet 0 amLODIPine (Norvasc) 10 MG tablet Take 1 tablet by mouth Once per day. amoxicillin (Amoxil) 500 MG capsule Take 1 capsule (500 mg) by mouth every 8 (eight) hours for 7 days. 21 capsule 0 citalopram (CeleXA) 40 MG tablet clonazePAM (KlonoPIN) 0.5 MG tablet hydrOXYzine pamoate (Vistaril) 25 MG capsule Linzess 290 MCG capsule Take 1 capsule by mouth Once per day. potassium citrate CR (Urocit-K-10) 10 mEq ER tablet Take 2 tablets by mouth 2 times daily. pyridoxine (Vitamin B-6) 100 MG tablet Take 1 tablet by mouth Once per day. topiramate (Topamax) 25 MG tablet Wegovy 1.7 MG/0.75ML solution auto-injector INJECT ONE PEN (=1.7MG) SUBCUTANEOUSLY ONCE A WEEK DIRECTED No facility-administered encounter medications on file as of 05/21/2024. Consent Obtained: The risks, benefits, indications, potential complications, and alternatives were explained to the patient and informed consent was obtained with good understanding. Treatment Provided: Dental procedures in this visit D7140 - EXTRACTION, ERUPTED TOOTH OR EXPOSED ROOT (ELEVATION AND/OR FORCEPS REMOVAL) 30 (Completed) Service provider: Donald Curtis DDS Billing provider: Donald Curtis DDS D9450 - ADJUNCTIVE GENERAL SERVICES - PROFESSIONAL VISITS - CASE PRESENTATION, SUBSEQUENT TO DETAILED AND EXTENSIVE TREATMENT PLANNING (Completed) Service provider: Donald Curtis DDS Billolivia provider: Donald Curtis DDS D0140 - LIMITED ORAL EVALUATION - PROBLEM FOCUSED (Completed) Service provider: Donald Curtis DDS Billing provider: Donald Curtis DDS D0220 - INTRAORAL - PERIAPICAL FIRST RADIOGRAPHIC IMAGE (Completed) Service provider: Donald Curtis DDS Billolivia provider: Donald Curtis DDS D7140 - EXTRACTION, ERUPTED TOOTH OR EXPOSED ROOT (ELEVATION AND/OR FORCEPS REMOVAL) 30 (Completed) Service provider: Donald Curtis DDS Billing provider: Donald Curtis DDS Diagnosis: Fractured abscessed tooth Topical: 20% Benzocaine Anesthesia: 2% Lidocaine (Xylocaine) w/ 1:100,000 epinephrine Number of Cartridges: 2 Injection Type: Inferior alveolar nerve block, Long buccal nerve block, and Intrapapillary injection Confirmed profound anesthesia. Pharyngeal curtain and bite block placed. Removed tooth with elevators and forceps. Apices intact. Surgical Extraction: Yes, #30 Socket curetted & irrigated with sterile water. Compressed alveolar bone. Sutures: None Needed All adjacent teeth intact. Hemostasis achieved. Complications: None. Pt tolerated procedure well. Prescription sent to [facility] on file Written and verbal post-op instructions given. Patient discharged in stable condition; ambulatory, alert, and oriented. NV: F/ U as needed / Exam [employer] Superintendent: Kalli Faustin Dentist: Donald Curtis DDS documented in this encounter Plan of Treatment Not on file documented as of this encounter Procedures Procedure Name Priority Date/Time Associated Diagnosis Comments LIMITED ORAL EVALUATION - PROBLEM FOCUSED Routine 05/21/2024 10:00 AM EST INTRAORAL - PERIAPICAL FIRST RADIOGRAPHIC IMAGE Routine 05/21/2024 10:00 AM EST 30 EXTRACTION, ERUPTED TOOTH OR EXPOSED ROOT (ELEVATION/FORCEPS REMOVAL) Routine 05/21/2024 10:00 AM EST 30 EXTRACTION, ERUPTED TOOTH OR EXPOSED ROOT (ELEVATION/FORCEPS REMOVAL) Routine 05/21/2024 10:00 AM EST CASE PRESENTATION, DETAILED AND EXTENSIVE TREATMENT PLANNING Routine 05/21/2024 10:00 AM EST documented in this encounter Visit Diagnoses Diagnosis Dental abscess- Primary Periapical abscess without sinus Open fracture of tooth, sequela documented in this encounter
--- OUTSIDE RECORDS SUMMARY | 2024-06-07 15:46 | XMS_ITS | Encounter Summary ---
Author Organization [email or web address] [facility] Address [address] [place] [address] [address] [place] [address] Care Team Providers Care Splicer Helper Name Role Phone Unavailable Primary Care Provider Unavailabl e Encounter Details Date Type Department Care Team (Latest Contact Info) Description 07/11/2021 Abstract [facility] Dental, Provider, DDS Social History Tobacco Use Types Packs/Day Years Used Date Smoking Tobacco: Never Assessed Comments Unknown Sex and Gender Information Value Date Recorded Sex Assigned at Female 02/18/2022 10:28 AM EDT Legal Sex Female 10:28 AM EDT Gender Identity Female 12/30/2022 1:10 PM EDT Sexual Orientation Straight 12/30/2022 1: 10 PM EDT documented as of this encounter Plan of Treatment Not on file documented as of this encounter Visit Diagnoses Not on filedocumented in this encounter
--- OUTSIDE RECORDS SUMMARY | 2024-06-07 15:46 | XMS_ITS | Clinical Summary ---
Author Organization [employer] Address [address] [facility] [address]t [place] [address] Care Team Providers Care Applications Support Specialist Name Role Phone Unavailable Primary Care Provider [...] mouth Once per day. 02/23/20 24 Active acetaminophen (Tylenol) 500 MG tablet Take 1 tablet (500 mg) by mouth every 6 (six) hours if needed for mild pain for up to 20 doses. 20 tablet 05/21/19 25 Active amoxicillin (Amoxil) 500 MG capsule Take 1 capsule (500 mg) by mouth every 8 (eight) hours for 7 days. 21 capsule 05/03/19 25 025 acetaminophen (Tylenol) 500 MG tablet Take [...] 5 days. 110 mL 05/03/19 25 025 amoxicillin (Amoxil) 500 MG capsule Take 1 capsule (500 mg) by mouth every 8 (eight) hours for 7 days. 21 capsule 05/21/19 25 025 Active Problems Problem Noted Date Diagnosed Date Dental abscess 05/21/2024 Open fracture of tooth 05/21/2024 Kidney stones 05/03/2024 Encounters Date Type Department Care Team Description 05/21/2024 10:00 AM EST Office Visit [facility] ADULT DENTAL [address] [place] [address] Donald Curtis DDS Dental abscess (Primary Dx); Open fracture of tooth, sequela 05/03/2024 11:30 AM EST Office Visit [facility] ADULT DENTAL [address] [place] [address] Artem Cage, SHEBA Kidney stones (Primary Dx) [...] Mass Index - - Plan of Treatment Health Maintenance Due Date Last Done Comments Depression Screening 1987 HIV Screening 1987 SDOH Screening 1987 Alcohol/Substance Use Screening 1999 Family Planning (PISQ) 11/26/2002 Hepatitis C Screening 11/26/2005 Hepatitis B Vaccines (1 of 3 - 19+ 3-dose series) 11/26/2006 Pap Smear 11/26/2008 Cervical Cancer Screening 11/26/2017 HPV/Cotest 11/26/2017 Dental Oral Exam 01/05/2022 07/04/2021, , 10/29/2016, Additional history exists Dental Prophylaxis 01/12/2022 07/11/2021, 0 12/05/2017, 04/29/2016, Additional history exists COVID-19 Vaccine ( season) 2023 05/26/2023, 04/19/2021, 08/17/2020, Additional history exists Influenza Vaccine (#1) 2023 , 01/01/2017, 03/30/2015 Dental X-Ray: Full Mouth 07/05/2024 07/04/2021, 06/20 Dental X-Ray: Bitewings 05/04/2025 05/03/19, 07/04/2021, 12/05/2017, Additional history exists Tobacco Screening 05/21/2025 05/21/2024 DTaP/Tdap/Td Vaccines (2 - Td or Tdap) [...] 5 Years) and At-Risk Patients (6 to 49) Years) Aged Out No longer eligible based on patient's age to complete this topic RSV under 20 months Aged Out No longe r eligible based on patient's age to complete this topic Rotavirus Vaccines Aged Out No longer eligible based on patient's age to complete this topic Procedures Procedure Name Priority Date/Time Associated Diagnosis Comments 30 EXTRACTION, ERUPTED TOOTH OR EXPOSED ROOT (ELEVATION/FORCEPS REMOVAL) Routine 05/21/2024 10:00 AM EST INTRAORAL - PERIAPICAL FIRST RADIOGRAPHIC IMAGE Routine 05/21/2024 10:00 AM EST LIMITED ORAL EVALUATION - PROBLEM FOCUSED Routine 05/21/2024 10:00 AM EST CASE PRESENTATION, DETAILED AND EXTENSIVE TREATMENT PLANNING Routine 05/21/2024 10:00 AM EST 30 EXTRACTION, ERUPTED TOOTH OR EXPOSED ROOT (ELEVATION/FORCEPS REMOVAL) Routine 05/21/2024 10:00 AM EST CASE PRESENTATION, DETAILED AND EXTENSIVE TREATMENT PLANNING Routine 05/03/2024 11:30 AM EST 30 LR PALLIATIVE (EMERGENCY) TREATMENT OF DENTAL PAIN - MINOR PROCEDURE Routine 05/03/2024 11:30 AM EST BITEWING - SINGLE RADIOGRAPHIC IMAGE Routine 05/03/2024 11:30 AM EST 30 INTRAORAL - PERIAPICAL FIRST RADIOGRAPHIC IMAGE Routine 05/03/2024 11:30 AM EST PROPHYLAXIS - ADULT Routine 07/11/2021 1 2:00 AM EDT INTRAORAL - COMPLETE SERIES OF RADIOGRAPHIC IMAGES Routine 07/04/2021 12:00 AM EDT PERIODIC ORAL EVALUATION - ESTABLISHED PATIENT Routine 07/04/2021 12:00 AM EDT from Last 3 Months or Most Recently Relevant to Health Maintenance Insurance [facility] MEDICAID STAND ADULT
[2024-06-07 15:49] VITALS: BP 136/80; BMI 45.5
--- NOTE | 2024-06-07 15:49 | MHC.PC.OV ---
Vital Signs 06/07/24 15:49 Height 5 ft 3 in Weight 257 lb BMI 45.5 BP 136/80 Blood Pressure Location Lt brachial Position Sitting Intake Visit Reasons: obgyn f/u Gear Hobber Operator Required: Yes Gear Hobber Operator Language: Manager Of Engineering Name: Rashmi Zapata MD Information Interpreted: non-clinical & clinical Accompanied by: Self / Same As Patient Allergies canned food Allergy (Severe, Verified 06/07/24 16:06) rash lactose Allergy (Verified 06/07/24 16:06) Nausea RED MEAT Allergy (Severe, Uncoded 06/07/24 16:06) Rash Medication List - Last Reconciled 06/07/24 by Rashmi Zapata MD albuterol sulfate 90 mcg/actuation 2 puffs inhalation Q4-6H PRN amlodipine 10 mg PO DAILY 90 days blood pressure kit-extra large As directed blood pressure test kit-large ([facility] Blood Pressure Monitor kit) As directed citalopram 40 mg PO DAILY 90 days clonazepam 0.5 mg PO DAILY hydroxyzine pamoate 25 mg PO BID PRN linaclotide 290 mcg PO DAILY 90 days montelukast 10 mg PO BEDTIME 90 days omeprazole 20 mg PO DAILY potassium citrate ER 20 mEq (2 x 10 mEq (1,080 mg)) PO BID 90 days pyridoxine (vitamin B6) 100 mg PO DAILY 90 days Tobacco use date assessed: 06/07/24 Dental Screening Dental Screen Date: 06/07/24 Did you have a dental visit in the last 12 months?: Yes Did you have a dental problem in the last 6 months where you did not have access to dental care?: No Was dental information given to patient?: Patient has dentist HPI HPI Comments History of Present Illness Details The patient is a 38-year-old female presenting for her physical exam. She has a history of medullary nephrocalcinosis, manifesting as recurrent kidney stones, for which she has previously undergone surgery. Her blood pressure has been well-controlled, and her current antihypertensive medication includes amlodipine 10 mg daily. She reports a history of constipation managed with linzess and describes gastroesophageal symptoms addressed with omeprazole for acid suppression. The patient has been diagnosed with pseudotumor cerebri, necessitating an attempted intervention with a valve, but improvement was noted with weight loss. Regarding headaches, she has pursued an injection treatment plan coordinated with another physician but encountered issues with the plan authorization for the medication. During the visit, she described fluctuating weight, having recently lost some weight, bringing her down from 275 to 257 lbs. She was advised weight management approaches to aid in reducing symptoms of pseudotumor cerebri, which has shown improvement in this regard. She also relayed issues with temperature sensitivity affecting her comfort. The patient routinely returns to [place] for work. She expressed concerns about medication management, including necessary prescriptions such as montelukast, hydroxyzine, potassium supplements, and vitamin B6. Additionally, citalopram 40 mg and clonazepam as needed are part of her psychoactive medication regimen. The patient mentioned severe allergies to shellfish (Canful), lactose, red meat, and requests confirmation of a weight management injection transition due to authorization issues. [facility] Medical History (Updated 06/07/24 @ 19:19 by Rashmi Zapata MD) Mild major depression Morbid obesity with BMI of 50.0-59.9, adult Morbid obesity Sepsis Umbilical hernia Umbilical hernia Morbid obesity with BMI of 45.0-49.9, adult Renal calculi Hospital discharge follow-up Hypertension Fibromyalgia Active asthma Surgical History History of kidney stones History of extraction of renal calculus History of tubal ligation Family History Father Anemia Sister Cervical cancer Maternal Aunt Breast cancer Diabetes Mother No problems noted. Social History Household Members: Spouse and Children Housing: House Do you presently have visiting nurse or other home services: No Alcohol intake: never Comment: medicated in pacu Patient Tobacco Use Status: Never used Tobacco e-Cigarette/Vaping Use: Never Used Second Hand Smoke Exposure: No service: No Current occupational status: employed Current occupational exposures/hazards: No Cognitive needs: No Hearing needs: No Vision needs: No Female Reproductive History Menstrual Age of Menarche: 12 Questionnaire PHQ-9 Over the last 2 weeks, how often have you been bothered by any of the following problems? 1. Little interest or pleasure in doing things: not at all 2. Feeling down, depressed, or hopeless: not at all 3. Trouble falling or staying asleep, or sleeping too much: not at all 4. Feeling tired or having little energy: not at all 5. Poor appetite or overeating: not at all 6. Feeling bad about yourself - or that you are a failure or have let yourself or your family down: not at all 7. Trouble concentrating on things, such as reading the newspaper or watching television: not at all 8. Moving or speaking so slowly that other people could have noticed. Or the opposite - being so fidgety or restless that you have been moving around a lot more than usual: not at all 9. Thoughts that you would be better off or of hurting yourself in some way: not at all Total score: 0 Depression Screening Interpretation: Negative Depression Screening Done: Yes 11538 - PHQ-9 Billing: Yes Source: Developed by Drs. Drake Jackson, Sally Funes, Adam Nicholson and colleagues, with an educational hilary from [employer]. Thrive Questionnaire Date Thrive assessed: 06/07/24 I am a: Patient What is your living situation today?: I have a steady place to live Within the past 12 months, did the food you bought not last and you didn't have the money to get more?: Never true Within the past 12 months, did you worry whether your food would run out before you got money to buy more?: Never true Do you have trouble paying for medicines?: No Do you have trouble getting transportation to medical appointments?: No Do you have trouble paying your heating and electricity bill?: No Do you have trouble taking care of your child, family member or friend?: No Do you have trouble with day-to-day activities such as bathing, preparing meals, shopping, managing finances, etc.?: No Are you currently unemployed and looking for a job?: No Are you interested in more education?: No Please select the resources that you would like help with: None Currently or been in a relationship where the following occur: No concerns reported THRIVE Score: 0 AUDIT C Alcohol Use Questionnaire (AUDIT-C) 1. How often do you have a drink containing alcohol?: Never Total Score: 0 Score Reviewed/Action Taken: No OMAR-7 AMB Questionnaire OMAR-7 Date OMAR - 7 assessed: 02/17/25 Feeling nervous, anxious, or on edge: 0 = Not at all Not being able to stop or control worryin = Not at all Worrying too much about different things: 0 = Not at all Trouble relaxin = Not at all Being so restless that it is hard to sit still: 0 = Not at all Becoming easily annoyed or irritable: 0 = Not at all Feeling afraid as if something awful might happen: 0 = Not at all Total OMAR-7 score (0-4 normal; 5-9 mild; 10-14 moderate; 15-21 severe): 0 Source: Developed by Drs. Drake Jackson, Sally Funes, Adam Nicholson and colleagues, with an educational hilary from [employer]. OMAR-7 Assessment Billing OMAR-7 Assessment Tool: OMAR-7 Assessment 24108 Review of Systems Const All systems reviewed & are unremarkable except as noted in HPI and below Card Denies chest pain at rest, Denies chest pain with activity, Denies edema, Denies irregular heart rhythm, Denies claudication, Denies dyspnea, Denies dyspnea on exertion, Denies orthopnea, Denies paroxysmal nocturnal dyspnea and Denies slow heart rate Resp Denies cough, Denies dyspnea and Denies dyspnea on exertion Neuro Denies behavioral changes and Denies lack of coordination Psych Denies behavioral changes Physical exam (Primary Care) Vital Signs: Last Vital Signs BP 136/80 06/07/24 15:49 BMI result Body Mass Index 45.5 BMI Assessment/Plan discussion: High BMI High, discussed plan: lifestyle, weight reduction, dietary and physical activity Tobacco/Smoking Status: Tobacco use Status Tobacco use date assessed 06/07/24 06/07/24 15:56 Patient Tobacco Use Status Never used Tobacco 06/07/24 15:56 Tobacco use type 01/19/24 13:08 e-Cigarette/Vaping Use Never Used 06/07/24 15:56 PHQ-9: PHQ-9 Score PHQ-9: Total score 0 06/07/24 19:20 Depression Screening Interpretation: Negative Thrive Assessment: Date of Thrive Assessment Date Thrive assessed 06/07/24 06/07/24 15:59 Currently or been in a relationship where the following occur: No concerns reported Resp Effort & Inspection: normal respiratory effort Auscultation: clear to auscultation bilaterally Cardio Jugular venous distension: no JVD Rate: regular rate Rhythm: regular rhythm Heart sounds: S1 normal heart sound present and S2 normal heart sound present Extrem General: Yes full ROM Office Procedures Flu Questionnaire Does the patient have a severe egg allergy?: No Does the patient have severe life threatening allergies?: No Does the patient have a fever or illness today?: No Has the patient ever had Guillain-[place] Syndrome?: No Has the patient ever had any past reaction to a flu shot?: No Immunizations Fluarix Triv 1561-1403 (PF) 45 mcg (15 mcg x 3)/0.5 mL IM syringe Performing Provider: Rashmi Zapata MD [facility] [place] Administered by: SUMIT Sharp on 06/07/24 16:23 Dose Route Admin Location Dispensed Lot Number Expiration Date NDC Premium Note Interest Calculator Clerk 0.5 mL IM Left Deltoid 0.5 mL [id number] 10/18/24 [id number] TeamPatent VIS Given Date VIS Provided VIS Publication Date 06/07/24 Single Vaccine 20 Eligibility Eligibility Date Funding Source Not [facility] Eligible 06/07/24 Private Coding Level of Care Code Est Pt Prev Care 18-39y([id number]) Diagnoses Physical exam Z00.00 Morbid obesity with BMI of 45.0-49.9, adult E66.01; Z68.42 Additional Codes OMAR-7 Assessment Billing - OAMR-7 Assessment Tool: OMAR-7 Assessment 03933 ([id number]) PHQ-9 - 31533 - PHQ-9 Billing: Yes ([id number]) Time Spent (min) 31 Assessment & Plan Assessment & Plan (1) Physical exam: Code(s): Z00.00 - Encounter for general adult medical examination without abnormal findings Category: Medical (2) Morbid obesity with BMI of 45.0-49.9, adult: Code(s): E66.01 - Morbid (severe) obesity due to excess calories; Z68.42 - Body mass index [BMI] 45.0-49.9, adult Category: Medical Plan - Continue current hypertension management with amlodipine - Reinforce dietary and hydration measures to mitigate nephrocalcinosis symptoms - Address authorization issues for weight management injection with the medical plan and explore alternative options if needed - Recommend ongoing weight management and monitoring to support pseudotumor cerebri alleviation - Schedule follow-up in six months to reassess conditions, focusing on weight and pseudotumor cerebri - Administer influenza vaccination as planned following the visit Patient was informed and verbally consented to the use of an ambient scribe for clinic note documentation during this visit. We reviewed the patient's current health status focusing on chronic management plans. She was advised to maintain her healthy lifestyle interventions to manage her weight, which has shown efficacy in reducing symptoms of pseudotumor cerebri. We discussed the importance of adherence to dietary recommendations to prevent exacerbation of nephrocalcinosis. The necessity for continual blood pressure monitoring was emphasized. Instruction on following up with her insurance plan regarding the authorization issues for her weight management injection was given. The implications of injectable medication options were reviewed. Consent was confirmed for the influenza vaccination as part of continued health maintenance. Orders: Orders Comprehensive [place]. Panel Fast Today E66.01 - Morbid (severe) obesity due to excess calories Complete Blood Count Auto Diff Today D64.9 - Anemia, unspecified Influenza [id number] Immunization Today Z23 - Encounter for immunization IRON PROFILE Today D64.9 - Anemia, unspecified Lipid Panel Today E78.5 - Hyperlipidemia, unspecified Medications: New tirzepatide (weight loss) (Zepbound) for 4 weeks 2.5 mg (0.5 mL) subcut QWEEK 2 mL 0RF 4 weeks E66.01 - Morbid (severe) obesity due to excess calories, G93.2 - Benign intracranial hypertension Patient Instructions: - Continue all current medications as prescribed - Maintain hydration and dietary adjustments to manage nephrocalcinosis - Follow-up with insurance regarding weight management injection authorization - Monitor blood pressure regularly at home - Return in six months for reevaluation of weight and pseudotumor cerebri management - Receive influenza vaccination before leaving the clinic
== END 2024-06-07 16:23 | disposition home or self-care (01) ==
PROVIDERS: PCP Internal Medicine; Visit Provider Internal Medicine
DX: Z00.00 Encounter for general adult medical examination without abnormal findings (principal); E66.01 Morbid (severe) obesity due to excess calories; Z68.42 Body mass index [BMI] 45.0-49.9, adult; Z23 Encounter for immunization

== ENCOUNTER → 2024-06-07 15:45 | Outpatient (BNVA) | payer OTHER, SELFPAY | PROVIDERS: PCP Internal Medicine; Visit Provider Internal Medicine | DX: Z00.00 Encounter for general adult medical examination without abnormal findings (principal); Z23 Encounter for immunization; E66.01 Morbid (severe) obesity due to excess calories; Z68.42 Body mass index [BMI] 45.0-49.9, adult; Z71.3 Dietary counseling and surveillance | CPT/HCPCS: 90471; 90656; 96127; 99395 ==

== ENCOUNTER 2024-07-21 10:41 | Emergency (ER) | payer OTHER, SELFPAY ==
--- NOTE | ~2024-07-21 | CT_ITS ---
CLINICAL HISTORY: R sided swelling, +strep CT soft tissue neck with contrast Comparison: None Findings: The visualized intracranial contents are unremarkable. No prevertebral fluid. Epiglottis is within normal limits. Pharyngeal mucosal space and parapharyngeal fat are normal. Enlarged right palatine tonsil containing a 1.9 x 1.3 x 1.2 cm abscess. Mass effect on the airway which is mildly narrowed and displaced to the left by 8 mm. Multiple enlarged lymph nodes within the neck, right more pronounced than left. Lymph nodes measure up to 1.7 cm in short axis dimension. Salivary glands are within normal limits. No sialoliths. No suspicious thyroid nodules. No consolidation at the lung apices. No acute fracture or dislocation. IMPRESSION: 1. Right-sided tonsillitis associated with a 1.9 cm abscess. 2. Mild airway narrowing. Shift of the airway to the left by 8 mm. 3. There is lymphadenopathy within the neck, likely inflammatory. This document has been electronically signed by: Lisa Aguirre MD on 07/21/2024 17:54:11
[2024-07-21 11:09] VITALS: BP 148/95; PULSE 91; RESP 20; TEMP 36.5; O2SAT 99; BMI 44.4
--- NOTE | 2024-07-21 11:13 | ED.GENADULT ---
HPI - General Adult General Chief complaint: Upper Respiratory Symptoms Stated complaint: Loss Voice, Diarrhea Time Seen by Provider: 07/21/24 13:15 Source: patient, RN notes reviewed and old records reviewed Mode of arrival: ambulatory Limitations: no limitations History of Present Illness ED Provider: Duc SHARPE narrative: Patient is a 38-year-old Nigerian speaking female with history of asthma presenting to the ED with complaint of chills, diarrhea, sore throat, right ear pain and headaches which she states began on Friday. Voice muffled. Complains of pain and swelling to right side of neck. Able to manage secretions. MD complaint: sore throat Onset (ago): day(s) Related Data Home Medications ?Medication ?Instructions ?Recorded ?Confirmed hydroxyzine pamoate 25 mg capsule 25 mg PO BID PRN Anxiety 01/09/23 06/07/24 omeprazole 20 mg capsule,delayed 20 mg PO DAILY 04/30/23 06/07/24 release clonazepam 0.5 mg tablet 0.5 mg PO DAILY 07/21/23 06/07/24 Previous Rx's ?Medication ?Instructions ?Recorded albuterol sulfate 90 mcg/actuation 2 puff inhalation Q4-6H PRN 02/05/21 aerosol inhaler shortness of breath or wheezing #8.5 grams citalopram 40 mg tablet 40 mg PO DAILY 90 days #90 tabs 11/11/22 montelukast 10 mg tablet 10 mg PO BEDTIME 90 days #90 tabs 11/11/22 blood pressure kit-extra large #1 ea 08/24/23 blood pressure test kit-large #1 ea 12/20/23 ([facility] Blood Pressure Monitor kit) amlodipine 10 mg tablet 10 mg PO DAILY 90 days #90 tabs 01/25/24 linaclotide 290 mcg capsule 290 mcg PO DAILY 90 days #90 caps 02/26/24 potassium citrate 10 mEq (1,080 20 meq (2 x 10 mEq (1,080 mg)) PO 05/17/24 mg) tablet,extended release BID 90 days #360 tabs pyridoxine (vitamin B6) 100 mg 100 mg PO DAILY 90 days #90 tabs 05/17/24 tablet tirzepatide (weight loss) 2.5 2.5 mg (0.5 mL) subcut QWEEK 4 06/07/24 mg/0.5 mL subcutaneous pen weeks #2 mL injector (Zepbound) amoxicillin 875 mg-potassium 1 tab PO BID #20 tabs 07/21/24 clavulanate 125 mg tablet Allergies Allergy/AdvReac Type Severity Reaction Status Date / Time canned food Allergy Severe rash Verified 07/21/24 11:12 lactose Allergy Nausea Verified 07/21/24 11:12 RED MEAT Allergy Severe Rash Uncoded 07/21/24 11:12 Review of Systems Review of Systems: As per HPI Yes all other systems are reviewed and are negative Constitutional: Constitutional: Reports as per HPI [facility] Past Medical History Medical History (Updated 07/21/24 @ 20:46 by Andreina Hayward CNP) Mild major depression Morbid obesity with BMI of 50.0-59.9, adult Morbid obesity Sepsis Umbilical hernia Umbilical hernia Morbid obesity with BMI of 45.0-49.9, adult Renal calculi Hospital discharge follow-up Hypertension Fibromyalgia Active asthma Surgical History History of kidney stones History of extraction of renal calculus History of tubal ligation Family History Family History Father Anemia Sister Cervical cancer Maternal Aunt Breast cancer Diabetes Mother No problems noted. Social History Social History Household Members: Spouse and Children Housing: House Do you presently have visiting nurse or other home services: No Alcohol intake: never Comment: medicated in pacu Patient Tobacco Use Status: Never used Tobacco e-Cigarette/Vaping Use: Never Used Second Hand Smoke Exposure: No Advance Directives: No Advance Directives Information Provided: No Do you have a plan to hurt others: No Plan service: No Current occupational status: employed Current occupational exposures/hazards: No Cognitive needs: No Hearing needs: No Vision needs: No Physical Exam ED Vital Signs: Vital Signs - 24 hr 07/21/24 11:09 07/21/24 19:53 Temperature 97.7 F 97.8 F Pulse Rate 91 90 Respiratory Rate 20 20 Blood Pressure 148/95 H 150/90 H Pulse Oximetry 99 99 Oxygen Delivery Method Room Air Room Air BMI result Body Mass Index 44.4 Vital signs have been reviewed and appear to be correct. Blood pressure normal. Heart rate normal. Respiratory rate normal. Temperature normal. Oxygen saturation normal. Const General: cooperative, healthy appearing and no acute distress Orientation/consciousness: oriented to person, oriented to place, oriented to time and patient oriented x3 Limitations: no limitations HENMT Head: Yes normocephalic and Yes atraumatic Ears: external ears normal, TM's normal bilaterally and EAC's normal General nose exam: Normal external nose present and Normal nasal mucous membranes and turbinates present Face and sinus: Yes face symmetric Mouth: Normal oral and palatal mucosa present, lip normal, tongue normal, oropharynx normal, moist mucous membranes, no drooling, muffled voice and restricted motion Throat: Yes uvula midline, Yes abnormal tonsil (R tonsil 3+ erythematous, L tonsil 2+) and No uvula laterally displaced Eyes Pupils: Equal, round and reactive pupils present Neck Neck: Yes normal visual inspection and Yes supple Lymphatic: lymphadenopathy right submandibular Resp Effort & Inspection: normal respiratory effort and able to speak in complete sentences Auscultation: clear to auscultation bilaterally Cardio Rate: regular rate Rhythm: regular rhythm Heart sounds: S1 normal heart sound present and S2 normal heart sound present GI Palpation (GI): Soft to palpation and nontender Auscultation: normoactive bowel sounds General: Yes no CVA tenderness Back/Spine/Pelvis Back: no CVA tenderness Skin General skin exam: elasticity normal and turgor normal Neuro General: oriented to person, oriented to place, oriented to time, patient oriented x3, moves all extremities, no focal motor deficits and CN's II-XI intact bilaterally Cranial nerves: Yes Equal, round and reactive pupils present Cognition (Neuro): normal cognition Extrem General: Yes full ROM, Yes no pedal edema and Yes no calf tenderness Psych Mental Status: mental status grossly normal Affect: normal affect Thought process: Normal thought process present Course Course Course Narrative: This is an RME: Additional HPI, ROS, PE not included below will be deferred to primary provider. RME assessment and note performed by: Isabel Borden PA-C This is a 88-[id number]-evm-azerbaijani speaking female, with a hx of asthma, who presents to the ER with complaints of chills, diarrhea, sore throat, right ear pain and headaches since friday. Speaking in full sentences. No blood or black stool. Plan: Labs, Viral swabs, strep swab 07/21/2024 - 1321 - patient re-evaluated, she tested positive for strep throat however upon re-evaluation, patient with significant right anterior cervical lymphadenopathy and R tonsillar hypertrophy noted, may need CT, will defer imaging to primary provider. Reevaluation(s) Reevaluation #1: Andreina Hayward NP 07/21/2024 19:15; spoke with [facility], patient accepted for ED to ED transfer with the accepting physician Dr. Clint Carvajal, patient made aware of plan for transfer and is agreeable. Reevaluation #2: Andreina Hayward NP 07/21/2024 20:45; patient is declining transfer at this time, she states that she does not have anyone who can stay with her children overnight or even for it the next few days. At the time she is leaving against medical advice. We discussed the potential life-threatening consequences of her illness. I am sending a prescription for Augmentin to her pharmacy. We discussed strict return precautions. All questions have been answered. Medications Administered Discontinued Medications Generic Name Dose Route Start Last Admin Trade Name Víctor PRN Reason Stop Dose Admin Dexamethasone Sodium Phosphate 10 mg 07/21/24 17:38 07/21/24 18:10 Dexamethasone Sod Phosphate 10 Mg/Ml Vial IVPUSH 07/21/24 17:39 10 mg ONCE ONE Administration Ampicillin Sodium/Sulbactam 100 mls @ 200 mls/hr 07/21/24 17:38 07/21/24 19:37 Sodium 3 gm/ Sodium Chloride IV 07/21/24 18:07 Infused ONCE ONE Infusion Iohexol 100 ml 07/21/24 17:22 07/21/24 17:24 Iohexol 350 Mg/Ml 100 Ml Infus..Btl IV 07/21/24 17:23 60 ml ONCE ONE Administration Medical Decision Making Medical Decision Making MDM Narrative: Patient is a 38-year-old Nigerian speaking female with history of asthma presenting to the ED with complaint of chills, diarrhea, sore throat, right ear pain and headaches which she states began on Friday. On exam patient is awake, A+Ox3, VS WNL, afebrile, normal neurological exam without focal deficits, physical exam findings as above. Given reported symptoms and physical exam findings, initial differential includes but is not limited to strep pharyngitis, viral illness, COVID, flu, RSV, peritonsillar retropharyngeal abscess. Labs notable for leukocytosis. Strep swab positive, viral panel negative. CT notable for right tonsillitis with 1.9 cm abscess, mild airway narrowing with shift of the airway to the left by 8 mm, lymphadenopathy within the neck. My interpretation is in agreement with the radiologist's interpretation. 18:35 Spoke with ENT at [facility] who do not feel patient requires urgent intervention, likely just requires IV abx and steroids, transfer line noting that wait would be >24 hours for bed to become available. 18:[address] Mc, hospitalist, who will not accept admission to medicine as ENT is not available here. Call out to [facility]. Patient signed out to Rachid, CHARGE ACCOUNT CLERK pending transfer. Differential Diagnosis Differential Diagnoses: The differential diagnosis associated with the presentation includes As per [facility] Admission/Observation Consideration of admission/observation: Escalation of care including admission/observation considered Consult Healthcare Provider Management of the patient was discussed with: Hospitalist Lab Data [facility] Lab Attestation statement: I reviewed the patient's lab results. As per [facility] 07/21/24 11:37 07/21/24 11:37 Labs: Lab Results 07/21/24 Range/Units 11:37 WBC 11.8 H (4.8-10.8) X10*3/uL RBC 5.58 H (4.20-5.50) X10*6/uL Hgb 11.7 L (12.0-16.0) g/dl Hct 40.3 (37.0-47.0) % MCV 72.2 L (80.0-98.0) fL MCH 21.0 L (27.0-33.0) pg MCHC 29.0 L (31.0-35.0) g/dl RDW 18.8 H (11.0-16.0) % Plt Count 333 (160-400) X10*3/uL MPV 9.3 L (9.4-12.3) fL Immature Gran % (Auto) 0.3 (0.0-0.4) % Neut % (Auto) 73.4 H (45-73) % Lymph % (Auto) 15.5 L (20-40) % Atkinson % (Auto) 8.6 (2-11) % Eos % (Auto) 1.5 (0-4) % Baso % (Auto) 0.7 (0-2) % Lymph # (Auto) 1.8 (1.2-4.9) X10*3/uL Atkinson # (Auto) 1.0 (0.1-1.2) X10*3/uL Eos # (Auto) 0.2 (0.0-0.4) X10*3/uL Baso # (Auto) 0.1 (0.0-0.2) X10*3/uL Abs Immat Gran (auto) 0.03 (0.00-0.03) X10*3/uL Absolute Neuts (auto) 8.7 H (2.0-8.3) x10*3/uL Absolute Nucleated RBC 0.000 (0.0-0.012) X10*3/uL Nucleated RBC % (auto) 0.0 (0.0-0.2) /100WBC Sodium 137 (135-145) mmol/L Potassium 3.9 (3.3-5.1) mmol/L Chloride 105 (96-108) mmol/L Carbon Dioxide 27 (22-29) mmol/L Anion Gap 9 L (12-20) BUN 17 H (9-16) mg/dL Creatinine 0.83 (0.5-1.4) mg/dL Estim Creat Clear Calc 113.7 Estimated GFR > 60 Random Glucose 105 (60-115) mg/dL Calcium 9.2 (8.4-10.2) mg/dL Magnesium 1.9 (1.6-2.6) mg/dL Total Bilirubin 0.4 (0.0-1.0) mg/dL AST 10 (5-31) U/L ALT 9 (0-31) U/L Alkaline Phosphatase 70 (39-117) U/L Total Protein 7.5 (6.5-8.0) g/dL Albumin 3.7 (3.5-5.0) g/dL Beta HCG, Quant < 2 mIU/mL Influenza Type A (PCR) NEGATIVE (Negative) Influenza Type B (PCR) NEGATIVE (Negative) RSV RNA Qual (PCR) NEGATIVE (Negative) SARS-CoV-2 RNA (RT-PCR) NEGATIVE (Negative) S. pyogenes GrpA DEMIAN Positive A (Negative) Independent Interpretation I performed an independent interpretation of an: CT Scan Interpretation: CT notable for right tonsillitis with 1.9 cm abscess, mild airway narrowing with shift of the airway to the left by 8 mm, lymphadenopathy within the neck. Radiology Impression Discussion of test interpretation with radiology: I have reviewed the radiologist's reading. Radiologist Impression: [address] [address] [address] Scan Report Signed with David Patient: Liz Montes MR#: [id number] : 1985 Acct:[id number] Age/Sex: 38 / F ADM Date: 07/21/24 Loc: HO.ED Attending Dr: Findings: The visualized intracranial contents are unremarkable. No prevertebral fluid. Epiglottis is within normal limits. Pharyngeal mucosal space and parapharyngeal fat are normal. Enlarged right palatine tonsil containing a 1.9 x 1.3 x 1.2 cm abscess. Mass effect on the airway which is mildly narrowed and displaced to the left by 8 mm. Multiple enlarged lymph nodes within the neck, right more pronounced than left. Lymph nodes measure up to 1.7 cm in short axis dimension. Salivary glands are within normal limits. No sialoliths. No suspicious thyroid nodules. No consolidation at the lung apices. No acute fracture or dislocation. IMPRESSION: 1. Right-sided tonsillitis associated with a 1.9 cm abscess. 2. Mild airway narrowing. Shift of the airway to the left by 8 mm. 3. There is lymphadenopathy within the neck, likely inflammatory. External Record Review External record reviewed: Inpatient record, Office record and Outpatient record Prescription Management I considered prescription management with: Antibiotic and Other Discharge Plan Discharge Clinical Impression: Abscess, peritonsillar Patient Disposition: Left Against Medical Advice Instructions: Peritonsillar Abscess (ED) Additional Instructions: As discussed, is recommended that you be transferred to an alternative facility where they have a specialist coverage. You have an infection in your throat with resultant abscess which is resulting in shifting/movement of your airway. This may potentially be life-threatening. You have verbalized understanding of this and are leaving against medical advice at this time. I have sent a prescription for Augmentin to your pharmacy take this twice daily for 10 days. Please return promptly with any new or worsening symptoms or concerns. Prescriptions: New amoxicillin-pot clavulanate 875-125 mg tablet 1 tab PO BID Qty: 20 0RF No Action (DME) blood pressure kit-extra large Kit See Rx Instructions .Route Qty: 1 0RF Rx Instructions: As directed (DME) blood pressure test kit-large [[facility] Blood Pressure Monitr] Kit See Rx Instructions .Route Qty: 1 0RF Rx Instructions: As directed amlodipine 10 mg tablet 10 mg PO DAILY 90 Days Qty: 90 1RF linaclotide 290 mcg capsule 290 mcg PO DAILY 90 Days Qty: 90 0RF pyridoxine (vitamin B6) 100 mg tablet 100 mg PO DAILY 90 Days Qty: 90 1RF potassium citrate 10 mEq (1,080 mg) tablet extended release 20 meq PO BID 90 Days Qty: 360 1RF albuterol sulfate 90 mcg/actuation HFA aerosol inhaler 2 puff inhalation Q4-6H PRN (Reason: shortness of breath or wheezing) Qty: 8.5 0RF omeprazole 20 mg capsule,delayed release(DR/EC) 20 mg PO DAILY hydroxyzine pamoate 25 mg capsule 25 mg PO BID PRN (Reason: Anxiety) citalopram 40 mg tablet 40 mg PO DAILY 90 Days Qty: 90 0RF montelukast 10 mg tablet 10 mg PO BEDTIME 90 Days Qty: 90 1RF clonazepam 0.5 mg tablet 0.5 mg PO DAILY Zepbound 2.5 mg/0.5 mL pen injector 2.5 mg subcut QWEEK 28 Days Qty: 2 0RF Rx Instructions: for 4 weeks naproxen 500 mg tablet 500 mg PO ONCE Qty: 1 0RF nitrofurantoin monohyd/m-cryst 100 mg capsule 100 mg PO ONCE Qty: 1 0RF lidocaine HCl 2 % jelly in applicator 10 ml intra-urethral ONCE Qty: 10 0RF Referrals: Rashmi Link MD [Primary Care Provider] - Stand Alone Forms: Against Medical Advice Print Language: Nigerian
[2024-07-21 11:43] LABS: MANUAL DIFF FLAG NO
[2024-07-21 11:45] LABS: Basophils Absolute Auto 0.1 X10*3/uL (0.0-0.2); Basophils Percent Auto 0.7 % (0-2); Eosinophils Absolute Auto 0.2 X10*3/uL (0.0-0.4); Eosinophils Percent Auto 1.5 % (0-4); Hematocrit 40.3 % (37.0-47.0); Hemoglobin 11.7 g/dl (12.0-16.0); Imm Gran Abs Auto 0.03 X10*3/uL (0.00-0.03); Imm Gran Pct Auto 0.3 % (0.0-0.4); Lymphocytes Absolute Auto 1.8 X10*3/uL (1.2-4.9); Lymphocytes Percent Auto 15.5 % (20-40); Mean Corpuscular Volume 72.2 fL (80.0-98.0); Mean Platelet Volume 9.3 fL (9.4-12.3); Monocytes Percent Auto 8.6 % (2-11); Neutrophils Absolute Auto 8.7 x10*3/uL (2.0-8.3); Neutrophils Percent Auto 73.4 % (45-73); Platelet Count 333 X10*3/uL (160-400); Red Blood Count 5.58 X10*6/uL (4.20-5.50); Red Cell Distribution Width 18.8 % (11.0-16.0); White Blood Count 11.8 X10*3/uL (4.8-10.8)
[2024-07-21 11:52] LABS: IDNOW Serial# 55D5AD1C; Strep A Nucleic Acid Positive (Negative)
[2024-07-21 12:09] LABS: Alanine Aminotransferase 9 U/L (0-31); Albumin Level 3.7 g/dL (3.5-5.0); Alkaline Phosphatase 70 U/L (39-117); Anion Gap 9 (12-20); Aspartate Amino Transferase 10 U/L (5-31); Bilirubin Total 0.4 mg/dL (0.0-1.0); Blood Urea Nitrogen 17 mg/dL (9-16); Calcium 9.2 mg/dL (8.4-10.2); Carbon Dioxide 27 mmol/L (22-29); Chloride 105 mmol/L (96-108); Creatinine Clr Calc Pharmacy 113.7; Estimated Glomerular Filt Rate > 60; Glucose Random 105 mg/dL (60-115); Magnesium 1.9 mg/dL (1.6-2.6); Potassium 3.9 mmol/L (3.3-5.1); Sodium 137 mmol/L (135-145); Total Protein 7.5 g/dL (6.5-8.0)
[2024-07-21 12:17] LABS: HCG Quantitative < 2 mIU/mL
[2024-07-21 12:30] LABS: Influenza A PCR NEGATIVE (Negative); Influenza B PCR NEGATIVE (Negative); Resp Syncy Virus RNA Qual PCR NEGATIVE (Negative); SARS COV2 PCR INHOUSE NEGATIVE (Negative)
[2024-07-21] MEDS: iohexoL 350 MG/ML 100 ML INFUS..BTL IV (17:24)
[2024-07-21] MEDS: dexAMETHasone sod phosphate 10 MG/ML VIAL IVPUSH (18:10)
[2024-07-21] MEDS: Ampicillin Sodium/Sulbactam Na 3 GM in 0.9 % Sodium Chloride 100 ML IV (18:11)
--- OUTSIDE RECORDS SUMMARY | 2024-07-21 18:12 | XMS_ITS | Clinical Summary ---
Author Organization [employer] [facility] Address [address] [place] [address] [address] [place] [address] Care Team Providers Care Cross Tie Maker Name Role Phone Unavailable Primary Care Provider Unavailabl e Allergies Active Allergy Reactions Criticality Noted Date Comments Beef (Bovine) Protein 05/03/2024 Medications Wegovy 1.7 MG/0.75ML solution auto-injector INJECT ONE PEN (=1.7MG) SUBCUTANEOUSLY ONCE A WEEK DIRECTED 4 Active topiramate (Topamax) 25 MG tablet 4 Active pyridoxine (Vitamin B-6) 100 MG tablet Take 1 tablet by mouth Once per day. 4 Active potassium citrate CR (Urocit-K-10) 10 mEq ER tablet Take 2 tablets by mouth 2 times daily. 4 Active Linzess 290 MCG capsule Take 1 capsule by mouth Once per day. 4 Active hydrOXYzine pamoate (Vistaril) 25 MG capsule 4 Active clonazePAM (KlonoPIN) 0.5 MG tablet 4 Active citalopram (CeleXA) 40 MG tablet 4 Active amLODIPine (Norvasc) 10 MG tablet Take 1 tablet by mouth Once per day. 4 Active acetaminophen (Tylenol) 500 MG tablet Take 1 tablet (500 mg) by mouth every 6 (six) hours if needed for mild pain for up to 20 doses. 20 tablet 5 Active Active Problems Problem Noted Date Diagnosed Date Dental abscess 05/21/2024 Open fracture of tooth 05/21/2024 Kidney stones 05/03/2024 Encounters Date Type Department Care Team Description 05/21/2024 10:00 AM EST Office Visit [facility] [address] [place] [address] Donald Curtis DDS Dental abscess (Primary Dx); Open fracture of tooth, sequela 05/03/2024 11:30 AM EST Office Visit [facility] [address] [place] [address] Artem Cage, DMD Kidney stones (Primary Dx) from Last 3 [...] TREATMENT PLANNING Routine 05/21/2024 10:00 AM EST CASE PRESENTATION, [...] Most Recently Relevant to Health Maintenance Insurance [place]
--- OUTSIDE RECORDS SUMMARY | 2024-07-21 18:12 | XMS_ITS | Clinical Summary ---
Author Organization [facility] Address [id number] [place] [id number] Care Team Providers Care Machine Records Units Supervisor Name Role Phone Rashmi Zapata MD Primary Care Provider [phone] Surgical History Surgery Date Site/Laterality Comments TUBAL [...] Date Smoking Tobacco: Former Smokeless Tobacco: Never Comments Unknown Sex and Gender Information Value Date Recorded Sex Assigned at Not on file Legal Sex Female 12:47 PM EST Gender Identity Not on file Sexual Orientation [...] patient's age to complete this topic Meningococcal B Vacine Aged Out No lo nger eligible based on patient's age to complete [...] age to complete this topic Care Teams Machine Records Units Supervisor Relationship Specialty Start Date End Date Rashmi Zapata MD [address] [place] [address] , [address] [facility] D/B/A: [facility] LOUIS Castillo PCP - General Internal Medicine 09/11/20
--- OUTSIDE RECORDS SUMMARY | 2024-07-21 18:12 | XMS_ITS | Encounter Summary ---
Author Organization [employer] [facility] Address [address] [place] [address] [address] [place] [address] Care Team Providers Care Warehouse Supervisor Name Role Phone Unavailable Primary Care Provider Unavailabl e Reason for Visit * Reason Onset Date Comments New patient 02/13/2023 Encounter Details Date Type Department Care Team (Late st Contact Info) Description 02/13/2023 Telephone [facility] [address] [place] [address] Suresh Brown MD [address] [place] [address] New patient Social History Tobacco Use Types [...] not take insurance to please switch to Expan C3, to call back at [phone] Once done. documented in this encounter Plan of Treatment Not on file documented as of this encounter Visit Diagnoses Not on filedocumented in this encounter
--- OUTSIDE RECORDS SUMMARY | 2024-07-21 18:12 | XMS_ITS | Encounter Summary ---
Author Organization [facility] Address [address] [place] [address] [address] [place] [address] Care Team Providers Care Java Performance Engineer Name Role Phone Unavailable Primary Care Provider Unavailabl e Encounter Details Date Type Department Care Team (Latest Contact Info) Description 07/11/2021 Abstract [facility] Dental, Provider, DDS Social History [...]
--- NOTE | 2024-07-21 18:45 | PC.NURSE ---
PT request to go to [facility] pt states she Can't go to [facility] [place] due to it being to far and not having child support officer. This nurse educated the pt on risks of leaving [facility], Pt verbalizes understanding of risks wishes to still leave [facility].
[2024-07-21 19:53] VITALS: BP 150/90; PULSE 90; RESP 20; TEMP 36.6; O2SAT 99
--- NOTE | 2024-07-21 21:00 | PC.NURSE ---
AMA form signed, this nurse, Daysi SANCHES, and provider Andreina Hayward APRN signed AMA form as witnesses.
[2024-07-21 21:03] VITALS: O2SAT 95
[2024-07-21 21:06] VITALS: BP 138/75; PULSE 80; RESP 16; TEMP -17.7; TEMP 0; O2SAT 95
== END 2024-07-21 21:10 | disposition left against medical advice (07) ==
PROVIDERS: Emergency Medicine; Physician Assistant Medical; Emergency Provider Emergency Medicine Emergency Medical Services; PCP Internal Medicine
DX: J36 Peritonsillar abscess (principal); H92.01 Otalgia, right ear; R51.9 Headache, unspecified; R22.1 Localized swelling, mass and lump, neck; Z03.818 Encounter for observation for suspected exposure to other biological agents ruled out; Z79.899 Other long term (current) drug therapy
CPT/HCPCS: 0241U; 36415; 70491; 80053; 83735; 84702; 85025; 87651; 96365; 96366; 96375; 99285; J0295; J1100; Q9967

== ENCOUNTER → 2024-07-21 17:06 | Outpatient (BNV) | payer OTHER, SELFPAY | PROVIDERS: Emergency Provider Emergency Medicine Emergency Medical Services; PCP Internal Medicine; Visit Provider Radiology Diagnostic Radiology | DX: J03.90 Acute tonsillitis, unspecified (principal); R59.0 Localized enlarged lymph nodes | CPT/HCPCS: 70491 ==

== ENCOUNTER 2024-07-23 13:00 | Outpatient (AMB) | payer OTHER, SELFPAY ==
[2024-07-23 13:05] VITALS: BP 124/66; PULSE 78; RESP 16; TEMP 36.2; O2SAT 99; BMI 45.0
--- NOTE | 2024-07-23 13:05 | MHC.PC.OV ---
Vital Signs 07/23/24 13:05 Height 5 ft 3 in Weight 254 lb 3.2 oz BMI 45.0 BP 124/66 Blood Pressure Location Lt brachial Position Sitting Respiration 16 Pulse 78 Pulse Source Pulse Oximeter Temp 97.1 F Temp Source Temporal Artery Scan Pulse Oximetry (%) 99 Oxygen Delivery Method Room Air Intake Visit Reasons: [facility] [place] 4/2 abscess, Peritonsillar Intake Note: Patient is here for hospital discharge follow up. Patient was discharged from [facility] in [facility] on 07/21/2024. Director Craft Center Required: No Merit System Director: Not Required per policy Accompanied by: Self / Same As Patient Allergies canned food Allergy (Severe, Verified 07/23/24 14:04) rash lactose Allergy (Verified 07/23/24 14:04) Nausea RED MEAT Allergy (Severe, Uncoded 07/23/24 14:04) Rash Medication List - Last Reconciled 07/23/24 by Esme Temple PA-C albuterol sulfate 90 mcg/actuation 2 puffs inhalation Q4-6H PRN amlodipine 10 mg PO DAILY 90 days amoxicillin-pot clavulanate 875-125 mg 1 tab PO BID blood pressure kit-extra large As directed blood pressure test kit-large ([facility] Blood Pressure Monitor kit) As directed citalopram 40 mg PO DAILY 90 days clonazepam 0.5 mg PO DAILY hydroxyzine pamoate 25 mg PO BID PRN linaclotide 290 mcg PO DAILY 90 days montelukast 10 mg PO BEDTIME 90 days omeprazole 20 mg PO DAILY potassium citrate ER 20 mEq (2 x 10 mEq (1,080 mg)) PO BID 90 days pyridoxine (vitamin B6) 100 mg PO DAILY 90 days Tobacco use date assessed: 07/23/24 Dental Screening Dental Screen Date: 07/23/24 Did you have a dental visit in the last 12 months?: Yes Did you have a dental problem in the last 6 months where you did not have access to dental care?: No Was dental information given to patient?: Patient has dentist [facility] Medical History Mild major depression Morbid obesity with BMI of 50.0-59.9, adult Morbid obesity Sepsis Umbilical hernia Umbilical hernia Morbid obesity with BMI of 45.0-49.9, adult Renal calculi Hospital discharge follow-up Hypertension Fibromyalgia Active asthma Surgical History History of kidney stones History of extraction of renal calculus History of tubal ligation Family History Father Anemia Sister Cervical cancer Maternal Aunt Breast cancer Diabetes Mother No problems noted. Social History Household Members: Spouse and Children Housing: House Do you presently have visiting nurse or other home services: No Unable to assess alcohol history related to: Unknown Alcohol intake: never Comment: medicated in pacu Patient Tobacco Use Status: Never used Tobacco e-Cigarette/Vaping Use: Never Used Second Hand Smoke Exposure: No service: No Current occupational status: employed Current occupational exposures/hazards: No Cognitive needs: No Hearing needs: No Vision needs: No Female Reproductive History Menstrual Age of Menarche: 12 Questionnaire Thrive Questionnaire Date Thrive assessed: 07/23/24 I am a: Patient What is your living situation today?: I have a steady place to live Within the past 12 months, did the food you bought not last and you didn't have the money to get more?: Never true Within the past 12 months, did you worry whether your food would run out before you got money to buy more?: Never true Do you have trouble paying for medicines?: No Do you have trouble getting transportation to medical appointments?: No Do you have trouble paying your heating and electricity bill?: No Do you have trouble taking care of your child, family member or friend?: No Do you have trouble with day-to-day activities such as bathing, preparing meals, shopping, managing finances, etc.?: No Are you currently unemployed and looking for a job?: No Are you interested in more education?: No Please select the resources that you would like help with: None Currently or been in a relationship where the following occur: No concerns reported THRIVE Score: 0 AUDIT C Alcohol Use Questionnaire (AUDIT-C) 1. How often do you have a drink containing alcohol?: Never Total Score: 0 Score Reviewed/Action Taken: No OMAR-7 AMB Questionnaire OMAR-7 Date OMAR - 7 assessed: 06/07/24 Source: Developed by Drs. Drake Jackson, Sally Funes, Adam Nicholson and colleagues, with an educational hilary from [employer]. Physical exam (Primary Care) Vital Signs: Last Vital Signs Temp 97.1 F 07/23/24 13:05 Pulse 78 07/23/24 13:05 Resp 16 07/23/24 13:05 BP 124/66 07/23/24 13:05 Pulse Ox 99 07/23/24 13:05 Oxygen Delivery Method Room Air 07/23/24 13:05 Vitals signs have been reviewed. BMI result Body Mass Index 45.0 Tobacco/Smoking Status: Tobacco use Status Tobacco use date assessed 07/23/24 07/23/24 13:14 Patient Tobacco Use Status Never used Tobacco 07/23/24 13:14 Tobacco use type 01/19/24 13:08 e-Cigarette/Vaping Use Never Used 07/23/24 13:14 Thrive Assessment: Date of Thrive Assessment Date Thrive assessed 07/23/24 07/23/24 13:14 Currently or been in a relationship where the following occur: No concerns reported Coding Level of Care Code Est Pt Level 4 (94337) Diagnoses Abscess, peritonsillar J36 Assessment & Plan Assessment & Plan (1) Abscess, peritonsillar: Code(s): J36 - Peritonsillar abscess Category: Medical Plan: Patient instructed to go immediately to the emergency department either [facility] or the closest to her home for further evaluation and management and incision and drainage. Patient understands. Plan Plan Patient was informed and verbally consented to the use of an ambient scribe for clinic note documentation during this visit. 1. Right Peritonsillar Abscess Patient was instructed to go immediately to the emergency department for incision and drainage of peritonsillar abscess. I discussed this case with Dr. Garcia at [facility] who reported he can attempt to drain the abscess. I also recommended the patient to go to [facility] due to hold off does not have ENT and [facility] will have to consult with [facility] for ENT. Although patient reports she would rather to go to [facility] due to it is closer to her home. Initially patient did not want to go to the emergency department she wanted a referral to ENT due to she reported she had to go to sikhism. I explained to her that this was an emergency and she would have to go to the emergency department due to she is at risk for or permanent disability. Patient understands that she has to go immediately to the emergency department for further evaluation and management. She will then be referred to ENT at that time after incision and drainage has been performed. Discussion Notes I discussed with the patient the presence and potential risks associated with the right peritonsillar abscess, highlighting the airway concerns and urgency of drainage due to the severity of symptoms. The options of immediate referral to the ED for drainage discussed. Patient Instructions: Patient Instructions Go immediately to the emergency department for further evaluation and management of your peritonsillar abscess. You can go to [facility] where they have ENT specialist or you can go to [facility] and they can consult with ENT specialist. Scribe Plan - Not visible on output: History of Present Illness The patient is a 38-year-old female presenting follow-up after she left against medical advice from the emergency department on 07/21/2024 after being diagnosed with a right peritonsillar abscess and the emergency department provider recommending transfer to another facility for incision and drainage. Patient refused transfer due to she did not have anyone to watch her kids therefore she was sent home with PO Augmentin which she picked up yesterday she reports and started taking. While she was in emergency department they gave her IV steroids, IV Zosyn along with IV fluids. She reports she needs a referral to ENT. Current symptoms have displayed some improvement, however, moderate hoarseness and persistent abscess swellings remain prevalent. Social History - The patient declined a transfer to [place] due to familial obligations indicating potential childcare responsibilities. Review of Systems - HEENT: Reports right ear pain, right-sided throat swelling, headaches. - Respiratory: Denies current asthma exacerbation. - Neurologic: Reports headaches radiating from the ear. Physical Exam Appearance: Alert. Oriented X3. No acute distress. Head: Normal external exam. Normocephalic. Atraumatic. Eyes: Pupils are equal, round, and reactive to light. Extraocular movements intact. Conjunctiva and sclera normal. Eyelids normal. Ears: External auditory canal normal. Tympanic membranes normal. No mastoid tenderness, erythema, swelling or signs of infection at this time. Throat: Moist mucous membranes. Right peritonsillar abscess noted. Uvula is mildly shifted to the left. Patient does have hoarseness of her voice. There is no trismus drooling or stridor. Patient is tolerating her secretions well. Neck: Normal inspection. Neck supple. Full range of motion. Lymphadenopathy within the neck. No thyroid abnormalities. No meningeal signs. No neck mass noted. Cardiovascular: Normal heart rate and rhythm. Heart sound normal. No murmurs noted. Pulses normal throughout. Respiratory: No respiratory distress. Painless inspiration. Breath sounds normal. No wheezes/rales/rhonchi noted. Chest nontender. No accessory muscle usage noted or decreased air movement noted. Back: Full range of motion noted. Skin: Skin warm and dry. Normal skin color. Normal skin turgor. No rashes/lesions/lacerations noted. Extremities: Extremities exhibit normal range of motion. Extremities nontender. Neuro: Oriented X 3. No motor deficit. No sensory deficit. Reflexes normal. Results - Labs: Leukocytosis, Positive strep screen, Negative viral panel - Imaging: CT Scan showing right tonsillitis with 1.9 cm abscess; airway narrowing and shift of 8 mm
--- OUTSIDE RECORDS SUMMARY | 2024-07-23 14:51 | XMS_ITS | Encounter Summary ---
Author Organization [facility] [facility] Address [address] [place] [address] [address] [place] [address] Care Team Providers Care Central Communications Specialist Name Role Phone Unavailable Primary Care Provider Unavailabl e Encounter Details Date Type Department Care Team (Latest Contact Info) Description 07/11/2021 Abstract [facility] CONVERSIONS Dental, Provider, DDS Social History [...]
--- OUTSIDE RECORDS SUMMARY | 2024-07-23 14:51 | XMS_ITS | Clinical Summary ---
Author Organization [employer] [facility] Address [address] [place] [address] [address] [place] [address] Care Team Providers Care Assembler Chassis Name Role Phone Unavailable Primary Care Provider [...] Description 05/21/2024 10:00 AM EST Office Visit [facility] [address] [place] [address] Donald Curtis DDS Dental abscess (Primary Dx); Open fracture of tooth, sequela 05/03/2024 11:30 AM EST Office Visit [facility] [address] [place] [address] Artem Cage, DMD Kidney stones (Primary Dx) [...]
--- OUTSIDE RECORDS SUMMARY | 2024-07-23 14:51 | XMS_ITS | Encounter Summary ---
Author Organization [employer] [facility] Address [address] [place] [address] 7 [place] [address] Care Team Providers Care Lead Javascript Engineer Name Role Phone Unavailable Primary Care Provider Unavailabl e Reason for Visit * Reason Onset Date Comments New patient 02/13/2023 Encounter Details Date Type Department Care Team (Late st Contact Info) Description 02/13/2023 Telephone [facility] MEDICINE [address] [place] [address] Suresh Brown MD [address] [place] [address] New patient Social History Tobacco Use Types [...] not take insurance to please switch to [employer] C[employer], to call back at [phone] Once done. documented in this encounter Plan of Treatment Not on file documented as of this encounter Visit Diagnoses Not on filedocumented in this encounter
--- OUTSIDE RECORDS SUMMARY | 2024-07-23 14:51 | XMS_ITS | Clinical Summary ---
Author Organization [facility] Address [address] [place] [id number] Care Team Providers Care Solar Lab Technician Name Role Phone Rashmi Zapata MD Primary Care Provider [phone] Surgical History Surgery Date Site/Laterality Comments TUBAL [...] age to complete this topic Care Teams Solar Lab Technician Relationship Specialty Start Date End Date Rashmi Zapata MD [address] [place] [address] , [address] [facility] D/B/A: [facility] LOUIS Castillo PCP - General Internal Medicine 09/11/20
== END 2024-07-23 14:03 | disposition home or self-care (01) ==
LOC: HO.HMCH 13:01
PROVIDERS: PCP Internal Medicine; Visit Provider Physician Assistant Medical
DX: J36 Peritonsillar abscess (principal)

== ENCOUNTER → 2024-07-23 13:00 | Outpatient (BNVA) | payer OTHER, SELFPAY | PROVIDERS: PCP Internal Medicine; Visit Provider Physician Assistant Medical ==

== ENCOUNTER 2024-07-23 13:48 | Emergency (ER) | payer OTHER, SELFPAY ==
--- NOTE | 2024-07-23 13:52 | ED.GENADULT ---
HPI - General Adult General Chief complaint: General Medical Stated complaint: Sore Throat Related Data Home Medications ?Medication ?Instructions ?Recorded ?Confirmed hydroxyzine pamoate 25 mg capsule 25 mg PO BID PRN Anxiety 01/09/23 07/23/24 omeprazole 20 mg capsule,delayed 20 mg PO DAILY 04/30/23 07/23/24 release clonazepam 0.5 mg tablet 0.5 mg PO DAILY 07/21/23 07/23/24 Previous Rx's ?Medication ?Instructions ?Recorded albuterol sulfate 90 mcg/actuation 2 puff inhalation Q4-6H PRN 02/05/21 aerosol inhaler shortness of breath or wheezing #8.5 grams citalopram 40 mg tablet 40 mg PO DAILY 90 days #90 tabs 11/11/22 montelukast 10 mg tablet 10 mg PO BEDTIME 90 days #90 tabs 11/11/22 blood pressure kit-extra large #1 ea 08/24/23 blood pressure test kit-large #1 ea 12/20/23 ([facility] Blood Pressure Monitor kit) amlodipine 10 mg tablet 10 mg PO DAILY 90 days #90 tabs 01/25/24 linaclotide 290 mcg capsule 290 mcg PO DAILY 90 days #90 caps 02/26/24 potassium citrate 10 mEq (1,080 20 meq (2 x 10 mEq (1,080 mg)) PO 05/17/24 mg) tablet,extended release BID 90 days #360 tabs pyridoxine (vitamin B6) 100 mg 100 mg PO DAILY 90 days #90 tabs 05/17/24 tablet amoxicillin 875 mg-potassium 1 tab PO BID #20 tabs 07/21/24 clavulanate 125 mg tablet Allergies Allergy/AdvReac Type Severity Reaction Status Date / Time canned food Allergy Severe rash Verified 07/23/24 14:04 lactose Allergy Nausea Verified 07/23/24 14:04 RED MEAT Allergy Severe Rash Uncoded 07/23/24 14:04 [facility] Past Medical History Medical History Mild major depression Morbid obesity with BMI of 50.0-59.9, adult Morbid obesity Sepsis Umbilical hernia Umbilical hernia Morbid obesity with BMI of 45.0-49.9, adult Renal calculi Hospital discharge follow-up Hypertension Fibromyalgia Active asthma Surgical History History of kidney stones History of extraction of renal calculus History of tubal ligation Family History Family History Father Anemia Sister Cervical cancer Maternal Aunt Breast cancer Diabetes Mother No problems noted. Social History Social History Household Members: Spouse and Children Housing: House Do you presently have visiting nurse or other home services: No Unable to assess alcohol history related to: Unknown Alcohol intake: never Comment: medicated in pacu Patient Tobacco Use Status: Never used Tobacco e-Cigarette/Vaping Use: Never Used Second Hand Smoke Exposure: No Advance Directives: No Advance Directives Information Provided: Yes service: No Current occupational status: employed Current occupational exposures/hazards: No Cognitive needs: No Hearing needs: No Vision needs: No Physical Exam ED Vital Signs: Vital Signs - 24 hr 07/23/24 13:53 Temperature 98.3 F Pulse Rate 90 Respiratory Rate 18 Blood Pressure 148/86 H Pulse Oximetry 100 Oxygen Delivery Method Room Air BMI result Body Mass Index 44.1 Course Course Course Narrative: RME performed by Mi Vasquez PA-C. Patient is a 38 year old assigned female at presenting to the emergency department with strep throat and a peritonsilar abscess. Patient states that she was told on 07/21 that she had an abscess and needed transfer to [place] however, she did not have anyone to watch her children so she signed out against medical advice. Patient states that her throat no longer hurts, she has been taking her antibiotic as prescribed. Patient states that she was seen at her clinic this morning and they told her to come back to the ER now. Patient's limited physical exam showed an individual in no respiratory or acute distress of any kind with a normal sounding voice. Detailed physical exam and review of systems are deferred to the technical account manager. Labs ordered. Patient placed back in the waiting room pending room availability and results. Patient left the department without completing treatment. Patient left the department before myself or any of the other emergency department clinicians could explain to or review with the patient; physical exam findings, test results, need or lack there of for additional testing, need or lack there of for a procedure to be performed, need or lack there of for hospital admission / transfer, need or lack there of for prescription medication, treatment options, or a treatment plan. Medical Decision Making Lab Data 07/23/24 14:21 07/23/24 14:21 Labs: Lab Results 07/23/24 Range/Units 14:21 WBC 11.0 H (4.8-10.8) X10*3/uL RBC 5.13 (4.20-5.50) X10*6/uL Hgb 10.9 L (12.0-16.0) g/dl Hct 37.1 (37.0-47.0) % MCV 72.3 L (80.0-98.0) fL MCH 21.2 L (27.0-33.0) pg MCHC 29.4 L (31.0-35.0) g/dl RDW 17.7 H (11.0-16.0) % Plt Count 418 H D (160-400) X10*3/uL MPV 9.8 (9.4-12.3) fL Immature Gran % (Auto) 0.6 H (0.0-0.4) % Neut % (Auto) 61.8 (45-73) % Lymph % (Auto) 27.8 (20-40) % Ballard % (Auto) 6.5 (2-11) % Eos % (Auto) 2.3 (0-4) % Baso % (Auto) 1.0 (0-2) % Lymph # (Auto) 3.1 (1.2-4.9) X10*3/uL Ballard # (Auto) 0.7 (0.1-1.2) X10*3/uL Eos # (Auto) 0.3 (0.0-0.4) X10*3/uL Baso # (Auto) 0.1 (0.0-0.2) X10*3/uL Abs Immat Gran (auto) 0.07 H (0.00-0.03) X10*3/uL Absolute Neuts (auto) 6.8 (2.0-8.3) x10*3/uL Absolute Nucleated RBC 0.000 (0.0-0.012) X10*3/uL Nucleated RBC % (auto) 0.0 (0.0-0.2) /100WBC Sodium 140 (135-145) mmol/L Potassium 3.7 (3.3-5.1) mmol/L Chloride 103 (96-108) mmol/L Carbon Dioxide 30 H (22-29) mmol/L Anion Gap 11 L (12-20) BUN 23 H (9-16) mg/dL Creatinine 0.95 (0.5-1.4) mg/dL Estim Creat Clear Calc 98.9 Estimated GFR > 60 Random Glucose 98 (60-115) mg/dL Calcium 8.9 (8.4-10.2) mg/dL Total Bilirubin 0.1 (0.0-1.0) mg/dL AST 16 (5-31) U/L ALT 8 (0-31) U/L Alkaline Phosphatase 65 (39-117) U/L Total Protein 7.1 (6.5-8.0) g/dL Albumin 3.7 (3.5-5.0) g/dL Discharge Plan Discharge Clinical Impression: Abscess, peritonsillar Patient Disposition: Left W/O Completing Treatment Prescriptions: No Action (DME) blood pressure kit-extra large Kit See Rx Instructions .Route Qty: 1 0RF Rx Instructions: As directed (DME) blood pressure test kit-large [[facility] Blood Pressure Monitr] Kit See Rx Instructions .Route Qty: 1 0RF Rx Instructions: As directed amlodipine 10 mg tablet 10 mg PO DAILY 90 Days Qty: 90 1RF linaclotide 290 mcg capsule 290 mcg PO DAILY 90 Days Qty: 90 0RF pyridoxine (vitamin B6) 100 mg tablet 100 mg PO DAILY 90 Days Qty: 90 1RF potassium citrate 10 mEq (1,080 mg) tablet extended release 20 meq PO BID 90 Days Qty: 360 1RF albuterol sulfate 90 mcg/actuation HFA aerosol inhaler 2 puff inhalation Q4-6H PRN (Reason: shortness of breath or wheezing) Qty: 8.5 0RF omeprazole 20 mg capsule,delayed release(DR/EC) 20 mg PO DAILY amoxicillin-pot clavulanate 875-125 mg tablet 1 tab PO BID Qty: 20 0RF hydroxyzine pamoate 25 mg capsule 25 mg PO BID PRN (Reason: Anxiety) citalopram 40 mg tablet 40 mg PO DAILY 90 Days Qty: 90 0RF montelukast 10 mg tablet 10 mg PO BEDTIME 90 Days Qty: 90 1RF clonazepam 0.5 mg tablet 0.5 mg PO DAILY naproxen 500 mg tablet 500 mg PO ONCE Qty: 1 0RF nitrofurantoin monohyd/m-cryst 100 mg capsule 100 mg PO ONCE Qty: 1 0RF lidocaine HCl 2 % jelly in applicator 10 ml intra-urethral ONCE Qty: 10 0RF Discharge Date/Time: 07/23/24 19:24
[2024-07-23 13:53] VITALS: BP 148/86; PULSE 90; RESP 18; TEMP 36.8; O2SAT 100; BMI 44.1
[2024-07-23 14:26] LABS: MANUAL DIFF FLAG NO
[2024-07-23 14:27] LABS: Basophils Absolute Auto 0.1 X10*3/uL (0.0-0.2); Eosinophils Absolute Auto 0.3 X10*3/uL (0.0-0.4); Eosinophils Percent Auto 2.3 % (0-4); Hematocrit 37.1 % (37.0-47.0); Hemoglobin 10.9 g/dl (12.0-16.0); Imm Gran Abs Auto 0.07 X10*3/uL (0.00-0.03); Imm Gran Pct Auto 0.6 % (0.0-0.4); Lymphocytes Absolute Auto 3.1 X10*3/uL (1.2-4.9); Lymphocytes Percent Auto 27.8 % (20-40); Mean Corpuscular HGB Conc 29.4 g/dl (31.0-35.0); Mean Corpuscular Hemoglobin 21.2 pg (27.0-33.0); Mean Corpuscular Volume 72.3 fL (80.0-98.0); Mean Platelet Volume 9.8 fL (9.4-12.3); Monocytes Absolute Auto 0.7 X10*3/uL (0.1-1.2); Monocytes Percent Auto 6.5 % (2-11); Neutrophils Absolute Auto 6.8 x10*3/uL (2.0-8.3); Neutrophils Percent Auto 61.8 % (45-73); Platelet Count 418 X10*3/uL (160-400); Red Blood Count 5.13 X10*6/uL (4.20-5.50); Red Cell Distribution Width 17.7 % (11.0-16.0)
[2024-07-23 14:53] LABS: Alanine Aminotransferase 8 U/L (0-31); Albumin Level 3.7 g/dL (3.5-5.0); Alkaline Phosphatase 65 U/L (39-117); Anion Gap 11 (12-20); Aspartate Amino Transferase 16 U/L (5-31); Bilirubin Total 0.1 mg/dL (0.0-1.0); Blood Urea Nitrogen 23 mg/dL (9-16); Calcium 8.9 mg/dL (8.4-10.2); Carbon Dioxide 30 mmol/L (22-29); Chloride 103 mmol/L (96-108); Creatinine Clr Calc Pharmacy 98.9; Estimated Glomerular Filt Rate > 60; Glucose Random 98 mg/dL (60-115); Potassium 3.7 mmol/L (3.3-5.1); Sodium 140 mmol/L (135-145); Total Protein 7.1 g/dL (6.5-8.0)
--- OUTSIDE RECORDS SUMMARY | 2024-07-23 16:00 | XMS_ITS | Encounter Summary ---
Author Organization [employer] [facility] Address [address] [place] [address] [address]t [place] [address] Care Team Providers Care Hard Rock Miner Blasting Name Role Phone Unavailable Primary Care Provider Unavailabl e Encounter Details Date Type Department Care Team (Latest Contact Info) Description 07/11/2021 Abstract [facility] CONVERSIONS Dental, Provider, DDS Social History [...]
--- OUTSIDE RECORDS SUMMARY | 2024-07-23 16:00 | XMS_ITS | Clinical Summary ---
Author Organization [facility] Address [id number] [place] [id number] Care Team Providers Care Acting Section Chief Name Role Phone Rashmi Zapata MD Primary Care Provider [phone] Surgical History Surgery Date Site/Laterality Comments TUBAL [...] age to complete this topic Care Teams Acting Section Chief Relationship Specialty Start Date End Date Rashmi Zapata MD [address] [place] [address] , [address] [facility] D/B/A: [facility] LOUIS Castillo PCP - General Internal Medicine 09/11/20
--- OUTSIDE RECORDS SUMMARY | 2024-07-23 16:00 | XMS_ITS | Clinical Summary ---
Author Organization [employer] [facility] Address [address] [place] [address] [address] [place] [address] Care Team Providers Care Wardrobe Assistant Name Role Phone Unavailable Primary Care Provider [...] Description 05/21/2024 10:00 AM EST Office Visit [facility] [address] [place] [address] Donald Curtis DDS Dental abscess (Primary Dx); Open fracture of tooth, sequela 05/03/2024 11:30 AM EST Office Visit [facility] [address] [place] [address] Artem Cage, DMD Kidney stones (Primary Dx) [...]
--- OUTSIDE RECORDS SUMMARY | 2024-07-23 16:00 | XMS_ITS | Encounter Summary ---
Author Organization [employer] [facility] Address [address] [place] [address] [address] [place] [address] Care Team Providers Care Consumer Insights Intern Name Role Phone Unavailable Primary Care Provider Unavailabl e Reason for Visit * Reason Onset Date Comments New patient 02/13/2023 Encounter Details Date Type Department Care Team (Late st Contact Info) Description 02/13/[address] [facility] MEDICINE [address] [place] [address] Suresh Brown MD [address] [place] [address] New patient Social History Tobacco Use Types [...] not take insurance to please switch to [employer] C3, to call back at [phone] Once done. documented in this encounter Plan of Treatment Not on file documented as of this encounter Visit Diagnoses Not on filedocumented in this encounter
== END 2024-07-23 19:24 | disposition left against medical advice (07) ==
PROVIDERS: Physician Assistant Medical; Emergency Provider Emergency Medicine; PCP Internal Medicine
DX: J36 Peritonsillar abscess (principal); Z79.899 Other long term (current) drug therapy
CPT/HCPCS: 36415; 80053; 85025; 99212; 99281; 99283

== ENCOUNTER 2024-09-01 16:43 | Outpatient (REF) | payer OTHER, SELFPAY ==
[2024-09-01 16:53] LABS: MANUAL DIFF FLAG NO
[2024-09-01 17:10] LABS: Basophils Absolute Auto 0.1 X10*3/uL (0.0-0.2); Eosinophils Absolute Auto 0.2 X10*3/uL (0.0-0.4); Eosinophils Percent Auto 2.7 % (0-4); Hematocrit 37.6 % (37.0-47.0); Hemoglobin 11.2 g/dl (12.0-16.0); Imm Gran Abs Auto 0.04 X10*3/uL (0.00-0.03); Imm Gran Pct Auto 0.4 % (0.0-0.4); Lymphocytes Absolute Auto 2.4 X10*3/uL (1.2-4.9); Lymphocytes Percent Auto 26.3 % (20-40); Mean Corpuscular HGB Conc 29.8 g/dl (31.0-35.0); Mean Corpuscular Hemoglobin 21.6 pg (27.0-33.0); Mean Corpuscular Volume 72.4 fL (80.0-98.0); Mean Platelet Volume 9.4 fL (9.4-12.3); Monocytes Absolute Auto 0.7 X10*3/uL (0.1-1.2); Monocytes Percent Auto 7.4 % (2-11); Neutrophils Absolute Auto 5.6 x10*3/uL (2.0-8.3); Neutrophils Percent Auto 62.2 % (45-73); Platelet Count 345 X10*3/uL (160-400); Red Blood Count 5.19 X10*6/uL (4.20-5.50); Red Cell Distribution Width 18.1 % (11.0-16.0)
[2024-09-01 17:18] LABS: Appearance Urine Clear; Color Urine Yellow; Glucose Urine UA Negative (Negative); Leukocyte Esterase Urine Trace (Negative); Nitrite Urine Negative (Negative); Specific Gravity - Urine <= 1.005 (1.005-1.025); UMIC TRIGGER UACC YES; Urine Blood Large (3+) (Negative); Urine Ketones Negative (Negative); Urine Protein Negative (Neg-Trace)
[2024-09-01 17:20] LABS: Bacteria Urine None Seen (None Seen); Hyaline Casts Urine 0-2 /LPF (0-2); RBC Urine >20 /HPF (0-2); Squamous Epithelial Cell Urine 0-2 /HPF (0-2); WBC Urine 0-5 /HPF (0-5)
[2024-09-01 17:50] LABS: Alanine Aminotransferase 11 U/L (0-31); Albumin Level 3.7 g/dL (3.5-5.0); Alkaline Phosphatase 66 U/L (39-117); Anion Gap 11 (12-20); Aspartate Amino Transferase 32 U/L (5-31); Bilirubin Total 0.2 mg/dL (0.0-1.0); Blood Urea Nitrogen 14 mg/dL (9-16); Carbon Dioxide 28 mmol/L (22-29); Chloride 106 mmol/L (96-108); Cholesterol 130 mg/dL (<200); Estimated Glomerular Filt Rate 45; Glucose Fasting 93 mg/dL (60-99); HDL Cholesterol 31 mg/dL (>40); Iron 18 mcg/dL (30-160); LDL Cholesterol Calculated 77 mg/dL (<100); Percent Iron Saturation 6 % (15-50); Potassium 4.1 mmol/L (3.3-5.1); Sodium 141 mmol/L (135-145); Total Iron Binding Capacity 295 mcg/dL (228-428); Total Protein 7.4 g/dL (6.5-8.0); Triglycerides 111 mg/dL (<150); Unsaturated Iron Binding 277 ug/dL
== END 2024-09-01 16:44 | disposition home or self-care (01) ==
LOC: HO.LAB 16:43
PROVIDERS: PCP Internal Medicine; Visit Provider Internal Medicine
DX: D64.9 Anemia, unspecified (principal); E78.5 Hyperlipidemia, unspecified; E66.01 Morbid (severe) obesity due to excess calories
CPT/HCPCS: 36415; 80053; 80061; 81001; 83540; 85025

== ENCOUNTER 2024-12-07 16:39 | Outpatient (AMB) | payer OTHER, SELFPAY ==
--- NOTE | 2024-12-07 16:42 | A.OFFPC_ITS ---
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 Required: No Accompanied by: Self / Same As Patient Allergies canned food Allergy (Severe, Verified 12/07/24 17:03) rash lactose Allergy (Verified 12/07/24 17:03) Nausea RED MEAT Allergy (Severe, Uncoded 12/07/24 17:03) Rash Medication List - Last Reconciled 12/07/24 by Rashmi Zapata MD albuterol sulfate 90 mcg/actuation 2 puffs inhalation Q4-6H PRN amlodipine 10 mg PO DAILY 90 days blood pressure kit-extra large As directed blood pressure test kit-large ([facility] Blood Pressure Monitor kit) As directed citalopram 40 mg PO DAILY 90 days clonazepam 0.5 mg PO DAILY ferrous sulfate 325 mg PO DAILY 90 days hydroxyzine pamoate 25 mg PO BID PRN linaclotide 290 mcg PO DAILY 90 days omeprazole 20 mg PO DAILY potassium citrate ER 20 mEq (2 x 10 mEq (1,080 mg)) PO BID 90 days pyridoxine (vitamin B6) 100 mg PO DAILY 90 days Tobacco use date assessed: 12/07/24 Dental Screening Dental Screen Date: 12/07/24 Did you have a dental visit in the last 12 months?: No Did you have a dental problem in the last 6 months where you did not have access to dental care?: No Was dental information given to patient?: No HPI HPI Comments History of Present Illness Details The patient is a 39-year-old female presenting for follow-up on her hypertension. She is currently taking amlodipine 10 mg for blood pressure management. Today, her blood pressure is elevated at 160/98 mmHg, and it will be rechecked in three weeks by the nurse navigator. The patient is also morbidly obese with a BMI of 47.4. She previously used GLP-1 agonists with significant success, losing 10 to 20 pounds and achieving better blood pressure stabilization. She has a history of nephrolithiasis and uses vitamin B6 as a preventative measure. The patient has been diagnosed with pseudotumor cerebri, for which weight loss would be beneficial. She experiences mild major depression with anxiety, which is managed by psychiatry. The patient has mild anemia and is prescribed ferrous sulfate, but she is non- compliant due to constipation issues. [facility] Medical History (Updated 12/07/24 @ 20:39 by Rashmi Zapata MD) Mild major depression Morbid obesity with BMI of 50.0-59.9, adult Morbid obesity Sepsis Umbilical hernia Umbilical hernia Morbid obesity with BMI of 45.0-49.9, adult Renal calculi Hospital discharge follow-up Hypertension Fibromyalgia Active asthma Surgical History History of kidney stones History of extraction of renal calculus History of tubal ligation Family History Father Anemia Sister Cervical cancer Maternal Aunt Breast cancer Diabetes Mother No problems noted. Social History Household Members: Spouse and Children Housing: House Do you presently have visiting nurse or other home services: No Unable to assess alcohol history related to: Unknown Alcohol intake: never Comment: medicated in pacu Patient Tobacco Use Status: Never used Tobacco e-Cigarette/Vaping Use: Never Used Second Hand Smoke Exposure: No service: No Current occupational status: employed Current occupational exposures/hazards: No Cognitive needs: No Hearing needs: No Vision needs: No Female Reproductive History Menstrual Age of Menarche: 12 Questionnaire PHQ-9 Over the last 2 weeks, how often have you been bothered by any of the following problems? 1. Little interest or pleasure in doing things: not at all 2. Feeling down, depressed, or hopeless: not at all 3. Trouble falling or staying asleep, or sleeping too much: not at all 4. Feeling tired or having little energy: not at all 5. Poor appetite or overeating: not at all 6. Feeling bad about yourself - or that you are a failure or have let yourself or your family down: not at all 7. Trouble concentrating on things, such as reading the newspaper or watching television: not at all 8. Moving or speaking so slowly that other people could have noticed. Or the opposite - being so fidgety or restless that you have been moving around a lot more than usual: not at all 9. Thoughts that you would be better off or of hurting yourself in some way: not at all Total score: 0 Depression Screening Interpretation: Negative Depression Screening Done: Yes 73982 - PHQ-9 Billing: Yes Source: Developed by Drs. Drake Jackson, Adam Bautista and colleagues, with an educational hilary from [employer]. Thrive Questionnaire Date Thrive assessed: 12/07/24 I am a: Patient What is your living situation today?: I have a steady place to live Within the past 12 months, did the food you bought not last and you didn't have the money to get more?: I choose not to answer this question Within the past 12 months, did you worry whether your food would run out before you got money to buy more?: Never true Do you have trouble paying for medicines?: No Do you have trouble getting transportation to medical appointments?: No Do you have trouble paying your heating and electricity bill?: Yes Do you have trouble taking care of your child, family member or friend?: No Do you have trouble with day-to-day activities such as bathing, preparing meals, shopping, managing finances, etc.?: No Are you currently unemployed and looking for a job?: No Are you interested in more education?: No Please select the resources that you would like help with: None Currently or been in a relationship where the following occur: No concerns reported THRIVE Score: 1 AUDIT C Alcohol Use Questionnaire (AUDIT-C) 1. How often do you have a drink containing alcohol?: Never Total Score: 0 Score Reviewed/Action Taken: No OMAR-7 AMB Questionnaire OMAR-7 Date OMAR - 7 assessed: 12/07/24 Feeling nervous, anxious, or on edge: 0 = Not at all Source: Developed by Drs. Drake Jackson, Adam Bautista and colleagues, with an educational hilary from [employer]. OMAR-7 Assessment Billing OMAR-7 Assessment Tool: OMAR-7 Assessment 73558 Review of Systems Const All systems reviewed & are unremarkable except as noted in HPI and below Card Denies chest pain at rest, Denies chest pain with activity, Denies edema, Denies irregular heart rhythm, Denies claudication, Denies dyspnea, Denies dyspnea on exertion, Denies orthopnea, Denies paroxysmal nocturnal dyspnea and Denies slow heart rate Resp Denies cough, Denies dyspnea and Denies dyspnea on exertion Skin/Breast Denies bleeding lesions, Denies changing lesions and Denies rash Physical exam (Primary Care) Vital Signs: Last Vital Signs Pulse 77 12/07/24 16:43 BP 160/98 H 12/07/24 16:43 Pulse Ox 98 12/07/24 16:43 Oxygen Delivery Method Room Air 12/07/24 16:43 BMI result Body Mass Index 47.4 Tobacco/Smoking Status: Tobacco use Status Tobacco use date assessed 12/07/24 12/07/24 16:49 Patient Tobacco Use Status Never used Tobacco 12/07/24 16:49 Tobacco use type 01/19/24 13:08 e-Cigarette/Vaping Use Never Used 12/07/24 16:49 PHQ-9: PHQ-9 Score PHQ-9: Total score 0 12/07/24 17:06 Depression Screening Interpretation: Negative Thrive Assessment: Date of Thrive Assessment Date Thrive assessed 12/07/24 12/07/24 16:49 Currently or been in a relationship where the following occur: No concerns reported Resp Effort & Inspection: normal respiratory effort Auscultation: clear to auscultation bilaterally Cardio Jugular venous distension: no JVD Rate: regular rate Rhythm: regular rhythm Heart sounds: S1 normal heart sound present and S2 normal heart sound present Extrem General: Yes full ROM Coding Level of Care Code Est Pt Level 4 (97958) Complex EM visit Add On G2211 Diagnoses Essential hypertension I10 Morbid obesity with BMI of 45.0-49.9, adult E66.01; Z68.42 Chronic idiopathic constipation K59.04 Nephrolithiasis N20.0 Idiopathic intracranial hypertension G93.2 Mild major depression F32.0 Additional Codes OMAR-7 Assessment Billing - OMAR-7 Assessment Tool: OMAR-7 Assessment 86896 ([id number]) PHQ-9 - 74605 - PHQ-9 Billing: Yes ([id number]) Time Spent (min) 24 Assessment & Plan Assessment & Plan (1) Essential hypertension: Code(s): I10 - Essential (primary) hypertension Category: Medical (2) Morbid obesity with BMI of 45.0-49.9, adult: Code(s): E66.01 - Morbid (severe) obesity due to excess calories; Z68.42 - Body mass index [BMI] 45.0-49.9, adult Category: Medical (3) Chronic idiopathic constipation: Code(s): K59.04 - Chronic idiopathic constipation Category: Medical (4) Nephrolithiasis: Code(s): N20.0 - Calculus of kidney Category: Medical (5) Idiopathic intracranial hypertension: Code(s): G93.2 - Benign intracranial hypertension Category: Medical (6) Mild major depression: Code(s): F32.0 - Major depressive disorder, single episode, mild Category: Medical Plan The patient's blood pressure is currently elevated, and it is planned to be rechecked in three weeks by the nurse navigator to monitor for any changes. Given her history of obesity, the patient previously achieved weight loss and improved blood pressure control with GLP-1 agonists, which may be considered again for weight management and hypertension control. For her nephrolithiasis, she continues to use vitamin B6 as a preventative measure. The patient is encouraged to manage her pseudotumor cerebri through weight loss, which could alleviate symptoms. Her mild major depression with anxiety is being followed by psychiatry, and ongoing management is recommended. For her anemia, adherence to ferrous sulfate is advised, and alternative strategies to manage constipation should be considered to improve compliance. Patient was informed and verbally consented to the use of an ambient scribe for clinic note documentation during this visit. Medications: New tirzepatide (weight loss) (Zepbound) for 4 weeks 2.5 mg (0.5 mL) subcut QWEEK 2 mL 0RF 4 weeks E66.01 - Morbid (severe) obesity due to excess calories, Z68.42 - Body mass index [BMI] 45.0- 49.9, adult Changed From omeprazole 20 mg PO DAILY To omeprazole 20 mg PO DAILY 90 caps 1RF 90 days Refilled potassium citrate ER 20 mEq (2 x 10 mEq (1,080 mg)) PO BID 360 tabs 1RF 90 days N20.0 - Calculus of kidney pyridoxine (vitamin B6) 100 mg PO DAILY 90 tabs 1RF 90 days N20.0 - Calculus of kidney ferrous sulfate 325 mg PO DAILY 90 tabs 1RF 90 days amlodipine 10 mg PO DAILY 90 tabs 1RF 90 days linaclotide 290 mcg PO DAILY 90 caps 0RF 90 days
[2024-12-07 16:43] VITALS: BP 160/98; PULSE 77; O2SAT 98; BMI 47.4
--- OUTSIDE RECORDS SUMMARY | 2024-12-07 17:48 | XMS_ITS | Clinical Summary ---
Author Organization [facility] Address [address] [place] [id number] Care Team Providers Care Ophthalmic Surgeon Name Role Phone Rashmi Zapata MD Primary Care Provider [phone] Surgical History Surgery Date Site/Laterality Comments TUBAL LIGATION PROCEDURE: HISTORICAL TUBAL LIGATION Medical History Medical History Date Comments Depression DX:Depression GERD (gastroesophageal reflux disease) DX:GERD (gastroesophageal reflux disease) Mild intermittent asthma, uncomplicated DX:Mild intermittent asthma, uncomplicated Renal stones DX:Renal stones Anxiety disorder DX:Anxiety diso rder Benign hypertension DX:Benign hy pertension Rheumatoid arthritis (CMS/HC C V24, CMS/HCC V28) DX:Rheumatoid arthritis (HCC ) Pseudotumor cerebri DX:Pseudotum or cerebri Conjunctival pigmentation [...] 11/26/2006 Cervical Cancer Screening: Pap Smear 11/26/2008 HIV Screening 11/11/2023 Hepatitis C Screening 11/11/2023 Social Influencers of Health Screening 11/11/2023 COVID-19 Vaccine ( season) 2023 05/26/2023, 04/19/2021, 08/17/2020, Additional history exists Depression Screening 04/21/2024 Influenza Vaccine (#1) 2024 9, 01/01/2017, 03/30/2015 DTaP,Tdap,and Td Vaccines (2 [...] age to complete this topic Meningococcal B Vaccine Aged Out No l onger eligible based on patient's age to complete this topic Pneumococcal Vaccine: Pediatrics (0 to 5 Years) and At-Risk Patients (6 to 49 Years) Aged Out No longer eligible based on patient's age to complete this topic RSV Immunization Patients Under 20 months Aged Out No longer eligible based on patient's age to complete this topic Varicella Vaccines Aged Out No longer eligible based on patient's age to complete this topic Care Teams Ophthalmic Surgeon Relationship Specialty Start Date End Date Rashmi Zapata MD [address] [place] [address] , [address] [facility] D/B/A: [facility] LOUIS Castillo PCP - General Internal Medicine 09/11/20
== END 2024-12-07 17:18 | disposition home or self-care (01) ==
LOC: HO.HMCH 16:40
PROVIDERS: PCP Internal Medicine; Visit Provider Internal Medicine
DX: I10 Essential (primary) hypertension (principal); E66.01 Morbid (severe) obesity due to excess calories; Z68.42 Body mass index [BMI] 45.0-49.9, adult; K59.04 Chronic idiopathic constipation; N20.0 Calculus of kidney; G93.2 Benign intracranial hypertension; F32.0 Major depressive disorder, single episode, mild

== ENCOUNTER → 2024-12-07 16:39 | Outpatient (BNVA) | payer OTHER, SELFPAY | PROVIDERS: PCP Internal Medicine; Visit Provider Internal Medicine | DX: I10 Essential (primary) hypertension (principal); E66.01 Morbid (severe) obesity due to excess calories; F32.A Depression, unspecified; F41.9 Anxiety disorder, unspecified; D64.9 Anemia, unspecified; K59.04 Chronic idiopathic constipation; G93.2 Benign intracranial hypertension; F32.0 Major depressive disorder, single episode, mild; N20.0 Calculus of kidney; Z68.42 Body mass index [BMI] 45.0-49.9, adult | CPT/HCPCS: 96127; 99212 ==

== ENCOUNTER 2025-02-21 11:32 | Outpatient (AMB) | payer OTHER, SELFPAY ==
--- NOTE | 2025-02-21 11:39 | A.OFFVIS_ITS ---
Vital Signs 02/21/25 11:44 Height 5 ft 3 in Weight 268 lb BMI 47.5 Intake Visit Reasons: Follow up Pseudotumor Cerbri Allergies canned food Allergy (Severe, Verified 12/07/24 17:03) rash lactose Allergy (Verified 12/07/24 17:03) Nausea RED MEAT Allergy (Severe, Uncoded 12/07/24 17:03) Rash HPI Comments Details: 39 years old morbidly obese women with chronic depression, calcium oxylate renal stones, and asthma who saw her regular eye doctor in December of 2022 and was found to have disc edema. She was sent to the emergency room at [facility] where initial head CT revealed relatively small ventricles, MRI of brain revealed empty sella turcica type findings, and MRV revealed mild narrowing of transverse sinus. 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 In May of 2023, she said her process pumper, Dr. Mccormick, again noted mild disc edema. LP was repeated in Jul, which revealed opening pressure of 33cm. [facility] Medical History (Updated 02/21/25 @ 11:42 by Ina Bright MD) Mild major depression Morbid obesity with BMI of 50.0-59.9, adult Morbid obesity Sepsis Umbilical hernia Umbilical hernia Morbid obesity with BMI of 45.0-49.9, adult Renal calculi Hospital discharge follow-up Hypertension Fibromyalgia Active asthma Surgical History History of kidney stones History of extraction of renal calculus History of tubal ligation Family History Father Anemia Sister Cervical cancer Maternal Aunt Breast cancer Diabetes Mother No problems noted. Social History Household Members: Spouse and Children Housing: House Do you presently have visiting nurse or other home services: No Alcohol intake: never Comment: medicated in pacu Patient Tobacco Use Status: Never used Tobacco e-Cigarette/Vaping Use: Never Used Second Hand Smoke Exposure: No service: No Current occupational status: employed Current occupational exposures/hazards: No Cognitive needs: No Hearing needs: No Vision needs: No Female Reproductive History Menstrual Age of Menarche: 12 Physical Exam Neuro Other: Mental Status: Alert and oriented to person, place, and time. Normal attention. Normal spontaneous speech, fluency, and comprehension. No obvious issues with mood and memory. Affect is appropriate. Cranial Nerves: CN II: Visual demarco full to confrontation, visual acuity intact. CN III, IV, : Pupils equal, round, reactive to light and accommodation. Extraocular movements are normal. CN V: Facial sensation is normal. CN VII: Facial movements symmetrical. CN VIII: Hearing intact to bedside conversation is normal. CN IX, X: Palate elevates symmetrically. CN XI: Shoulder shrug and head turn symmetrical. CN XII: Tongue midline without atrophy or fasciculations. Motor: Bulk and tone normal in all extremities. No significant muscle weakness in arms and legs. No drift. Reflexes: Deep tendon reflexes 2+ and symmetric. Plantar response down-going bilaterally. Coordination: Itpdgd-hp-ymli and mnaa-pg-atjt testing normal. No dysmetria. Gait and Station: No obvious gait abnormality. No ataxia or instability. Extrapyramidal: Full facial expressions and blinking. No rigidity. Movements are appropriate with no tremor or abnormality. Speech: Normal; no dysarthria or tremor. Assessment & Plan Assessment & Plan (1) Idiopathic intracranial hypertension: Comment: [place] [facility] [place] OP 33cm, WBCs 1, RBCs 1, Glu 62, Pro 27. CT brain [place] [facility] [place]: Small ventricles MRI brain [place] [facility] [place]: Empty Sella turcica MRV brain [place] [facility] [place]: mild narrowing of transverse sinus [place] [facility] [place]: OP 5cm, WBCs 1, RBCs 285, Glu 67, Pro 29.9. Code(s): G93.2 - Benign intracranial hypertension Category: Medical Plan 39 years old woman with idiopathic intracranial hypertension associated with obesity and mild narrowing or transverse sinuses. Other than mild papilledema, she was not having any symptoms. She was educated about this and was advised to continue treatment with Ozempic, which she has recently started. I believe, she needed to lose 20-30 lb to further decrease her risk. She was advised to continue to follow-up with her eye doctor. Coding Level of Care Code Est Pt Level 5 (70355) Diagnoses Idiopathic intracranial hypertension G93.2
[2025-02-21 11:44] VITALS: BMI 47.5
--- OUTSIDE RECORDS SUMMARY | 2025-02-21 14:42 | XMS_ITS | Clinical Summary ---
Author Organization [facility] Address [address] [place] [address] Care Team Providers Care Manager Rental Name Role Phone Rashmi Zapata MD Primary Care Provider [phone] Surgical History Surgery Date Site/Laterality Comments TUBAL [...] 11/26/2006 Cervical Cancer Screening: Pap Smear 11/26/2008 HPV Vaccines (1 - 3-dose SCDM series) 11/26/2014 HIV Screening 11/11/2023 Hepatitis C Screening 11/11/2023 Social Influencers of Health Screening 11/11/2023 Depression Screening 04/21/2024 COVID-19 Vaccine (2024- season) 2024 05/26/2023, 04/19/2021, 08/17/2020, Additional history exists Influenza Vaccine (#1) 2024 9, 01/01/2017, 03/30/2015 DTaP,Tdap,and Td Vaccines (2 - Td or Tdap) 07/01/2026 07/01/2016 RSV Immunization Adult Patients (1 - 1-dose 75+ series) 11/26/2062 HIB [...] age to complete this topic Care Teams Manager Rental Relationship Specialty Start Date End Date Rashmi Zapata MD [address] [place] [address] , [address] [facility] D/B/A: [facility] LOUIS Castillo PCP - General Internal Medicine 09/11/20
== END 2025-02-21 11:49 | disposition home or self-care (01) ==
LOC: HO.HSM 11:33
PROVIDERS: PCP Internal Medicine; Visit Provider Psychiatry & Neurology Neurology
DX: G93.2 Benign intracranial hypertension (principal)
CPT/HCPCS: 99214

== ENCOUNTER → 2025-02-21 11:32 | Outpatient (BNVA) | payer OTHER, SELFPAY | PROVIDERS: PCP Internal Medicine; Visit Provider Psychiatry & Neurology Neurology | DX: G93.2 Benign intracranial hypertension (principal) | CPT/HCPCS: 99212 ==

== ENCOUNTER 2025-02-22 11:21 | Outpatient (REF) | payer OTHER, SELFPAY ==
--- NOTE | ~2025-02-22 | US_ITS ---
EXAMINATION: US KIDNEY BILATERAL HISTORY: N20.0 - Calculus of kidney TECHNIQUE: Real-time grayscale ultrasound imaging of the kidneys was performed and images were reviewed. COMPARISON: Comparison is made with the prior examination dated 05/05/2024. FINDINGS: Right kidney: The right kidney measures 10.1 x 5.8 x 6.2 cm. Again seen is increased echotexture of the renal pyramids, consistent with medullary nephrocalcinosis. There are no masses. There is mild hydronephrosis. Left Kidney: The left kidney measures 11.5 x 7.0 x 5.4 cm. Again seen is increased echotexture of the renal pyramids, consistent with medullary nephrocalcinosis. There are no masses. There is no hydronephrosis or renal calculi. US/US renal BI IMPRESSION: Nodular nephrocalcinosis. Mild right hydronephrosis. Electronically signed by: Drake Villavicencio MD 02/22/2025 12:15 PM [facility]
--- OUTSIDE RECORDS SUMMARY | 2025-02-22 13:55 | XMS_ITS | Clinical Summary ---
Author Organization [facility] Address [address] [place] [phone] Care Team Providers Care Community Relations Specialist Name Role Phone Rashmi Zapata MD Primary Care Provider [phone] Surgical History Surgery Date Site/Laterality Comments TUBAL [...] age to complete this topic Care Teams Community Relations Specialist Relationship Specialty Start Date End Date Rashmi Zapata MD [address] [place] [address] , [address] [facility] D[facility]: [facility] LOUIS Castillo PCP - General Internal Medicine 09/11/20
--- OUTSIDE RECORDS SUMMARY | 2025-02-22 13:55 | XMS_ITS | Encounter Summary ---
Author Organization [employer] Address [address] [facility] [address] [place] [address] Care Team Providers Care Split And Drum Room Supervisor Name Role Phone Unavailable Primary Care Provider Unavailabl e Encounter Details Date Type Department Care Team (Latest Contact Info) Description 07/11/2021 Abstract [facility] CONVERSIONS Dental, Provider, DDS Social History [...]
--- OUTSIDE RECORDS SUMMARY | 2025-02-22 13:55 | XMS_ITS | Clinical Summary ---
Author Organization [employer] Address [address] [facility] [address] [place] [address] Care Team Providers Care Drying Room Operator Name Role Phone Unavailable Primary Care Provider Unavailabl e Allergies Active Allergy Reactions Criticality Noted Date Comments Bovine (Beef) Protein 05/03/2024 Medications Wegovy 1.7 MG/0.75ML solution [...] fracture of tooth 05/21/2024 Kidney stones 05/03/2024 Immunizations Immunization Administration Dates Next Due Influenza injectable quadriv [...] 1987 HIV Screening 1987 SDOH Screening 1987 Disability Screening 1987 Alcohol/Substance Use Screening 1999 Family Planning (PISQ) 11/26/2002 HPV Vaccines (1 - 3-dose series) 11/26/2002 Hepatitis C Screening 11/26/2005 Hepatitis B Vaccines (1 of 3 - 19+ 3-dose series) 11/26/2006 Pap Smear 11/26/2008 Cervical Cancer Screening 11/26/2017 HPV/Cotest 11/26/2017 Dental Oral Exam 01/05/2022 07/04/2021, , 10/29/2016, Additional history exists Dental Prophylaxis 01/12/2022 07/11/2021, 0 12/05/2017, 04/29/2016, Additional history exists Dental X-Ray: Full Mouth 07/05/2024 07/04/2021, 06/20 COVID-19 Vaccine ( season) 2024 05/26/2023, 04/19/2021, 08/17/2020, Additional history exists Influenza Vaccine (#1) 2024 5, 04/19/2019, 01/01/2017, Additional history exists Dental X-Ray: Bitewings 05/04/2025 05/03/19 25, 07/04/2021, 12/05/2017, Additional history exists Tobacco Screening [...] Years) and At-Risk Patients (6 to 49) Years Aged Out No longer eligible based on patient's age to complete this topic RSV under 20 months Aged Out No longe r eligible based on patient's age to complete this topic Rotavirus Vaccines Aged Out No longer eligible based on patient's age to complete this topic Procedures Procedure Name Priority Date/Time Associated Diagnosis Comments BITEWING - SINGLE RADIOGRAPHIC IMAGE Routine 05/03/2024 11:30 AM EST PROPHYLAXIS - ADULT Routine 07/11/2021 1 2:00 AM EDT INTRAORAL - COMPLETE SERIES OF RADIOGRAPHIC IMAGES Routine 07/04/2021 12:00 AM EDT PERIODIC ORAL EVALUATION - ESTABLISHED PATIENT Routine 07/04/2021 12:00 AM EDT from Last 3 Months or Most Recently Relevant to Health Maintenance Insurance [facility] ST[facility] ADULT
--- OUTSIDE RECORDS SUMMARY | 2025-02-22 13:55 | XMS_ITS | Encounter Summary ---
Author Organization [employer] Address [address] [facility] [address] [place] [address] Care Team Providers Care Emission Specialist Name Role Phone Unavailable Primary Care Provider Unavailabl e Reason for Visit * Reason Onset Date Comments New patient 02/13/2023 Encounter Details Date Type Department Care Team (Late st Contact Info) Description 02/13/2023 Telephone [facility] MEDICINE [address] [place] [address] Suresh Brown MD [address] [place] [address] New patient Social History Tobacco Use Types [...] not take insurance to please switch to Receept C3, to call back at [phone] Once done. documented in this encounter Plan of Treatment Not on file documented as of this encounter Visit Diagnoses Not on filedocumented in this encounter
== END 2025-02-22 11:22 | disposition home or self-care (01) ==
LOC: HO.US 11:21
PROVIDERS: PCP Internal Medicine; Visit Provider Nurse Practitioner Family
DX: N20.0 Calculus of kidney (principal); Q61.5 Medullary cystic kidney
CPT/HCPCS: 76775

== ENCOUNTER → 2025-02-22 11:24 | Outpatient (BNV) | payer OTHER, SELFPAY | PROVIDERS: PCP Internal Medicine; Visit Provider Radiology Diagnostic Radiology | DX: N20.0 Calculus of kidney (principal) | CPT/HCPCS: 76775 ==

== ENCOUNTER 2025-03-07 14:48 | Outpatient (AMB) | payer OTHER, SELFPAY ==
--- NOTE | 2025-03-07 14:53 | A.OFFVIS_ITS ---
Intake Visit Reasons: US F/u Intake Note: Patient is Present for Follow Up Ultrasound Results Urology Medication:Vitamin B6 Antibiotic Allergies: None Blood Thinners:None PVR: 15ml Power Project Manager Required: Yes Power Project Manager Language: Assistant Professor Of Music Services: Power Project Manager Present Power Project Manager Name: Ángel Chapman Accompanied by: Self / Same As Patient Allergies canned food Allergy (Severe, Verified 03/07/25 15:43) rash lactose Allergy (Verified 03/07/25 15:43) Nausea RED MEAT Allergy (Severe, Uncoded 03/07/25 15:43) Rash Medication List - Last Reconciled 03/07/25 by JASEN Vargas-JOSEY albuterol sulfate 90 mcg/actuation 2 puffs inhalation Q4-6H PRN amlodipine 10 mg PO DAILY 90 days blood pressure kit-extra large As directed blood pressure test kit-large ([facility] Blood Pressure Monitor kit) As directed citalopram 40 mg PO DAILY 90 days clonazepam 0.5 mg PO DAILY ferrous sulfate 325 mg PO DAILY 90 days hydroxyzine pamoate 25 mg PO BID PRN linaclotide 290 mcg PO DAILY 90 days omeprazole 20 mg PO DAILY 90 days potassium citrate ER 20 mEq (2 x 10 mEq (1,080 mg)) PO BID 90 days pyridoxine (vitamin B6) 100 mg PO DAILY 90 days tirzepatide (weight loss) (Zepbound) 5 mg (0.5 mL) subcut QWEEK 4 weeks HPI Comments Details: Liz is a very pleasant 39-year-old Bulgarian-speaking female patient of Dr. Shepard who was accompanied by her daughter. She has a past medical history of obesity, umbilical hernia, nephrolithiasis, hypertension, fibromyalgia, and asthma. She presents to the office today for follow-up of her nephrolithiasis and bilateral medullary sponge kidney. Recent renal imaging results reviewed with the patient today. 03/15 bilateral kidneys marked with increased echotexture of the renal pyramids, consistent with medullary nephrocalcinosis. There is mild right hydronephrosis. No nephrolithiasis or renal masses noted bilaterally. In discussion with the patient today she reports to be doing and feeling well. She denies having had any bothersome urinary issues or concerns since her last office visit here. She reports she has attempted to be compliant with vitamin B6 and potassium however is forgetful. Unable to obtain urine for urinalysis today as patient unable to void however PVR 15 mL. When asked she denies urinary urgency, urinary frequency, incontinence, nocturia, hematuria, dysuria, foul smelling urine, changes to urinary stream, flank pain, fever, and or chills. She is happy with her current voiding parameters. PREVIOUS OFFICE NOTE: Encourage fluid intake with lemon juice Continue vitamin B6 and potassium citrate Six-month follow-up imaging Nephrolithiasis Medullary sponge kidney recurrent stone former Stone analysis - 11/06 calcium oxalate combination and carbonate appatite Prior imaging 04/09 CT scan right hydronephrosis with 2 mm obstructing stone, numerous small stones. Left numerous small stones largest 1 cm 06/10 numerous small stones bilateral 05/12 CT scan Medullary sponge kidney bilaterally, no stones in renal collecting system 06/12 CT scan Medullary sponge kidney distal right 3 mm stone 09/09 renal ultrasound no discrete stone - 02/09 renal ultrasound stable Medullary sponge kidney Procedures - 04/09 ESWL left - 07/09 right ureteroscopy mid ureteric stone - 11/08 right renal pelvis ureteroscopy with submucosal stones - 07/12 right renal ureteroscopy [facility] Medical History Mild major depression Morbid obesity with BMI of 50.0-59.9, adult Morbid obesity Sepsis Umbilical hernia Umbilical hernia Morbid obesity with BMI of 45.0-49.9, adult Renal calculi Hospital discharge follow-up Hypertension Fibromyalgia Active asthma Surgical History History of kidney stones History of extraction of renal calculus History of tubal ligation Family History Father Anemia Sister Cervical cancer Maternal Aunt Breast cancer Diabetes Mother No problems noted. Social History Household Members: Spouse and Children Housing: House Do you presently have visiting nurse or other home services: No Alcohol intake: never Comment: medicated in pacu Patient Tobacco Use Status: Never used Tobacco e-Cigarette/Vaping Use: Never Used Second Hand Smoke Exposure: No service: No Current occupational status: employed Current occupational exposures/hazards: No Cognitive needs: No Hearing needs: No Vision needs: No Female Reproductive History Menstrual Age of Menarche: 12 Review of Systems Const All systems reviewed & are unremarkable except as noted in HPI and below Physical Exam Const General: cooperative, healthy appearing, comfortable, no acute distress, well developed, alert and awake Nutritional Appearance: overweight Orientation/consciousness: patient oriented x3 Limitations: language barrier HEENT Head: Yes normal to inspection, Yes normocephalic and Yes atraumatic Ears: hearing grossly normal bilaterally Eyes General: appearance normal, both eyes and all related structures Neck Neck: Yes normal visual inspection and Yes trachea midline Chest Chest palpation & inspection: normal inspection of the chest Resp Effort & Inspection: normal respiratory effort and able to speak in complete sentences Cardio Rate: regular rate GI Inspection: Yes normal to inspection General: Yes no CVA tenderness Back/Spine/Pelvis Back: no CVA tenderness Skin General skin exam: no rashes or lesions noted Neuro General: patient oriented x3 Extrem General: Yes normal to inspection Psych Appearance: grossly normal and well kempt Mental Status: mental status grossly normal Speech and movement: Normal speech and movement present and Clear speech present Affect: normal affect Attitude: cooperative Thought process: Normal thought process present Thought content: Normal thought content present Insight: Fair insight present (Psych) Judgement: Fair judgement present (Psych) Office Procedures Post Void Residual Post Residual Void Post Void Residual (PVR): 15 50670-[id number] Void Residual by ultrasound Results Reviewed Results Reviewed: Date of Service: 02/22/25 Procedure(s): US renal BI FINDINGS: Right kidney: The right kidney measures 10.1 x 5.8 x 6.2 cm. Again seen is increased echotexture of the renal pyramids, consistent with medullary nephrocalcinosis. There are no masses. There is mild hydronephrosis. Left Kidney: The left kidney measures 11.5 x 7.0 x 5.4 cm. Again seen is increased echotexture of the renal pyramids, consistent with medullary nephrocalcinosis. There are no masses. There is no hydronephrosis or renal calculi. IMPRESSION: Nodular nephrocalcinosis. Mild right hydronephrosis. Assessment & Plan Assessment & Plan (1) Nephrolithiasis: Code(s): N20.0 - Calculus of kidney Category: Medical (2) Medullary sponge kidney of both kidneys: Comment: Vitamin B6 allopurinol Code(s): Q61.5 - Medullary cystic kidney Category: Medical (3) Calcium oxalate stones: Code(s): N20.0 - Calculus of kidney Category: Medical Plan Unable to obtain urine for urinalysis today as patient unable to void however PVR 15 mL Most recent renal imaging results reviewed with the patient today; as noted above. She currently denies any bothersome urinary issues or concerns. She reports be happy with current voiding parameters. We did discussed the importance of compliance and medications as well as hydration in relation to nephrolithiasis as well as overall health and well- being. All questions were answered. Continue adding 1 oz of lemon juice to water daily. Will continue with surveillance monitoring. Will obtain renal ultrasound in 6 months. Will obtain BUN and creatinine. Follow-up in 6 months with imaging and labs; or sooner with any issues, concerns, and or questions. Orders: Orders AMB Post Void Residual by ultrasound Today R35.0 - Frequency of micturition Blood Urea Nitrogen Today R39.15 - Urgency of urination Creatinine Today R39.15 - Urgency of urination US renal BI 6 Months N20.0 - Calculus of kidney Patient Instructions: The patient had an opportunity to ask questions regarding the treatment plan. All questions were answered. Physical exam, labs, and imaging were discussed and reviewed in detail. As well as risks, benefits, and discussion of treatment choices. No major barriers to understanding were identified. The patient expressed understanding and agreement with the above treatment plan. The patient was made aware they should contact our office by phone for worsening of their current condition, the appearance of new symptoms, or with any questions or concerns. Compliance is encouraged with any medications and follow up testing that is ordered. It is a privilege to be allowed the opportunity to participate in? your urological care.? Again, if you have any questions or concerns If you have any questions or concerns please do not hesitate to contact me. The office is [phone]. This note is constructed using voice recognition software. While every effort has been made to ensure accuracy dehydrogenation operator errors may have been included. Yours sincerely, JASEN Vargas-JOSEY Coding Level of Care Code Est Pt Level 3 (41011) Diagnoses Nephrolithiasis N20.0 Medullary sponge kidney of both kidneys Q61.5 Calcium oxalate stones N20.0 CPT Codes Post Residual Void - PVR CPT Code: 88167-Vnli Void Residual by ultrasound ([id number])
--- OUTSIDE RECORDS SUMMARY | 2025-03-08 05:04 | XMS_ITS | Clinical Summary ---
Author Organization [facility] Address [id number] [place] [id number] Care Team Providers Care Pottery Decorator Name Role Phone Rashmi Zapata MD Primary Care Provider [phone] Surgical History Surgery Date Site/Laterality Comments TUBAL [...] age to complete this topic Care Teams Pottery Decorator Relationship Specialty Start Date End Date Rashmi Zapata MD [address] [place] [address] , [address] [facility] D/B/A: [facility] LOUIS Castillo PCP - General Internal Medicine 09/11/20
== END 2025-03-07 15:41 | disposition home or self-care (01) ==
LOC: HO.HUSH 14:49
PROVIDERS: PCP Internal Medicine; Visit Provider Nurse Practitioner Family
DX: N20.0 Calculus of kidney (principal); Q61.5 Medullary cystic kidney
CPT/HCPCS: 99213

== ENCOUNTER → 2025-03-07 14:48 | Outpatient (BNVA) | payer OTHER, SELFPAY | PROVIDERS: PCP Internal Medicine; Visit Provider Nurse Practitioner Family | DX: N20.0 Calculus of kidney (principal); Q61.5 Medullary cystic kidney | CPT/HCPCS: 51798; 99212 ==